=== PATIENT | male | born 1945 | race Caucasian/White ===

== ENCOUNTER 2018-03-21 14:53 | Inpatient (IN) | payer MEDICARE, OTHER ==
[~2018-03-21] VITALS: Ht 175.3 cm; Wt 120.3 kg
[2018-03-21] VITALS (13 sets, daily range): BP systolic 89–145; BP diastolic 54–89
--- NOTE | 2018-03-21 15:14 | ED General ---
General Chief Complaint: Respiratory Problems Stated Complaint: SOA Source of Information: Patient, EMS, Old Records Exam Limitations: No Limitations (ANDRES VILLALBA STUDENT) History of Present Illness Date Seen by Provider: Mar 21, 2018 Time Seen by Provider: 14:50 Initial Comments Patient presented via EMS from clinic with hypoxia with original O2 sat in 60s. EMS noted improvement of sats into the 90s on 6L NC. He was given a duoneb treatment in the ambulance with improvement. His stated that he has been more tired and weak for the past 1-2 weeks. He has also been incontinent of bowel and bladder for about 1 week. He was discharged from the correction following hospitalization in December. Severity: Moderate Modifying Factors: improves with Medication Associated Systoms: No Chest Pain, No Cough, No Fever/Chills, No Headaches; Malaise; No Nausea/Vomiting; Shortness of Air; No Syncope; Weakness (ANDRES MORSE STUDENT) Initial Comments Here with hypoxia from the clinic. Did respond to albuterol and DuoNeb treatment as well as O2 via nasal cannula. reports increasing weakness over the last week. Also with incontinence of urine. Typically has diarrhea and that is long-standing. Usually he is able to ambulate to the bathroom with walker assistance. Timing/Duration: 1 Week Associated Systoms: Cough, Shortness of Air, Weakness (MAEVE DUMONT MD) Allergies and Home Medications Allergies Coded Allergies: Penicillins (Verified Allergy, Unknown, 03/21/18) tetanus and diphtheria toxoids (Verified Allergy, Unknown, 03/21/18) Patient Home Medication List Home Medication List Reviewed: Yes (MAEVE DUMONT MD) Review of Systems Review of Systems Constitutional: No chills, No dizziness, No fever; malaise, weakness EENTM: no symptoms reported Respiratory: No cough; short of breath, wheezing Cardiovascular: no symptoms reported Gastrointestinal: other (incontinence) Genitourinary: No decreased output, No dysuria, No frequency; incontinence; No pain Musculoskeletal: no symptoms reported Skin: no symptoms reported Psychiatric/Neurological: Denies Headache, Denies Numbness; Weakness (ANDRES MORSE STUDENT) Respiratory: short of breath, wheezing Cardiovascular: No chest pain, No edema Gastrointestinal: No abdominal pain; diarrhea, other (incontinence) (MAEVE DUMONT MD) All Other Systems Reviewed Negative Unless Noted: Yes (MAEVE DUMONT MD) Past Soqwdsn-Gyafzo-Gzjjre Hx Past Med/Social Hx: Reviewed Nursing Past Med/Soc Hx (MAEVE DUMONT MD) Patient Social History Alcohol Use: Denies Use Recreational Drug Use: No Smoking Status: Former Smoker (MAEVE DUMONT MD) Past Medical History Surgeries: Yes Respiratory: Yes Sleep Apnea Cardiac: Yes High Cholesterol, Hypertension Neurological: Yes Stroke Genitourinary: Yes Renal Failure Gastrointestinal: Yes Diverticulosis Musculoskeletal: No Endocrine: Yes Diabetes, Non-Insulin dep Cancer: Yes Skin (MAEVE DUMONT MD) Family Medical History Reviewed Nursing Family Hx (MAEVE DUMONT MD) No Pertinent Family Hx (MAEVE DUMONT MD) Physical Exam-Suspected Sepsis Physical Exam Vital Signs Vital Signs - First Documented 03/21/18 03/21/18 14:53 14:55 Temp 99.4 Pulse 88 Resp 26 B/P (MAP) 113/83 (93) Pulse Ox 92 O2 Delivery Nasal Cannula O2 Flow Rate 6.00 (MAEVE DUMONT MD) Vital Signs Capillary Refill : (ANDRES VILLALBA STUDENT) Height, Weight, BMI Height: '" Weight: lbs. oz. kg; BMI Method: General Appearance: WD/WN, Mild Distress HEENT: PERRL/EOMI, TMs Normal, Pharynx Normal Neck: Normal Inspection, Non Tender, Supple Respiratory: Chest Non Tender, No Accessory Muscle Use, Crackles (bases), Wheezing (bilateral upper lobes) Cardiovascular: Regular Rate, Rhythm, No Edema, No Murmur, Normal Peripheral Pulses Gastrointestinal: Normal Bowel Sounds, Non Tender, Soft Extremity: Normal Capillary Refill, Non Tender, No Calf Tenderness, No Pedal Edema Neurologic/Psychiatric: Alert, No Motor/Sensory Deficits, Depressed Affect Skin: normal color, damp; No rash Lymphatic: No Adenopathy (ANDRES VILLALBA STUDENT) General Appearance: WD/WN, Mild Distress HEENT: PERRL/EOMI, TMs Normal, Pharynx Normal Neck: Normal Inspection, Non Tender Respiratory: Crackles (bases), Wheezing (bilateral upper lobes) Cardiovascular: Regular Rate, Rhythm, No Edema, No Murmur Gastrointestinal: Non Tender, Soft Back: Normal Inspection, No CVA Tenderness, No Vertebral Tenderness Extremity: Normal Capillary Refill, Non Tender Neurologic/Psychiatric: Alert, Motor Weakness (global) Skin: normal color; No rash (MAEVE DUMONT MD) Focused Exam Lactate Level 03/21/18 15:46: Lactic Acid Level 1.33 (MAEVE DUMONT MD) Lactic Acid Level Laboratory Tests Test 03/21/18 15:46 Lactic Acid Level 1.33 MMOL/L (0.50-2.00) (MAEVE DUMONT MD) Progress/Results/Core Measures Suspected Sepsis SIRS Temperature: Pulse: Respiratory Rate: Laboratory Tests 03/21/18 14:50: White Blood Count 10.5 Blood Pressure / Mean: 03/21/18 15:46: Lactic Acid Level 1.33 Laboratory Tests 03/21/18 14:50: Platelet Count 171 03/21/18 15:46: Creatinine 1.18, Total Bilirubin 0.6 (ANDRES VILLALBA) Results/Orders Lab Results Laboratory Tests Test 03/21/18 14:50 03/21/18 15:46 03/21/18 16:28 Range/Units White Blood Count 10.5 4.3-11.0 10^3/uL Red Blood Count 3.58 L 4.35-5.85 10^6/uL Hemoglobin 8.0 L 13.3-17.7 G/DL Hematocrit 30 L 40-54 % Mean Corpuscular Volume 84 80-99 FL Mean Corpuscular Hemoglobin 22 L 25-34 PG Mean Corpuscular Hemoglobin Concent 27 L 32-36 G/DL Red Cell Distribution Width 19.2 H 10.0-14.5 % Platelet Count 171 130-400 10^3/uL Mean Platelet Volume 7.4-10.4 FL Neutrophils (%) (Auto) 69 42-75 % Lymphocytes (%) (Auto) 17 12-44 % Monocytes (%) (Auto) 12 0-12 % Eosinophils (%) (Auto) 1 0-10 % Basophils (%) (Auto) 0 0-10 % Neutrophils # (Auto) 7.3 1.8-7.8 X 10^3 Lymphocytes # (Auto) 1.7 1.0-4.0 X 10^3 Monocytes # (Auto) 1.3 H 0.0-1.0 X 10^3 Eosinophils # (Auto) 0.2 0.0-0.3 10^3/uL Basophils # (Auto) 0.0 0.0-0.1 10^3/uL Prothrombin Time 20.4 H 12.2-14.7 SEC INR Comment 1.7 H 0.8-1.4 Activated Partial Thromboplast Time 35 24-35 SEC Sodium Level 143 135-145 MMOL/L Potassium Level 4.3 3.6-5.0 MMOL/L Chloride Level 109 H 98-107 MMOL/L Carbon Dioxide Level 25 21-32 MMOL/L Anion Gap 9 5-14 MMOL/L Blood Urea Nitrogen 22 H 7-18 MG/DL Creatinine 1.18 0.60-1.30 MG/DL Estimat Glomerular Filtration Rate > 60 BUN/Creatinine Ratio 19 Glucose Level 107 H 70-105 MG/DL Lactic Acid Level 1.33 0.50-2.00 MMOL/L Calcium Level 7.8 L 8.5-10.1 MG/DL Corrected Calcium 8.6 8.5-10.1 MG/DL Total Bilirubin 0.6 0.1-1.0 MG/DL Aspartate Amino Transf (AST/SGOT) 19 5-34 U/L Alanine Aminotransferase (ALT/SGPT) 10 0-55 U/L Alkaline Phosphatase 76 40-136 U/L Total Protein 5.5 L 6.4-8.2 GM/DL Albumin 3.0 L 3.2-4.5 GM/DL Urine Color YELLOW Urine Clarity CLEAR Urine pH 5 5-9 Urine Specific [place] 1.015 L 1.016-1.022 Urine Protein 2+ H NEGATIVE Urine Glucose (UA) NEGATIVE NEGATIVE Urine Ketones NEGATIVE NEGATIVE Urine Nitrite NEGATIVE NEGATIVE Urine Bilirubin NEGATIVE NEGATIVE Urine Urobilinogen NORMAL NORMAL MG/DL Urine Leukocyte Esterase NEGATIVE NEGATIVE Urine RBC (Auto) NEGATIVE NEGATIVE Urine RBC NONE /HPF Urine WBC 2-5 /HPF Urine Crystals PRESENT H /LPF Urine Amorphous Sediment FEW CHINO URATES H /LPF Urine Bacteria NONE /HPF Urine Casts NONE /LPF Urine Mucus NEGATIVE /LPF Urine Culture Indicated NO (MAEVE DUMONT MD) My Orders Orders - MAEVE DUMONT MD Cbc With Automated Diff (03/21/18 15:03) Comprehensive Metabolic Panel (03/21/18 15:03) Blood Culture (2/5/19 15:03) Sputum Culture (03/21/18 15:03) Urinalysis (03/21/18 15:03) Urine Culture (03/21/18 15:03) Protime With Inr (03/21/18 15:03) Partial Thromboplastin Time (03/21/18 15:03) Chest 1 View, Ap/Pa Only (03/21/18 15:03) Saline Lock/Iv-Start (03/21/18 15:03) Saline Lock/Iv-Start (03/21/18 15:03) Vital Signs Adult Sepsis Patie Q15M (03/21/18 15:03) O2 (03/21/18 15:03) Remove Rings In Anticipation O (03/21/18 15:03) Lactic Acid Analyzer (03/21/18 15:03) Ns Iv 1000 Ml (Sodium Chloride 0.9%) (03/21/18 16:27) Cefepime Injection (Maxipime Injection) (03/21/18 18:30) Ns (Ivpb) (Sodium Chloride 0.9% Ivpb Bag (03/21/18 18:23) Methylprednisolone Sod Succ (Solu-Medrol (03/21/18 18:29) Warfarin Tablet (Coumadin Tablet) (03/21/18 18:45) (MAEVE DUMONT MD) Medications Given in ED Current Medications Medications Dose Ordered Sig/Gema Route Start Time Stop Time Status Last Admin Dose Admin Cefepime HCl 2000 mg/Sterile Water 20 ml @ 240 mls/hr ONCE ONCE IV 03/21/18 18:30 03/21/18 18:34 DC 03/21/18 18:46 240 MLS/HR Sodium Chloride 1,000 ml @ ud STK-MED ONCE .ROUTE 03/21/18 16:27 03/21/18 16:32 DC 03/21/18 16:35 1,000 MLS/HR (MAEVE DUMONT MD) Vital Signs/I&O 03/21/18 03/21/18 03/21/18 14:53 14:55 16:36 Temp 99.4 99.6 Pulse 88 84 Resp 26 22 B/P (MAP) 113/83 (93) 103/68 (80) Pulse Ox 92 92 93 O2 Delivery Nasal Cannula Nasal Cannula Nasal Cannula O2 Flow Rate 6.00 6.00 (MAEVE DUMONT MD) Vital Signs/I&O Capillary Refill : (ANDRES VILLALBA STUDENT) Progress Note : Progress Note Seen and evaluated the patient and agree with above except as indicated. I have directed the plan of care. Patient is overall very weak and incontinence noted and reported. Sepsis workup initiated. IV by EMS. Labs, chest x-ray and O2 ordered. Monitor patient. Normal saline 1 L bolus. Patient was found to have bilateral lower lobe pneumonia. Cefepime 2 g IV ordered. 1720: I did discuss the findings concerns with the patient's who agrees with admission. Admit, inpatient status. I discussed case with Dr. RODRIGUEZ who accepts patient for admission. 1830: Patient is due his Coumadin dosing. It appears that he is on 4 mg daily and this is what we will give now.We will give Solu-Medrol 125 mg IV times one now. Admission, inpatient status. Family agrees with plan. In discussion with the , patient is DO NOT INTUBATE but otherwise okay for resuscitation. (MAEVE DUMONT MD) Diagnostic Imaging Diagonstic Imaging: Xray Plain Films/CT/US/NM/MRI: chest Comments NAME: RENA GUERRERO [facility] REC#: [id number] PT STATUS: REG ER : 1945 PHYSICIAN: MAEVE DUMONT MD ADMIT DATE: 03/21/18/ER Signed Date of Exam: 03/21/18 CHEST 1 VIEW, AP/PA ONLY INDICATION: Shortness of breath. Frontal chest obtained at 3:30 p.m. FINDINGS: There is cardiomegaly. There is patchy infiltrate in both lung bases with central vascular congestion. There is no pneumothorax or gross pleural fluid. IMPRESSION: Cardiomegaly and central vascular congestion and patchy bilateral infiltrates suspicious for pneumonia. Dictated by: Dictated on workstation # [id number] Dict: 03/21/18 1546 Trans: 03/21/18 1613 Interpreted by: CELESTE CORTES MD Electronically signed by: CELESTE CORTES MD 03/21/18 1615 (MAEVE DUMONT MD) Departure Communication (Admissions) Time/Spoke to Admitting Phy: 17:20 (MAEVE DUMONT MD) Impression Primary Impression: Pneumonia of both lower lobes Qualified Codes: J18.1 - Lobar pneumonia, unspecified organism Disposition: ADMITTED INPATIENT Condition: Stable Admissions Decision to Admit Reason: Admit from ER (General) Decision to Admit/Date: Mar 21, 2018 Time/Decision to Admit Time: 17:20 (MAEVE DUMONT MD) Departure-Patient Inst. Referrals: NO,LOCAL PHYSICIAN (PCP/Family) Primary Care Physician ANDRES VILLALBA Mar 21, 2018 15:14 MAEVE DUMONT MD Mar 21, 2018 18:16
--- NOTE | 2018-03-21 15:22 | NUR ---
pt appears to be very weak et tired.
[2018-03-21 15:34] LABS: BASOPHILS % (AUTO) 0 % (0-10); EOSINOPHILS # (AUTO) 0.2 10^3/uL (0.0-0.3); EOSINOPHILS % (AUTO) 1 % (0-10); HEMATOCRIT 30 % (40-54); LYMPHOCYTES # (AUTO) 1.7 X 10^3 (1.0-4.0); LYMPHOCYTES % (AUTO) 17 % (12-44); MEAN CORPUSCULAR HEMOGLOBIN 22 PG (25-34); MEAN CORPUSCULAR HGB CONC 27 G/DL (32-36); MEAN CORPUSCULAR VOLUME 84 FL (80-99); MONOCYTES # (AUTO) 1.3 X 10^3 (0.0-1.0); MONOCYTES % (AUTO) 12 % (0-12); NEUTROPHILS # (AUTO) 7.3 X 10^3 (1.8-7.8); NEUTROPHILS % (AUTO) 69 % (42-75); PLATELET COUNT 171 10^3/uL (130-400); RED CELL DISTRIBUTION WIDTH 19.2 % (10.0-14.5); WHITE BLOOD COUNT 10.5 10^3/uL (4.3-11.0)
--- NOTE | 2018-03-21 15:50 | Diagnostic Imaging Report ---
INDICATION: Shortness of breath. Frontal chest obtained at 3:30 p.m. FINDINGS: There is cardiomegaly. There is patchy infiltrate in both lung bases with central vascular congestion. There is no pneumothorax or gross pleural fluid. IMPRESSION: Cardiomegaly and central vascular congestion and patchy bilateral infiltrates suspicious for pneumonia. Dictated by: Dictated on workstation # [id number]
[2018-03-21 16:22] LABS: ALANINE AMINOTRANSFERASE 10 U/L (0-55); ALKALINE PHOSPHATASE 76 U/L (40-136); BILIRUBIN,TOTAL 0.6 MG/DL (0.1-1.0); BUN/CREATININE RATIO 19; CALCIUM 7.8 MG/DL (8.5-10.1); CARBON DIOXIDE 25 MMOL/L (21-32); CHLORIDE 109 MMOL/L (98-107); CREATININE SERUM 1.18 MG/DL (0.60-1.30); GFR ESTIMATED > 60; GLUCOSE 107 MG/DL (70-105); POTASSIUM 4.3 MMOL/L (3.6-5.0); SODIUM 143 MMOL/L (135-145); TOTAL PROTEIN 5.5 GM/DL (6.4-8.2)
[2018-03-21] MEDS ORDERED: NS IV 1000 ML 1,000 ML ONE (16:27)
[2018-03-21 16:34] LABS: BILIRUBIN,URINE NEGATIVE (NEGATIVE); CLARITY,URINE CLEAR; COLOR,URINE YELLOW; GLUCOSE, URINE (UA) NEGATIVE (NEGATIVE); KETONES,URINE NEGATIVE (NEGATIVE); LEUKOCYTE ESTERASE ,URINE NEGATIVE (NEGATIVE); NITRITE,URINE NEGATIVE (NEGATIVE); PH,URINE 5 (5-9); PROTEIN,URINE 2+ (NEGATIVE); UROBILINOGEN,URINE NORMAL (NORMAL)
[2018-03-21 16:45] LABS: AMORPHOUS SEDIMENT,UR FEW AMOR URATES /LPF
[2018-03-21 16:47] LABS: INR 1.7 (0.8-1.4); PROTHROMBIN TIME PATIENT 20.4 SEC (12.2-14.7)
[2018-03-21] MEDS ORDERED: METF-399 PO (17:17)
[2018-03-21] MEDS ORDERED: GLIP10TA13 PO (17:19)
[2018-03-21] MEDS ORDERED: ZOLP5TAB PO (17:20)
[2018-03-21] MEDS ORDERED: ROPI1TAB40 PO (17:22)
[2018-03-21] MEDS ORDERED: ATOR10TA66 PO (17:24)
[2018-03-21] MEDS ORDERED: WARF-48 (17:24)
[2018-03-21] MEDS ORDERED: WARF4TAB70 PO (17:24)
[2018-03-21] MEDS ORDERED: FLUT16SP22 NS (17:24)
[2018-03-21] MEDS ORDERED: FLUO20CA42 PO (17:25)
--- NOTE | 2018-03-21 17:31 | NUR ---
pt resting restlessly. has gone home but left her phone number. requested passcode but ER doesn't give passcodes out states charge nurse RN
[2018-03-21] MEDS ORDERED: NS (IVPB) 50 ML ONE (18:23)
[2018-03-21] MEDS ORDERED: methylPREDNISolone 125 MG (Solu-MEDROL) VIAL IV STA (18:29)
[2018-03-21] MEDS ORDERED: CEFEPIME INJECTION 2,000 MG in WATER (STERILE) FOR INJECTION 20 ML IV ONE (18:30)
--- NOTE | 2018-03-21 18:43 | NUR ---
pt resting with eyes closed, no complaints at this time
[2018-03-21] MEDS ORDERED: warFARin 2 MG (COUMADIN) TAB PO ONE (18:45)
[2018-03-21] MEDS ORDERED: ACETAMINOPHEN 325 MG TABLET PO PRN (20:30)
[2018-03-21] MEDS ORDERED: CATHETER FLUSH 10 ML SYR IV PRN (20:30)
[2018-03-21] MEDS ORDERED: ONDANSETRON 4 MG/2 ML (SDV) Z0FRAN IV PRN (20:30)
--- NOTE | 2018-03-21 20:37 | NUR ---
THIS RN CALLED DR. RODRIGUEZ TO REQUEST ICU STATUS, PT WILL OPEN EYES BUT NONVERBAL UPON ARRIVAL, LABORED BREATHING USING ACCESSORY MUSCLES. DR. RODRIGUEZ OK CHANGING PT TO ICU STATUS.
[2018-03-21] MEDS ORDERED: RT-ALBUTEROL/IPRATROPIUM 3 ML (DUONEB) VIAL ONE (20:42)
[2018-03-21 20:51] LABS: ABG BASE EXCESS 0.2 MMOL/L (-2.5-2.5); ABG OXYGEN SATURATION 90 % (94-100); ABG PO2 72 MMHG (79-93); ABG TCO2 29.9 MMOL/L (21.0-31.0)
[2018-03-21 20:53] LABS: ABG PCO2 74 MMHG (35-45); ABG PH 7.19 (7.37-7.43); ALLENS TEST POSITIVE; INSPIRED O2 6LNC; PATIENT TEMP 98.2; VENTILATOR NO
--- NOTE | 2018-03-21 20:53 | NUR ---
This RN called EICU to notify of pt low blood pressure, pt responsive only to painful stimuli and ABG results. Pt now on BiPAP repeat ABG ordered for midnight. At 2154 this RN called EICU to notify of pt low blood pressure. No new orders at this time. 0053 this RN called EICU to notify of pt ABG results. Mentation improving, pt talking at this time. Still wearing BiPAP.
[2018-03-21] MEDS: NS IV 1000 ML 1,000 ML IV SCH (21:50)
[2018-03-21] MEDS ORDERED: PANTOPRAZOLE 40 MG (PROTONIX) VIAL IV ONE (23:15)
[2018-03-21] MEDS ORDERED: FAMOTIDINE 20MG/2ML IV (PEPCID) IV ONE (23:15)
[2018-03-22] VITALS (33 sets, daily range): BP systolic 86–138; BP diastolic 50–89
[2018-03-22] MEDS ORDERED: methylPREDNISolone 40 MG/ML (Solu-MEDROL) VIAL IV SCH
[2018-03-22 00:51] LABS: ABG BASE EXCESS -0.7 MMOL/L (-2.5-2.5); ABG OXYGEN SATURATION 92 % (94-100); ABG PCO2 61 MMHG (35-45); ABG PO2 75 MMHG (79-93); ABG TCO2 27.6 MMOL/L (21.0-31.0); ALLENS TEST YES-POS; INSPIRED O2 35% BIPAP; VENTILATOR NO
[2018-03-22 00:52] LABS: PATIENT TEMP 98.4
[2018-03-22 00:53] LABS: ABG PH 7.25 (7.37-7.43)
[2018-03-22] MEDS: CEFEPIME 1,000 MG/SWFI 10 ML IV PUSH IV SCH ×8 (01:48→17:07)
[2018-03-22 03:54] LABS: BASOPHILS % (AUTO) 0 % (0-10); EOSINOPHILS % (AUTO) 0 % (0-10); HEMATOCRIT 30 % (40-54); HEMOGLOBIN 7.6 G/DL (13.3-17.7); LYMPHOCYTES # (AUTO) 0.5 X 10^3 (1.0-4.0); LYMPHOCYTES % (AUTO) 8 % (12-44); MEAN CORPUSCULAR HEMOGLOBIN 22 PG (25-34); MEAN CORPUSCULAR HGB CONC 26 G/DL (32-36); MEAN CORPUSCULAR VOLUME 86 FL (80-99); MEAN PLATELET VOLUME 12.4 FL (7.4-10.4); MONOCYTES # (AUTO) 0.1 X 10^3 (0.0-1.0); MONOCYTES % (AUTO) 1 % (0-12); NEUTROPHILS # (AUTO) 5.7 X 10^3 (1.8-7.8); NEUTROPHILS % (AUTO) 91 % (42-75); PLATELET COUNT 109 10^3/uL (130-400); RED CELL DISTRIBUTION WIDTH 18.7 % (10.0-14.5); WHITE BLOOD COUNT 6.3 10^3/uL (4.3-11.0)
[2018-03-22] MEDS ORDERED: RT-ALBUTEROL SULF 2.5 MG/3 ML PRE-MIX VIAL INH PRN (04:00)
[2018-03-22 04:22] LABS: BILIRUBIN,TOTAL 0.7 MG/DL (0.1-1.0); CALCIUM 7.7 MG/DL (8.5-10.1); CREATININE SERUM 1.19 MG/DL (0.60-1.30); PHOSPHORUS 3.8 MG/DL (2.3-4.7); POTASSIUM 4.7 MMOL/L (3.6-5.0); TOTAL PROTEIN 5.4 GM/DL (6.4-8.2)
[2018-03-22 04:30] LABS: BAND NEUTROPHILS 0 %; BASOPHILS % (MANUAL) 0 %; EOSINOPHILS % (MANUAL) 0 %; LYMPHOCYTES % (MANUAL) 4 %; MONOCYTES % (MANUAL) 1 %; NEUTROPHILS % (MANUAL) 95 %
[2018-03-22 04:31] LABS: ANISOCYTOSIS MODERATE; HYPOCHROMASIA MARKED; NUCLEATED RED BLOOD CELLS 4; POIKILOCYTOSIS SLIGHT; POLYCHROMASIA SLIGHT; TEAR DROP CELLS SLIGHT
--- NOTE | 2018-03-22 05:34 | Pulmonary Consultation ---
History of Present Illness History of Present Illness Date of Consultation 03/22/18 05:28 Time Seen by Provider: 05:40 Date of Admission History of Present Illness 72yo presented as direct admit form [facility] [facility] seconday to bilateral PNA and hypoxia. Pt is requiring BiPAP secondary to respiratory distress. Pt has been started on empiric abx. I am consulted for pulmonary management. Allergies and Home Medications Allergies Coded Allergies: Penicillins (Verified Allergy, Unknown, 03/21/18) tetanus and diphtheria toxoids (Verified Allergy, Unknown, 03/21/18) Home Medications Atorvastatin Calcium 10 Mg Tablet, 10 MG PO HS, (Reported) Ciprofloxacin HCl 2.5 Ml Drops, 1 DROP OD QID, (Reported) 10 DAY SUPPLY FILLED 03-20-18 Fluoxetine HCl 20 Mg Capsule, 20 MG PO DAILY, (Reported) Fluticasone Propionate 16 Gm [place].susp, 2 SPRAYS NS DAILY PRN for ALLERGIES, ( Reported) Glipizide 10 Mg Tablet, 10 MG PO BID, (Reported) Latanoprost 2.5 Ml Drops, 1 DROP OU HS, (Reported) Metformin HCl 1,000 Mg Tablet, 1,000 MG PO BID, (Reported) Ropinirole HCl 1 Mg Tablet, 1 MG PO 1830, (Reported) Warfarin Sodium 4 Mg Tablet, 4 MG PO 1800, (Reported) Zolpidem Tartrate 5 Mg Tablet, 5 MG PO MoWeFrSa, (Reported) Past Mnajtec-Jynong-Bnifko Hx Past Med/Social Hx: Reviewed Nursing Past Med/Soc Hx Patient Social History Alcohol Use: Denies Use Recreational Drug Use: No Smoking Status: Former Smoker Recent Foreign Travel: No Contact w/Someone Who Travel: No Recent Infectious Disease Expo: No Past Medical History Surgeries: Yes Respiratory: Yes Sleep Apnea Cardiac: Yes High Cholesterol, Hypertension Neurological: Yes Stroke Genitourinary: Yes Renal Failure Gastrointestinal: Yes Diverticulosis Musculoskeletal: No Endocrine: Yes Diabetes, Non-Insulin dep Cancer: Yes Skin Family Medical History Reviewed Nursing Family Hx No Pertinent Family Hx Review of Systems Time Seen by Provider: 05:40 Constitutional: Fever, Sweats, Weakness, Malaise Eyes: No: Pain, Vision change, Conjunctivae inflammation, Eyelid inflammation, Other, Redness ENT: No: Ear pain, Ear discharge, Nose pain, Nose discharge, Nose congestion, Mouth pain, Mouth swelling, Throat pain, Throat swelling, Other Respiratory: Cough, Dry, Shortness of breath, SOB with excertion Sepsis Event Evaluation Height, Weight, BMI Height: 5'9.00" Weight: 246lbs. 1.0oz. 111.487067qs; 36.3 BMI Method:Estimated Exam Exam Vital Signs Date Time Temp Pulse Resp B/P (MAP) Pulse Ox O2 Delivery O2 Flow Rate FiO2 03/22/18 04:00 69 19 112/72 (85) 95 NIV Bilevel 45.00 03/22/18 03:48 75 98 03/22/18 03:00 68 19 99/66 (77) 94 NIV Bilevel 45.00 03/22/18 02:31 75 19 126/83 (97) 98 NIV Bilevel 45.00 03/22/18 02:00 69 18 119/89 (99) 97 NIV Bilevel 35.00 03/22/18 01:00 73 17 138/83 (101) 94 NIV Bilevel 35.00 03/22/18 01:00 73 03/22/18 00:00 NIV Bilevel 03/22/18 00:00 98.4 03/22/18 00:00 66 14 127/82 (97) 91 NIV Bilevel 35.00 03/21/18 23:00 75 13 145/89 (107) 92 NIV Bilevel 35.00 03/21/18 22:55 64 19 92 NIV Bilevel 35.00 03/21/18 22:00 69 16 100/64 (76) 93 NIV Bilevel 40.00 03/21/18 21:58 98.4 78 18 103/64 (77) 91 Nasal Cannula 6.00 03/21/18 21:45 74 14 97/70 (79) 94 NIV Bilevel 40.00 03/21/18 21:32 76 19 97/67 (77) 93 NIV Bilevel 40.00 03/21/18 21:30 74 16 93 40.00 03/21/18 21:24 73 15 100/54 (69) 92 NIV Bilevel 40.00 03/21/18 21:15 78 23 89/62 (71) 94 NIV Bilevel 40.00 03/21/18 21:00 85 21 106/68 (81) 94 NIV Bilevel 40.00 03/21/18 20:45 76 19 116/67 (83) NIV Bilevel 40.00 03/21/18 20:31 82 25 124/77 (93) 91 OxyMask 10.00 03/21/18 20:20 85 03/21/18 20:20 85 20 111/80 (90) 91 OxyMask 10.00 03/21/18 20:15 OxyMask 10.00 03/21/18 20:13 98.2 03/21/18 16:36 99.6 84 22 103/68 (80) 93 Nasal Cannula 6.00 03/21/18 14:55 92 Nasal Cannula 6.00 03/21/18 14:53 99.4 88 26 113/83 (93) 92 Nasal Cannula I & O 03/22/18 07:00 Intake Total 0 ml Output Total 350 ml Balance -350 ml Height & Weight Height: 5'9.00" Weight: 246lbs. 1.0oz. 111.278499vh; 36.3 BMI Method:Estimated General Appearance: WD/WN, Mild Distress HEENT: PERRL/EOMI, TMs Normal, Pharynx Normal Neck: Normal Inspection, Non Tender Respiratory: Crackles (bases), Wheezing (bilateral upper lobes) Cardiovascular: Regular Rate, Rhythm, No Edema, No Murmur Capillary Refill: Less Than 3 Seconds Extremity: Normal Capillary Refill, Non Tender Neurologic/Psychiatric: Alert, Motor Weakness (global) Lymphatic: No Adenopathy Results Lab Laboratory Tests 03/21/18 14:50 03/21/18 15:46 03/21/18 23:55 03/22/18 03:30 Assessment/Plan Assessment/Plan Acute on chronic respiratory failure -Currently on BiPAP -Trial pt off BiPAP and repeat ABG in 1 hr Pneumonia -Comer cultures -Continue abx Anemia -Protonix BID -check occult -Check Q6 H&H Hypotension with decrease UO -IVF give a liter bolus -Increase IVF to 150 DM -Metabolic encephalopathy RAQUEL NOYOLA DO Mar 22, 2018 05:33
[2018-03-22] MEDS ORDERED: NS IV 1000 ML 1,000 ML IV SCH (05:45)
[2018-03-22] MEDS: methylPREDNISolone 40 MG/ML (Solu-MEDROL) VIAL IV SCH ×3 (06:31→17:07)
[2018-03-22] MEDS: RT-ALBUTEROL/IPRATROPIUM 3 ML (DUONEB) VIAL INH SCH ×5 (07:01→22:12)
--- NOTE | 2018-03-22 08:20 | Diagnostic Imaging Report ---
INDICATION: Hypoxia FINDINGS: Bilateral infiltrates showed a substantial improvement from the exam of one day prior. There does appear to be a small amount of left-sided pleural fluid and elevation of the left diaphragm. No pneumothorax or adverse change. IMPRESSION: Improvements in predominantly lower lung infiltrates consistent with radiographic improvement in pneumonia. No pneumothorax or adverse change. Dictated by: Dictated on workstation # [id number]
[2018-03-22] MEDS: PANTOPRAZOLE 40 MG (PROTONIX) VIAL IV SCH ×2 (08:25→20:54)
[2018-03-22] MEDS: NS IV 1000 ML 1,000 ML IV SCH ×2 (08:25→15:15)
[2018-03-22] MEDS ORDERED: PANTOPRAZOLE 40 MG (PROTONIX) VIAL IV SCH (09:00)
[2018-03-22 09:48] LABS: HEMOGLOBIN 7.8 G/DL (13.3-17.7)
[2018-03-22] MEDS: inSUlin ASPART (NovoLOG) 1 UNIT/0.01 ML (CHARGE PER UNIT) SQ SCH ×3 (11:07→20:54)
--- NOTE | 2018-03-22 11:30 | NUR ---
Pastoral care visit, shared departments availability and offered support and prayer.
--- NOTE | 2018-03-22 11:53 | History & Physical-Hospitalist ---
History of Present Illness HPI/Chief Complaint Chief complaint: shortness of breath HPI: This is a 72yoWM of [place] out of [place] who presents with B/L Pneumonia and Hypoxia requiring Bi-PAP use. Pt was placed on empiric antibiotics and currently still confused but feels like he is breathing better so unable to obtain any other details Dr Carrillo is appreciated in his expertise Source: patient Exam Limitations: no limitations, other (confusion) Date Seen 03/22/18 Time Seen by a Provider: 10:30 Attending Physician David Pang MD PCP No,Local Physician Referring Physician Date of Admission Mar 21, 2018 at 18:15 Home Medications & Allergies Home Medications Reviewed patient Home Medication Reconciliation performed by pharmacy medication reconciliations hydraulic controls technician and/or nursing. Patients Allergies have been reviewed. Allergies Allergies Coded Allergies Penicillins (Verified Allergy, Unknown, 03/21/18) tetanus and diphtheria toxoids (Verified Allergy, Unknown, 03/21/18) Past Tmywxbw-Jegacr-Motsmd Hx Past Med/Social Hx: Reviewed Nursing Past Med/Soc Hx, Reviewed and Corrections made Patient Social History Alcohol Use: Denies Use Recreational Drug Use: No Smoking Status: Former Smoker Recent Foreign Travel: No Contact w/other who traveled: No Recent Infectious Disease Expo: No Past Medical History Cardiac: High Cholesterol, Hypertension Neurological: Stroke Genitourinary: Renal Failure Gastrointestinal: Diverticulosis Endocrine: Diabetes, Non-Insulin dep Cancer: Skin Family History Reviewed Nursing Family Hx No Pertinent Family Hx Review of Systems Constitutional: see HPI (confused) Physical Exam Physical Exam Vital Signs Vital Signs - First Documented 03/21/18 03/21/18 14:53 14:55 Temp 99.4 Pulse 88 Resp 26 B/P (MAP) 113/83 (93) Pulse Ox 92 O2 Delivery Nasal Cannula O2 Flow Rate 6.00 Capillary Refill : Less Than 3 Seconds Height, Weight, BMI Height: 5'9.00" Weight: 246lbs. 4.0oz. 111.992555cg; 36.3 BMI Method:Estimated General Appearance: WD/WN, Anxious, Chronically ill, Mild Distress Eyes: Bilateral Eye Normal Inspection, Bilateral Eye PERRL HEENT: PERRL/EOMI, Pharynx Normal Neck: Normal Inspection, Non Tender Respiratory: Crackles (bases), Decreased Breath Sounds, Wheezing (bilateral upper lobes) Cardiovascular: Regular Rate, Rhythm, No Edema, No Murmur Gastrointestinal: Non Tender, Soft Back: Normal Inspection, No CVA Tenderness, No Vertebral Tenderness Extremity: Normal Capillary Refill, Non Tender Neurologic/Psychiatric: Alert, Disoriented, Motor Weakness (global) Skin: Normal Color, Warm/Dry Lymphatic: No Adenopathy Results Results/Procedures Labs Laboratory Tests 03/21/18 14:50 03/21/18 15:46 03/21/18 23:55 03/22/18 03:30 03/22/18 09:40 03/22/18 15:05 Patient resulted labs reviewed. Assessment/Plan Admission Diagnosis Assessment: Pneumonia bilateral Respiratory failure maintain on BiPAP Anemia with Hemoccult positive stools Metabolic encephalopathy Diabetes mellitus out of control Mild hypotension Plan: IV fluids Monitor hemoglobin may need transfused Insulin Antibiotics Nebulizer treatments BiPAP Admission Status: Inpatient Order (span 2 midnights) Reason for Inpatient Admission: Resp failure on bipap Diagnosis/Problems Diagnosis/Problems (1) Pneumonia of both lower lobes Status: Acute Qualifiers: Pneumonia type: due to unspecified organism Qualified Codes: J18.1 - Lobar pneumonia, unspecified organism (2) Sepsis Status: Acute Qualifiers: Sepsis type: sepsis due to unspecified organism Qualified Codes: A41.9 - Sepsis, unspecified organism (3) Anemia Status: Acute Qualifiers: Anemia type: unspecified type Qualified Codes: D64.9 - Anemia, unspecified (4) Hyperglycemia Status: Acute (5) Diabetes mellitus Status: Chronic Qualifiers: Diabetes mellitus type: type 2 Diabetes mellitus termite control technician insulin use: with longterm use Diabetes mellitus complication status: with circulatory complication (6) Occult blood in stools Status: Acute (7) Encephalopathy acute Status: Acute Clinical Quality Measures DVT/VTE Risk/Contraindication: Risk Factor Score Per Nursin RFS Level Per Nursing on Admit: 4+=Very High DAVION JANE DO Mar 22, 2018 11:53
[2018-03-22 12:14] LABS: ABG BASE EXCESS -3.2 MMOL/L (-2.5-2.5); ABG OXYGEN SATURATION 88 % (94-100); ABG PCO2 46 MMHG (35-45); ABG PO2 58 MMHG (79-93); ABG TCO2 23.7 MMOL/L (21.0-31.0)
[2018-03-22 12:25] LABS: INSPIRED O2 5 L; PATIENT TEMP 97.9; VENTILATOR NO
[2018-03-22] MEDS ORDERED: FLUO20CA25 PO (12:28)
[2018-03-22] MEDS ORDERED: TAMS0.4C2 PO (12:28)
[2018-03-22] MEDS ORDERED: ROPI1TAB2 PO (12:28)
[2018-03-22] MEDS ORDERED: LATA2.5D5 OU (12:28)
[2018-03-22] MEDS ORDERED: CIPR2.5D2 OD (12:28)
[2018-03-22] MEDS ORDERED: ZOLP5TAB7 PO (12:28)
--- NOTE | 2018-03-22 12:34 | NUR ---
CALLED AND WENT OVER THE PATIENTS MEDICATIONS WITH HIS MARTA. SHE HAD A LIST AND I COMPARED IT WITH WHAT HAS BEEN FILLED RECENTLY ACCORDING TO THE EXT MED HX. HE FILLED FLOMAX #90 03-12-18 HOWEVER SHE STATES SHE HAS STOPPED GIVING THAT TO HIM THIS PAST 5 DAYS DUE TO INCONTINENCE, SHE WAS UNSURE IF THAT WOULD EFFECT THAT. I REMOVED IT FROM THE MED REC AT THIS TIME. HE FILLED LISINOPRIL IN OCT FOR 90 DAYS HOWEVER SHE STATES THAT WAS STOPPED AND HAS NOT BEEN RESUMED YET.
[2018-03-22 15:18] LABS: HEMOGLOBIN 7.3 G/DL (13.3-17.7)
[2018-03-22] MEDS ORDERED: warFARin 2 MG (COUMADIN) TAB PO SCH (18:00)
[2018-03-22] MEDS ORDERED: CEFEPIME 2,000 MG/SWFI 20 ML IV PUSH IV SCH ×2 (19:00)
[2018-03-23] VITALS (18 sets, daily range): BP systolic 95–144; BP diastolic 58–105
[2018-03-23] MEDS: NS IV 1000 ML 1,000 ML IV SCH ×4 (00:06→16:02)
[2018-03-23] MEDS: CEFEPIME 1,000 MG/SWFI 10 ML IV PUSH IV SCH ×8 (00:07→18:54)
[2018-03-23] MEDS: methylPREDNISolone 40 MG/ML (Solu-MEDROL) VIAL IV SCH ×4 (00:07→18:21)
[2018-03-23] MEDS: RT-ALBUTEROL/IPRATROPIUM 3 ML (DUONEB) VIAL INH SCH ×6 (02:50→22:22)
[2018-03-23 04:04] LABS: BASOPHILS % (AUTO) 0 % (0-10); EOSINOPHILS % (AUTO) 0 % (0-10); HEMATOCRIT 27 % (40-54); LYMPHOCYTES # (AUTO) 0.5 X 10^3 (1.0-4.0); LYMPHOCYTES % (AUTO) 7 % (12-44); MEAN CORPUSCULAR HEMOGLOBIN 22 PG (25-34); MEAN CORPUSCULAR HGB CONC 26 G/DL (32-36); MEAN CORPUSCULAR VOLUME 85 FL (80-99); MONOCYTES # (AUTO) 0.3 X 10^3 (0.0-1.0); MONOCYTES % (AUTO) 4 % (0-12); NEUTROPHILS # (AUTO) 6.1 X 10^3 (1.8-7.8); NEUTROPHILS % (AUTO) 89 % (42-75); PLATELET COUNT 108 10^3/uL (130-400); RED CELL DISTRIBUTION WIDTH 18.9 % (10.0-14.5); WHITE BLOOD COUNT 6.9 10^3/uL (4.3-11.0)
[2018-03-23 04:39] LABS: INR 2.4 (0.8-1.4); PROTHROMBIN TIME PATIENT 26.2 SEC (12.2-14.7)
[2018-03-23 05:00] LABS: CALCIUM 7.1 MG/DL (8.5-10.1); CREATININE SERUM 1.39 MG/DL (0.60-1.30); MAGNESIUM 1.9 MG/DL (1.8-2.4); POTASSIUM 4.3 MMOL/L (3.6-5.0)
[2018-03-23] MEDS: inSUlin ASPART (NovoLOG) 1 UNIT/0.01 ML (CHARGE PER UNIT) SQ SCH ×4 (06:27→20:36)
--- NOTE | 2018-03-23 07:15 | Pulmonary Progress Note ---
Subjective Time Seen by a Provider: 07:55 Subjective/Events-last exam Pt is doing better. No complications noted. Sepsis Event Evaluation Height, Weight, BMI Height: 5'9.00" Weight: 250lbs. 7.0oz. 113.837533by; 36.3 BMI Method:Estimated Focused Exam Lactate Level 03/21/18 15:46: Lactic Acid Level 1.33 03/21/18 23:55: Lactic Acid Level 0.95 Exam Exam Vital Signs Date Time Temp Pulse Resp B/P (MAP) Pulse Ox O2 Delivery O2 Flow Rate FiO2 03/23/18 06:00 71 134/85 (101) High Flow N/C 5.00 03/23/18 05:00 73 138/78 (98) High Flow N/C 5.00 03/23/18 04:00 97.3 03/23/18 04:00 68 130/79 (96) High Flow N/C 5.00 03/23/18 04:00 High Flow N/C 5.00 03/23/18 03:00 73 124/79 (94) 96 High Flow N/C 5.00 03/23/18 02:50 96 High Flow N/C 5.00 03/23/18 02:00 72 110/67 (81) 91 High Flow N/C 5.00 03/23/18 01:00 85 03/23/18 01:00 85 20 111/58 (75) High Flow N/C 5.00 03/23/18 00:00 97.4 03/23/18 00:00 67 27 99/58 (72) 99 High Flow N/C 5.00 03/23/18 00:00 High Flow N/C 5.00 03/22/18 23:00 69 26 106/64 (78) 100 NIV Bilevel 45.00 03/22/18 22:15 67 22 130/88 (102) 96 NIV Bilevel 45.00 03/22/18 22:13 71 21 95 45.00 03/22/18 22:00 76 34 128/89 (102) 95 High Flow N/C 5.00 03/22/18 21:00 66 32 120/75 (90) 90 High Flow N/C 5.00 03/22/18 20:00 High Flow N/C 5.00 2/6/19 20:00 70 18 116/73 (87) 93 High Flow N/C 5.00 03/22/18 20:00 98.6 03/22/18 19:01 80 03/22/18 19:00 70 27 107/63 (78) 98 High Flow N/C 5.00 03/22/18 18:55 96 High Flow N/C 5.00 03/22/18 18:00 74 32 91/54 (66) 94 High Flow N/C 5.00 03/22/18 17:00 74 20 102/58 (73) 94 High Flow N/C 5.00 03/22/18 16:00 74 16 93/50 (64) 93 High Flow N/C 5.00 03/22/18 15:20 High Flow N/C 5.00 03/22/18 15:20 98.2 03/22/18 15:00 83 25 120/84 (96) 98 High Flow N/C 5.00 03/22/18 14:43 66 20 96 45.00 03/22/18 14:00 76 25 116/80 (92) 95 NIV Bilevel 45.00 03/22/18 13:35 NIV Bilevel 45.00 03/22/18 13:00 90 03/22/18 13:00 84 18 132/76 (94) High Flow N/C 5.00 03/22/18 12:00 70 15 92/53 (66) High Flow N/C 5.00 03/22/18 11:45 High Flow N/C 5.00 03/22/18 11:39 92 Nasal Cannula 5.00 03/22/18 11:13 97.9 03/22/18 11:00 81 14 135/80 (98) High Flow N/C 5.00 03/22/18 10:00 80 20 107/86 (93) 93 High Flow N/C 5.00 03/22/18 09:00 79 30 117/86 (96) 94 High Flow N/C 5.00 03/22/18 08:14 98.3 03/22/18 08:00 High Flow N/C 5.00 03/22/18 08:00 68 28 136/84 (101) 95 High Flow N/C 5.00 I & O 03/23/18 07:00 Intake Total 6180 ml Output Total 1175 ml Balance 5005 ml Height & Weight Height: 5'9.00" Weight: 250lbs. 7.0oz. 113.227508un; 36.3 BMI Method:Estimated General Appearance: WD/WN, Mild Distress HEENT: PERRL/EOMI, TMs Normal, Pharynx Normal Neck: Normal Inspection, Non Tender Respiratory: Crackles (bases), Wheezing (bilateral upper lobes) Cardiovascular: Regular Rate, Rhythm, No Edema, No Murmur Capillary Refill: Less Than 3 Seconds Extremity: Normal Capillary Refill, Non Tender Neurologic/Psychiatric: Alert, Motor Weakness (global) Skin: Normal Color, Warm/Dry Lymphatic: No Adenopathy Results Lab Laboratory Tests 03/21/18 14:50 03/21/18 15:46 03/21/18 23:55 03/22/18 03:30 03/22/18 09:40 03/22/18 15:05 03/22/18 21:05 03/23/18 03:25 Assessment/Plan Assessment/Plan Acute on chronic respiratory failure -Pt improved with noninvasive ventilation -Pt will benefit from home vent to mask Pneumonia -Comer cultures -Continue abx Anemia -Protonix BID -check occult stool is positive -Pt may need EGD -transfuse 1 unit PRBC -Pt is anticoagulated with coumadin. Acute renal failure -Monitor Hypotension with decrease UO -improved- continue to monitor RAQUEL BLUM DO Mar 23, 2018 07:15
[2018-03-23] MEDS: PANTOPRAZOLE 40 MG (PROTONIX) VIAL IV SCH ×2 (07:55→20:36)
--- NOTE | 2018-03-23 08:00 | Diagnostic Imaging Report ---
INDICATION: Hypoxia. COMPARISON: 03/22/2018. FINDINGS: Bibasilar pulmonary opacities have not significantly changed allowing for differences in technique. No pleural effusion or pneumothorax. Stable cardiomediastinal silhouette. IMPRESSION: No change in basilar pulmonary opacities. Dictated by: Dictated on workstation # [id number]
--- NOTE | 2018-03-23 10:08 | NUR ---
CM/SS, respond to consult for transport home. Visited with patient who resides with his , daughter Louisa Dacosta, and Louisa's . When RN notified family of patient's discharge, they declined to come get patient due to weather. Regional Training Manager explored taxi and updated Louisa that approximate cost would be $30. Louisa's spouse has agreed to come for patient, they are cleaning off the car that is iced. Louisa indicated 1-2 hour timeline for pickup. Updated ICU staff and patient re same. Addendum: 03/23/18 at 1022 by PER DANIELSON WRONG PATIENT, DISREGARD.
--- NOTE | 2018-03-23 10:24 | NUR ---
CM/SS, respond to consult for vent to mask. [facility] item when patient is medically stable for discharge.
--- NOTE | 2018-03-23 11:40 | Physician Query Clarification ---
PQ-Uncertain Diagnosis Admission/Discharge Admission Date: Mar 21, 2018 at 18:15 Discharge Date: The medical record reflects the following clinical scenario: History/Risk Factors: Pneumonia Acute on chronic respiratory failure with hypoxia Clinical Findings:T 99.4, Pulse 88, Resp 26, BP 113/83, WBC 10.5, Lactic acid 1.33, blood cultures-no growth. Treatment: Cefepime IV Question: Is Sepsis a clinically valid diagnosis after study? Sepsis was documented in the H&P with no further documentation in the medical record. If sepsis is confirmed please clarify if acute on chronic respiratory failure is related to sepsis. Thank you! Please document a response below. PHYSICIAN RESPONSE Diagnosis clinically valid: Yes, Conditon resolved (sepsis due to acute on chronic resp failure) In responding to this query, please exercise your independent professional judgment. The purpose of this communication is to more accurately reflect the complexity of your patients condition. The fact that a question is asked does not imply that any particular answer is desired or expected. Thank you for your timely response to this clarification. Requestors name: Mae Rankin [facility] Phone # ext [phone] or [phone] THIS PHYSICIAN QUERY FORM IS A PERMANENT PART OF THE MEDICAL RECORD MAE RANKIN Mar 23, 2018 11:40 DAVION JANE DO Mar 23, 2018 13:49
--- NOTE | 2018-03-23 11:52 | Progress Note-Hospitalist ---
Subjective HPI/CC On Admission Date Seen by Provider: Mar 23, 2018 Time Seen by Provider: 10:30 Chief complaint: shortness of breath HPI: This is a 72yoWM of [place] out of [place] who presents with B/L Pneumonia and Hypoxia requiring Bi-PAP use. Pt was placed on empiric antibiotics and currently still confused but feels like he is breathing better so unable to obtain any other details Dr Carrillo is appreciated in his expertise Subjective/Events-last exam Patient receiving 1 unit of transfusion today Reports he's had a scope before Confusion seems to have lifted but patient at baseline does not appear to be forthcoming individual and appears to have very minimal positive feedback when conversing Denies any pain currently Breathing better On 5 L high flow Review of Systems Pulmonary: Dyspnea, Cough Focused Exam Lactate Level 03/21/18 15:46: Lactic Acid Level 1.33 03/21/18 23:55: Lactic Acid Level 0.95 Objective Exam Vital Signs Vital Signs Date Time Temp Pulse Resp B/P (MAP) Pulse Ox O2 Delivery O2 Flow Rate FiO2 03/23/18 13:00 86 129/105 (113) High Flow N/C 5.00 03/23/18 12:30 97.5 24 92 Capillary Refill : Less Than 3 Seconds General Appearance: WD/WN, Mild Distress, Obese HEENT: PERRL/EOMI, TMs Normal, Pharynx Normal Neck: Normal Inspection, Non Tender Respiratory: Accessory Muscle Use, Crackles (bases), Decreased Breath Sounds, Respiratory Distress (mild), Wheezing (bilateral upper lobes) Cardiovascular: Regular Rate, Rhythm, No Edema, No Murmur Gastrointestinal: Non Tender, Soft Back: Normal Inspection, No CVA Tenderness, No Vertebral Tenderness Extremity: Normal Capillary Refill, Non Tender Neurologic/Psychiatric: Alert, Motor Weakness (global) Skin: Normal Color, Warm/Dry Lymphatic: No Adenopathy Results/Procedures Lab Laboratory Tests 03/22/18 15:05 03/22/18 21:05 03/23/18 03:25 03/23/18 08:55 Patient resulted labs reviewed. Assessment/Plan Assessment and Plan Assess & Plan/Chief Complaint Assessment: Pneumonia bilateral Respiratory failure s/p BiPAP Anemia with hemoccult positive stools receiving 1 unit of blood now Metabolic encephalopathy improved Diabetes mellitus out of control Mild hypotension Plan: IV fluids Monitor hemoglobin receiving transfusion Insulin Antibiotics Nebulizer treatments BiPAP Diagnosis/Problems Diagnosis/Problems (1) Pneumonia of both lower lobes Status: Acute Qualifiers: Pneumonia type: due to unspecified organism Qualified Codes: J18.1 - Lobar pneumonia, unspecified organism (2) Sepsis Status: Acute Qualifiers: Sepsis type: sepsis due to unspecified organism Qualified Codes: A41.9 - Sepsis, unspecified organism (3) Anemia Status: Acute Qualifiers: Anemia type: unspecified type Qualified Codes: D64.9 - Anemia, unspecified (4) Hyperglycemia Status: Acute (5) Diabetes mellitus Status: Chronic Qualifiers: Diabetes mellitus type: type 2 Diabetes mellitus mcc insulin use: with mcc use Diabetes mellitus complication status: with circulatory complication (6) Occult blood in stools Status: Acute (7) Encephalopathy acute Status: Acute Clinical Quality Measures DVT/VTE Risk/Contraindication: Risk Factor Score Per Nursin RFS Level Per Nursing on Admit: 4+=Very High DAVION JANE DO Mar 23, 2018 11:52
--- NOTE | 2018-03-23 14:00 | NUR ---
PT TRANSFERRED TO [facility] VIA W/ STAFF AND PERSONAL BELONGINGS. REPORT GIVEN TO ALVERTO RENTERIA, NO QUESTIONS/CONCERNS VOICED.
--- NOTE | 2018-03-23 14:00 | NUR ---
Patient transferred to per accompanied by SPORTS THERAPIST BINA. Patient and family notified and understand transfer. Personal belongings with patient. Report given to THIS RN BY SPORTS THERAPIST BINA .
[2018-03-23 15:25] LABS: HEMOGLOBIN 7.7 G/DL (13.3-17.7)
[2018-03-23] MEDS: rOPINIRole 1 MG (REQUIP) TABLET PO SCH (16:44)
[2018-03-23] MEDS: warFARin 2 MG (COUMADIN) TAB PO SCH (18:22)
[2018-03-23] MEDS ORDERED: NON-FORMULARY MEDICATION 1 EA EA (Ropinirole HCl 1 MG) PO SCH (18:30)
--- NOTE | 2018-03-23 18:33 | NUR ---
note that this rn has called pharmacy 3 times about getting 1800 iv Cefepime 100 ml to floor -- and also tubed 2 messages to pharmacy to get to floor
[2018-03-23] MEDS ORDERED: CEFEPIME 1 GM (MAXIPIME) VIAL ONE (23:52)
[2018-03-23] MEDS ORDERED: WATER (STERILE) FOR INJECTION 10 ML ONE (23:52)
[2018-03-24] VITALS (7 sets, daily range): BP systolic 117–135; BP diastolic 62–82
[2018-03-24] MEDS: NS IV 1000 ML 1,000 ML IV SCH ×2 (00:10→05:28)
[2018-03-24] MEDS: CEFEPIME 1,000 MG/SWFI 10 ML IV PUSH IV SCH ×10 (00:10→23:30)
[2018-03-24] MEDS: methylPREDNISolone 40 MG/ML (Solu-MEDROL) VIAL IV SCH ×5 (00:10→23:31)
[2018-03-24] MEDS: RT-ALBUTEROL/IPRATROPIUM 3 ML (DUONEB) VIAL INH SCH ×6 (02:20→19:41)
[2018-03-24 04:35] LABS: BASOPHILS % (AUTO) 0 % (0-10); EOSINOPHILS % (AUTO) 0 % (0-10); HEMATOCRIT 28 % (40-54); HEMOGLOBIN 7.6 G/DL (13.3-17.7); LYMPHOCYTES # (AUTO) 0.3 X 10^3 (1.0-4.0); LYMPHOCYTES % (AUTO) 5 % (12-44); MEAN CORPUSCULAR HEMOGLOBIN 23 PG (25-34); MEAN CORPUSCULAR HGB CONC 27 G/DL (32-36); MEAN CORPUSCULAR VOLUME 85 FL (80-99); MONOCYTES # (AUTO) 0.2 X 10^3 (0.0-1.0); MONOCYTES % (AUTO) 3 % (0-12); NEUTROPHILS # (AUTO) 6.9 X 10^3 (1.8-7.8); NEUTROPHILS % (AUTO) 92 % (42-75); PLATELET COUNT 100 10^3/uL (130-400); RED CELL DISTRIBUTION WIDTH 18.2 % (10.0-14.5); WHITE BLOOD COUNT 7.4 10^3/uL (4.3-11.0)
[2018-03-24 04:45] LABS: INR 2.2 (0.8-1.4); PROTHROMBIN TIME PATIENT 24.2 SEC (12.2-14.7)
[2018-03-24 05:04] LABS: CREATININE SERUM 1.33 MG/DL (0.60-1.30); MAGNESIUM 2.2 MG/DL (1.8-2.4); PHOSPHORUS 2.9 MG/DL (2.3-4.7); POTASSIUM 4.6 MMOL/L (3.6-5.0)
[2018-03-24] MEDS ORDERED: WATER (STERILE) FOR INJECTION 10 ML ONE (05:19)
[2018-03-24] MEDS ORDERED: CEFEPIME 1 GM (MAXIPIME) VIAL ONE (05:19)
[2018-03-24] MEDS: inSUlin ASPART (NovoLOG) 1 UNIT/0.01 ML (CHARGE PER UNIT) SQ SCH ×4 (05:28→20:52)
--- NOTE | 2018-03-24 07:09 | Pulmonary Progress Note ---
Sepsis Event Evaluation Height, Weight, BMI Height: 5'9.00" Weight: 250lbs. 7.0oz. 113.712228px; 36.3 BMI Method:Estimated Focused Exam Lactate Level 03/21/18 15:46: Lactic Acid Level 1.33 03/21/18 23:55: Lactic Acid Level 0.95 Exam Exam Vital Signs Date Time Temp Pulse Resp B/P (MAP) Pulse Ox O2 Delivery O2 Flow Rate FiO2 03/24/18 04:00 98.0 82 18 132/62 (85) 92 High Flow N/C 5.00 5.00 03/24/18 02:20 92 High Flow N/C 5.00 03/24/18 00:00 98.5 86 20 130/65 (86) 92 High Flow N/C 5.00 03/23/18 22:22 92 High Flow N/C 5.00 03/23/18 20:50 78 20 95 45.00 03/23/18 20:00 High Flow N/C 5.00 03/23/18 19:23 99.3 81 20 125/59 (81) 96 High Flow N/C 5.00 03/23/18 18:47 92 High Flow N/C 5.00 03/23/18 16:00 High Flow N/C 5.00 03/23/18 15:48 97.4 84 20 131/67 (88) 98 High Flow N/C 5.00 03/23/18 15:27 94 High Flow N/C 5.00 03/23/18 14:00 High Flow N/C 5.00 03/23/18 13:00 86 129/105 (113) High Flow N/C 5.00 03/23/18 12:30 97.5 89 24 134/82 92 High Flow N/C 5.00 03/23/18 12:00 97 144/98 (113) High Flow N/C 5.00 03/23/18 11:07 97.8 03/23/18 11:07 High Flow N/C 5.00 03/23/18 11:06 92 High Flow N/C 5.00 03/23/18 11:00 73 95/70 (78) 94 High Flow N/C 5.00 03/23/18 10:19 98.1 78 22 109/72 91 High Flow N/C 5.00 03/23/18 10:01 98.2 80 20 115/70 90 High Flow N/C 5.00 03/23/18 10:00 80 115/70 (85) 89 High Flow N/C 5.00 03/23/18 08:19 98.2 03/23/18 08:17 High Flow N/C 5.00 03/23/18 08:00 77 126/76 (93) High Flow N/C 5.00 03/23/18 07:43 92 High Flow N/C 5.00 I & O 03/24/18 07:00 Intake Total 2000 ml Output Total 1275 ml Balance 725 ml Height & Weight Height: 5'9.00" Weight: 250lbs. 7.0oz. 113.693133lb; 36.3 BMI Method:Estimated General Appearance: WD/WN, Mild Distress, Obese HEENT: PERRL/EOMI, TMs Normal, Pharynx Normal Neck: Normal Inspection, Non Tender Respiratory: Accessory Muscle Use, Crackles (bases), Decreased Breath Sounds, Respiratory Distress (mild), Wheezing (bilateral upper lobes) Cardiovascular: Regular Rate, Rhythm, No Edema, No Murmur Capillary Refill: Less Than 3 Seconds Extremity: Normal Capillary Refill, Non Tender Neurologic/Psychiatric: Alert, Motor Weakness (global) Skin: Normal Color, Warm/Dry Lymphatic: No Adenopathy Results Lab Laboratory Tests 03/22/18 09:40 03/22/18 15:05 03/22/18 21:05 03/23/18 03:25 03/23/18 08:55 03/23/18 15:15 03/24/18 04:10 Assessment/Plan Assessment/Plan Acute on chronic respiratory failure -Pt improved with noninvasive ventilation -Pt will benefit from home vent to mask -SW consulted to help arrange vent to mask -Check BNP Pneumonia -Comer cultures -Continue abx Anemia -Protonix BID -check occult stool is positive -Pt may need EGD s/p 1 unit of PRBC -Pt is anticoagulated with coumadin. Acute renal failure -Monitor RAQUEL BLUM DO Mar 24, 2018 07:09
--- NOTE | 2018-03-24 08:57 | Diagnostic Imaging Report ---
INDICATION: Bilateral pneumonia. Hypoxia. COMPARISON: 03/23/2018 FINDINGS: Single frontal radiographic view of the chest was obtained and demonstrates stable mild cardiomegaly. There is prominence of central hilar structures, but this is felt to be related to crowding secondary to low inspiratory volumes. There is no convincing evidence of pulmonary vascular congestion. There is persistent left basilar airspace disease. Overall, aeration is stable. No pneumothorax is seen on either side. IMPRESSION: 1. Persistent left basilar atelectasis and/or infiltrate. 2. Cardiomegaly with crowding of central hilar structures. Dictated by: Dictated on workstation # [id number]
--- NOTE | 2018-03-24 10:28 | Progress Note-Hospitalist ---
Subjective HPI/CC On Admission Date Seen by Provider: Mar 24, 2018 Time Seen by Provider: 10:00 Chief complaint: shortness of breath HPI: This is a 72yoWM of [place] out of [place] who presents with B/L Pneumonia and Hypoxia requiring Bi-PAP use. Pt was placed on empiric antibiotics and currently still confused but feels like he is breathing better so unable to obtain any other details Dr Carrillo is appreciated in his expertise Subjective/Events-last exam Patient doing much better Overall breathing better We will discontinue catheter Maintain on oxygen We will Hep-Lock IV fluid Participating in physical therapy and occupational therapy Patient may meet criteria for inpatient rehab because all he talks about is his fear of falling which would be disastrous. Consulted Dr. Reveles for Hemoccult positive stools and he reports that he had a polyp 3 years ago and was supposed to have another colonoscopy 1 year after that so we will need to do that as an outpatient. Maintain on Coumadin which makes it difficult considering the anemia Review of Systems General: Fatigue Pulmonary: Dyspnea Focused Exam Lactate Level 03/21/18 15:46: Lactic Acid Level 1.33 03/21/18 23:55: Lactic Acid Level 0.95 Objective Exam Vital Signs Vital Signs Date Time Temp Pulse Resp B/P (MAP) Pulse Ox O2 Delivery O2 Flow Rate FiO2 03/24/18 12:00 94.9 79 20 117/82 (94) 94 High Flow N/C 5.00 Capillary Refill : Less Than 3 Seconds General Appearance: WD/WN, Mild Distress, Obese, Other (improved) HEENT: PERRL/EOMI, TMs Normal, Pharynx Normal Neck: Normal Inspection, Non Tender Respiratory: Accessory Muscle Use, Crackles (bases), Decreased Breath Sounds, Respiratory Distress (mild), Wheezing (bilateral upper lobes) Cardiovascular: Regular Rate, Rhythm, No Edema, No Murmur Gastrointestinal: Non Tender, Soft Back: Normal Inspection, No CVA Tenderness, No Vertebral Tenderness Extremity: Normal Capillary Refill, Non Tender Neurologic/Psychiatric: Alert, Motor Weakness (global) Skin: Normal Color, Warm/Dry Lymphatic: No Adenopathy Results/Procedures Lab Laboratory Tests 03/23/18 15:15 03/24/18 04:10 Patient resulted labs reviewed. Assessment/Plan Assessment and Plan Assess & Plan/Chief Complaint Assessment: Pneumonia bilateral Respiratory failure s/p BiPAP Anemia with hemoccult positive stools received 1 unit of blood yesterday and consulted Dr Reveles and will need scope outpatient due to polyp 3 yrs ago needed repeat 2 yrs ago but did not f/u Metabolic encephalopathy improved Diabetes mellitus out of control Mild hypotension resolved Coumadin treatment Plan: HLIV fluids Monitor hemoglobin received blood yesterday Insulin Antibiotics Nebulizer treatments BiPAP PT/OT IRF Tuesday? Diagnosis/Problems Diagnosis/Problems (1) Pneumonia of both lower lobes Status: Acute Qualifiers: Pneumonia type: due to unspecified organism Qualified Codes: J18.1 - Lobar pneumonia, unspecified organism (2) Sepsis Status: Resolved Qualifiers: Sepsis type: sepsis due to unspecified organism Qualified Codes: A41.9 - Sepsis, unspecified organism (3) Anemia Status: Chronic Qualifiers: Anemia type: iron deficiency Iron deficiency anemia type: unspecified iron deficiency Qualified Codes: D50.9 - Iron deficiency anemia, unspecified (4) Hyperglycemia Status: Resolved (5) Diabetes mellitus Status: Chronic Qualifiers: Diabetes mellitus type: type 2 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
[2018-03-24] MEDS ORDERED: NON-FORMULARY MEDICATION 1 EA EA (Zolpidem Tartrate 5 MG) PO SCH (10:30)
[2018-03-24] MEDS ORDERED: FLUTICASONE NASAL SPRAY (FLONASE) 16 GM BTL NS PRN (10:30)
[2018-03-24] MEDS: PANTOPRAZOLE 40 MG (PROTONIX) TAB PO SCH ×2 (11:06→17:14)
--- NOTE | 2018-03-24 13:41 | Physical Therapy Evaluation ---
PT Evaluation-General Medical Diagnosis Admission Date Mar 21, 2018 at 18:15 Medical Diagnosis: Bilateral PNA, Hypoxia Onset Date: Mar 21, 2018 Therapy Diagnosis Therapy Diagnosis: weakness, decreased mobility, decreased activity toleran Height/Weight Height (Feet): 5 Height (Inches): 9.00 Weight (Pounds): 250 Weight (Ounces): 7.0 Precautions Precautions/Isolations: Fall Prevention Weight Bear Status Right Lower Extremity: Right Full Weight Bearing Left Lower Extremity: Left Full Weight Bearing Referral Physician: Dr. Ortiz Reason for Referral: Evaluation/Treatment Medical History Pertinent Medical History: CVA (1983), DM, Diverticulitis, HTN Additional Medical History Renal failure, Skin CA Current History Pt via EMS from clinic with hypoxia. O2 sat in 60s. reports pt was weak for 1-2 weeks before and had bowel/bladder incontinence for 1 week prior. Reviewed History: Yes Social History Home: Single Level Current Living Status: Spouse Entry Into Home: Ramp Prior/Core FIM Prior Level of Function Therapy Code Descriptions/Definitions Functional [place] Measure: 0=Not Assessed/NA 4=Minimal Assistance 1=Total Assistance 5=Supervision or Setup 2=Maximal Assistance 6=Modified [place] 3=Moderate Assistance 7=Complete [place] Therapy Quality Codes: 6 Independent with activity with or without an assistive device 5 Patient requires set up or clean up by helper. Patient completes activity by themselves 4 Supervision or touching assist (CGA). [place] provide cues , steadying assist 3 The helper provides less than half the effort to complete the activity 2 The helper provides more than half the effort to complete the activity 1 Dependent. The helper does all the effort to complete an activity 7 Patient refused to complete or attempt activity 9 The patient did not perform the activity before the current illness or injury 88 Not attempted due to Medical conditions or safety concerns Functional Abilities and Goals: Independent: Patient completed the activities by him/herself, with or without an assistive device, with no assistance from a helper. Needed Some Help: Patient needed partial assistance from another person to complete activities. Dependent: A helper completed the activities for the patient. Unknown: Not Applicable: Bed Mobility: 7 Transfers (B,C,W/C) (FIM): 7 Gait: 7 Indoor Mobility (Ambulation): Independent Stairs: Not [place] Prior Devices Use: None PT Evaluation-Current Subjective Pt was in bed and agreed to PT reluctantly. Pt nasal canula was on pt cheek, not in nose upon arrival. Pain Numeric Pain Scale: 0-No Pain Location: No Pain Reported Pt/Family Goals Pt to return home. Objective Patient Orientation: Person, Place, Situation, Normal For Age Attachments: Oxygen (5L), IV ROM/Strength ROM Lower Extremities RLE WNL; LLE decreased knee ext, decreased ankle DF Strength Lower Extremities gross motor RLE (4+/5) LLE Knee flex/ext (4/5) ankle DF/PF (1/5) Integumentary/Posture Bowel Incontinence: No Bladder Incontinence: No Sensory Vision: Wears Glasses Hearing: Functional Sensation Right Lower Extremit: Intact Sensation Left Lower Extremity: Impaired Transfers Therapy Code Descriptions/Definitions Functional [place] Measure: 0=Not Assessed/NA 4=Minimal Assistance 1=Total Assistance 5=Supervision or Setup 2=Maximal Assistance 6=Modified [place] 3=Moderate Assistance 7=Complete [place] Transfers (B, C, W/C) (FIM): 3 Scootin Supine to/from Sit: 3 Sit to/from Stand: 4 Gait Mode of Locomotion: Walk Anticipated Mode of Locomotion: Walk Gait (FIM): 1 Distance (FIM): 1=up to 49 ft Distance: 15' Gait Level of Assist: 4 Gait Persons Needed: 1 Gait Assistive Device: FWW Comments/Gait Description Pt amb with a forward flexed posture and decreased LLE swing phase Balance Sitting Static: Good Sitting Dynamic: Good Standing Static: Fair Standing Dynamic: Poor Assessment/Needs Pt SaO2 83% and took 1 min to get to 93%. Pt required mod A to get from supine to EOB. Pt able to perform other bed mobility min A. Pt SaO2 during sitting was 88%-92%. Pt need many verbal cues for safety during tx. Pt was able to stand with min A to FWW. Pt amb to recliner 15' with FWW and min A. Pt was not very stable during amb. Pt did not use correct transferring from standing to sitting in recliner. Pt reports that he was too tired to get all the way turned around. Pt reported his frustration/anxiety about being this sick and scared that the bank is going to take his house. Pt is in recliner with all needs met. PT notified nursing of his IV alarm. PT to increase activity as pt is able. Rehab Potential: Fair Post Rehab Potential-Barriers: co-morbidities PT Short Term Goals Short Term Goals Time Frame: Mar 31, 2018 Transfers (B,C,W/C) (FIM): 5 Gait (FIM): 4 Distance (FIM): 3=007-94 ft Gait Distance Comment: 50' Gait Level of Assist: 4 Gait Assistive Device: FWW PT Plan Problem List Problem List: Activity Tolerance, Functional Strength, Safety, Balance, Gait, Transfer, Bed Mobility, ROM Treatment/Plan Treatment Plan: Continue Plan of Care Treatment Plan: Bed Mobility, Education, Functional Activity Kennedy, Functional Strength, Gait, Safety, Therapeutic Exercise, Transfers Treatment Duration: Mar 31, 2018 Frequency: 6 times per week Estimated Hrs Per Day: .25 hour per day Patient and/or Family Agrees t: Yes Safety Risks/Education Patient Education: Gait Training, Transfer Techniques, Correct Positioning, Safety Issues Teaching Recipient: Patient Teaching Methods: Demonstration, Discussion Discharge Recommendations Plan Pt to ARU or SNF when patient is able to tolerate the desired hours. Therapy D/C Recommendations: Acute Rehab, Alf (TCU/NH) Time/GCodes Time In: 1307 Time Out: 1330 Total Billed Treatment Time: 23 Total Billed Treatment 1 visit EVL 10 min FA 13 min ALESSIO CALL PT Mar 24, 2018 13:41
--- NOTE | 2018-03-24 15:21 | Occupational Therapy Eval ---
OT Evaluation-General/PLF Medical Diagnosis Admission Date Mar 21, 2018 at 18:15 Medical Diagnosis: Bilateral PNA, Hypoxia Onset Date: Mar 21, 2018 Therapy Diagnosis Therapy Diagnosis: impaired self care skills Height/Weight Height (Feet): 5 Height (Inches): 9.00 Weight (Pounds): 250 Weight (Ounces): 7.0 Precautions Precautions/Isolations: Fall Prevention Safety Interventions: Bed Exit Alarm Referral Physician: Dr. Ortiz Medical History Pertinent Medical History: CVA (1984), DM, Diverticulitis, HTN Additional Medical History high cholesterol, sleep apnea, renal failure, skin cancer Reviewed History: Yes Social History Home: Single Level Current Living Status: Spouse Entry Into Home: Ramp ADL-Prior Level of Function Therapy Code Descriptions/Definitions Functional [place] Measure: 0=Not Assessed/NA 4=Minimal Assistance 1=Total Assistance 5=Supervision or Setup 2=Maximal Assistance 6=Modified [place] 3=Moderate Assistance 7=Complete [place] Therapy Quality Codes: 6 Independent with activity with or without an assistive device 5 Patient requires set up or clean up by helper. Patient completes activity by themselves 4 Supervision or touching assist (CGA). [place] provide cues , steadying assist 3 The helper provides less than half the effort to complete the activity 2 The helper provides more than half the effort to complete the activity 1 Dependent. The helper does all the effort to complete an activity 7 Patient refused to complete or attempt activity 9 The patient did not perform the activity before the current illness or injury 88 Not attempted due to Medical conditions or safety concerns Functional Abilities and Goals: Independent: Patient completed the activities by him/herself, with or without an assistive device, with no assistance from a helper. Needed Some Help: Patient needed partial assistance from another person to complete activities. Dependent: A helper completed the activities for the patient. Unknown: Not Applicable: ADL PLOF Comments Pt states he has recently been requiring some assist with ADLs secondary to weakness. Self Care: Needed Some Help DME/Equipment: Bath Bench, Grab Bars, Tall Toilet, Tub/Shower Drive Self: No OT Current Status Subjective Pt sitting in chair, agrees to therapy with encouragement. Pt has no c/o pain. Mental Status/Objective Patient Orientation: Person, Place Attachments: IV, Oxygen Current Glasses/Contacts: Yes Hand Dominance: Right Upper Extremity ROM Grossly WFL Upper Extremity Coordination Fair Upper Extremity Strength Grossly 4-/5 ADL-Treatment ADL-Current Pt sitting in chair, eating chips and drinking from cup when therapist arrives. Pt washed hands and face with set up. Pt states he is tired and wants to return to bed. Sit to stand with moderate assistance and cues for hand placement. Transfer to EOB with minimal assistance using FWW, skilled cues for walker use and safety. Assist to manage O2 and IV tubing. Pt fatigues quickly with activity and requires rest break. Sit to supine with assist for LE. Pt able to reposition self in bed with minimal assist. Pt requests to use urinal. Assist to place urinal, but then able to hold independently. Assist to empty urinal. Pt resting in bed with needs with needs met after session. Therapy Code Descriptions/Definitions Functional [place] Measure: 0=Not Assessed/NA 4=Minimal Assistance 1=Total Assistance 5=Supervision or Setup 2=Maximal Assistance 6=Modified [place] 3=Moderate Assistance 7=Complete [place] Therapy Quality Codes: 6 Independent with activity with or without an assistive device 5 Patient requires set up or clean up by helper. Patient completes activity by themselves 4 Supervision or touching assist (CGA). [place] provide cues , steadying assist 3 The helper provides less than half the effort to complete the activity 2 The helper provides more than half the effort to complete the activity 1 Dependent. The helper does all the effort to complete an activity 7 Patient refused to complete or attempt activity 9 The patient did not perform the activity before the current illness or injury 88 Not attempted due to Medical conditions or safety concerns Eating (FIM): 5 Grooming (FIM): 5 Education OT Patient Education: Rehab process Teaching Recipient: Patient Teaching Methods: Discussion Response to Teaching: Reinforcement Needed OT Short Term Goals Short Term Goals Transfers (B,C,W/C) (FIM): 5 1=Demonstrate adherence to instructed precautions during ADL tasks. 2=Patient will verbalize/demonstrate understanding of assistive devices/ modifications for ADL. 3=Patient will improve strength/tolerance for activity to enable patient to perform ADL's. OT Assisted Goals Scale Clerk Goals Time Frame: Apr 07, 2018 Bathing(FIM): 4 Upper Body Dressing(FIM): 5 Lower Body Dressing(FIM): 4 Toileting(FIM): 5 Toilet/Commode Transfer(FIM): 5 Additional Goals: 1-Demonstrate ADL Tasks, 2-Verbalize Understanding, 3- ImproveStrength/[place] 1=Demonstrate adherence to instructed precautions during ADL tasks. 2=Patient will verbalize/demonstrate understanding of assistive devices/ modifications for ADL. 3=Patient will improve strength/tolerance for activity to enable patient to perform ADL's. OT Education/Plan Problem List/Assessment Assessment: Decreased Activ Tolerance, Decreased UE Strength, Dependent Transfers, Impaired Funct Balance, Impaired I ADL's, Impaired Self-Care Skills Pt demonstrates decreased activity tolerance, mobility, strength, and ADL functioning. Pt to benefit from skilled OT intervention for ADL training, transfers, strengthening, and safety education to increase level of independence and allow safe discharge. Discharge Recommendations Plan/Recommendations: Continue POC Treatment Plan/Plan of Care Treatment,Training & Education: Yes Patient would benefit from OT for education, treatment and training to promote independence in ADL's, mobility, safety and/or upper extremity function for ADL' s. Plan of Care: ADL Retraining, Functional Mobility, UE Funct Exercise/Act Treatment Duration: Apr 07, 2018 Frequency: 5 times per week Estimated Hrs Per Day: .25 hour per day Rehab Potential: Fair Time/GCodes Start Time: 14:08 Stop Time: 14:31 Total Time Billed (hr/min): 23 Billed Treatment Time 1 visit, EVM(23minutes) MAGALIS DONG OT Mar 24, 2018 15:21
[2018-03-24] MEDS: glipiZIDE 5 MG (GLUCOTROL) TAB PO SCH (17:00)
[2018-03-24] MEDS: IRON SUCROSE 200 MG/10 ML (VENOFER) VIAL IV SCH (17:00)
[2018-03-24] MEDS: warFARin 2 MG (COUMADIN) TAB PO SCH (17:14)
[2018-03-24] MEDS: rOPINIRole 1 MG (REQUIP) TABLET PO SCH (17:14)
--- NOTE | 2018-03-24 19:22 | Consultation ---
History of Present Illness History of Present Illness Patient Consulted On(rhett/time) 03/24/18 19:16 Date Seen by Provider: Mar 24, 2018 Time Seen by Provider: 11:00 History of Present Illness consult requested by Dr. Ortiz for occult positive stools Patient is 72-year-old male who was admitted with bilateral pneumonia hypoxia requiring BiPAP and anemia. Patient states that he has not seen any blood in his stools. His hemoglobin has slightly dropped and has required blood transfusion. Patient states that he is here because he was having breathing issues. Patient states that he does not have any abdominal pain or any reflux. Patient states that he had a colonoscopy approximately 3 years ago which 2 did have a large polyp was recommended to have repeat colonoscopy in one year but he failed to do so. He's not had a colonoscopy since then. Patient states that he tolerates diet. He is on Coumadin secondary to stroke he states. He states it is also not really good at giving his medical history which usually his does but she has not present at this time. Patient has no other complaints at this time. Denies any nausea vomiting fever sweats chills or chest pain. Allergies and Home Medications Allergies Coded Allergies: Penicillins (Verified Allergy, Unknown, 03/21/18) tetanus and diphtheria toxoids (Verified Allergy, Unknown, 03/21/18) Home Medications Atorvastatin Calcium 10 Mg Tablet, 10 MG PO HS, (Reported) Ciprofloxacin HCl 2.5 Ml Drops, 1 DROP OD QID, (Reported) 10 DAY SUPPLY FILLED 03-20-18 Fluoxetine HCl 20 Mg Capsule, 20 MG PO DAILY, (Reported) Fluticasone Propionate 16 Gm Johnson.susp, 2 SPRAYS NS DAILY PRN for ALLERGIES, ( Reported) Glipizide 10 Mg Tablet, 10 MG PO BID, (Reported) Latanoprost 2.5 Ml Drops, 1 DROP OU HS, (Reported) Metformin HCl 1,000 Mg Tablet, 1,000 MG PO BID, (Reported) Ropinirole HCl 1 Mg Tablet, 1 MG PO 1830, (Reported) Warfarin Sodium 4 Mg Tablet, 4 MG PO 1800, (Reported) Zolpidem Tartrate 5 Mg Tablet, 5 MG PO MoWeFrSa, (Reported) Patient Home Medication List Home Medication List Reviewed: Yes Past Tegrlen-Ykiiaj-Yadlip Hx Patient Social History Alcohol Use: Denies Use Recreational Drug Use: No Smoking Status: Former Smoker Recent Foreign Travel: No Contact w/Someone Who Travel: No Recent Infectious Disease Expo: No Immunizations Up To Date Date of Influenza Vaccine: Oct 15, 2017 Surgeries History of Surgeries: Yes Respiratory History of Respiratory Disorde: Yes Respiratory Disorders: Sleep Apnea Cardiovascular History of Cardiac Disorders: Yes Cardiac Disorders: High Cholesterol, Hypertension Neurological History of Neurological Disord: Yes Neurological Disorders: Stroke Genitourinary History of Genitourinary Disor: Yes Genitourinary Disorders: Renal Failure Gastrointestinal History of Gastrointestinal Di: Yes Gastrointestinal Disorders: Diverticulosis Musculoskeletal History of Musculoskeletal Dis: No Endocrine History of Endocrine Disorders: Yes Endocrine Disorders: Diabetes, Non-Insulin dep Cancer History of Cancer: Yes Cancer: Skin Family Medical History Significant Family History: No Pertinent Family Hx Review of Systems-General Constitutional: no symptoms reported EENTM: no symptoms reported Respiratory: see HPI Cardiovascular: no symptoms reported Gastrointestinal: no symptoms reported Genitourinary: no symptoms reported Musculoskeletal: no symptoms reported Skin: no symptoms reported Psychiatric/Neurological: No Symptoms Reported Physical Exam-General Problems Physical Exam Vital Signs Vital Signs - First Documented 03/21/18 03/21/18 14:53 14:55 Temp 99.4 Pulse 88 Resp 26 B/P (MAP) 113/83 (93) Pulse Ox 92 O2 Delivery Nasal Cannula O2 Flow Rate 6.00 Capillary Refill : Less Than 3 Seconds General Appearance: no apparent distress (sitting in chair) HEENT: PERRL/EOMI Neck: non-tender, supple Respiratory: chest non-tender, no respiratory distress, no accessory muscle use Cardiovascular: regular rate, rhythm Gastrointestinal: non tender, soft, no organomegaly Rectal: deferred Back: normal inspection Extremities: non-tender, normal inspection Neurologic/Psychiatric: no motor/sensory deficits, alert, normal mood/affect, oriented x 3 Skin: normal color, warm/dry Lymphatic: no adenopathy Data Review Labs Laboratory Tests 03/23/18 20:26: Glucometer 255H 03/24/18 04:10: White Blood Count 7.4, Red Blood Count 3.28L, Hemoglobin 7.6L, Hematocrit 28L, Mean Corpuscular Volume 85, Mean Corpuscular Hemoglobin 23L, Mean Corpuscular Hemoglobin Concent 27L, Red Cell Distribution Width 18.2H, Platelet Count 100L, Mean Platelet Volume , Neutrophils (%) (Auto) 92H, Lymphocytes (%) (Auto) 5L, Monocytes (%) (Auto) 3, Eosinophils (%) (Auto) 0, Basophils (%) (Auto) 0, Neutrophils # (Auto) 6.9, Lymphocytes # (Auto) 0.3L, Monocytes # (Auto) 0.2, Eosinophils # (Auto) 0.0, Basophils # (Auto) 0.0, Prothrombin Time 24.2H, INR Comment 2.2H, Sodium Level 139, Potassium Level 4.6, Chloride Level 112H, Carbon Dioxide Level 21, Anion Gap 6, Blood Urea Nitrogen 30H, Creatinine 1.33H , Estimat Glomerular Filtration Rate 53, BUN/Creatinine Ratio 23, Glucose Level 204H, Calcium Level 7.0L, Phosphorus Level 2.9, Magnesium Level 2.2, B-Type Natriuretic Peptide 568.2H 03/24/18 05:04: Glucometer 199H 03/24/18 10:56: Glucometer 254H 03/24/18 12:49: Lab Scanned Report Transfusion Reaction Form 03/24/18 15:55: Glucometer 276H Microbiology 03/21/18 Blood Culture - Preliminary, Resulted No growth 03/21/18 Urine Culture - Final, Complete NO GROWTH Assessment/Plan Assessment/Plan Assessment/Plan occult positive stools Anemia unknown source Chronic anticoagulation Bilateral pneumonia History of stroke history of polyp 3 years ago was recommended repeat in one year but has not had repeat colonoscopy Patient is a 72-year-old male we discussed possible EGD and colonoscopy. If he continues to have dropped his hemoglobin would go ahead and begin. If he continues would consider stopping his Coumadin. We also discussed doing as outpatient for EGD and colonoscopy with history of polyp patient instructed really need for follow up on this. Patient in agreement with plan. Will follow Clinical Quality Measures DVT/VTE Risk/Contraindication: Risk Factor Score Per Nursin RFS Level Per Nursing on Admit: 4+=Very High OPHELIA TREADWELL DO Mar 24, 2018 19:22
[2018-03-24] MEDS: ZOLPIDEM 5 MG (AMBIEN) TAB PO SCH (20:05)
[2018-03-24] MEDS: LATANOPROST 0.005% (XALATAN) OPHTH SOLN 2.5 ML OU SCH (20:48)
[2018-03-24] MEDS ORDERED: NON-FORMULARY MEDICATION 1 EA EA (Glipizide 10 MG) PO SCH (21:00)
[2018-03-25] MEDS: RT-ALBUTEROL/IPRATROPIUM 3 ML (DUONEB) VIAL INH SCH ×6 (01:28→21:19)
[2018-03-25 04:16] VITALS: BP 150/75
[2018-03-25] MEDS: CEFEPIME 1,000 MG/SWFI 10 ML IV PUSH IV SCH ×8 (05:39→23:14)
[2018-03-25] MEDS: methylPREDNISolone 40 MG/ML (Solu-MEDROL) VIAL IV SCH ×4 (05:39→23:14)
[2018-03-25] MEDS: inSUlin ASPART (NovoLOG) 1 UNIT/0.01 ML (CHARGE PER UNIT) SQ SCH ×4 (05:44→21:22)
[2018-03-25] MEDS: glipiZIDE 5 MG (GLUCOTROL) TAB PO SCH ×2 (05:44→16:26)
[2018-03-25] MEDS: PANTOPRAZOLE 40 MG (PROTONIX) TAB PO SCH ×2 (05:44→16:26)
[2018-03-25 06:22] LABS: BASOPHILS % (AUTO) 0 % (0-10); EOSINOPHILS % (AUTO) 0 % (0-10); HEMATOCRIT 30 % (40-54); HEMOGLOBIN 7.8 G/DL (13.3-17.7); LYMPHOCYTES # (AUTO) 0.6 X 10^3 (1.0-4.0); LYMPHOCYTES % (AUTO) 7 % (12-44); MEAN CORPUSCULAR HEMOGLOBIN 23 PG (25-34); MEAN CORPUSCULAR HGB CONC 26 G/DL (32-36); MEAN CORPUSCULAR VOLUME 87 FL (80-99); MONOCYTES # (AUTO) 0.5 X 10^3 (0.0-1.0); MONOCYTES % (AUTO) 5 % (0-12); NEUTROPHILS # (AUTO) 8.1 X 10^3 (1.8-7.8); NEUTROPHILS % (AUTO) 89 % (42-75); PLATELET COUNT 103 10^3/uL (130-400); RED CELL DISTRIBUTION WIDTH 18.6 % (10.0-14.5); WHITE BLOOD COUNT 9.1 10^3/uL (4.3-11.0)
[2018-03-25 06:25] LABS: INR 1.9 (0.8-1.4); PROTHROMBIN TIME PATIENT 22.1 SEC (12.2-14.7)
[2018-03-25 06:38] LABS: CREATININE SERUM 1.23 MG/DL (0.60-1.30); MAGNESIUM 2.2 MG/DL (1.8-2.4); PHOSPHORUS 3.4 MG/DL (2.3-4.7)
--- NOTE | 2018-03-25 06:42 | NUR ---
PT. HAS EDEMA AND LUNG SOUNDS WET DR. FRANCE NOTIFIED, NEW ORDERS RECEIVED: LASIX 20MG PO ONCE
[2018-03-25] MEDS ORDERED: FUROSEMIDE 20 MG (LASIX) TAB PO ONE (06:45)
--- NOTE | 2018-03-25 07:18 | Pulmonary Progress Note ---
Subjective Time Seen by a Provider: 07:18 Sepsis Event Evaluation Height, Weight, BMI Height: 5'9.00" Weight: 278lbs. 0.0oz. 126.551435ag; 36.3 BMI Method:Estimated Exam Exam Vital Signs Date Time Temp Pulse Resp B/P (MAP) Pulse Ox O2 Delivery O2 Flow Rate FiO2 03/25/18 06:57 92 20 95 45.00 03/25/18 06:33 70 Room Air 03/25/18 04:16 95.4 72 18 150/75 (100) 93 High Flow N/C 8.00 03/25/18 01:29 84 Room Air 03/24/18 23:07 96.5 80 22 133/73 (93) 92 High Flow N/C 5.00 03/24/18 22:44 91 5.00 03/24/18 21:00 High Flow N/C 5.00 03/24/18 19:43 96.7 74 18 129/71 (90) 93 High Flow N/C 5.00 03/24/18 19:41 88 Room Air 03/24/18 15:52 96.1 76 20 135/67 (89) 93 High Flow N/C 5.00 03/24/18 15:29 Nasal Cannula 5.00 03/24/18 12:00 94.9 79 20 117/82 (94) 94 High Flow N/C 5.00 03/24/18 10:42 92 Nasal Cannula 5.00 03/24/18 09:00 High Flow N/C 5.00 03/24/18 08:00 94.8 77 18 118/62 (80) 94 High Flow N/C 5.00 I & O 03/25/18 07:00 Intake Total 2780 ml Output Total 1625 ml Balance 1155 ml Height & Weight Height: 5'9.00" Weight: 278lbs. 0.0oz. 126.710695zb; 36.3 BMI Method:Estimated General Appearance: WD/WN, Mild Distress, Obese, Other (improved) HEENT: PERRL/EOMI, TMs Normal, Pharynx Normal Neck: Normal Inspection, Non Tender Respiratory: Accessory Muscle Use, Crackles (bases), Decreased Breath Sounds, Respiratory Distress (mild), Wheezing (bilateral upper lobes) Cardiovascular: Regular Rate, Rhythm, No Edema, No Murmur Capillary Refill: Less Than 3 Seconds Gastrointestinal: non tender, soft, no organomegaly Extremity: Normal Capillary Refill, Non Tender Neurologic/Psychiatric: Alert, Motor Weakness (global) Skin: Normal Color, Warm/Dry Lymphatic: No Adenopathy Results Lab Laboratory Tests 03/23/18 08:55 03/23/18 15:15 03/24/18 04:10 03/25/18 05:45 Assessment/Plan Assessment/Plan Acute on chronic respiratory failure -Pt improved with noninvasive ventilation -Pt will benefit from home vent to mask -SW consulted to help arrange vent to mask. He will probably need home 02 Pneumonia -Comer cultures -Continue abx Anemia -Protonix BID -check occult stool is positive -Dr. Reveles is following -Pt is anticoagulated with coumadin. Acute renal failure -Monitor RAQUEL BLUM DO Mar 25, 2018 07:18
[2018-03-25 08:00] VITALS: BP 148/76
[2018-03-25] MEDS: FLUoxetine HCL 20 MG (PROzac) CAP PO SCH (09:30)
--- NOTE | 2018-03-25 09:40 | Diagnostic Imaging Report ---
Indication: Pneumonia. Time of exam: 3:37 AM Correlation is made to prior study one day earlier. The heart size is stable. There are zones of linear atelectasis in left mid and lower lung zone. Minimal right perihilar and right basilar subsegmental atelectasis is also seen. No significant effusion or pneumothorax is seen. Impression: Stable chest with stable bilateral subsegmental atelectasis when compared to exam one day earlier. Dictated by: Dictated on workstation # [id number]
--- NOTE | 2018-03-25 11:28 | Progress Note-Hospitalist ---
Subjective HPI/CC On Admission Date Seen by Provider: Mar 25, 2018 Time Seen by Provider: 08:30 Chief complaint: shortness of breath HPI: This is a 72yoWM of [place] out of [place] who presents with B/L Pneumonia and Hypoxia requiring Bi-PAP use. Pt was placed on empiric antibiotics and currently still confused but feels like he is breathing better so unable to obtain any other details Dr Carrillo is appreciated in his expertise Subjective/Events-last exam Patient reports less shortness of breath. Nursing staff state that he will not keep BiPAP on this morning was difficult to arouse. Upon my arrival he was eating breakfast alert oriented voicing no complaints. He stated he was feeling less short of breath. He reports decreased cough minimal sputum production. No night sweats chills or fever reported. The nurse called me this morning stating that he sounded a little bit wet was usually on diuretic therapy but this had been held. With this there is been increasing upper and lower extremity edema so did give him a dose of furosemide 20 mg by mouth 1 he currently has had about 600 mL of urine out roughly 2 hours after receiving Lasix. Objective Exam Vital Signs Vital Signs Date Time Temp Pulse Resp B/P (MAP) Pulse Ox O2 Delivery O2 Flow Rate FiO2 03/25/18 08:40 NIV Bilevel 03/25/18 08:00 97.4 84 18 148/76 (100) 92 8.00 Capillary Refill : Less Than 3 Seconds General Appearance: WD/WN, Mild Distress, Obese, Other (improved) HEENT: PERRL/EOMI, TMs Normal, Pharynx Normal Neck: Normal Inspection, Non Tender Respiratory: No Accessory Muscle Use, No Respiratory Distress, Crackles (bases) , Decreased Breath Sounds, Wheezing (On forced expiration only.) Cardiovascular: Regular Rate, Rhythm, No Edema, No Murmur Gastrointestinal: Non Tender, Soft Extremity: Normal Capillary Refill, Non Tender Neurologic/Psychiatric: Alert, Motor Weakness (global) Skin: Normal Color, Warm/Dry Lymphatic: No Adenopathy Results/Procedures Lab Laboratory Tests 03/25/18 05:45 Patient resulted labs reviewed. Assessment/Plan Assessment and Plan Assess & Plan/Chief Complaint 1. Acute on chronic respiratory distress likely due to by basilar pneumonia. Cultures have been negative continuing antibiotics. 2. Reactive airways improving on Solu-Medrol patient undergoing slow taper per Dr. Carrillo. 3. Poor reported compliance with BiPAP discussed the importance of utilizing this during the night as he has some symptoms in the morning suggestive of CO2 retention when he does not wear his BiPAP. 4. History of hypertension with current edema we'll continue regular Lasix and potassium replacement. 5. 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 Clinical Quality Measures DVT/VTE Risk/Contraindication: Risk Factor Score Per Nursin RFS Level Per Nursing on Admit: 4+=Very High CORIN FRANCE MD Mar 25, 2018 11:28
--- NOTE | 2018-03-25 11:38 | Physical Therapy Daily Note ---
PT Daily Note-Current Subjective Pt hollering out, very upset, difficult to understand at times. Pt refusing to get up out of bed but did agree to ex's in bed. Nsg states pt was unresponsive earlier this morning Pain Location: No Pain Reported Appearance at beginning of session, pt supine in bed hollering out, nsg present At end of session, pt supine in bed with call light and bedside table within reach Mental Status Patient Orientation: Confused Transfers Therapy Code Descriptions/Definitions Functional [place] Measure: 0=Not Assessed/NA 4=Minimal Assistance 1=Total Assistance 5=Supervision or Setup 2=Maximal Assistance 6=Modified [place] 3=Moderate Assistance 7=Complete [place] Therapy Quality Codes: 6 Independent with activity with or without an assistive device 5 Patient requires set up or clean up by helper. Patient completes activity by themselves 4 Supervision or touching assist (CGA). [place] provide cues , steadying assist 3 The helper provides less than half the effort to complete the activity 2 The helper provides more than half the effort to complete the activity 1 Dependent. The helper does all the effort to complete an activity 7 Patient refused to complete or attempt activity 9 The patient did not perform the activity before the current illness or injury 88 Not attempted due to Medical conditions or safety concerns Weight Bearing Right Lower Extremity: Right Full Weight Bearing Left Lower Extremity: Left Full Weight Bearing Exercises Supine Reps: 10 (AROM (B) toe curls, ankle pumps, heelslides, SLR, hip abd. Pt requires PROM left ankle) Treatments Exercise for ROM and strengthening Assessment limitted activity due to pt upset, confusion and refusing to get up PT Short Term Goals Short Term Goals Time Frame: Mar 31, 2018 Transfers (B,C,W/C) (FIM): 5 Gait (FIM): 4 Distance (FIM): 3=352-41 ft Gait Distance Comment: 50' Gait Level of Assist: 4 Gait Assistive Device: FWW PT Plan Problem List Problem List: Activity Tolerance, Functional Strength, Safety Treatment/Plan Treatment Plan: Continue Plan of Care Treatment Plan: Bed Mobility, Education, Functional Activity [place], Functional Strength, Gait, Safety, Therapeutic Exercise, Transfers Treatment Duration: Mar 31, 2018 Frequency: 6 times per week Estimated Hrs Per Day: .25 hour per day Patient and/or Family Agrees t: Yes Time/GCodes Time In: 913 Time Out: 929 Total Billed Treatment Time: 16 Total Billed Treatment 1 visit EX x 16' ANNAMARIA AKHTAR BARREL RIFLER BROACH Mar 25, 2018 11:38
[2018-03-25 12:00] VITALS: BP 120/71
--- NOTE | 2018-03-25 13:11 | Progress Note ---
Subjective Date Seen by a Provider: Mar 25, 2018 Time Seen by a Provider: 13:08 Subjective/Events-last exam patient states is doing well. He has no blood flow stool that he notices. Patient hemoglobin has started to trend up. Has no other complaints at this time. Denies any nausea vomiting fever sweats chills shortness of breath or chest pain. Objective Exam Vital Signs Date Time Temp Pulse Resp B/P (MAP) Pulse Ox O2 Delivery O2 Flow Rate FiO2 03/25/18 08:40 NIV Bilevel 03/25/18 08:00 97.4 84 18 148/76 (100) 92 High Flow N/C 8.00 03/25/18 06:57 92 20 95 45.00 03/25/18 06:33 70 Room Air 03/25/18 04:16 95.4 72 18 150/75 (100) 93 High Flow N/C 8.00 03/25/18 01:29 84 Room Air 03/24/18 23:07 96.5 80 22 133/73 (93) 92 High Flow N/C 5.00 03/24/18 22:44 91 5.00 03/24/18 21:00 High Flow N/C 5.00 03/24/18 19:43 96.7 74 18 129/71 (90) 93 High Flow N/C 5.00 03/24/18 19:41 88 Room Air 03/24/18 15:52 96.1 76 20 135/67 (89) 93 High Flow N/C 5.00 03/24/18 15:29 Nasal Cannula 5.00 I & O 03/25/18 07:00 Intake Total 2780 ml Output Total 1625 ml Balance 1155 ml Capillary Refill : Less Than 3 Seconds General Appearance: WD/WN, Mild Distress, Obese, Other (improved) HEENT: PERRL/EOMI, TMs Normal, Pharynx Normal Neck: Normal Inspection, Non Tender Respiratory: No Accessory Muscle Use, No Respiratory Distress, Crackles (bases) , Decreased Breath Sounds Cardiovascular: Regular Rate, Rhythm, No Edema, No Murmur Gastrointestinal: non tender, soft, no organomegaly Extremity: Normal Capillary Refill, Non Tender Neurologic/Psychiatric: Alert, Normal Mood/Affect Skin: Normal Color, Warm/Dry Lymphatic: No Adenopathy Results Lab Laboratory Tests 03/24/18 15:55: Glucometer 276H 2/8/19 20:13: Glucometer 273H 03/25/18 05:43: Glucometer 177H 03/25/18 05:45: White Blood Count 9.1, Red Blood Count 3.46L, Hemoglobin 7.8L, Hematocrit 30L, Mean Corpuscular Volume 87, Mean Corpuscular Hemoglobin 23L, Mean Corpuscular Hemoglobin Concent 26L, Red Cell Distribution Width 18.6H, Platelet Count 103L, Mean Platelet Volume , Neutrophils (%) (Auto) 89H, Lymphocytes (%) (Auto) 7L, Monocytes (%) (Auto) 5, Eosinophils (%) (Auto) 0, Basophils (%) (Auto) 0, Neutrophils # (Auto) 8.1H, Lymphocytes # (Auto) 0.6L, Monocytes # (Auto) 0.5, Eosinophils # (Auto) 0.0, Basophils # (Auto) 0.0, Prothrombin Time 22.1H, INR Comment 1.9H, Sodium Level 140, Potassium Level 5.0, Chloride Level 112H, Carbon Dioxide Level 22, Anion Gap 6, Blood Urea Nitrogen 30H, Creatinine 1.23, Estimat Glomerular Filtration Rate 58, BUN/Creatinine Ratio 24, Glucose Level 179H, Calcium Level 7.0L, Phosphorus Level 3.4, Magnesium Level 2.2 03/25/18 11:13: Glucometer 221H Microbiology 03/21/18 Blood Culture - Preliminary, Resulted No growth 03/21/18 Urine Culture - Final, Complete NO GROWTH Assessment/Plan Assessment/Plan Assessment/Plan occult positive stools Anemia unknown source Chronic anticoagulation Bilateral pneumonia History of stroke history of polyp 3 years ago was recommended repeat in one year but has not had repeat colonoscopy Patient is a 72-year-old male we discussed possible EGD and colonoscopy. hemoglobin stable at this time, becomes unstable would proceed with endoscopy and patient versus outpatient. If he continues would consider stopping his Coumadin. on Protonix. We also discussed doing as outpatient for EGD and colonoscopy with history of polyp patient instructed really need for follow up on this. Patient in agreement with plan. Will follow Clinical Quality Measures DVT/VTE Risk/Contraindication: Risk Factor Score Per Nursin RFS Level Per Nursing on Admit: 4+=Very High OPHELIA TREADWELL DO Mar 25, 2018 13:11
[2018-03-25 16:11] VITALS: BP 128/65
[2018-03-25] MEDS: warFARin 2 MG (COUMADIN) TAB PO SCH (17:29)
[2018-03-25] MEDS: rOPINIRole 1 MG (REQUIP) TABLET PO SCH (17:30)
[2018-03-25] MEDS: LATANOPROST 0.005% (XALATAN) OPHTH SOLN 2.5 ML OU SCH (19:28)
[2018-03-25 20:02] VITALS: BP 127/81
[2018-03-25] MEDS: ZOLPIDEM 5 MG (AMBIEN) TAB PO SCH (20:34)
[2018-03-25 23:05] VITALS: BP 132/61
[2018-03-26] MEDS: RT-ALBUTEROL/IPRATROPIUM 3 ML (DUONEB) VIAL INH SCH ×5 (01:21→22:19)
[2018-03-26 03:16] VITALS: BP 135/68
[2018-03-26] MEDS: CEFEPIME 1,000 MG/SWFI 10 ML IV PUSH IV SCH ×8 (05:37→23:15)
[2018-03-26] MEDS: methylPREDNISolone 40 MG/ML (Solu-MEDROL) VIAL IV SCH ×3 (05:37→19:31)
[2018-03-26 06:06] LABS: BASOPHILS % (AUTO) 0 % (0-10); EOSINOPHILS % (AUTO) 0 % (0-10); HEMATOCRIT 30 % (40-54); HEMOGLOBIN 8.1 G/DL (13.3-17.7); LYMPHOCYTES # (AUTO) 0.6 X 10^3 (1.0-4.0); LYMPHOCYTES % (AUTO) 7 % (12-44); MEAN CORPUSCULAR HEMOGLOBIN 23 PG (25-34); MEAN CORPUSCULAR HGB CONC 27 G/DL (32-36); MEAN CORPUSCULAR VOLUME 87 FL (80-99); MONOCYTES # (AUTO) 0.4 X 10^3 (0.0-1.0); MONOCYTES % (AUTO) 4 % (0-12); NEUTROPHILS # (AUTO) 7.8 X 10^3 (1.8-7.8); NEUTROPHILS % (AUTO) 89 % (42-75); PLATELET COUNT 93 10^3/uL (130-400); RED CELL DISTRIBUTION WIDTH 18.5 % (10.0-14.5); WHITE BLOOD COUNT 8.8 10^3/uL (4.3-11.0)
[2018-03-26 06:11] LABS: INR 1.6 (0.8-1.4); PROTHROMBIN TIME PATIENT 19.4 SEC (12.2-14.7)
[2018-03-26 06:18] LABS: CREATININE SERUM 1.33 MG/DL (0.60-1.30); MAGNESIUM 2.2 MG/DL (1.8-2.4); POTASSIUM 4.9 MMOL/L (3.6-5.0)
[2018-03-26] MEDS: glipiZIDE 5 MG (GLUCOTROL) TAB PO SCH ×2 (06:30→16:20)
[2018-03-26] MEDS: PANTOPRAZOLE 40 MG (PROTONIX) TAB PO SCH ×2 (06:30→16:20)
[2018-03-26] MEDS: inSUlin ASPART (NovoLOG) 1 UNIT/0.01 ML (CHARGE PER UNIT) SQ SCH ×4 (06:31→20:21)
[2018-03-26 08:00] VITALS: BP 131/60
[2018-03-26] MEDS: FLUoxetine HCL 20 MG (PROzac) CAP PO SCH (08:31)
[2018-03-26] MEDS: IRON SUCROSE 200 MG/10 ML (VENOFER) VIAL IV SCH (08:32)
--- NOTE | 2018-03-26 10:50 | Diagnostic Imaging Report ---
Indication: Pneumonia. Time of exam: 3:13 AM Correlation is made with prior study one day earlier. The heart is enlarged but stable. There appear to be areas of subsegmental atelectasis in the perihilar and bibasilar regions bilaterally similar with yesterday. No effusion or pneumothorax is detected. Impression: No significant change of bilateral perihilar and bibasilar areas of infiltrate/atelectasis when compared to study one day earlier. Dictated by: Dictated on workstation # [id number]
--- NOTE | 2018-03-26 11:12 | Pulmonary Progress Note ---
Sepsis Event Evaluation Height, Weight, BMI Height: 5'9.00" Weight: 275lbs. 0.0oz. 124.815861vz; 36.3 BMI Method:Estimated Exam Exam Vital Signs Date Time Temp Pulse Resp B/P (MAP) Pulse Ox O2 Delivery O2 Flow Rate FiO2 03/26/18 08:24 96 High Flow N/C 8.00 03/26/18 08:00 97.4 77 18 131/60 (83) 96 High Flow N/C 8.00 03/26/18 03:16 95.1 64 18 135/68 (90) 97 High Flow N/C 8.00 03/26/18 01:21 95 High Flow N/C 8.00 03/25/18 23:05 98.6 71 20 132/61 (84) 97 High Flow N/C 8.00 03/25/18 21:19 95 High Flow N/C 8.00 03/25/18 20:46 High Flow N/C 8.00 03/25/18 20:02 98.6 74 20 127/81 (96) 97 High Flow N/C 8.00 03/25/18 18:15 81 Room Air 03/25/18 16:11 98.9 74 20 128/65 (86) 95 High Flow N/C 8.00 03/25/18 14:22 Nasal Cannula 6.00 03/25/18 12:00 97.3 78 18 120/71 (87) 99 High Flow N/C 8.00 I & O 03/26/18 07:00 Intake Total 1680 ml Output Total 1365 ml Balance 315 ml Height & Weight Height: 5'9.00" Weight: 275lbs. 0.0oz. 124.162572gs; 36.3 BMI Method:Estimated General Appearance: WD/WN, Mild Distress, Obese, Other (improved) HEENT: PERRL/EOMI, TMs Normal, Pharynx Normal Neck: Normal Inspection, Non Tender Respiratory: No Accessory Muscle Use, No Respiratory Distress, Crackles (bases) , Decreased Breath Sounds Cardiovascular: Regular Rate, Rhythm, No Edema, No Murmur Capillary Refill: Less Than 3 Seconds Gastrointestinal: non tender, soft, no organomegaly Extremity: Normal Capillary Refill, Non Tender Neurologic/Psychiatric: Alert, Normal Mood/Affect Skin: Normal Color, Warm/Dry Lymphatic: No Adenopathy Results Lab Laboratory Tests 03/25/18 05:45 03/26/18 05:47 Assessment/Plan Assessment/Plan Acute on chronic respiratory failure -Pt improved with noninvasive ventilation -Pt will benefit from home vent to mask -SW consulted to help arrange vent to mask. He will probably need home 02 Pneumonia -[place] cultures -Continue abx Anemia -Protonix BID -check occult stool is positive -Dr. Reveles is following -Pt is anticoagulated with coumadin. Acute renal failure -Monitor DM RAQUEL NOYOLA DO Mar 26, 2018 11:12
[2018-03-26 12:00] VITALS: BP 135/66
--- NOTE | 2018-03-26 12:20 | Progress Note ---
Subjective Date Seen by a Provider: Mar 26, 2018 Time Seen by a Provider: 12:16 Subjective/Events-last exam Patient less breathing difficulty. Patient no blood per rectum. Denies any abdominal pain. Denies n/v fever sweats chills or chest pain. Hgb stable. Objective Exam Vital Signs Date Time Temp Pulse Resp B/P (MAP) Pulse Ox O2 Delivery O2 Flow Rate FiO2 03/26/18 08:24 96 High Flow N/C 8.00 03/26/18 08:00 97.4 77 18 131/60 (83) 96 High Flow N/C 8.00 03/26/18 03:16 95.1 64 18 135/68 (90) 97 High Flow N/C 8.00 03/26/18 01:21 95 High Flow N/C 8.00 03/25/18 23:05 98.6 71 20 132/61 (84) 97 High Flow N/C 8.00 03/25/18 21:19 95 High Flow N/C 8.00 03/25/18 20:46 High Flow N/C 8.00 03/25/18 20:02 98.6 74 20 127/81 (96) 97 High Flow N/C 8.00 03/25/18 18:15 81 Room Air 03/25/18 16:11 98.9 74 20 128/65 (86) 95 High Flow N/C 8.00 03/25/18 14:22 Nasal Cannula 6.00 I & O 03/26/18 07:00 Intake Total 1680 ml Output Total 1365 ml Balance 315 ml Capillary Refill : Less Than 3 Seconds General Appearance: No Apparent Distress, WD/WN, Obese HEENT: PERRL/EOMI, TMs Normal, Pharynx Normal Neck: Normal Inspection, Non Tender Respiratory: No Accessory Muscle Use, No Respiratory Distress, Crackles (bases) , Decreased Breath Sounds Cardiovascular: Regular Rate, Rhythm, No Edema, No Murmur Gastrointestinal: non tender, soft, no organomegaly Extremity: Normal Capillary Refill, Non Tender Neurologic/Psychiatric: Alert, Normal Mood/Affect Skin: Normal Color, Warm/Dry Lymphatic: No Adenopathy Results Lab Laboratory Tests 03/25/18 16:12: Glucometer 255H 03/25/18 20:06: Glucometer 258H 03/26/18 05:46: Glucometer 209H 03/26/18 05:47: White Blood Count 8.8, Red Blood Count 3.51L, Hemoglobin 8.1L, Hematocrit 30L, Mean Corpuscular Volume 87, Mean Corpuscular Hemoglobin 23L, Mean Corpuscular Hemoglobin Concent 27L, Red Cell Distribution Width 18.5H, Platelet Count 93L, Mean Platelet Volume , Neutrophils (%) (Auto) 89H, Lymphocytes (%) (Auto) 7L, Monocytes (%) (Auto) 4, Eosinophils (%) (Auto) 0, Basophils (%) (Auto) 0, Neutrophils # (Auto) 7.8, Lymphocytes # (Auto) 0.6L, Monocytes # (Auto) 0.4, Eosinophils # (Auto) 0.0, Basophils # (Auto) 0.0, Prothrombin Time 19.4H, INR Comment 1.6H, Sodium Level 139, Potassium Level 4.9, Chloride Level 111H, Carbon Dioxide Level 22, Anion Gap 6, Blood Urea Nitrogen 31H, Creatinine 1.33H , Estimat Glomerular Filtration Rate 53, BUN/Creatinine Ratio 23, Glucose Level 203H, Calcium Level 7.0L, Phosphorus Level 3.0, Magnesium Level 2.2 03/26/18 11:04: Glucometer 213H Microbiology 03/21/18 Blood Culture - Preliminary, Resulted No growth 03/21/18 Urine Culture - Final, Complete NO GROWTH Assessment/Plan Assessment/Plan Assessment/Plan occult positive stools Anemia unknown source Chronic anticoagulation Bilateral pneumonia History of stroke history of polyp 3 years ago was recommended repeat in one year but has not had repeat colonoscopy Patient is a 72-year-old male we discussed possible EGD and colonoscopy. hemoglobin stable at this time, becomes unstable would proceed with endoscopy and patient versus outpatient. If he continues would consider stopping his Coumadin. on Protonix. We also discussed doing as outpatient for EGD and colonoscopy with history of polyp patient instructed really need for follow up on this. Patient in agreement with plan. Will have appointment for f/u in about 2 weeks. Will continue to follow. Clinical Quality Measures DVT/VTE Risk/Contraindication: Risk Factor Score Per Nursin RFS Level Per Nursing on Admit: 4+=Very High OPHELIA TREADWELL DO Mar 26, 2018 12:20
--- NOTE | 2018-03-26 12:29 | Progress Note-Hospitalist ---
Subjective HPI/CC On Admission Date Seen by Provider: Mar 26, 2018 Time Seen by Provider: 12:25 Chief complaint: shortness of breath HPI: This is a 72yoWM of [place] out of [place] who presents with B/L Pneumonia and Hypoxia requiring Bi-PAP use. Pt was placed on empiric antibiotics and currently still confused but feels like he is breathing better so unable to obtain any other details Dr Carrillo is appreciated in his expertise Subjective/Events-last exam Patient denies pain but reports significant weakness. He's been very on involved in his own care at this point the nurse was finally able to convince him to at least sit in the chair for a while. When we discussed his need for Lasix C1 to have a catheter placed. We discussed his infection risk and that was not in his best interest. He states that he has difficulty with using a urinal. At this point we will try [place] a urinal with a catheter as a last resort. Discussed at this point he was headed toward chronic alf care as there is no way his is in the be able to care for him at home or he apparently was with minimal activity and a very sedentary existence. Objective Exam Vital Signs Vital Signs Date Time Temp Pulse Resp B/P (MAP) Pulse Ox O2 Delivery O2 Flow Rate FiO2 03/26/18 08:24 96 High Flow N/C 8.00 03/26/18 08:00 97.4 77 18 131/60 (83) Capillary Refill : Less Than 3 Seconds General Appearance: No Apparent Distress, WD/WN, Obese HEENT: PERRL/EOMI, TMs Normal, Pharynx Normal Neck: Normal Inspection, Non Tender Respiratory: No Accessory Muscle Use, No Respiratory Distress, Crackles (bases) , Decreased Breath Sounds Cardiovascular: Regular Rate, Rhythm, No Murmur Gastrointestinal: Non Tender, Soft Extremity: Normal Capillary Refill, Non Tender, Other (2+ upper and lower extremity edema) Neurologic/Psychiatric: Alert Skin: Normal Color, Warm/Dry Lymphatic: No Adenopathy Results/Procedures Lab Laboratory Tests 03/26/18 05:47 Patient resulted labs reviewed. Assessment/Plan Assessment and Plan Assess & Plan/Chief Complaint 1. Acute on chronic respiratory distress likely due to by basilar pneumonia. Cultures have been negative continuing antibiotics. 2. Reactive airways improving on Solu-Medrol patient undergoing slow taper per Dr. Carrillo. 3. Poor reported compliance with BiPAP discussed the importance of utilizing this during the night as he has some symptoms in the morning suggestive of CO2 retention when he does not wear his BiPAP. 4. History of hypertension with current edema we'll continue regular Lasix and potassium replacement. 5. 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 6. Multifactorial deconditioning if patient will comply with physical therapy may need to consider swing bed status for ongoing PT. Discussed the importance that the patient work with physical therapy and nursing staff otherwise he is headed toward alf which she states that he cannot afford. Critical Care Critically Ill Patient Clinical Quality Measures DVT/VTE Risk/Contraindication: Risk Factor Score Per Nursin RFS Level Per Nursing on Admit: 4+=Very High CORIN FRANCE MD Mar 26, 2018 12:29
[2018-03-26] MEDS ORDERED: FUROSEMIDE 20 MG (LASIX) TAB PO NR (12:45)
[2018-03-26 16:07] VITALS: BP 123/60
[2018-03-26] MEDS: rOPINIRole 1 MG (REQUIP) TABLET PO SCH (17:54)
[2018-03-26] MEDS: warFARin 3 MG (COUMADIN) TAB PO SCH (17:54)
[2018-03-26] MEDS: LATANOPROST 0.005% (XALATAN) OPHTH SOLN 2.5 ML OU SCH (19:32)
[2018-03-26 19:52] VITALS: BP 129/66
[2018-03-27 00:30] VITALS: BP 129/64
[2018-03-27] MEDS: RT-ALBUTEROL/IPRATROPIUM 3 ML (DUONEB) VIAL INH SCH ×4 (01:37→20:58)
[2018-03-27 04:23] LABS: BASOPHILS % (AUTO) 0 % (0-10); EOSINOPHILS % (AUTO) 0 % (0-10); HEMATOCRIT 30 % (40-54); LYMPHOCYTES # (AUTO) 0.9 X 10^3 (1.0-4.0); LYMPHOCYTES % (AUTO) 9 % (12-44); MEAN CORPUSCULAR HEMOGLOBIN 23 PG (25-34); MEAN CORPUSCULAR HGB CONC 27 G/DL (32-36); MEAN CORPUSCULAR VOLUME 85 FL (80-99); MEAN PLATELET VOLUME 12.3 FL (7.4-10.4); MONOCYTES # (AUTO) 0.6 X 10^3 (0.0-1.0); MONOCYTES % (AUTO) 6 % (0-12); NEUTROPHILS # (AUTO) 8.4 X 10^3 (1.8-7.8); NEUTROPHILS % (AUTO) 86 % (42-75); PLATELET COUNT 144 10^3/uL (130-400); RED CELL DISTRIBUTION WIDTH 18.6 % (10.0-14.5); WHITE BLOOD COUNT 9.8 10^3/uL (4.3-11.0)
[2018-03-27 04:42] LABS: CREATININE SERUM 1.32 MG/DL (0.60-1.30); MAGNESIUM 2.2 MG/DL (1.8-2.4); PHOSPHORUS 2.6 MG/DL (2.3-4.7); POTASSIUM 4.3 MMOL/L (3.6-5.0)
[2018-03-27 04:49] LABS: INR 1.7 (0.8-1.4); PROTHROMBIN TIME PATIENT 19.6 SEC (12.2-14.7)
[2018-03-27] MEDS: PANTOPRAZOLE 40 MG (PROTONIX) TAB PO SCH ×2 (05:56→18:51)
[2018-03-27] MEDS: glipiZIDE 5 MG (GLUCOTROL) TAB PO SCH ×2 (05:56→18:50)
[2018-03-27] MEDS: CEFEPIME 1,000 MG/SWFI 10 ML IV PUSH IV SCH ×6 (05:56→18:50)
[2018-03-27] MEDS: inSUlin ASPART (NovoLOG) 1 UNIT/0.01 ML (CHARGE PER UNIT) SQ SCH ×4 (06:08→21:09)
[2018-03-27 08:00] VITALS: BP 106/56
[2018-03-27 08:01] VITALS: BP 129/64
[2018-03-27] MEDS: FLUoxetine HCL 20 MG (PROzac) CAP PO SCH (09:59)
[2018-03-27] MEDS: FUROSEMIDE 20 MG (LASIX) TAB PO SCH (09:59)
[2018-03-27] MEDS: methylPREDNISolone 40 MG/ML (Solu-MEDROL) VIAL IV SCH ×2 (10:00→21:09)
[2018-03-27] MEDS ORDERED: FUROSEMIDE 40 MG/4 ML INJ (LASIX) IVP NR (10:30)
--- NOTE | 2018-03-27 10:49 | Progress Note-Hospitalist ---
Subjective HPI/CC On Admission Date Seen by Provider: Mar 27, 2018 Time Seen by Provider: 10:43 Chief complaint: shortness of breath Subjective/Events-last exam Pt complaints of scrotal swelling and overall edema but questions me multiples time about whether he is going to "lose my boys." He denies any difficulty urinating. PT at bedside as well and he walked in hallway. Patient is unsure where he lived prior to this hospitalization but states he only ambulated 4 feet at a time around his house at baseline. Objective Exam Vital Signs Vital Signs Date Time Temp Pulse Resp B/P (MAP) Pulse Ox O2 Delivery O2 Flow Rate FiO2 03/27/18 08:01 67 97 03/27/18 08:01 Nasal Cannula 7.00 03/27/18 08:00 98.2 18 106/56 (73) Capillary Refill : Less Than 3 Seconds General Appearance: No Apparent Distress, WD/WN, Obese Respiratory: No Accessory Muscle Use, No Respiratory Distress, Crackles (bases) , Other (on HFNC) Cardiovascular: Regular Rate, Rhythm, Systolic Murmur Gastrointestinal: Normal Bowel Sounds, Non Tender, Soft Genital/Rectal: Other (significant scrotal edema) Extremity: Pedal Edema, Other (2+ upper and lower extremity edema) Neurologic/Psychiatric: Alert, Other (oriented to person and place only ) Skin: Normal Color, Warm/Dry Results/Procedures Lab Laboratory Tests 03/27/18 04:00 Patient resulted labs reviewed. Assessment/Plan Assessment and Plan Assess & Plan/Chief Complaint 1. Acute on chronic respiratory distress likely due to by basilar pneumonia. Continue Cefepime at this time, unsure of baseline etiology on chronic respiratory failure, Refusing BiPAP at night time 2. Reactive airways- continue steroid taper 3. Hypertension- well controlled on lasix only- trend 4. Type II diabetes mellitus- non insuling dependent, continue SSI and Glipizide 5. Multifactorial deconditioning- unsure of true baseline, PT/OT consulted, discussed with patient about SQ consult to help with discharge planning 7. INR up to 1.7, continue current dose and trend INRs; unsure of indication for Coumadin 8. Peripheral edema- continue Lasix 9. Systolic Murmur- echo ordered Critical Care Critically Ill Patient Clinical Quality Measures DVT/VTE Risk/Contraindication: Risk Factor Score Per Nursin RFS Level Per Nursing on Admit: 4+=Very High ILSA,THUY M MD Mar 27, 2018 10:49
--- NOTE | 2018-03-27 11:11 | Physical Therapy Daily Note ---
PT Daily Note-Current Subjective Pt in bed with nurse in room. Pt agrees to PT. Pain Numeric Pain Scale: 0-No Pain Location: No Pain Reported Appearance Pt is laying with abd ER rotated LE due to excessive scrotum swelling. Mental Status Patient Orientation: Person Attachments: Oxygen (5L) Transfers Therapy Code Descriptions/Definitions Functional [place] Measure: 0=Not Assessed/NA 4=Minimal Assistance 1=Total Assistance 5=Supervision or Setup 2=Maximal Assistance 6=Modified [place] 3=Moderate Assistance 7=Complete [place] Therapy Quality Codes: 6 Independent with activity with or without an assistive device 5 Patient requires set up or clean up by helper. Patient completes activity by themselves 4 Supervision or touching assist (CGA). [place] provide cues , steadying assist 3 The helper provides less than half the effort to complete the activity 2 The helper provides more than half the effort to complete the activity 1 Dependent. The helper does all the effort to complete an activity 7 Patient refused to complete or attempt activity 9 The patient did not perform the activity before the current illness or injury 88 Not attempted due to Medical conditions or safety concerns Transfers (B, C, W/C) (FIM): 4 Scootin Supine to/from Sit: 4 Sit to/from Stand: 4 Weight Bearing Right Lower Extremity: Right Full Weight Bearing Left Lower Extremity: Left Full Weight Bearing Gait Training Gait (FIM): 2 Distance (FIM): 3=623-93 ft Distance: 80' Gait Level of Assist: 4 Gait Persons Needed: 1 Gait Assistive Device: FWW Pt amb with wide GABRIELA and LLE drop foot. Exercises Seated Therapy Exercises: Ankle pumps, Long arc quads, Hip flexion Seated Reps: 10 Assessment Current Status: Fair Progress Pt was able to perform bed mobility with min A and pt using scrotum sling. Pt is min A from sit<>stand to FWW. Pt able to amb 80' with FWW and min A with VC for pt to remain close to walker. PT increased O2 from 5L to 6L during amb due to pt SOA. Pt performed seated LE ex on EOB. Pt is now in recliner with all needs met and Dr. Gaston in room. Pt reports new information than what was previously told to PT. Pt reports he only amb 4' daily and rarely he goes 80'. Pt also reports he came [place] not home to hospital. PT Short Term Goals Short Term Goals Time Frame: Mar 31, 2018 Transfers (B,C,W/C) (FIM): 5 Gait (FIM): 4 Distance (FIM): 6=657-51 ft Gait Distance Comment: 50' Gait Level of Assist: 4 Gait Assistive Device: FWW PT Plan Problem List Problem List: Activity Tolerance, Functional Strength, Safety, Balance, Gait, Transfer, Bed Mobility, ROM Treatment/Plan Treatment Plan: Continue Plan of Care Treatment Plan: Bed Mobility, Education, Functional Activity [place], Functional Strength, Gait, Safety, Therapeutic Exercise, Transfers Treatment Duration: Mar 31, 2018 Frequency: 6 times per week Estimated Hrs Per Day: .25 hour per day Patient and/or Family Agrees t: Yes Time/GCodes Time In: 1000 Time Out: 1023 Total Billed Treatment Time: 23 Total Billed Treatment 1 visit GT 13 min FA 10 min ALESSIO CALL PT Mar 27, 2018 11:11
--- NOTE | 2018-03-27 11:16 | Physical Therapy Daily Note ---
PT Daily Note-Current Subjective Pt is up in recliner and agrees to PT. Pain Numeric Pain Scale: 0-No Pain Location: No Pain Reported Mental Status Patient Orientation: Person, Place, Situation, Normal For Age Attachments: Oxygen (5L), Drains, Gray Catheter Transfers Therapy Code Descriptions/Definitions Functional [place] Measure: 0=Not Assessed/NA 4=Minimal Assistance 1=Total Assistance 5=Supervision or Setup 2=Maximal Assistance 6=Modified [place] 3=Moderate Assistance 7=Complete [place] Therapy Quality Codes: 6 Independent with activity with or without an assistive device 5 Patient requires set up or clean up by helper. Patient completes activity by themselves 4 Supervision or touching assist (CGA). [place] provide cues , steadying assist 3 The helper provides less than half the effort to complete the activity 2 The helper provides more than half the effort to complete the activity 1 Dependent. The helper does all the effort to complete an activity 7 Patient refused to complete or attempt activity 9 The patient did not perform the activity before the current illness or injury 88 Not attempted due to Medical conditions or safety concerns Transfers (B, C, W/C) (FIM): 6 Scootin Sit to/from Stand: 6 Weight Bearing Right Lower Extremity: Right Full Weight Bearing Left Lower Extremity: Left Full Weight Bearing Gait Training Gait (FIM): 6 Distance (FIM): 3=150 ft Distance: 1000' Gait Level of Assist: 6 Gait Persons Needed: 1 Gait Assistive Device: FWW Assessment Current Status: Good Progress Pt is able to perform all transfers mod indep. Pt amb mod indep with FWW. PT only assisting with wound VAC and O2 at 5L. Pt is able to amb 1000' with no c/ o. Pt is now in room in recliner with all needs met. PT Short Term Goals Short Term Goals Time Frame: Mar 31, 2018 Transfers (B,C,W/C) (FIM): 5 Gait (FIM): 4 Distance (FIM): 0=758-34 ft Gait Distance Comment: 50' Gait Level of Assist: 4 Gait Assistive Device: FWW PT Plan Problem List Problem List: Activity Tolerance, Functional Strength, Safety, Gait Treatment/Plan Treatment Plan: Continue Plan of Care Treatment Plan: Bed Mobility, Education, Functional Activity [place], Functional Strength, Gait, Safety, Therapeutic Exercise, Transfers Treatment Duration: Mar 31, 2018 Frequency: 6 times per week Estimated Hrs Per Day: .25 hour per day Patient and/or Family Agrees t: Yes Time/GCodes Time In: 1024 Time Out: 1040 Total Billed Treatment Time: 16 Total Billed Treatment 1 visit FA 16 min ALESSIO CALL PT Mar 27, 2018 11:16
--- NOTE | 2018-03-27 11:37 | Progress Note ---
Subjective Date Seen by a Provider: Mar 27, 2018 Time Seen by a Provider: 11:35 Subjective/Events-last exam Patient doing well. no blood per rectum. hgb stable. denies n/v fever sweats chills. No new complaints. Objective Exam Vital Signs Date Time Temp Pulse Resp B/P (MAP) Pulse Ox O2 Delivery O2 Flow Rate FiO2 03/27/18 08:01 67 97 03/27/18 08:01 97 Nasal Cannula 7.00 03/27/18 08:00 98.2 72 18 106/56 (73) 90 High Flow N/C 8.00 03/27/18 01:37 92 High Flow N/C 7.00 03/27/18 00:30 98.2 69 20 129/64 (85) 96 High Flow N/C 8.00 03/26/18 22:19 93 High Flow N/C 7.00 03/26/18 20:31 High Flow N/C 8.00 03/26/18 19:52 97.8 68 20 129/66 (87) 99 High Flow N/C 8.00 03/26/18 18:58 94 High Flow N/C 8.00 03/26/18 16:07 97.8 65 20 123/60 (81) 95 High Flow N/C 8.00 03/26/18 14:08 94 High Flow N/C 8.00 03/26/18 12:00 97.4 80 18 135/66 (89) 93 High Flow N/C 8.00 I & O 03/27/18 07:00 Intake Total 3151 ml Output Total 375 ml Balance 2776 ml Capillary Refill : Less Than 3 Seconds General Appearance: No Apparent Distress, WD/WN, Obese Respiratory: No Accessory Muscle Use, No Respiratory Distress, Crackles (bases) , Other (on HFNC) Cardiovascular: Regular Rate, Rhythm, Systolic Murmur Gastrointestinal: non tender, soft, no organomegaly Extremity: Pedal Edema, Other (2+ upper and lower extremity edema) Neurologic/Psychiatric: Alert, Other (oriented to person and place only ) Skin: Normal Color, Warm/Dry, Other (scrotal edema) Results Lab Laboratory Tests 03/26/18 16:07: Glucometer 254H 03/26/18 19:55: Glucometer 248H 03/27/18 04:00: White Blood Count 9.8, Red Blood Count 3.53L, Hemoglobin 8.0L, Hematocrit 30L, Mean Corpuscular Volume 85, Mean Corpuscular Hemoglobin 23L, Mean Corpuscular Hemoglobin Concent 27L, Red Cell Distribution Width 18.6H, Platelet Count 144, Mean Platelet Volume 12.3H, Neutrophils (%) (Auto) 86H, Lymphocytes (%) (Auto) 9L, Monocytes (%) (Auto) 6, Eosinophils (%) (Auto) 0, Basophils (%) (Auto) 0, Neutrophils # (Auto) 8.4H, Lymphocytes # (Auto) 0.9L, Monocytes # (Auto) 0.6, Eosinophils # (Auto) 0.0, Basophils # (Auto) 0.0, Prothrombin Time 19.6H, INR Comment 1.7H, Sodium Level 140, Potassium Level 4.3, Chloride Level 108H, Carbon Dioxide Level 23, Anion Gap 9, Blood Urea Nitrogen 30H, Creatinine 1.32H , Estimat Glomerular Filtration Rate 53, BUN/Creatinine Ratio 23, Glucose Level 188H, Calcium Level 7.0L, Phosphorus Level 2.6, Magnesium Level 2.2 03/27/18 05:19: Glucometer 214H 03/27/18 11:00: Glucometer 194H Microbiology 03/21/18 Blood Culture - Preliminary, Resulted No growth 03/21/18 Urine Culture - Final, Complete NO GROWTH Assessment/Plan Assessment/Plan Assessment/Plan occult positive stools Anemia unknown source Chronic anticoagulation Bilateral pneumonia History of stroke history of polyp 3 years ago was recommended repeat in one year but has not had repeat colonoscopy Patient is a 72-year-old male we discussed possible EGD and colonoscopy. hemoglobin stable at this time, becomes unstable would proceed with endoscopy and patient versus outpatient. If he continues would consider stopping his Coumadin. on Protonix. We also discussed doing as outpatient for EGD and colonoscopy with history of polyp patient instructed really need for follow up on this. Patient in agreement with plan. Will have appointment for f/u in about 2 weeks. Will sign off since hgb is remaining stable and not having any visible blood. If needed please. Clinical Quality Measures DVT/VTE Risk/Contraindication: Risk Factor Score Per Nursin RFS Level Per Nursing on Admit: 4+=Very High OPHELIA TREADWELL DO Mar 27, 2018 11:37
--- NOTE | 2018-03-27 11:53 | NUR ---
LARGEST SCROTUM SUPPORT STOCKED BY JOSH ABDUL DOES NOT FIT PT.
--- NOTE | 2018-03-27 12:59 | Diagnostic Imaging Report ---
Indication: Bilateral pneumonia. Time of exam: 12:43 PM Correlation is made with prior study from one day earlier. The heart is enlarged but stable. There has been some improved aeration in both lungs. There is some residual left perihilar linear opacities. The lower lobes show some improved aeration. There is slight blunting of bilateral costophrenic angles. No pneumothorax is seen. Impression: Overall improved aeration of both lungs when compared to examination one day earlier. Dictated by: Dictated on workstation # [id number]
--- NOTE | 2018-03-27 13:54 | NUR ---
CM/SS. Respond to consult and visited with patient and his spouse Sol Simons. PLAN: Referral completed with [facility], await confirmation of acceptance. They have 3 beds open and will earmark one for this patient. Physician indicates possible discharge tomorrow. CARE Assessment was completed in December 2017, remains current. DME: Patient has wheelchair and FWW at home, he did not have home O2. He is now on 7L and RT to assess for study to determine discharge liter flow.
--- NOTE | 2018-03-27 14:27 | Occupational Ther Daily Note ---
OT Current Status-Daily Note Subjective Pt. states that he has already been cleaned up and already been fed. Requires encouragement to work with OT. Appearance Pt. in bed. No pain reported. Is somewhat confused throughout treatment. Spouse present and assists with encouraging pt. Mental Status/Objective Patient Orientation: Confused, Unable to Assess Therapy Code Descriptions/Definitions Functional [place] Measure: 0=Not Assessed/NA 4=Minimal Assistance 1=Total Assistance 5=Supervision or Setup 2=Maximal Assistance 6=Modified [place] 3=Moderate Assistance 7=Complete [place] Attachments: IV ADL-Treatment Lower Body Dressing (FIM): 2 (Pt. struggles to doff shoes. Attempts to doff without unfastening them. Is able to get one off but bends to unfasten the other with prompts. Becomes very SOA. Unable to doff socks.) Toileting (FIM): 1 (Pt. has been incontinent of urine while seated on side of bed.) Transfers (B, C, W/C) (FIM): 3 (Mod assist supine-sit. Min assist sit-stand x 2.) Other Treatment Pt. agrees to treatment. Transferred to side of bed with mod assist. Noted that pt. had urinated in bed. Stood with min assist and took steps toward left side with max cues. Bed pad changed. Pt. sat back down. Agreed to bilateral UE/LE exercises seated on side of bed. Completed 3 bilateral UE x 10, and 2 bilateral LE x 10 reps in all planes to increase overall strength. OT assisted with changing gown. Transferred back to bed with min assist and cues to position self correctly in bed. All needs met while in bed. Pt. somewhat confused and has difficulty staying on task throughout treatment. All needs met while in bed. Education OT Patient Education: Correct positioning, Energy conservation, Exercise program, Instructions to caregiver, Modified ADL techniques, Progress toward Goal/Update tx plan, Purpose of tx/functional activities, Reviewed precautions, Rehab process, Transfer techniques Teaching Recipient: Patient, Family Teaching Methods: Demonstration, Discussion Response to Teaching: Verbalize Understanding, Return Demonstration OT Short Term Goals Short Term Goals Transfers (B,C,W/C) (FIM): 5 1=Demonstrate adherence to instructed precautions during ADL tasks. 2=Patient will verbalize/demonstrate understanding of assistive devices/ modifications for ADL. 3=Patient will improve strength/tolerance for activity to enable patient to perform ADL's. OT Chcf Goals Chcf Goals Time Frame: Apr 07, 2018 Bathing(FIM): 4 Upper Body Dressing(FIM): 5 Lower Body Dressing(FIM): 4 Toileting(FIM): 5 Toilet/Commode Transfer(FIM): 5 Additional Goals: 1-Demonstrate ADL Tasks, 2-Verbalize Understanding, 3- ImproveStrength/Kennedy 1=Demonstrate adherence to instructed precautions during ADL tasks. 2=Patient will verbalize/demonstrate understanding of assistive devices/ modifications for ADL. 3=Patient will improve strength/tolerance for activity to enable patient to perform ADL's. OT Education/Plan Problem List/Assessment Assessment: Decreased Activ Tolerance, Dependent Transfers, Impaired Bed Mobility, Impaired Cognition, Impaired Funct Balance, Impaired I ADL's, Impaired Self-Care Skills Pt demonstrates decreased activity tolerance, mobility, strength, and ADL functioning. Pt to benefit from skilled OT intervention for ADL training, transfers, strengthening, and safety education to increase level of independence and allow safe discharge. Discharge Recommendations Plan/Recommendations: Continue POC Therapy D/C Recommendations: 24 hr Supervision Treatment Plan/Plan of Care Treatment,Training & Education: Yes Patient would benefit from OT for education, treatment and training to promote independence in ADL's, mobility, safety and/or upper extremity function for ADL' s. Plan of Care: ADL Retraining, Functional Mobility, UE Funct Exercise/Act Treatment Duration: Apr 07, 2018 Frequency: 5 times per week Estimated Hrs Per Day: .25 hour per day Rehab Potential: Fair Time/GCodes Start Time: 13:40 Stop Time: 14:10 Total Time Billed (hr/min): 30 Billed Treatment Time 1, ADL x 2 VIRGINIA GARCIA OT Mar 27, 2018 14:27
[2018-03-27 15:40] VITALS: BP 145/75
--- NOTE | 2018-03-27 17:11 | Pulmonary Progress Note ---
Subjective Time Seen by a Provider: 06:14 Subjective/Events-last exam C/o SOB worse with exertion. NO productive cough. Sepsis Event Evaluation Height, Weight, BMI Height: 5'9.00" Weight: 269lbs. 0.0oz. 122.519402jf; 36.3 BMI Method:Estimated Exam Exam Vital Signs Date Time Temp Pulse Resp B/P (MAP) Pulse Ox O2 Delivery O2 Flow Rate FiO2 03/27/18 15:40 97.8 71 18 145/75 (98) 95 Nasal Cannula 8.00 03/27/18 08:01 67 97 03/27/18 08:01 97 Nasal Cannula 7.00 03/27/18 08:00 98.2 72 18 106/56 (73) 90 High Flow N/C 8.00 03/27/18 01:37 92 High Flow N/C 7.00 03/27/18 00:30 98.2 69 20 129/64 (85) 96 High Flow N/C 8.00 03/26/18 22:19 93 High Flow N/C 7.00 03/26/18 20:31 High Flow N/C 8.00 03/26/18 19:52 97.8 68 20 129/66 (87) 99 High Flow N/C 8.00 03/26/18 18:58 94 High Flow N/C 8.00 I & O 03/27/18 07:00 Intake Total 3151 ml Output Total 375 ml Balance 2776 ml Height & Weight Height: 5'9.00" Weight: 269lbs. 0.0oz. 122.817395tp; 36.3 BMI Method:Estimated General Appearance: No Apparent Distress, WD/WN, Obese Respiratory: No Accessory Muscle Use, No Respiratory Distress, Crackles (bases) , Other (on HFNC) Cardiovascular: Regular Rate, Rhythm, Systolic Murmur Capillary Refill: Less Than 3 Seconds Gastrointestinal: non tender, soft, no organomegaly Extremity: Pedal Edema, Other (2+ upper and lower extremity edema) Neurologic/Psychiatric: Alert, Other (oriented to person and place only ) Skin: Normal Color, Warm/Dry, Other (scrotal edema) Results Lab Laboratory Tests 03/26/18 05:47 03/27/18 04:00 Assessment/Plan Assessment/Plan Acute on chronic respiratory failure -Pt improved with noninvasive ventilation -Pt will benefit from home vent to mask -SW consulted to help arrange vent to mask. He will probably need home 02 -Currently refusing BiPAP Pneumonia -Comer cultures -Continue abx Anemia -Protonix BID -check occult stool is positive -Dr. Reveles is following -Pt is anticoagulated with coumadin. Acute renal failure -Monitor DM RAQUEL NOYOLA DO Mar 27, 2018 17:11
[2018-03-27] MEDS: warFARin 3 MG (COUMADIN) TAB PO SCH (18:53)
[2018-03-27] MEDS: rOPINIRole 1 MG (REQUIP) TABLET PO SCH (18:53)
[2018-03-27] MEDS: LATANOPROST 0.005% (XALATAN) OPHTH SOLN 2.5 ML OU SCH (21:10)
[2018-03-27] MEDS: ZOLPIDEM 5 MG (AMBIEN) TAB PO SCH (21:10)
[2018-03-28] VITALS: BP 138/76
[2018-03-28] MEDS: CEFEPIME 1,000 MG/SWFI 10 ML IV PUSH IV SCH ×6 (00:03→12:09)
[2018-03-28] MEDS: RT-ALBUTEROL/IPRATROPIUM 3 ML (DUONEB) VIAL INH SCH ×2 (03:14→08:00)
[2018-03-28 03:46] LABS: BASOPHILS % (AUTO) 0 % (0-10); EOSINOPHILS % (AUTO) 0 % (0-10); HEMATOCRIT 30 % (40-54); HEMOGLOBIN 8.3 G/DL (13.3-17.7); LYMPHOCYTES # (AUTO) 0.9 X 10^3 (1.0-4.0); LYMPHOCYTES % (AUTO) 8 % (12-44); MEAN CORPUSCULAR HEMOGLOBIN 23 PG (25-34); MEAN CORPUSCULAR HGB CONC 28 G/DL (32-36); MEAN CORPUSCULAR VOLUME 83 FL (80-99); MONOCYTES # (AUTO) 0.4 X 10^3 (0.0-1.0); MONOCYTES % (AUTO) 4 % (0-12); NEUTROPHILS # (AUTO) 9.2 X 10^3 (1.8-7.8); NEUTROPHILS % (AUTO) 88 % (42-75); PLATELET COUNT 124 10^3/uL (130-400); RED CELL DISTRIBUTION WIDTH 18.5 % (10.0-14.5); WHITE BLOOD COUNT 10.4 10^3/uL (4.3-11.0)
[2018-03-28 04:00] LABS: INR 1.7 (0.8-1.4)
[2018-03-28 04:10] LABS: CALCIUM 7.1 MG/DL (8.5-10.1); CREATININE SERUM 1.46 MG/DL (0.60-1.30); MAGNESIUM 1.9 MG/DL (1.8-2.4); PHOSPHORUS 2.5 MG/DL (2.3-4.7); POTASSIUM 3.9 MMOL/L (3.6-5.0)
--- NOTE | 2018-03-28 06:17 | Pulmonary Progress Note ---
Subjective Time Seen by a Provider: 06:15 Sepsis Event Evaluation Height, Weight, BMI Height: 5'9.00" Weight: 265lbs. 3.2oz. 120.203117lb; 36.3 BMI Method:Estimated Exam Exam Vital Signs Date Time Temp Pulse Resp B/P (MAP) Pulse Ox O2 Delivery O2 Flow Rate FiO2 03/28/18 03:14 92 Nasal Cannula 5.00 03/28/18 00:00 97.8 68 18 138/76 (96) 95 High Flow N/C 4.00 4.00 03/27/18 21:00 High Flow N/C 4.00 03/27/18 20:59 96 Nasal Cannula 5.00 03/27/18 15:40 97.8 71 18 145/75 (98) 95 Nasal Cannula 8.00 03/27/18 09:00 High Flow N/C 4.00 03/27/18 08:01 67 97 03/27/18 08:01 97 Nasal Cannula 7.00 03/27/18 08:00 98.2 72 18 106/56 (73) 90 High Flow N/C 8.00 I & O 03/28/18 07:00 Intake Total 1380 ml Balance 1380 ml Height & Weight Height: 5'9.00" Weight: 265lbs. 3.2oz. 120.549500vy; 36.3 BMI Method:Estimated General Appearance: No Apparent Distress, WD/WN, Obese Respiratory: No Accessory Muscle Use, No Respiratory Distress, Crackles (bases) , Other (on HFNC) Cardiovascular: Regular Rate, Rhythm, Systolic Murmur Capillary Refill: Less Than 3 Seconds Gastrointestinal: non tender, soft, no organomegaly Extremity: Pedal Edema, Other (2+ upper and lower extremity edema) Neurologic/Psychiatric: Alert, Other (oriented to person and place only ) Skin: Normal Color, Warm/Dry, Other (scrotal edema) Results Lab Laboratory Tests 03/27/18 04:00 03/28/18 03:40 Assessment/Plan Assessment/Plan Acute on chronic respiratory failure -Pt improved with noninvasive ventilation -Pt will benefit from home vent to mask -SW consulted to help arrange vent to mask. He will probably need home 02 -Currently refusing BiPAP Pneumonia -Comer cultures -Continue abx Diastolic CHF grade II -Lasix 20mg daily currently Anemia -Protonix BID -check occult stool is positive -Dr. Reveles is following -Pt is anticoagulated with coumadin. Acute renal failure -Monitor RAQUEL BLUM DO Mar 28, 2018 06:17
[2018-03-28] MEDS: inSUlin ASPART (NovoLOG) 1 UNIT/0.01 ML (CHARGE PER UNIT) SQ SCH ×2 (06:20→11:45)
[2018-03-28] MEDS: PANTOPRAZOLE 40 MG (PROTONIX) TAB PO SCH (06:20)
[2018-03-28] MEDS: glipiZIDE 5 MG (GLUCOTROL) TAB PO SCH (06:21)
--- NOTE | 2018-03-28 08:02 | NUR ---
SPO2 DROPPED TO 85% ON ROOM AIR @ REST. REPLACED O2 @ 2 LPM. SPO2 INCREASED TO 93%. Addendum: 03/28/18 at 0802 by MOODY DELGADO RT Amended: Links added.
[2018-03-28 08:45] VITALS: BP 120/65
[2018-03-28] MEDS: FLUoxetine HCL 20 MG (PROzac) CAP PO SCH (09:14)
[2018-03-28] MEDS: IRON SUCROSE 200 MG/10 ML (VENOFER) VIAL IV SCH (09:14)
[2018-03-28] MEDS: methylPREDNISolone 40 MG/ML (Solu-MEDROL) VIAL IV SCH (09:14)
[2018-03-28] MEDS: FUROSEMIDE 20 MG (LASIX) TAB PO SCH (09:14)
--- NOTE | 2018-03-28 09:21 | Discharge Inst-Skilled Nursing ---
Discharge Inst-Skilled NF Consult/Follow Up/Orders Follow Up Appt.: With your PCP or the medical laboratory technicians of the NH. Skilled NF Admit to: Certification (SNF) I certify that SNF services are required to be given on an inpatient basis because of the above named patient's need for senior living care on a continuing basis for the conditions(s) for which he/she was receiving inpatient hospital services prior to his/her transfer to the SNF. [facility] Facility Order: Nursing Services, [employer]-Evaluate & Treat, Physical Therapy-Evaluate & Treat Oxygen Delivery Method: Nasal Cannula (2lpm continuous) Discharge Diet: Coumadin Patient Diet Daily Activity as Tolerated: Yes New & Resume Previous Orders Thuy Gaston Mar 28, 2018 09:17 THUY GASTON MD Mar 28, 2018 09:21
[2018-03-28] MEDS ORDERED: FURO20TA4 PO (09:26)
[2018-03-28] MEDS ORDERED: CEFD300C3 PO (09:26)
[2018-03-28] MEDS ORDERED: WARF3TAB PO (09:26)
[2018-03-28] MEDS ORDERED: CIPR2.5D2 OD (09:26)
[2018-03-28] MEDS ORDERED: PRED10TA22 PO (09:31)
--- NOTE | 2018-03-28 09:32 | Discharge Summary-Hospitalist ---
Diagnosis/Chief Complaint Date of Admission Mar 21, 2018 at 18:15 Date of Discharge Discharge Date: Mar 28, 2018 Admission Diagnosis Assessment: Pneumonia bilateral Respiratory failure maintain on BiPAP Anemia with Hemoccult positive stools Metabolic encephalopathy Diabetes mellitus out of control Mild hypotension Plan: IV fluids Monitor hemoglobin may need transfused Insulin Antibiotics Nebulizer treatments BiPAP Discharge Diagnosis (1) Pneumonia of both lower lobes Status: Acute (2) Sepsis Status: Resolved (3) Anemia Status: Chronic (4) Hyperglycemia Status: Resolved (5) Diabetes mellitus Status: Chronic (6) Occult blood in stools Status: Acute (7) Encephalopathy acute Status: Resolved (8) Transfusion of blood during current hospitalization Status: Acute Discharge Summary Procedures/Consulations Dr Lorena Reveles Discharge Physical Exam Allergies: Coded Allergies: Penicillins (Verified Allergy, Unknown, 03/21/18) tetanus and diphtheria toxoids (Verified Allergy, Unknown, 03/21/18) Vitals & I&Os Vital Signs Date Time Temp Pulse Resp B/P (MAP) Pulse Ox O2 Delivery O2 Flow Rate FiO2 03/28/18 09:21 Nasal Cannula 03/28/18 08:00 91 2.00 03/28/18 00:00 97.8 68 18 138/76 (96) General Appearance: No Apparent Distress, WD/WN, Obese Respiratory: No Accessory Muscle Use, No Respiratory Distress, Crackles (bases) , Other (on HFNC) Cardiovascular: Regular Rate, Rhythm, Systolic Murmur Gastrointestinal: Normal Bowel Sounds, Non Tender, Soft Extremity: Pedal Edema, Other (2+ upper and lower extremity edema) Skin: Normal Color, Warm/Dry, Other (scrotal edema) Neurologic/Psychiatric: Alert, Other (oriented to person and place only ) Hospital Course Labs (last 24 hrs) Laboratory Tests 03/27/18 11:00: Glucometer 194H 03/27/18 15:38: Glucometer 307H 03/27/18 21:01: Glucometer 165H 03/28/18 03:40: White Blood Count 10.4, Red Blood Count 3.57L, Hemoglobin 8.3L, Hematocrit 30L, Mean Corpuscular Volume 83, Mean Corpuscular Hemoglobin 23L, Mean Corpuscular Hemoglobin Concent 28L, Red Cell Distribution Width 18.5H, Platelet Count 124L, Mean Platelet Volume , Neutrophils (%) (Auto) 88H, Lymphocytes (%) (Auto) 8L, Monocytes (%) (Auto) 4, Eosinophils (%) (Auto) 0, Basophils (%) (Auto) 0, Neutrophils # (Auto) 9.2H, Lymphocytes # (Auto) 0.9L, Monocytes # (Auto) 0.4, Eosinophils # (Auto) 0.0, Basophils # (Auto) 0.0, Prothrombin Time 20.0H, INR Comment 1.7H, Sodium Level 138, Potassium Level 3.9, Chloride Level 104, Carbon Dioxide Level 26, Anion Gap 8, Blood Urea Nitrogen 32H, Creatinine 1.46H, Estimat Glomerular Filtration Rate 48, BUN/Creatinine Ratio 22, Glucose Level 207H, Calcium Level 7.1L, Phosphorus Level 2.5, Magnesium Level 1.9 03/28/18 05:03: Glucometer 251H Microbiology 03/21/18 Blood Culture - Final, Complete No growth 03/21/18 Urine Culture - Final, Complete NO GROWTH Patient resulted labs reviewed. Pending Labs Laboratory Tests 03/28/18 03:40: White Blood Count 10.4, Red Blood Count 3.57, Hemoglobin 8.3, Hematocrit 30, Mean Corpuscular Volume 83, Mean Corpuscular Hemoglobin 23, Mean Corpuscular Hemoglobin Concent 28, Red Cell Distribution Width 18.5, Platelet Count 124, Mean Platelet Volume , Neutrophils (%) (Auto) 88, Lymphocytes (%) (Auto) 8, Monocytes (%) (Auto) 4, Eosinophils (%) (Auto) 0, Basophils (%) (Auto) 0, Neutrophils # (Auto) 9.2, Lymphocytes # (Auto) 0.9, Monocytes # (Auto) 0.4, Eosinophils # (Auto) 0.0, Basophils # (Auto) 0.0, Prothrombin Time 20.0, INR Comment 1.7, Sodium Level 138, Potassium Level 3.9, Chloride Level 104, Carbon Dioxide Level 26, Anion Gap 8, Blood Urea Nitrogen 32, Creatinine 1.46, Estimat Glomerular Filtration Rate 48, BUN/Creatinine Ratio 22, Glucose Level 207, Calcium Level 7.1, Phosphorus Level 2.5, Magnesium Level 1.9 03/28/18 05:03: Glucometer 251 Discharge Home Medications: Active Scripts Active Prednisone 10 Mg Tab.ds.pk 10 Mg PO DAILY Take 6 tabs(60mg)daily,decrease by 1 tab(10MG)daily. Cefdinir 300 Mg Capsule 300 Mg PO BID 1 Days Furosemide 20 Mg Tablet 20 Mg PO DAILY Coumadin (Warfarin Sodium) 3 Mg Tablet 3 Mg PO DAILY@1800 Ciprofloxacin HCl 2.5 Ml Drops 1 Drop OD QID 10 Days 10 DAY SUPPLY FILLED 03-20-18, to stop on 03/30/18 Reported Fluoxetine HCl 20 Mg Capsule 20 Mg PO DAILY Ropinirole HCl 1 Mg Tablet 1 Mg PO 1830 Zolpidem Tartrate 5 Mg Tablet 5 Mg PO MOWEFRSA Latanoprost 2.5 Ml Drops 1 Drop OU HS Warfarin Sodium 4 Mg Tablet 4 Mg PO 1800 Fluticasone Propionate 16 Gm Pray.susp 2 Sprays NS DAILY PRN Atorvastatin Calcium 10 Mg Tablet 10 Mg PO HS Glipizide 10 Mg Tablet 10 Mg PO BID Metformin HCl 1,000 Mg Tablet 1,000 Mg PO BID Instructions to patient/family Please see electronic discharge instructions given to patient. Clinical Quality Measures DVT/VTE Risk/Contraindication: Risk Factor Score Per Nursin RFS Level Per Nursing on Admit: 4+=Very High Problem Qualifiers (1) Pneumonia of both lower lobes: Pneumonia type: due to unspecified organism Qualified Codes: J18.1 - Lobar pneumonia, unspecified organism (2) Sepsis: Sepsis type: sepsis due to unspecified organism Qualified Codes: A41.9 - Sepsis, unspecified organism (3) Anemia: Anemia type: iron deficiency Iron deficiency anemia type: unspecified iron deficiency Qualified Codes: D50.9 - Iron deficiency anemia, unspecified (4) Diabetes mellitus: Diabetes mellitus type: type 2 Diabetes mellitus retirement insulin use: with retirement use Diabetes mellitus complication status: with circulatory complication THUY ROSENBAUM MD Mar 28, 2018 09:32
--- NOTE | 2018-03-28 10:46 | NUR ---
CM/SS. Patient discharged to Medicare skilled placement with [facility] via their transport scheduled for 1200. CARE Assessment is current. Left message for spouse on home and cell. Faxed orders to [facility], provided all requested information before and after decision to accept. Unit RN updated.
--- NOTE | 2018-03-28 10:51 | Diagnostic Imaging Report ---
INDICATION: Pneumonia, hypoxia. TECHNIQUE: Single view chest at 3:13 AM. CORRELATION STUDY: 03/27/2018 FINDINGS: Cardiac enlargement is stable. Mediastinum is unchanged. Vasculature is slightly increased from the prior study. There do appear to be increasing infiltrate-like densities in the right perihilar and infrahilar region. Bilateral pleural effusions. IMPRESSION: There appears to be somewhat increased particularly right perihilar and infrahilar infiltrate and/or edema. Bilateral pleural effusions also appear more prominent. Dictated by: Dictated on workstation # [id number]
--- NOTE | 2018-03-28 11:11 | Occ Therapy Progress Note ---
Therapy Progress Note OT attempted to see pt. Pt. in bed. More cognitively clear today than yesterday. Pt. states that he is going to "a place" in [facility]. Pt. declines all attempts at treatment this a.m. OT offers to assist him to side of bed, bathroom, etc... Declines bathing as well or dressing stating that he wants to "stay where I am." Will attempt back later as time allows. 1, visit 0905 Declined treatment VIRGINIA GARCIA OT Mar 28, 2018 11:11
--- NOTE | 2018-03-28 12:09 | NUR ---
patient is being discharged to group home. he will leave before he eats lunch so he doesn't want his insulin
--- NOTE | 2018-03-28 12:27 | NUR ---
CALLED REPORT TO MYRA HUITRON AT [facility]
[2018-03-28 12:30] VITALS: BP 120/65
== END 2018-03-28 12:30 | DRG 871 ==
LOC: EDUNIT# 14:53 → ER 14:54 → ICU 18:15 → 4TH 03-23 14:00
PROVIDERS: ADMIT Internal Medicine; ATTEND Internal Medicine
DX: A41.9 Sepsis, unspecified organism (principal); R65.20 Severe sepsis without septic shock; J18.1 Lobar pneumonia, unspecified organism; J96.21 Acute and chronic respiratory failure with hypoxia; G93.41 Metabolic encephalopathy; N17.9 Acute kidney failure, unspecified; I11.0 Hypertensive heart disease with heart failure; I50.30 Unspecified diastolic (congestive) heart failure; E11.65 Type 2 diabetes mellitus with hyperglycemia; E11.51 Type 2 diabetes mellitus with diabetic peripheral angiopathy without gangrene; E78.00 Pure hypercholesterolemia, unspecified; G47.30 Sleep apnea, unspecified; D50.9 Iron deficiency anemia, unspecified; R32 Unspecified urinary incontinence; R15.9 Full incontinence of feces; R19.5 Other fecal abnormalities; K57.90 Diverticulosis of intestine, part unspecified, without perforation or abscess without bleeding; R01.1 Cardiac murmur, unspecified; R60.0 Localized edema; Z87.891 Personal history of nicotine dependence; Z79.84 Long term (current) use of oral hypoglycemic drugs; Z85.828 Personal history of other malignant neoplasm of skin; Z79.01 Long term (current) use of anticoagulants; Z86.73 Personal history of transient ischemic attack (TIA), and cerebral infarction without residual deficits; Z86.010 Personal history of colon polyps; Z80.0 Family history of malignant neoplasm of digestive organs
CPT/HCPCS: 36415; 51701; 71045; 80048; 80053; 81000; 82274; 82805; 82947; 82962; 83540; 83605; 83735; 83880; 84100; 84484; 85007; 85014; 85018; 85025; 85027; 85610; 85730; 86850; 86900; 86901; 86920; 87040; 87088; 93306; 94640; 94660; 94760; 94761; 96374; 96375

== ENCOUNTER → 2018-04-26 | Outpatient (CLI) | payer MEDICARE, OTHER ==
[~2018-04-26] MED LIST: ACET325T49 PO; ATOR10TA66 PO; CEFD300C3 PO; CIPR2.5D2 OD; FLUO20CA25 PO; FLUO20CA42 PO; FLUT16SP22 NS; FURO20TA4 PO; GLIP10TA13 PO; LATA2.5D5 OU; METF-399 PO; PRED10TA22 PO; ROPI1TAB2 PO; ROPI1TAB40 PO; TAMS0.4C2 PO; WARF-48; WARF3TAB PO; WARF4TAB PO; WARF4TAB70 PO; ZOLP5TAB PO; ZOLP5TAB7 PO
== END | disposition home or self-care (01) ==
LOC: PREOP 05:38
PROVIDERS: ATTEND Surgery
DX: Z01.818 Encounter for other preprocedural examination (principal)

== ENCOUNTER → 2018-05-23 | Outpatient (CLI) | payer MEDICARE, OTHER ==
--- NOTE | 2018-05-23 16:19 | Diagnostic Imaging Report ---
EXAMINATION: PA and lateral chest at 12:26 p.m. INDICATION: Respiratory distress. FINDINGS: The heart size is stable when compared to the prior exam of 03/28/2018. The perihilar markings do not seem as prominent as on the prior exam and the small bilateral pleural effusions seen previously have essentially resolved. There is no new area of pneumonia identified. The mediastinum is not widened. The osseous structures are intact. IMPRESSION: The appearance of the chest has improved since the prior exam as the pulmonary congestion and small effusions noted previously have resolved. There is no acute abnormality identified at this time. Dictated by: Dictated on workstation # [id number]
== END ==
LOC: RAD 11:58
PROVIDERS: ATTEND Nurse Practitioner Family
DX: J18.9 Pneumonia, unspecified organism (principal); Z72.0 Tobacco use
CPT/HCPCS: 71046

== ENCOUNTER 2018-09-04 09:18 | Inpatient (IN) | payer MEDICARE, OTHER ==
[2018-09-04] VITALS (8 sets, daily range): BP systolic 71–139; BP diastolic 39–77
[~2018-09-04] VITALS: Ht 167.6 cm; Wt 114.5 kg
--- NOTE | 2018-09-04 09:42 | ED Respiratory ---
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 is historian. Decreased appetite, weakness and activity starting 2-3 days ago. Urine decreased yesterday. noticed decreased urine lately and decrease oral intake. She cannot tell if he has retention, because he is frequently incontinent. He also has chronic loose stools. She has pulse oximetry and checked him Tuesday and this was normal. He chronically belly breathes, so she cannot determine whether he is in respiratory distress. In March he was admitted for pneumonia and had similar symptoms. A random pulse oximetry check today revealed sats in the 70s. EMS was called and placed him on NRB which increased sats to 95. She reports now swallowing limitations from his stroke. He has no cough. His mental status is at baseline. He uses no oxygen at home even at nighttime. She is not aware of CHF and he has been on lasix 20 mg daily for years, but she is not certain why this is the case. She assumes it was for hypertension, and when these meds were stopped, lasix remained. This would be unusual treatment for HTN, so this will need further investigation. Coumadin she says is used for CVA since 2004. This also seems outlier treatment for secondary CVA prophylaxis without other medications, unless he has true carotid stenosis. However, this is typically bridging treatment unless surgery is not an option. She is not aware of hemoccult positive stool, although he is chronically anemic. He has declined subsequent colonoscopy for investigation. EKG reveals T wave inversions anterior leads and 1st degree AVB. I will try to get comparative EKG and records. His activity level is very poor. After prior stroke he was in [place] and subsequent [facility] for physical therapy which helped. But by choice he confines himself mostly to bed. He can shower and use bathroom on his own, and occasionally a couple of times daily moves to porch for a smoke. Thus he has very little physical stamina and reserve, so when he gets sick he becomes quickly disabled with weakn ess. Timing/Duration: yesterday Severity: severe Prior Episodes/Possible Cause: occasional episodes Modifying Factors: Improves With Oxygen Associated Symptoms: shortness of breath Allergies and Home Medications Allergies Coded Allergies: Penicillins (Verified Allergy, Unknown, 03/21/18) tetanus and diphtheria toxoids (Verified Allergy, Unknown, 03/21/18) Home Medications Acetaminophen 325 Mg Tablet, 650 MG PO Q4H PRN for PAIN-MILD, (Reported) Atorvastatin Calcium 10 Mg Tablet, 10 MG PO HS, (Reported) Fluoxetine HCl 20 Mg Capsule, 20 MG PO DAILY, (Reported) Fluticasone Propionate 16 Gm [place].susp, 2 SPRAYS NS DAILY PRN for ALLERGIES, (Reported) Furosemide 20 Mg Tablet, 20 MG PO DAILY, (Reported) Glipizide 10 Mg Tablet, 10 MG PO BID, (Reported) Latanoprost 2.5 Ml Drops, 1 DROP OU HS, (Reported) Metformin HCl 1,000 Mg Tablet, 1,000 MG PO BID, (Reported) Ropinirole HCl 1 Mg Tablet, 1 MG PO 1200, (Reported) Ropinirole HCl 2 Mg Tablet, 2 MG PO HS, (Reported) Tamsulosin HCl 0.4 Mg Cap, 0.4 MG PO HS, (Reported) Warfarin Sodium 5 Mg Tablet, 5 MG PO 1800, (Reported) Zolpidem Tartrate 5 Mg Tablet, 5 MG PO MoWeFrSa, (Reported) Patient Home Medication List Home Medication List Reviewed: Yes Review of Systems Review of Systems Constitutional: malaise, weakness EENTM: see HPI Respiratory: short of breath Cardiovascular: no symptoms reported, see HPI Gastrointestinal: see HPI Genitourinary: see HPI, decreased output, incontinence (urge) Musculoskeletal: muscle weakness Skin: no symptoms reported Psychiatric/Neurological: Weakness Hematologic/Lymphatic: Anemia, Easy Bruising Immunological/Allergic: no symptoms reported All Other Systems Reviewed Negative Unless Noted: Yes Past Lrzbpun-Cuxqwz-Jnhdlg Hx Immunizations Up To Date Date of Influenza Vaccine: Oct 15, 2017 Past Medical History Surgeries: Yes Respiratory: Yes Sleep Apnea Cardiac: Yes High Cholesterol, Hypertension Neurological: Yes Stroke Genitourinary: Yes Renal Failure Gastrointestinal: Yes Diverticulosis Musculoskeletal: No Endocrine: Yes Diabetes, Non-Insulin dep Cancer: Yes Skin Family Medical History No Pertinent Family Hx Physical Exam Vital Signs - First Documented 09/04/18 09:20 Temp 99.0 Pulse 91 Resp 23 B/P (MAP) 118/71 (87) Pulse Ox 96 O2 Delivery Room Air Capillary Refill : Height: 5'9.00" Weight: 265lbs. 3.2oz. 120.043738ph; 36.3 BMI Method:Estimated General Appearance: moderate distress Eyes: Bilateral Eye Normal Inspection, Bilateral Eye EOMI HEENT: pharynx normal Neck: full range of motion, supple Respiratory: accessory muscle use, crackles, rales Cardiovascular: normal peripheral pulses, regular rate, rhythm, no edema Gastrointestinal: normal bowel sounds, non tender Extremities: normal range of motion, non-tender, normal inspection, no pedal edema, no calf tenderness Neurologic/Psychiatric: no motor/sensory deficits, alert, normal mood/affect, oriented x 3 Skin: normal color Lymphatic: no adenopathy Focused Exam Lactate Level 09/04/18 09:30: Lactic Acid Level 2.77*H 09/04/18 11:40: Lactic Acid Level 2.18*H Lactic Acid Level Laboratory Tests Test 09/04/18 09:30 09/04/18 11:40 Lactic Acid Level 2.77 MMOL/L (0.50-2.00) *H 2.18 MMOL/L (0.50-2.00) *H Progress/Results/Core Measures Suspected Sepsis SIRS Temperature: Pulse: Respiratory Rate: Blood Pressure / Mean: 09/04/18 09:30: Lactic Acid Level 2.77*H 09/04/18 11:40: Lactic Acid Level 2.18*H Laboratory Tests 09/04/18 09:30: Total Bilirubin 0.5 Results/Orders Lab Results Laboratory Tests Test 09/04/18 09:30 09/04/18 10:02 09/04/18 10:40 09/04/18 11:10 Range/Units White Blood Count 9.0 4.3-11.0 10^3/uL Red Blood Count 3.69 L 4.35-5.85 10^6/uL Hemoglobin 7.9 L 13.3-17.7 G/DL Hematocrit 31 L 40-54 % Mean Corpuscular Volume 84 80-99 FL Mean Corpuscular Hemoglobin 21 L 25-34 PG Mean Corpuscular Hemoglobin Concent 26 L 32-36 G/DL Red Cell Distribution Width 17.6 H 10.0-14.5 % Platelet Count 143 130-400 10^3/uL Mean Platelet Volume 12.8 H 7.4-10.4 FL Neutrophils (%) (Auto) 78 H 42-75 % Lymphocytes (%) (Auto) 11 L 12-44 % Monocytes (%) (Auto) 10 0-12 % Eosinophils (%) (Auto) 1 0-10 % Basophils (%) (Auto) 0 0-10 % Neutrophils # (Auto) 7.0 1.8-7.8 X 10^3 Lymphocytes # (Auto) 1.0 1.0-4.0 X 10^3 Monocytes # (Auto) 0.9 0.0-1.0 X 10^3 Eosinophils # (Auto) 0.1 0.0-0.3 10^3/uL Basophils # (Auto) 0.0 0.0-0.1 10^3/uL Neutrophils % (Manual) 85 % Lymphocytes % (Manual) 5 % Monocytes % (Manual) 7 % Eosinophils % (Manual) 0 % Basophils % (Manual) 1 % Metamyelocytes % 1 % Myelocytes % 1 % Band Neutrophils 0 % Nucleated Red Blood Cells 2 Hypochromasia SLIGHT Anisocytosis SLIGHT Prothrombin Time 26.8 H 12.2-14.7 SEC INR Comment 2.4 H 0.8-1.4 D-Dimer 0.88 H 0.00-0.49 UG/ML Sodium Level 141 135-145 MMOL/L Potassium Level 4.5 3.6-5.0 MMOL/L Chloride Level 104 98-107 MMOL/L Carbon Dioxide Level 24 21-32 MMOL/L Anion Gap 13 5-14 MMOL/L Blood Urea Nitrogen 22 H 7-18 MG/DL Creatinine 1.51 H 0.60-1.30 MG/DL Estimat Glomerular Filtration Rate 46 BUN/Creatinine Ratio 15 Glucose Level 168 H 70-105 MG/DL Lactic Acid Level 2.77 *H 0.50-2.00 MMOL/L Calcium Level 7.3 L 8.5-10.1 MG/DL Corrected Calcium 8.2 L 8.5-10.1 MG/DL Total Bilirubin 0.5 0.1-1.0 MG/DL Aspartate Amino Transf (AST/SGOT) < 5 L 5-34 U/L Alanine Aminotransferase (ALT/SGPT) < 5 0-55 U/L Alkaline Phosphatase 93 40-136 U/L Troponin I < 0.30 <0.30 NG/ML Total Protein 5.5 L 6.4-8.2 GM/DL Albumin 2.9 L 3.2-4.5 GM/DL Pro-B-Type Natriuretic Peptide 74739.0 H <75.0 PG/ML Blood Gas Puncture Site RT RADIAL Blood Gas Patient Temperature 99 Arterial Blood pH 7.22 *L 7.37-7.43 Arterial Blood Partial Pressure CO2 68 H 35-45 MMHG Arterial Blood Partial Pressure O2 67 L 79-93 MMHG Arterial Blood HCO3 28 H 23-27 MMOL/L Arterial Blood Total CO2 29.9 21.0-31.0 MMOL/L Arterial Blood Oxygen Saturation 89 L 94-100 % Arterial Blood Base Excess -1.3 -2.5-2.5 MMOL/L Rob Test OK Blood Gas Ventilator Setting NO Blood Gas Inspired Oxygen CANNULA Urine Color YELLOW Urine Clarity CLEAR Urine pH 6.0 5-9 Urine Specific [place] 1.020 1.016-1.022 Urine Protein TRACE H NEGATIVE Urine Glucose (UA) NEGATIVE NEGATIVE Urine Ketones NEGATIVE NEGATIVE Urine Nitrite NEGATIVE NEGATIVE Urine Bilirubin NEGATIVE NEGATIVE Urine Urobilinogen 0.2 NORMAL MG/DL Urine Leukocyte Esterase NEGATIVE NEGATIVE Urine RBC (Auto) NEGATIVE NEGATIVE Urine RBC NONE /HPF Urine WBC 0-2 /HPF Urine Squamous Epithelial Cells NONE /HPF Urine Crystals PRESENT H /LPF Urine Amorphous Sediment FEW CHINO URATES H /LPF Urine Bacteria NEGATIVE /HPF Urine Casts PRESENT /LPF Urine Granular Casts 0-2 H /LPF Urine Mucus NONE /LPF Urine Culture Indicated NO Test 09/04/18 11:40 Range/Units Lactic Acid Level 2.18 *H 0.50-2.00 MMOL/L Micro Results Microbiology 09/04/18 Blood Culture - Preliminary, Resulted No growth 09/04/18 Blood Culture - Preliminary, Resulted Staph, Coag Neg (AMUSEMENT CENTRE MANAGER) My Orders Orders - GEOFF-JANET LARRY MD Arterial Blood Gas (09/04/18 09:42) Blood Culture (09/04/18 09:44) Ed Iv/Invasive Line Start (09/04/18 09:44) Ekg Tracing (09/04/18 09:44) Cbc And Manual Diff (09/04/18 09:45) Comprehensive Metabolic Panel (09/04/18 09:45) Lactic Acid Analyzer (09/04/18 09:47) Protime With Inr (09/04/18 09:50) Troponin I (09/04/18 09:52) Fibrin Degradation Products (09/04/18 09:53) Probnp Fs (09/04/18 10:02) Chest Pa/Lat (2 View) (09/04/18 09:45) Furosemide Injection (Lasix Injection) (09/04/18 11:15) Gray Cath (09/04/18 11:19) Ua Culture If Indicated (09/04/18 11:19) Ceftriaxone For Iv Use (Rocephin For I (09/04/18 11:30) Azithromycin Injection (Zithromax Inject (09/04/18 11:30) Dopamine Drip (Dopamine Drip) (09/04/18 11:45) Blood Culture (09/04/18 10:05) Vital Signs/I&O 09/04/18 09:20 Temp 99.0 Pulse 91 Resp 23 B/P (MAP) 118/71 (87) Pulse Ox 96 O2 Delivery Room Air Capillary Refill : Progress Note : Time: 11:11 Progress Note Records are limited, but nurses have accumulated pertinent information. ABG reveals respiratory failure with pH 7.22, pCO2 68 and pO2 67 on 2 L n/c. CXR is predominantly pulmonary edema and CHF, small bilateral pleura effusions. LLL is obscured, however and infiltrate cannot be ruled out. No fever or productive cough noted. WBC 9,000 with 78 segs. LA is 2.77, however, so at this stage it is prudent to treat with antibiotics. [place], [address] per this lab, ECHO 03.27.18 revealed 55-65% EF, but grade 2 diastolic dysfunction. We will start BiPaP with setting of 12/5, RR 16, FIO2 50%. EKG reveals apparently new T wave inversions anterior leads, but TNI is normal. Creatinine is 1.51, baseline is closer to 1.10-1.20, resulted in 12/02/17 & 01/13/18. Note, however Creatinine of 1.46 during admission 03/28/18; so ARA versus progressive CKD is still to be determined. Nevertheless, he will need diuresis. Hb is 7.9 but this seems to be his baseline; note 7.6--8.0 during admission in March. Hemoccult positive stools at that time, and continued on coumadin. He was transfused at that time. Pressures are soft, but I still think he will benefit from PPV, so we will start dopamine drip per protocol. Transfer to [facility] ICU will be arranged to Dr. Fernandes demolition specialist. She has requested pulmonology and cardiology consults. I have made those calls for her to Dr. Veliz and Dr. Cornejo. Update. His pressures are rebounded on BiPap to SBP of 115. Dopamine is held but standby for SBP below 100. INR is 2.40 and Dimer is 0.88. CTA not indicated at this time. ECG Initial ECG Impression Date: Sep 04, 2018 (New T wave inversions anterior leads, 1st AVB.) Initial ECG Rhythm: Normal Sinus Initial ECG Intervals: MO Initial ECG Impression: 1st Degree AV Block Departure Impression Primary Impression: Pulmonary edema Additional Impression: Diabetes mellitus Disposition: 02 XFER SHT-TRM HOSP Condition: Stable Transfer Method of Transfer: EMS Departure-Patient Inst. Referrals: MELANIE NORIEGA MD (PCP/Family) Primary Care Physician JANET MACHADO MD Sep 04, 2018 09:42
[2018-09-04 10:16] LABS: HEMATOCRIT 31 % (40-54); HEMOGLOBIN 7.9 G/DL (13.3-17.7); MEAN CORPUSCULAR HEMOGLOBIN 21 PG (25-34); MEAN CORPUSCULAR VOLUME 84 FL (80-99)
[2018-09-04 10:17] LABS: BASOPHILS % (AUTO) 0 % (0-10); EOSINOPHILS # (AUTO) 0.1 10^3/uL (0.0-0.3); EOSINOPHILS % (AUTO) 1 % (0-10); LYMPHOCYTES % (AUTO) 11 % (12-44); MEAN CORPUSCULAR HGB CONC 26 G/DL (32-36); MEAN PLATELET VOLUME 12.8 FL (7.4-10.4); MONOCYTES # (AUTO) 0.9 X 10^3 (0.0-1.0); MONOCYTES % (AUTO) 10 % (0-12); NEUTROPHILS % (AUTO) 78 % (42-75); PLATELET COUNT 143 10^3/uL (130-400); RED CELL DISTRIBUTION WIDTH 17.6 % (10.0-14.5)
[2018-09-04 10:29] LABS: ALANINE AMINOTRANSFERASE < 5 U/L (0-55); ALKALINE PHOSPHATASE 93 U/L (40-136); BILIRUBIN,TOTAL 0.5 MG/DL (0.1-1.0); BUN/CREATININE RATIO 15; CALCIUM 7.3 MG/DL (8.5-10.1); CARBON DIOXIDE 24 MMOL/L (21-32); CHLORIDE 104 MMOL/L (98-107); CREATININE SERUM 1.51 MG/DL (0.60-1.30); GFR ESTIMATED 46; GLUCOSE 168 MG/DL (70-105); POTASSIUM 4.5 MMOL/L (3.6-5.0); SODIUM 141 MMOL/L (135-145); TOTAL PROTEIN 5.5 GM/DL (6.4-8.2)
[2018-09-04 10:30] LABS: ALBUMIN 2.9 GM/DL (3.2-4.5)
[2018-09-04 10:49] LABS: ABG PCO2 68 MMHG (35-45); ABG PH 7.22 (7.37-7.43); ABG PO2 67 MMHG (79-93); ABG TCO2 29.9 MMOL/L (21.0-31.0)
[2018-09-04 10:50] LABS: ABG BASE EXCESS -1.3 MMOL/L (-2.5-2.5); ALLENS TEST OK; INSPIRED O2 CANNULA; PATIENT TEMP 99; VENTILATOR NO
--- NOTE | 2018-09-04 10:52 | Diagnostic Imaging Report ---
PATIENT HISTORY: Weakness.. TECHNIQUE: Two views of the chest COMPARISON: 05/23/2018 FINDINGS: Interval increase in size in the cardiac silhouette with central pulmonary vascular congestion and prominent interstitial and alveolar opacities, greatest in the perihilar regions. Small bilateral pleural effusions are present, left greater than right. Discoid atelectasis is seen in the left midlung. No pneumothorax. IMPRESSION: Cardiomegaly with central pulmonary vascular congestion and pulmonary edema. Superimposed infection is not completely excluded. Small bilateral pleural effusions. Dictated by: Dictated on workstation # [id number]
[2018-09-04 11:05] LABS: FIBRIN DEGRADATION PRODUCTS 0.88 UG/ML (0.00-0.49); INR 2.4 (0.8-1.4); PROTHROMBIN TIME PATIENT 26.8 SEC (12.2-14.7)
[2018-09-04] MEDS ORDERED: FUROSEMIDE 40 MG/4 ML INJ (LASIX) IVP ONE (11:15)
[2018-09-04] MEDS ORDERED: cefTRIAXone FOR IV USE 1,000 MG in WATER (STERILE) FOR INJECTION 10 ML IV ONE (11:30)
[2018-09-04] MEDS ORDERED: AZITHROMYCIN INJECTION 500 MG in NS (IVPB) 250 ML IV ONE (11:30)
[2018-09-04 11:39] LABS: AMORPHOUS SEDIMENT,UR FEW AMOR URATES /LPF; BACTERIA,URINE NEGATIVE /HPF; BILIRUBIN,URINE NEGATIVE (NEGATIVE); CLARITY,URINE CLEAR; COLOR,URINE YELLOW; GLUCOSE, URINE (UA) NEGATIVE (NEGATIVE); KETONES,URINE NEGATIVE (NEGATIVE); LEUKOCYTE ESTERASE ,URINE NEGATIVE (NEGATIVE); NITRITE,URINE NEGATIVE (NEGATIVE); PROTEIN,URINE TRACE (NEGATIVE); UROBILINOGEN,URINE 0.2 MG/DL (NORMAL); WBC,URINE 0-2 /HPF
[2018-09-04 11:40] LABS: GRANULAR CASTS,URINE 0-2 /LPF
[2018-09-04] MEDS ORDERED: DOPamine DRIP 250 ML IV SCH ×2 (11:45→14:15)
[2018-09-04 12:02] LABS: BAND NEUTROPHILS 0 %; NEUTROPHILS % (MANUAL) 85 %
[2018-09-04 12:03] LABS: ANISOCYTOSIS SLIGHT; BASOPHILS % (MANUAL) 1 %; EOSINOPHILS % (MANUAL) 0 %; HYPOCHROMASIA SLIGHT; LYMPHOCYTES % (MANUAL) 5 %; METAMYELOCYTES % 1 %; MONOCYTES % (MANUAL) 7 %; MYELOCYTES % 1 %; NUCLEATED RED BLOOD CELLS 2
--- NOTE | 2018-09-04 13:13 | NUR ---
1120: Patient placed on Bipap per Dr. Zhu, settings 12/5, rate 16, FIO2 50%. Gray catheter placed.
[2018-09-04] MEDS ORDERED: CATHETER FLUSH 10 ML SYR IV PRN (14:15)
[2018-09-04] MEDS ORDERED: ROPI2TAB4 PO (14:36)
[2018-09-04] MEDS ORDERED: FURO20TA4 PO (14:36)
[2018-09-04] MEDS ORDERED: WARF4TAB70 PO (14:36)
[2018-09-04] MEDS ORDERED: ZOLP5TAB7 PO (14:36)
[2018-09-04] MEDS ORDERED: WARF1TAB82 PO (14:36)
[2018-09-04] MEDS ORDERED: TAMS0.4C98 PO (14:36)
--- NOTE | 2018-09-04 14:39 | Pulmonary Consultation ---
History of Present Illness History of Present Illness Date of Consultation 09/04/18 14:31 Time Seen by Provider: 14:31 Date of Admission History of Present Illness 73yo with hx of CHF, CVA, dysphagia presented to ED secondary to worsening appetite, weakness over the last 2-3 days. Pt was found to have Sp02 in the 70's. EMS placed pt on NRB and Sp02 improved to 95%. Pt was dx with Acute respiratory failure and placed on BiPAP for transfer here. I am consulted for pulmonary/ICU management. Allergies and Home Medications Allergies Coded Allergies: Penicillins (Verified Allergy, Unknown, 03/21/18) tetanus and diphtheria toxoids (Verified Allergy, Unknown, 03/21/18) Home Medications Acetaminophen 325 Mg Tablet, 650 MG PO Q4H PRN for PAIN-MILD, (Reported) Atorvastatin Calcium 10 Mg Tablet, 10 MG PO HS, (Reported) Fluoxetine HCl 20 Mg Capsule, 20 MG PO DAILY, (Reported) Fluticasone Propionate 16 Gm [place].susp, 2 SPRAYS NS DAILY PRN for ALLERGIES, (Reported) Furosemide 20 Mg Tablet, 20 MG PO DAILY, (Reported) Glipizide 10 Mg Tablet, 10 MG PO BID, (Reported) Latanoprost 2.5 Ml Drops, 1 DROP OU HS, (Reported) Metformin HCl 1,000 Mg Tablet, 1,000 MG PO BID, (Reported) Ropinirole HCl 1 Mg Tablet, 1 MG PO 1200, (Reported) Ropinirole HCl 2 Mg Tablet, 2 MG PO HS, (Reported) Tamsulosin HCl 0.4 Mg Cap, 0.4 MG PO HS, (Reported) Warfarin Sodium 5 Mg Tablet, 5 MG PO 1800, (Reported) Zolpidem Tartrate 5 Mg Tablet, 5 MG PO MoWeFrSa, (Reported) Past Vtkoxyj-Rdkbss-Alepgn Hx Patient Social History Alcohol Use: Denies Use Recreational Drug Use: No Smoking Status: Current Everyday Smoker Type Used: Cigarettes 2nd Hand Smoke Exposure: No Recent Foreign Travel: No Contact w/Someone Who Travel: No Recent Infectious Disease Expo: No Physical Abuse: No Sexual Abuse: No Mistreated: No Fear: No Immunizations Up To Date Date of Influenza Vaccine: Oct 15, 2017 Past Medical History Surgeries: Yes Respiratory: Yes Pneumonia, Sleep Apnea Cardiac: Yes High Cholesterol, Hypertension Neurological: Yes Stroke Genitourinary: Yes Renal Failure Gastrointestinal: Yes Obstructive Bowel, Diverticulosis Musculoskeletal: Yes (Restless leg syndrom) Endocrine: Yes Diabetes, Non-Insulin dep Cancer: Yes Skin Psychosocial: No Integumentary: No Blood Disorders: No Family Medical History No Pertinent Family Hx Review of Systems Time Seen by Provider: 09:26 Sepsis Event Evaluation Height, Weight, BMI Height: 5'8.00" Weight: 230lbs. 3.2oz. 104.327317gn; 36.3 BMI Method:Stated Exam Exam Vital Signs Date Time Temp Pulse Resp B/P (MAP) Pulse Ox O2 Delivery O2 Flow Rate FiO2 09/04/18 14:00 97.6 79 9 97 NIV Bilevel 50.00 09/04/18 13:47 85 97 50.00 09/04/18 13:00 99.0 77 23 110/67 (81) 97 NIV Bilevel 09/04/18 09:20 99.0 91 23 118/71 (87) 96 Room Air Height & Weight Height: 5'8.00" Weight: 230lbs. 3.2oz. 104.240064ro; 36.3 BMI Method:Stated General Appearance: Moderate Distress HEENT: PERRL/EOMI, Pharynx Normal Neck: Full Range of Motion, Non Tender, Supple Respiratory: Accessory Muscle Use, Crackles, Decreased Breath Sounds, Respiratory Distress Cardiovascular: Regular Rate, Rhythm, No Edema Capillary Refill: Less Than 3 Seconds Gastrointestinal: normal bowel sounds, non tender Extremity: Normal Capillary Refill, No Pedal Edema Neurologic/Psychiatric: Alert Skin: Normal Color, Warm/Dry Lymphatic: No Adenopathy Results Lab Laboratory Tests 09/04/18 09:30 Assessment/Plan Assessment/Plan Acute respiratory failure -Bipap -Repeat ABG Pulmonary edema with small bilateral pleural effusions secondary to CHF -Lasix -ECHO 03/27/18 55-65% EF/ grade 2 diastolic dysfunction. Metabolic lactic acidosis -Monitor Anemia -Monitor -Check occult stool Renal failure -Monitor RAQUEL NOYOLA DO Sep 04, 2018 14:39
[2018-09-04] MEDS ORDERED: WARF-48 PO (14:48)
--- NOTE | 2018-09-04 14:48 | NUR ---
SPOKE WITH THE PATIENTS FAMILY ABOUT MEDICATIONS. SHE HAD A DETAILED LIST AND I COMPARED IT WITH THE EXT MED HX. HE USES TYLENOL AND FLONASE NEEDED THAT ARE NOT ON THE LIST.
[2018-09-04] MEDS ORDERED: FLUTICASONE NASAL SPRAY (FLONASE) 16 GM BTL NS PRN (15:30)
[2018-09-04 16:10] LABS: ABG OXYGEN SATURATION 94 % (94-100); ABG PCO2 64 MMHG (35-45); ABG PO2 80 MMHG (79-93); ABG TCO2 31.6 MMOL/L (21.0-31.0)
[2018-09-04 16:12] LABS: ALLENS TEST YES-POS; INSPIRED O2 50%; PATIENT TEMP 96.3; VENTILATOR NO
[2018-09-04 16:13] LABS: ABG PH 7.28 (7.37-7.43)
--- NOTE | 2018-09-04 16:24 | NUR ---
Dr. Carrillo notified of pt's abg results. New orders given to change Bipap settings to 15/5 and attempt to give pt at least 500TV and maintain O2 90-92% repeat ABG in 1 hour. RT notified at this time.
[2018-09-04] MEDS ORDERED: NOREPINEPHRINE 4 MG/4 ML (LEVOPHED) AMP IV ONE (16:50)
[2018-09-04] MEDS ORDERED: NS (IVPB) 250 ML ONE (16:50)
[2018-09-04] MEDS ORDERED: NS IV 1000 ML 2,000 ML ONE (17:19)
--- NOTE | 2018-09-04 17:20 | NUR ---
Dr. Carrillo notified of pt's decrease in BP at this time. Levophed initiated per this RN. Awaiting new orders.
--- NOTE | 2018-09-04 17:30 | NUR ---
Received orders at this time to give pt 2L bolus of NS. Continue Levophed and prepare pt for intubation at this time. caddy/caddie supervisor notified and Anesthesia called for intubation, also RT notified at this time. This RN then spoke with pt during this time regarding intubation for short term in attempts to relieve pt's current distress. Pt agreed at this time for intubation and requested that his be notified at this time. Dr. Strong also consulted at this time for central line placement. Orders placed and preparations made.
--- NOTE | 2018-09-04 17:35 | NUR ---
Pt's , Sol, called at this time. Updates and education provided to family via phone at this time. then spoke with pt and agreed with short term intubation at this time. Verbal consents obtained for line placement and Intubation at this time. Two RNs verified.
[2018-09-04] MEDS ORDERED: DEXMEDETOMIDINE INJECTION 1,000 MCG in NS (IVPB) 250 ML IV PRN (17:45)
[2018-09-04] MEDS ORDERED: NS IV 1000 ML 1,000 ML ONE (17:45)
[2018-09-04] MEDS ORDERED: PROPOFOL DRIP (ICU) 100 ML IV SCH (17:45)
[2018-09-04] MEDS ORDERED: PANTOPRAZOLE 40 MG (PROTONIX) VIAL IV SCH (17:47)
--- NOTE | 2018-09-04 17:50 | NUR ---
Rt called Dr. Carrillo at this time to verify intubation. Dr. Carrillo verbalized to this RN to proceed with intubation at this time. Anesthesia, RT, slate splitting supervisor and multiple RNs at bedside at this time to prepare for intubation.
[2018-09-04 17:51] LABS: ABG OXYGEN SATURATION 98 % (94-100); ABG PCO2 60 MMHG (35-45); ABG PO2 280 MMHG (79-93); ABG TCO2 30.8 MMOL/L (21.0-31.0)
[2018-09-04 17:56] LABS: ALLENS TEST YES-POS; INSPIRED O2 100%
[2018-09-04 17:57] LABS: PATIENT TEMP 97.9; VENTILATOR NO
[2018-09-04] MEDS ORDERED: warFARin 5 MG (COUMADIN) TAB PO SCH (18:00)
--- NOTE | 2018-09-04 18:06 | NUR ---
Anesthesia prepared for intubation at this time. 20mg Etomidate given at this time. 1807 60mg of succinylcholine given. 8.0 ETT tube placed @ 22 at the lip and verified with auscultation and color change. Propofol started at [address] Carrillo orders. 1820 5mg versed give per anesthesia. Arterial line placed in right radial at this time also. 1830 Dr. Wall at bedside. Central line placed in left subclavian. X-ray verified tube placement and line placement. Orders received from Dr. Wall to use central line and tube placement verified by physician. Will continue to closely monitor pt.
--- NOTE | 2018-09-04 18:24 | Anesthesia-Procedure Note ---
Procedures/Interventions Procedure Start/Stop/Diagnosis Date of Procedure: Sep 04, 2018 Start Time: 18:00 Stop Time: 18:25 Intubation RSI: Yes 100% pre-Ox, [id number]: Yes Intubation Method: orotracheal Videoscope used: Yes Grade View: 1 Medications: Etomidate, Succinylcholine Mask Ventilation: positive Positive End Tide CO2: Yes Breath Sounds after Intubation: bilateral-equal ETT Securred @ (cm): 22 Intubated with ease: Yes Intubation Complications: no complications Arterial Line Arterial Line Catheter: 20G Type: Radial Location: Right Procedure: prepped, draped in sterile fashion, good wave-form was obtained, patient tolerated procedure well, no immediate complications, post procedure dressing applied WILLEM JOHNSON CRNA Sep 04, 2018 18:24
--- NOTE | 2018-09-04 18:52 | Diagnostic Imaging Report ---
INDICATION: Post intubation and central line placement. Comparison study: Chest from 10:14 a.m. today. FINDINGS: Portable view of the chest demonstrates interval placement of an endotracheal tube in good position with its tip approximately 3 cm above the sparkle. Orogastric tube has its tip in the stomach with first side-hole in the distal esophagus. This could be advanced a little further. Cardiomegaly is again identified. Pulmonary congestion has decreased. Linear areas of atelectasis are still present. IMPRESSION: 1. Interval intubation with endotracheal tube in good position. 2. Stable cardiomegaly. 3. Improving pulmonary congestion. 4. Linear areas of atelectasis are again identified. 5. The nasogastric tube tip is in the stomach with first side-hole in the esophagus. This could be advanced a little further. Dictated by: Dictated on workstation # [id number]
[2018-09-04] MEDS: PROPOFOL DRIP (ICU) 100 ML IV SCH (18:54)
[2018-09-04] MEDS ORDERED: VANCOMYCIN 2,500 MG/NS 500 ML IVPB IV NR ×2 (20:00)
[2018-09-04] MEDS ORDERED: VANCOMYCIN INJECTION 0.1 MG in NS (IVPB) 250 ML IV SCH (20:00)
--- NOTE | 2018-09-04 20:08 | NUR ---
VANCOMYCIN PHARMACY TO DOSE: BASED ON ADJ BW 84.8 KG, SCr 1.51, EST CrCl 53 LOADING DOSE: 2,500 MG MAIN DOSE: 1,750 MG IV Q24HR VANCOMYCIN TROUGH DUE 09/07/18 @ 18:00 IF TROUGH IS GREATER THAN 20 HOLD 09/07/18 19:00 DOSE
[2018-09-04] MEDS: NS IV 1000 ML 1,000 ML IV SCH ×2 (20:44→20:47)
[2018-09-04] MEDS: LATANOPROST 0.005% (XALATAN) OPHTH SOLN 2.5 ML OU SCH (20:46)
[2018-09-04 20:59] LABS: ABG BASE EXCESS 0.2 MMOL/L (-2.5-2.5); ABG OXYGEN SATURATION 94 % (94-100); ABG PCO2 55 MMHG (35-45); ABG PO2 79 MMHG (79-93); ABG TCO2 28.1 MMOL/L (21.0-31.0)
[2018-09-04 21:00] LABS: ALLENS TEST POSITIVE; INSPIRED O2 60% VENT; VENTILATOR YES
[2018-09-04 21:01] LABS: ABG PH 7.29 (7.37-7.43)
--- NOTE | 2018-09-04 21:10 | History & Physical ---
HPI History of Present Illness: 73 yo male presented to ER with shortness of breath for a couple of days. He denies cough or fever or chest pain. He is on bipap at time of my exam and states he does feel somewhat better currently. Date seen by provider: Sep 04, 2018 Time Seen by Provider: 15:40 Attending Physician Cleveland Fernandes MD PCP Estefani Sam MD Consult Date of Admission Sep 04, 2018 at 12:09 Home Medications Home Medications Reviewed patient Home Medication Reconciliation performed by pharmacy medication reconciliations ink technician and/or nursing. Patients Allergies have been reviewed. Allergies Coded Allergies: Penicillins (Verified Allergy, Unknown, 03/21/18) tetanus and diphtheria toxoids (Verified Allergy, Unknown, 03/21/18) TJQ-Sbtucr-Kyipci Hx Patient Social History Alcohol Use: Denies Use Recreational Drug Use: No Smoking Status: Current Everyday Smoker Type Used: Cigarettes 2nd Hand Smoke Exposure: No Recent Foreign Travel: No Contact w/other who traveled: No Recent Infectious Disease Expo: No Immunizations Up To Date Date of Pneumonia Vaccine: Sep 04, 2016 Date of Influenza Vaccine: Oct 15, 2017 Past Medical History PMHx HTN HLD RLS Hx of CVA Family Medical History Significant Family History: No Pertinent Family Hx Review of Systems ([facility]) Constitutional: No fever Respiratory: No cough Cardiovascular: No chest pain Gastrointestinal: No abdominal pain Musculoskeletal: other (restless legs) Physical Exam-([facility]) Physical Exam Vital Signs VS - Last 72 Hours, by Label 09/04/18 09/04/18 09/04/18 09/04/18 09:20 13:00 13:40 13:47 Temp 99.0 99.0 Pulse 91 77 85 Resp 23 23 B/P (MAP) 118/71 (87) 110/67 (81) Pulse Ox 96 97 97 O2 Delivery Room Air NIV Bilevel NIV Bilevel O2 Flow Rate 50.00 FiO2 50 09/04/18 09/04/18 09/04/18 09/04/18 13:47 14:00 15:00 15:04 Temp 97.6 Pulse 85 79 79 80 Resp 9 20 22 B/P (MAP) 83/69 (74) Pulse Ox 97 94 98 O2 Delivery NIV Bilevel NIV Bilevel O2 Flow Rate 50.00 50.00 40.00 09/04/18 09/04/18 09/04/18/22/19 16:00 16:00 16:00 16:40 Temp 96.3 Pulse 73 88 Resp 21 26 B/P (MAP) Pulse Ox 95 94 O2 Delivery NIV Bilevel NIV Bilevel O2 Flow Rate 50.00 30.00 FiO2 50 09/04/18 09/04/18 09/04/18 09/04/18 17:00 18:00 18:54 18:56 Pulse 80 77 78 68 Resp 15 12 18 B/P (MAP) 71/39 (50) 106/72 (83) Pulse Ox 93 98 99 O2 Delivery NIV Bilevel NIV Bilevel O2 Flow Rate 50.00 50.00 FiO2 80 09/04/18 09/04/18 09/04/18 09/04/18 19:00 19:00 20:00 21:00 Pulse 66 68 59 64 Resp 18 13 12 B/P (MAP) 139/77 (97) 98/60 (73) 114/53 (73) Pulse Ox 99 94 96 O2 Delivery Mechanical Ventilator Mechanical Ventilator Mechanical Ventilator O2 Flow Rate 60.00 60.00 60.00 Capillary Refill : Less Than 3 Seconds General Appearance: moderate distress Respiratory: lungs clear; No accessory muscle use Cardiovascular: regular rate, rhythm, no murmur Gastrointestinal: normal bowel sounds, non tender, soft Extremities: no pedal edema Neurologic/Psychiatric: alert, normal mood/affect Skin: normal color, warm/dry Assessment/Plan Assessment/Plan Admission Status: Inpatient Order (span 2 midnights) Reason for Inpatient Admission: Acute respiratory failure (1) Respiratory failure Status: Acute Assessment & Plan: Suspect secondary to pulmonary edema, possible CHF. 80 mg IV lasix given in ED, started on bipap, repeat ABG pending. Infection not ruled out, given azithromycin and ceftriaxone in ER. Pulm and Card consulted. Qualifiers: Qualified Codes: J96.01 - Acute respiratory failure with hypoxia; J96.02 - Acute respiratory failure with hypercapnia (2) Pulmonary edema Status: Acute (3) Hypotension Status: Acute Assessment & Plan: Borderline on admission hold home BP meds and restless leg meds (4) Elevated brain natriuretic peptide (BNP) level Status: Acute Assessment & Plan: Cardiology consulted (5) Anemia Status: Chronic Assessment & Plan: Baseline, monitor and transfuse as needed. Hemoccult pos last admit. (6) Elevated lactic acid level Status: Acute Assessment & Plan: Suspect related to renal function, possible sepsis but with no fever, leukocytosis, tachycardia or tachypnea on admit seems less likely. ABX started in ER, follow. (7) CKD (chronic kidney disease) Status: Chronic Assessment & Plan: Near baseline, monitor closely (8) DVT prophylaxis Status: Acute Assessment & Plan: On warfarin chronically, unclear reason- possibly started after a stroke. INR at goal. Clinical Quality Measures DVT/VTE Risk/Contraindication: Risk Factor Score Per Nursin RFS Level Per Nursing on Admit: 4+=Very High CLEVELAND FERNANDES MD Sep 04, 2018 21:09
--- OUTSIDE RECORDS SUMMARY | 2018-09-04 21:53 | XMS REPORT ---
Author Author MELANIE NORIEGA Organization [facility] Address [address] [place] [address] Care Team Providers Care Superintendent Building Name Role Phone MELANIE NORIEGA Unavailable PROBLEMS Type Condition ICD9-CM Code GGF31-BX Code Onset Dates Condition Status SNOMED Code Problem Renal insufficiency N28.9 Dec, 0 322229333 Problem Tobacco use Z72.0 Oct, 0 292604602 Problem Basal cell carcinoma of skin of nose 173.31 Sep, 0 711354315 Problem Dehydration E86.0 Oct, 0 68716723 Problem Actinic keratosis L57.0 Mar, 0 243212 Problem Acute renal failure N17.9 Oct, 0 74578003 Problem Hypoglycemia E16.2 Jul, 0 587636009 Problem Acute renal failure superimposed on stage 2 chronic kidney disease N17.9 Oct, 0 59755193 Problem Type 2 diabetes mellitus without complication E11.9 0 227241371 Problem Iron deficiency anemia D50.9 Oct, 0 23545356 Problem B12 deficiency E53.8 May, 0 02047565 Problem Hyperlipidemia E78.5 May, 0 59010755 Problem Other testicular hypofunction E29.1 0 162485915 Problem Urinary retention 788.20 Dec, 0 259682890 Problem Acute renal failure 584.9 Oct, 0 43061246 Problem Tobacco use 305.1 Oct, 0 611403323 Problem Iron deficiency anemia 280.9 Oct, 0 36509311 Problem B12 deficiency 266.2 May, 0 33528179 Problem Renal insufficiency 593.9 Dec, 0 459469112 Problem Tubular adenoma of colon 211.3 Jul, 0 503651815 Problem Basal cell carcinoma of skin of nose C44.311 Sep, 0 858615812 Problem Small bowel obstruction 560.9 Oct, 0 204754295 Problem Supratherapeutic INR 790.92 Jul, 0 088243817 Problem Hypoglycemia 251.2 Jul, 0 055917070 Problem Impotence of organic origin 607.84 June, 0 904979907 Problem Essential hypertension, benign 401.1 0 2665018 Problem Acute, but ill-defined, cerebrovascular disease 436 0 918557815 Problem Other testicular hypofunction 257.2 0 608773282 Problem Dehydration 276.51 Oct, 0 90273874 Problem 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 Nov, 0 6793361026418 Problem Small bowel obstruction K56.609 Oct, 0 204679400 Problem SBO (small bowel obstruction) 560.9 Oct, 0 42834089 Problem Unspecified sleep apnea G47.30 0 82885069 Problem Unspecified sleep apnea 780.57 0 27874417 Problem Hyperlipidemia 272.4 May, 0 43875227 Problem Actinic keratosis 702.0 Mar, 0 736223 Problem Degeneration of intervertebral disc, site unspecified 722.6 0 86617405 Problem Hydronephrosis, bilateral 591 Dec, 0 98644586 Problem 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 173.42 Mar, 0 126046340 Problem 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 Mar, 0 359337790 Problem Posterior circulation stroke I63.50 Nov, 0 599865037345322 Problem Squamous cell carcinoma of skin of face C44.320 Mar, 0 636486851 Problem Type 2 diabetes mellitus without complication 250.00 0 034197878 Problem Basal cell carcinoma of skin of trunk C44.519 Mar, 0 928832470 Problem Essential hypertension, benign I10 0 4024851 Problem Acute renal failure superimposed on stage 2 chronic kidney disease 584.9 Oct, 0 56027622 Problem Urinary retention R33.9 Dec, 0 006203019 Problem 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 C44.42 Mar, 0 096857617 Problem Tubular adenoma of colon D12.6 Jul, 0 856846204 Problem Acute, but ill-defined, cerebrovascular disease I67.89 0 90019290 Problem History of stroke without residual deficits V12.54 Nov, 0 239124036 Problem History of stroke without residual deficits Z86.73 Nov, 0 877111537 Problem SBO (small bowel obstruction) K56.609 Oct, 0 80302410 Problem Basal cell carcinoma of skin of trunk 173.51 Mar, 0 801657826 Problem Pancreatic mass 577.9 Jul, 0 845952187 Problem Cerebellar infarct I63.9 Active 323918076 Problem 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 232.6 Mar, 0 121535510 Problem Hydronephrosis, bilateral N13.30 Dec, 0 06720542 Problem Pancreatic mass K86.9 Jul, 0 635016273 Problem Squamous cell carcinoma of skin of face 173.32 Mar, 0 006479366 Problem Pleural effusion J90 Dec, 0 20940206 Problem Diverticulitis of colon (without mention of hemorrhage)(562.11) K57.32 0 278269748 Problem Impotence of organic origin N52.9 June, 0 891982791 Problem Severe obesity (BMI 35.0-39.9) with comorbidity 278.01 Mar, 0 126087484 Problem Pleural effusion 511.9 Dec, 0 90536070 Problem Degeneration of intervertebral disc, site unspecified [id number] 0 Problem Severe obesity (BMI 35.0-39.9) with comorbidity E66.01 Mar, 0 241395330 Problem Supratherapeutic INR R79.1 Jul, 0 785360608 ALLERGIES No Information ENCOUNTERS Encounter Location Date Diagnosis [address] [address] Sep, [address] [address] May, Type 2 diabetes mellitus without complication E11.[address] [address] May, Type 2 diabetes mellitus without complication E11.9 and Cerebellar infarct I63.[address] [address] Apr, [address] [address] Apr, [facility] [address] [place] [address] Apr, [facility] [address] [place] [address] Apr, Weakness R53.1 [facility] [address] [place] [address] Apr, History of cerebral infarction Z86.73 [facility] [address] [place] [address] Apr, [facility] [address] [place] [address] Mar, Arterial ischemic stroke, ANNA (anterior cerebral artery), left, remote, resolved Z86.73 [facility] [address] [place] [address] Mar, Hypoxia R09.02 and Healthcare associated bacterial pneumonia J15.[address] [place] [address] Mar, Cerebellar infarct I63.[address] [place] [address] Mar, [facility] [address] [place] [address] Mar, Hypoxia R09.02 [facility] [address] [place] [address] Jan, [facility] [id number] [place] [address] Jan, [facility] [address] [place] [address] Jan, [facility] [id number] [place] [address] Jan, [facility] [id number] [place] [address] Dec, [facility] [address] [place] [address] Dec, [facility] [id number] [address] Nov, IMMUNIZATIONS No Known Immunizations SOCIAL HISTORY Never Assessed REASON FOR VISIT Requests return call PLAN OF CARE VITAL SIGNS MEDICATIONS Medication Instructions Dosage Frequency Start Date End Date Duration Status Ambien 5 MG Orally Once a day 1 tablet at bedtime 24h Unknown Requip 1 MG Orally Once a day 1 tablet 1 to 3 hours before bedtime 24h 30 day(s) Unknown Prozac 20 MG Orally Once a day 1 capsule 24h 30 day(s) Unknown Flonase Allergy Relief 50 MCG/ACT Nasally Once a day 1 spray in each nostril 24h 30 day(s) Unknown Tylenol 325 MG Orally every 4 hrs 2 tablet as needed 4h Active Acetaminophen 325 MG Orally every 4 hrs 1 tablet as needed 4h Unknown Metformin HCl 1000 MG Orally Once a day 1 tablet with a meal 24h 30 day(s) Unknown Coumadin 4 MG Orally Once a day 1 tablet 24h 30 day(s) Unknown Coumadin 5 MG Orally Once a day 1 tablet 24h 30 day(s) Unknown GlipiZIDE 10 MG as directed Unknown Flomax 0.4 MG Orally Once a day 1 capsule 24h 30 day(s) Unknown Lipitor 10 MG Orally Once a day 1 tablet 24h 30 day(s) Unknown RESULTS No Results PROCEDURES No Known procedures INSTRUCTIONS MEDICATIONS ADMINISTERED No Known Medications MEDICAL (GENERAL) HISTORY Type Description Date Medical History type II diabetes Medical History hyperlipidemia Medical History sleep apnea Medical History hypertension Medical History pleural effusion Medical History chronic renal insufficiency Medical History iron deficiency anemia Medical History Posterior circulation stroke Medical History History of stroke with residual deficits
--- NOTE | 2018-09-04 22:06 | Diagnostic Imaging Report ---
PROCEDURE: CT head without contrast. TECHNIQUE: Multiple contiguous axial images were obtained through the brain without the use of intravenous contrast. Auto Exposure Controls were utilized during the CT exam to meet ALARA standards for radiation dose reduction. INDICATION: Altered mental status. COMPARISON: None. FINDINGS: Multiple images are degraded by patient motion which diminishes detail, and interpretation was made in light of this technical confine. BRAIN: No parenchymal hemorrhage, midline shift, or mass effect. There is encephalomalacia in the anterior right frontal region. Miller-white matter differentiation is otherwise adequately preserved, without evidence of acute territorial infarct. Moderate periventricular and subcortical low-density white matter changes. Mild prominence of the ventricles and Sulci consistent with cortical and cerebellar parenchymal volume loss. EXTRA-AXIAL SPACES: No subdural or epidural collections. ORBITS AND PARANASAL SINUSES: Visualized orbits and globes are intact. Visualized paranasal sinuses and mastoid air cells are clear. CALVARIUM AND SOFT TISSUES: The calvarium is intact. No fractures or suspicious bony lesions. The extracranial soft tissues are unremarkable. IMPRESSION: No acute intracranial pathology. Chronic changes consisting of encephalomalacia in the anterior right frontal lobe, presumably from prior infarct, age-related volume loss, and nonspecific white matter disease, most commonly attributed to small vessel ischemic change. Dictated by: Dictated on workstation # [id number]
--- NOTE | 2018-09-04 22:08 | Diagnostic Imaging Report ---
Examination: AP upright portable chest. Indication: Enteric tube placement. Comparison: Multiple priors, most recent performed earlier today. Findings: Distal tip of enteric tube and side-port are in the gastric body. Endotracheal tube remains in place, with the tip approximately 3 cm above the sparkle. Low lung volumes are demonstrated. Apparent worsening in right lung airspace disease, with no significant change in marked left basilar consolidation. There is unchanged cardiomegaly. Mediastinal contours are unchanged. No pneumothorax is appreciated. Impression: 1. Distal tip of enteric tube and side-port are in the gastric body. 2. Worsening of right airspace disease, otherwise no significant change from earlier today. Dictated by: Dictated on workstation # [id number]
[2018-09-05] VITALS (30 sets, daily range): BP systolic 88–131; BP diastolic 47–79
[2018-09-05] MEDS: PROPOFOL DRIP (ICU) 100 ML IV SCH ×5 (00:45→23:15)
[2018-09-05] MEDS: CATHETER FLUSH 10 ML SYR IV SCH ×4 (00:45→21:25)
[2018-09-05] MEDS: ATORVASTATIN 10 MG (LIPITOR) TABLET PO SCH ×2 (00:45→21:15)
[2018-09-05 01:16] LABS: ABG BASE EXCESS 1.4 MMOL/L (-2.5-2.5); ABG OXYGEN SATURATION 96 % (94-100); ABG PCO2 42 MMHG (35-45); ABG PO2 99 MMHG (79-93); ABG TCO2 27.3 MMOL/L (21.0-31.0)
[2018-09-05 01:17] LABS: ALLENS TEST ARTLINE; INSPIRED O2 50% VENT; VENTILATOR YES
[2018-09-05 01:18] LABS: PATIENT TEMP 96.8
--- NOTE | 2018-09-05 02:08 | CONSULTATION REPORT ---
DATE OF SERVICE: 09/04/2018 ATTENDING PRIMARY CARE PHYSICIAN: Dr. Estefani Sam. ADMITTING PHYSICIAN: Dr. Fernandes. HISTORY OF PRESENT ILLNESS: The patient is a 73-year-old male with history of congestive heart failure as well as peripheral vascular disease including a CVA, presented with dysphagia and worsening appetite for the past 2 to 3 days. He was found to have very low oxygen saturation in the 70s. He was placed on a nonrebreather and his oxygen saturation did go up and he was brought to the ICU and noninvasive methods of improving ventilation were unsuccessful and he was struggling with respirations and he was intubated. He is also found to be hypotensive and potentially require vasopressors and will need central IV access as well. PAST MEDICAL HISTORY: Congestive heart failure, history of CVA, sleep apnea, hypertension, hypercholesterolemia, restless leg, diabetes and diverticulosis. PAST SURGICAL HISTORY: Unknown. ALLERGIES: PENICILLIN, TETANUS AND DIPHTHERIA TOXOID. REGULAR MEDICATIONS: Atorvastatin 10 mg daily, fluoxetine 20 mg daily, fluticasone 16 grams p.r.n., furosemide 20 mg daily, glipizide 10 mg b.i.d., latanoprost daily, metformin 1000 mg b.i.d., ropinirole 1 mg daily and Coumadin 4 mg daily p.r.n.. SOCIAL HISTORY: Positive smoke greater than 60-pack years, negative alcohol. FAMILY HISTORY: Noncontributory. VITAL SIGNS: Temperature 96.3, blood pressure 106/72, pulse 77, respirations 12, pulse ox 98% on CPAP at 50% FiO2. REVIEW OF SYSTEMS: Well-nourished male in respiratory failure as well as congestive heart failure. He was recently intubated. He does have a history of what appears to be congestive heart failure as well as COPD. He does not have any abdominal distention. He does move all 4 extremities. PHYSICAL EXAMINATION: CHEST: Scattered rales and rhonchi bilaterally. HEART: Regular, no murmurs. EXTREMITIES: No lower extremity edema. Negative Homans sign. HEENT: No scleral icterus. NECK: No cervical lymphadenopathy. ABDOMEN: Soft, nontender, nondistended. SKIN: Warm, dry. ASSESSMENT AND PLAN: A 73-year-old male with chronic obstructive pulmonary disease, congestive heart failure and respiratory failure. He is also found to be hypotensive and will require a central venous catheter for continued IV fluid and medication therapy as well as potential vasopressors. Job ID: [id number] DocumentID: [id number] Dictated Date: 09/04/2018 18:48:23 Manager Gift Date: 09/05/2018 02:06:37 Dictated By: LORRI VILLEGAS MD
--- NOTE | 2018-09-05 02:45 | OPERATIVE REPORT ---
DATE OF SERVICE: 09/04/2018 ATTENDING PRIMARY CARE PHYSICIAN: Dr. Sam. ADMITTING PHYSICIAN: Dr. Fernandes. PREOPERATIVE DIAGNOSES: Respiratory failure, hypotension. POSTOPERATIVE DIAGNOSES: Respiratory failure, hypotension. PROCEDURE: Placement of left subclavian central venous catheter. SURGEON: Lorri Villegas MD ANESTHESIA: Local. ESTIMATED BLOOD LOSS: Minimal. DISPOSITION: The patient tolerated the procedure well. INDICATIONS: The patient is a 73-year-old male brought in by EMS for loss of appetite. However, it appeared that he appeared pale and pulse oximetry was done, which did show a very low oxygen saturation in the 70s. He was admitted to the ICU and was continued on noninvasive respiratory support; however, he did struggle with respirations requiring intubation. He was also found to be hypotensive and require multiple drips as well as IV fluids and potential vasopressors. DESCRIPTION OF PROCEDURE: The left chest and neck were prepped and draped in standard surgical fashion. A 1% lidocaine was used to anesthetize the overlying skin. The subclavian vein was then cannulated with drawing of venous blood. The guidewire was then inserted without any resistance. The cannulating needle removed. Skin incision made using 11 blade. A tract was then created using a venous dilator. Triple lumen central venous catheter was placed over the guidewire using the Seldinger technique and the guidewire was then removed. All three ports angel venous blood and saline pushed in without any resistance. Catheter was then sutured to the skin using interrupted 3-0 silk sutures covered with Op-Site. The patient tolerated the procedure well. We will get a post-procedure chest x-ray. Job ID: [id number] DocumentID: [id number] Dictated Date: 09/04/2018 18:51:21 Manager Of Radiology Date: 09/05/2018 02:44:13 Dictated By: LORRI VILLEGAS MD
[2018-09-05] MEDS: NOREPINEPHRINE 4 MG in NS (IVPB) 250 ML IV SCH (02:48)
--- NOTE | 2018-09-05 03:03 | NUR ---
Timeline: 1999--Pt noted to be jerking legs frequently, intermittently with bilateral arm involvement, positive babinski sign, pt unresponsive to deep pain, hypotensive and bradycardic, sedation titrated down, see IV Spreadsheet 2022--Pt with continued, erratic, tensing of entire body with intermittent upper extremity involvement, E-ICU contacted, updated on pt condition 2099--OG advanced per E-ICU advice 2119--Pt to head CT for neuro status and CXR for OG placement 2149--Return from Radiology 2244--Dr Lomas, E-ICU, contacted this RN, pt care discussed, vent settings made, RT notified, OG tube placement confirmed in correct spot, sedation continued to titrate down for neuro response 99--Pt following commands, still not opening eyes, coughing/fighting vent, propofol increased slightly, see IV Spreadsheet, ABG obtained per Dr Lomas's order, values much improved 0300--Pt resting in bed with eyes closed, still does not open eyes but follows commands appropriately, no signs/symptoms of distress noted, will continue to monitor
[2018-09-05 03:07] LABS: ABG BASE EXCESS 1.5 MMOL/L (-2.5-2.5); ABG OXYGEN SATURATION 94 % (94-100); ABG PCO2 35 MMHG (35-45); ABG PH 7.46 (7.37-7.43); ABG PO2 69 MMHG (79-93); ABG TCO2 26.3 MMOL/L (21.0-31.0); BASOPHILS % (AUTO) 1 % (0-10); EOSINOPHILS # (AUTO) 0.2 10^3/uL (0.0-0.3); EOSINOPHILS % (AUTO) 2 % (0-10); HEMATOCRIT 27 % (40-54); LYMPHOCYTES # (AUTO) 0.6 X 10^3 (1.0-4.0); LYMPHOCYTES % (AUTO) 7 % (12-44); MEAN CORPUSCULAR HEMOGLOBIN 21 PG (25-34); MEAN CORPUSCULAR HGB CONC 26 G/DL (32-36); MEAN CORPUSCULAR VOLUME 82 FL (80-99); MEAN PLATELET VOLUME 11.8 FL (7.4-10.4); MONOCYTES # (AUTO) 1.1 X 10^3 (0.0-1.0); MONOCYTES % (AUTO) 14 % (0-12); NEUTROPHILS % (AUTO) 77 % (42-75); PLATELET COUNT 150 10^3/uL (130-400); WHITE BLOOD COUNT 7.8 10^3/uL (4.3-11.0)
[2018-09-05 03:08] LABS: ALLENS TEST ARTLINE; INSPIRED O2 35% VENT; PATIENT TEMP 97.1; VENTILATOR YES
[2018-09-05 03:32] LABS: CALCIUM 7.5 MG/DL (8.5-10.1); CREATININE SERUM 1.42 MG/DL (0.60-1.30); MAGNESIUM 1.3 MG/DL (1.8-2.4); POTASSIUM 3.9 MMOL/L (3.6-5.0)
[2018-09-05] MEDS: POTASSIUM CL 10MEQ/50ML IVPB 50 ML IV SCH ×5 (04:24→20:03)
[2018-09-05] MEDS: KCL 20 MEQ TAB (K-DUR) PO SCH (04:29)
[2018-09-05] MEDS: MAGNESIUM 1 GM/100 ML IVPB 100 ML IV SCH ×5 (05:24→09:04)
[2018-09-05] MEDS ORDERED: SODIUM PHOSPHATE INJ 30 MM in NS (IVPB) 250 ML IV ONE (06:00)
--- NOTE | 2018-09-05 06:49 | Pulmonary Progress Note ---
Subjective Time Seen by a Provider: 06:44 Subjective/Events-last exam Pt intubated yesterday secondary to acute respiratory failure with worsening lethargy and hypotension. Sepsis Event Evaluation Height, Weight, BMI Height: 5'6.00" Weight: 258lbs. 9.0oz. 117.610729xx; 41.4 BMI Method:Stated Focused Exam Lactate Level 09/04/18 09:30: Lactic Acid Level 2.77*H 09/04/18 11:40: Lactic Acid Level 2.18*H 09/05/18 06:14: Lactic Acid Level 1.04 Lactic Acid Level Laboratory Tests Test 09/05/18 06:14 Lactic Acid Level 1.04 MMOL/L (0.50-2.00) Exam Exam Vital Signs Date Time Temp Pulse Resp B/P (MAP) Pulse Ox O2 Delivery O2 Flow Rate FiO2 09/05/18 06:29 54 20 91 30 09/05/18 06:00 52 19 111/59 (76) 92 Mechanical Ventilator 35.00 09/05/18 05:00 56 19 100/58 (72) 93 Mechanical Ventilator 35.00 09/05/18 04:31 53 20 95 35 09/05/18 04:00 54 16 104/55 (71) 95 Mechanical Ventilator 35.00 09/05/18 04:00 Mechanical Ventilator 35 09/05/18 03:00 56 16 100/54 (69) 95 Mechanical Ventilator 35.00 09/05/18 02:25 51 20 97 40 09/05/18 02:25 Mechanical Ventilator 35.00 09/05/18 02:00 53 20 98/53 (68) 97 Mechanical Ventilator 40.00 09/05/18 01:37 Mechanical Ventilator 40.00 09/05/18 01:00 54 09/05/18 01:00 54 21 99/50 (66) 99 Mechanical Ventilator 50.00 09/05/18 00:45 Mechanical Ventilator 09/05/18 00:00 58 14 106/58 (74) 97 Mechanical Ventilator 50.00 09/05/18 00:00 Mechanical Ventilator 50 09/04/18 23:03 Mechanical Ventilator 50.00 09/04/18 23:01 58 18 98 50 09/04/18 23:00 97.6 56 18 97/53 (68) 98 Mechanical Ventilator 60.00 09/04/18 22:00 56 19 109/59 (76) 98 Mechanical Ventilator 60.00 09/04/18 21:52 58 18 98 60 09/04/18 21:00 64 12 114/53 (73) 96 Mechanical Ventilator 60.00 09/04/18 20:00 Mechanical Ventilator 60 09/04/18 20:00 59 13 98/60 (73) 94 Mechanical Ventilator 60.00 09/04/18 19:00 68 09/04/18 19:00 66 18 139/77 (97) 99 Mechanical Ventilator 60.00 09/04/18 18:56 68 18 99 80 09/04/18 18:54 78 09/04/18 18:00 77 12 106/72 (83) 98 NIV Bilevel 50.00 09/04/18 17:00 80 15 71/39 (50) 93 NIV Bilevel 50.00 09/04/18 16:40 88 26 94 30.00 09/04/18 16:00 73 21 95 NIV Bilevel 50.00 09/04/18 16:00 NIV Bilevel 50 09/04/18 16:00 96.3 09/04/18 15:04 80 22 98 40.00 09/04/18 15:00 79 20 83/69 (74) 94 NIV Bilevel 50.00 09/04/18 14:00 97.6 79 9 97 NIV Bilevel 50.00 09/04/18 13:47 85 09/04/18 13:47 85 97 50.00 09/04/18 13:40 NIV Bilevel 50 09/04/18 13:00 99.0 77 23 110/67 (81) 97 NIV Bilevel 09/04/18 09:20 99.0 91 23 118/71 (87) 96 Room Air I & O 09/05/18 07:00 Intake Total 5639 ml Output Total 3625 ml Balance 2014 ml Height & Weight Height: 5'6.00" Weight: 258lbs. 9.0oz. 117.428716yj; 41.4 BMI Method:Stated General Appearance: Other (sedated on vent ) HEENT: Other (ET tube in place) Neck: Full Range of Motion, Non Tender, Supple Respiratory: No Accessory Muscle Use, No Respiratory Distress, Crackles, Decreased Breath Sounds Cardiovascular: Regular Rate, Rhythm Capillary Refill: Less Than 3 Seconds Gastrointestinal: normal bowel sounds, soft, no organomegaly Extremity: Normal Capillary Refill, No Pedal Edema Skin: Normal Color, Warm/Dry Lymphatic: No Adenopathy Results Lab Laboratory Tests 09/04/18 09:30 09/05/18 02:55 Assessment/Plan Assessment/Plan Acute respiratory failure r/o PNA -Continue ventilator - Intubated 09/04 -No fever no leukocytosis -Comer cultures penidng -Start Cefepime. D/C Vanco. Pulmonary edema with small bilateral pleural effusions secondary to diastolic CHF -hold lasix secondary to hypotension Hypotension -Currently on Levophed -IVF -CHeck TSH NSTEMI - possibly type II -Cardiology consulted Anemia -Occult stool is positive -Monitor H&H `-Start Protonix 40mg IV BID -Give 1 unit PRBC -Hold coumadin Metabolic lactic acidosis -Monitor Renal failure -Monitor RAQUEL NOYOLA DO Sep 05, 2018 06:49
--- NOTE | 2018-09-05 07:51 | Diagnostic Imaging Report ---
EXAM: CHEST 1 VIEW, AP/PA ONLY INDICATION: Ventilator. Respiratory failure. COMPARISON: Chest radiograph 09/04/2018. FINDINGS: ETT tip between the level of the clavicles and sparkle. NG tube tip below the diaphragm. Examination limited by underpenetration and low lung volumes. Dense consolidation in the left lung base. No acute osseous findings are identified. No pneumothorax. IMPRESSION: 1. Examination limited by low lung volumes and underpenetration. 2. Dense consolidation left lung base. 3. Support lines in the expected positions. Dictated by: Dictated on workstation # [id number]
--- NOTE | 2018-09-05 08:00 | NUR ---
ART LINE WENT BAD AT THIS TIME. NOTIFIED ANESTHESIA. ART LINE TO BE REPLACED
[2018-09-05 09:11] LABS: ABG OXYGEN SATURATION 89 % (94-100)
[2018-09-05] MEDS ORDERED: NS (IVPB) 100 ML ONE (09:18)
--- NOTE | 2018-09-05 10:38 | Anesthesia-Procedure Note ---
Procedures/Interventions Procedure Start/Stop/Diagnosis Date of Procedure: Sep 05, 2018 Start Time: 10:05 Referring Physician: Dr Carrillo Preprocedural Diagnosis: Respiratory Failure, Hypotension Brief History Anesthesia Note ([id number]) Called to ICU 6 to replace arterial line which quit working. Pt intubated and on vent. U/S used to visualize radial artery. ChloraPrep prior to procedure. 20 G catheter advanced over wire kit in usual fashion. Secured with sterile tegaderm with a good waveform. Pt tolerated the procedure well. Stop Time: 10:15 Postprocedural Diagnosis: same Arterial Line Arterial Line Catheter: 20G Type: Radial Location: Left Procedure: prepped, draped in sterile fashion (ChloraPrep), good wave-form was obtained, patient tolerated procedure well, no immediate complications, post procedure area cleaned, post procedure dressing applied DEEJAY BRISCOE DO Sep 05, 2018 10:38
[2018-09-05] MEDS: CEFEPIME INJECTION 1,000 MG in WATER (STERILE) FOR INJECTION 10 ML IV SCH ×3 (10:48→18:36)
[2018-09-05] MEDS: FLUoxetine HCL 20 MG (PROzac) CAP PO SCH (10:48)
[2018-09-05] MEDS: PANTOPRAZOLE 40 MG (PROTONIX) VIAL IV SCH ×2 (10:49→21:14)
[2018-09-05] MEDS: LACTATED RINGERS 1,000 ML IV SCH (10:55)
--- NOTE | 2018-09-05 11:07 | Progress Note ---
Subjective Subjective/Events-last exam Had worsening hypoxia and work of breathing yesterday evening leading to intubation. Review of Systems Date Seen by Provider: Sep 05, 2018 Time Seen by Provider: 08:58 Focused Exam Lactate Level 09/04/18 09:30: Lactic Acid Level 2.77*H 09/04/18 11:40: Lactic Acid Level 2.18*H 09/05/18 06:14: Lactic Acid Level 1.04 Objective Exam Last Set of Vital Signs Vital Signs Date Time Temp Pulse Resp B/P (MAP) Pulse Ox O2 Delivery O2 Flow Rate FiO2 09/05/18 11:01 Mechanical Ventilator 35 09/05/18 10:40 56 20 92 09/05/18 10:00 126/79 (95) 35.00 09/05/18 09:45 98.2 Capillary Refill : Less Than 3 Seconds I&O Intake and Output 09/04/18 23:59 Intake Total 4785 ml Output Total 2675 ml Balance 2110 ml Intake Oral 0 ml IV Total 4785 ml Output Urine Total 2675 ml Daily Weight Change Unsure General: Other (sedated, ventilated) Lungs: Other (ronchi) Heart: Regular Rate, Other (systolic murmur) Abdomen: Normal Bowel Sounds, Soft Extremities: No Edema Results/Procedures Lab Laboratory Tests 09/04/18 11:10: Urine Color YELLOW, Urine Clarity CLEAR, Urine pH 6.0, Urine Specific [place] 1.020, Urine Protein TRACEH, Urine Glucose (UA) NEGATIVE, Urine Ketones NEGATIVE, Urine Nitrite NEGATIVE, Urine Bilirubin NEGATIVE, Urine Urobilinogen 0.2, Urine Leukocyte Esterase NEGATIVE, Urine RBC (Auto) NEGATIVE, Urine RBC NONE, Urine WBC 0-2, Urine Squamous Epithelial Cells NONE, Urine Crystals PRESENTH, Urine Amorphous Sediment FEW CHINO URATESH, Urine Bacteria NEGATIVE, Urine Casts PRESENT, Urine Granular Casts 0-2H, Urine Mucus NONE, Urine Culture Indicated NO 09/04/18 11:40: Lactic Acid Level 2.18*H 09/04/18 12:55: Stool Occult Blood Immunoassay POSITIVEH 09/04/18 15:45: Blood Gas Puncture Site L RAD, Blood Gas Patient Temperature 96.3, Arterial Blood pH 7.28*L, Arterial Blood Partial Pressure CO2 64H, Arterial Blood Partial Pressure O2 80, Arterial Blood HCO3 30H, Arterial Blood Total CO2 31.6H, Arterial Blood Oxygen Saturation 94, Arterial Blood Base Excess 3.0H, Rob Test YES-POS, Blood Gas Ventilator Setting NO, Blood Gas Inspired Oxygen 50% 09/04/18 17:45: Blood Gas Puncture Site L RAD, Blood Gas Patient Temperature 97.9, Arterial Blood pH 7.30*L, Arterial Blood Partial Pressure CO2 60H, Arterial Blood Partial Pressure O2 280H, Arterial Blood HCO3 29H, Arterial Blood Total CO2 30.8, Arterial Blood Oxygen Saturation 98, Arterial Blood Base Excess 3.0H, Rob Test YES-POS, Blood Gas Ventilator Setting NO, Blood Gas Inspired Oxygen 100% 09/04/18 18:00: Triglycerides Level 94 09/04/18 20:23: Glucometer 140H 09/04/18 20:50: Blood Gas Puncture Site RIGHT ART LINE, Blood Gas Patient Temperature 96.0, Arterial Blood pH 7.29*L, Arterial Blood Partial Pressure CO2 55H, Arterial Blood Partial Pressure O2 79, Arterial Blood HCO3 26, Arterial Blood Total CO2 28.1, Arterial Blood Oxygen Saturation 94, Arterial Blood Base Excess 0.2, Rob Test POSITIVE, Blood Gas Ventilator Setting YES, Blood Gas Inspired Oxygen 60% VENT 09/04/18 22:51: Glucometer 138H 09/05/18 01:10: Blood Gas Puncture Site LEFT ARTLINE, Blood Gas Patient Temperature 96.8, Arterial Blood pH 7.40, Arterial Blood Partial Pressure CO2 42, Arterial Blood Partial Pressure O2 99H, Arterial Blood HCO3 26, Arterial Blood Total CO2 27.3, Arterial Blood Oxygen Saturation 96, Arterial Blood Base Excess 1.4, Rob Test ARTLINE, Blood Gas Ventilator Setting YES, Blood Gas Inspired Oxygen 50% VENT 09/05/18 02:55: Blood Gas Puncture Site RIGHT ARTLINE, Blood Gas Patient Temperature 97.1, Arterial Blood pH 7.46H, Arterial Blood Partial Pressure CO2 35, Arterial Blood Partial Pressure O2 69L, Arterial Blood HCO3 25, Arterial Blood Total CO2 26.3, Arterial Blood Oxygen Saturation 94, Arterial Blood Base Excess 1.5, Rob Test ARTLINE, Blood Gas Ventilator Setting YES, Blood Gas Inspired Oxygen 35% VENT, White Blood Count 7.8, Red Blood Count 3.27L, Hemoglobin 7.0L, Hematocrit 27L, Mean Corpuscular Volume 82, Mean Corpuscular Hemoglobin 21L, Mean Corpuscular Hemoglobin Concent 26L, Red Cell Distribution Width 18.0H, Platelet Count 150, Mean Platelet Volume 11.8H, Neutrophils (%) (Auto) 77H, Lymphocytes (%) (Auto) 7L, Monocytes (%) (Auto) 14H, Eosinophils (%) (Auto) 2, Basophils (%) (Auto) 1, Neutrophils # (Auto) 6.0, Lymphocytes # (Auto) 0.6L, Monocytes # (Auto) 1.1H, Eosinophils # (Auto) 0.2, Basophils # (Auto) 0.0, Sodium Level 140, Potassium Level 3.9, Chloride Level 108H, Carbon Dioxide Level 24, Anion Gap 8, Blood Urea Nitrogen 24H, Creatinine 1.42H, Estimat Glomerular Filtration Rate 49, BUN/Creatinine Ratio 17, Glucose Level 109H, Calcium Level 7.5L, Phosphorus Level 2.0L, Magnesium Level 1.3L 09/05/18 06:14: Lactic Acid Level 1.04, Troponin I 0.088H, B-Type Natriuretic Peptide 545.3H, Thyroid Stimulating Hormone (TSH) 1.71 Assessment/Plan Assessment/Plan (1) Respiratory failure Status: Acute Assessment & Plan: Suspect secondary to pulmonary edema, possible CHF. 80 mg IV lasix given in ED, started on bipap, repeat ABG pending. Infection not ruled out, given azithromycin and ceftriaxone in ER. Pulm and Card consulted. 09/05 now intubated, management per Dr. Carrillo, appreciate recommendations. Started on cefepime, holding lasix due to hypotension. Qualifiers: Qualified Codes: J96.01 - Acute respiratory failure with hypoxia; J96.02 - A cute respiratory failure with hypercapnia (2) Pulmonary edema Status: Acute Assessment & Plan: Holding lasix today due to hypotension (3) Hypotension Status: Acute Assessment & Plan: Borderline on admission hold home BP meds and restless leg meds 09/05 progressively worsened, now on norepinephrine drip (4) Elevated brain natriuretic peptide (BNP) level Status: Acute Assessment & Plan: Cardiology consulted (5) Anemia Status: Chronic Assessment & Plan: Baseline, monitor and transfuse as needed. Hemoccult pos last admit. (6) Elevated lactic acid level Status: Resolved Assessment & Plan: Suspect related to renal function, possible sepsis but with no fever, leukocytosis, tachycardia or tachypnea on admit seems less likely. ABX started in ER, follow. (7) CKD (chronic kidney disease) Status: Chronic Assessment & Plan: Near baseline, monitor closely (8) DVT prophylaxis Status: Acute Assessment & Plan: On warfarin chronically, unclear reason- possibly started after a stroke. INR at goal. 09/05 INR held due to anemia and hemoccult positive stool Clinical Quality Measures DVT/VTE Risk/Contraindication: Risk Factor Score Per Nursin RFS Level Per Nursing on Admit: 4+=Very High CLEVELAND JEAN MD Sep 05, 2018 11:07
--- NOTE | 2018-09-05 11:17 | Physical Therapy Progress Note ---
Therapy Progress Note patient currently on a ventilator; will follow SHIV SALMON PT Sep 05, 2018 11:17
--- NOTE | 2018-09-05 12:03 | Occ Therapy Progress Note ---
Therapy Progress Note Pt. currently sedated and on ventilator. Will continue to monitor. 1, visit 1145 [place] GARCIA OT Sep 05, 2018 12:03
[2018-09-05] MEDS ORDERED: SUCCINYLCHOLINE INJ 100 MG/5 ML SYR INJ ONE (13:10)
[2018-09-05] MEDS ORDERED: MIDAZOLAM 5 MG/5 ML (VERSED) VIAL INJ ONE (13:10)
[2018-09-05] MEDS ORDERED: ETOMIDATE IV SOLN 20 MG/10 ML VIAL IV ONE (13:10)
--- NOTE | 2018-09-05 13:35 | Consultation-Cardiology ---
HPI-Cardiology Cardiology Consultation: Date of Consultation 09/05/18 Date of Admission Attending Physician Aylin Fernandes MD Admitting Physician Estefani Sam MD Consulting Physician Cullen CORNEJO MD HPI: Time Seen by a Provider: 09:00 Chief Complaint: Shortness of breath This is a 73-year-old gentleman who has history of CVA since 2004 and is on Coumadin. He is disabled. Patient has history of carotid stenosis anemia. He presented with decreased appetite fatigue and decreased urine output. He also has possible diarrhea. Shortness of breath. He has previous admissions for pneumonia. He was desaturating with oxygen saturation in the 70s. He presented to the ER by emergency medical services. He was initially put on a nonrebreather but then had to be intubated. No history of congestive heart failure however the patient is on Lasix. History of high blood pressure. On admission there was no complaints of chest pain, syncope or near-syncope or palp itations. Review of Systems-Cardiology Review of Systems Constitutional: As described under HPI; No As described under HPI, No no symptoms reported, No chills, No fever, No lightheadedness; tiredness Eyes: No As described under HPI, No no symptoms reported, No blindness, No blurred vision, No contact lenses, No drainage, No decreased acuity, No foreign body sensation, No pain, No vision change Ears/Nose/Throat: No As described under HPI, No no symptoms reported, No chronic hearing loss, No ear discharge, No ear pain, No nasal drainage, No ulcer ations Respiratory: No no symptoms reported; As described under HPI; No As described under HPI, No cough, No orthopnea; shortness of breath; No SOB with excertion Cardiovascular: No no symptoms reported; As described under HPI; No As described under HPI, No chest pain, No edema, No irregular heart rate, No lightheadedness, No palpitations Gastrointestinal: No no symptoms reported, No As described under HPI, No abdomen distended, No abdominal pain, No blood streaked bowels, No constipation, No diarrhea, No nausea; poor appetite; No vomiting; nausea/vomiting/diarrhea; No stool coloration changes Genitourinary: As described under HPI; No burning, No dysuria, No discharge, No frequency, No flank pain, No hematuria, No urgency Skin: No rash, No skin related problems, No ulcerations Psychiatric/Neurological: No anxiety, No depression, No seizure, No focal weakness, No syncope Hematologic: No bleeding abnormalities All Other Systems Reviewed Negative Unless Noted: Yes [id number]-Ufvgbu Hx Patient Social History Alcohol Use: Denies Use Recreational Drug Use: No Smoking Status: Current Everyday Smoker Type Used: Cigarettes 2nd Hand Smoke Exposure: No Recent Foreign Travel: No Recent Infectious Disease Expo: No Hospitalization with Isolation: Denies Immunizations Up To Date Date of Pneumonia Vaccine: Sep 04, 2016 Date of Influenza Vaccine: Oct 15, 2017 Past Medical History PMH As described under Assessment. Allergies and Home Medications Allergies Coded Allergies: Penicillins (Verified Allergy, Unknown, 03/21/18) tetanus and diphtheria toxoids (Verified Allergy, Unknown, 03/21/18) Home Medications Acetaminophen 325 Mg Tablet, 650 MG PO Q4H PRN for PAIN-MILD, (Reported) Atorvastatin Calcium 10 Mg Tablet, 10 MG PO HS, (Reported) Fluoxetine HCl 20 Mg Capsule, 20 MG PO DAILY, (Reported) Fluticasone Propionate 16 Gm Proctor.susp, 2 SPRAYS NS DAILY PRN for ALLERGIES, (Reported) Furosemide 20 Mg Tablet, 20 MG PO DAILY, (Reported) Glipizide 10 Mg Tablet, 10 MG PO BID, (Reported) Latanoprost 2.5 Ml Drops, 1 DROP OU HS, (Reported) Metformin HCl 1,000 Mg Tablet, 1,000 MG PO BID, (Reported) Ropinirole HCl 1 Mg Tablet, 1 MG PO 1200, (Reported) Ropinirole HCl 2 Mg Tablet, 2 MG PO HS, (Reported) Tamsulosin HCl 0.4 Mg Cap, 0.4 MG PO HS, (Reported) Warfarin Sodium 5 Mg Tablet, 5 MG PO 1800, (Reported) Zolpidem Tartrate 5 Mg Tablet, 5 MG PO MoWeFrSa, (Reported) Patient Home Medication List Home Medication List Reviewed: Yes Physical Exam-Cardiology Physical Exam Vital Signs/I&O 09/05/18 09/05/18 09/05/18 09/05/18 02:25 02:25 03:00 04:00 Pulse 51 56 Resp 20 16 B/P (MAP) 100/54 (69) Pulse Ox 97 95 O2 Delivery Mechanical Ventilator Mechanical Ventilator Mechanical Ventilator O2 Flow Rate 35.00 35.00 FiO2 40 35 09/05/18 09/05/18 09/05/1809/05/19 04:00 04:31 05:00 06:00 Pulse 54 53 56 52 Resp 16 20 19 19 B/P (MAP) 104/55 (71) 100/58 (72) 111/59 (76) Pulse Ox 95 95 93 92 O2 Delivery Mechanical Ventilator Mechanical Ventilator Mechanical Ventilator O2 Flow Rate 35.00 35.00 35.00 FiO2 35 09/05/18 09/05/18 09/05/18 09/05/18 06:29 07:00 07:00 07:32 Pulse 54 56 55 Resp 20 15 B/P (MAP) 101/49 (66) Pulse Ox 91 91 O2 Delivery Mechanical Ventilator Mechanical Ventilator O2 Flow Rate 35.00 FiO2 30 09/05/18 09/05/18 09/05/18 09/05/18 07:59 08:00 09:00 09:39 Temp 98.2 Pulse 57 51 52 Resp 10 17 20 B/P (MAP) 96/48 (64) 123/79 (94) 103/68 Pulse Ox 91 92 91 O2 Delivery Mechanical Ventilator Mechanical Ventilator Mechanical Ventilator Mechanical Ventilator O2 Flow Rate 35.00 35.00 FiO2 35 30 09/05/18 09/05/18 09/05/18 09/05/18 09:45 10:00 10:40 11:00 Temp 98.2 Pulse 53 52 56 51 Resp 20 22 20 20 B/P (MAP) 101/68 126/79 (95) 116/60 (78) Pulse Ox 91 92 92 92 O2 Delivery Mechanical Ventilator Mechanical Ventilator Mechanical Ventilator O2 Flow Rate 35.00 35.00 FiO2 30 30 09/05/18 09/05/18 09/05/18 09/05/18 11:01 12:00 12:00 12:18 Temp 98.0 97.3 Pulse 49 49 Resp 19 20 B/P (MAP) 121/62 (81) 118/63 Pulse Ox 93 93 O2 Delivery Mechanical Ventilator Mechanical Ventilator Mechanical Ventilator O2 Flow Rate 35.00 FiO2 35 30 09/05/18 09/05/18 09/05/18 12:22 12:37 13:00 Pulse 49 49 48 Resp 19 B/P (MAP) 117/61 113/60 (77) Pulse Ox 93 O2 Delivery Mechanical Ventilator O2 Flow Rate 35.00 09/05/18 00:00 Intake Total 4535 ml Output Total 2675 ml Balance 1860 ml Capillary Refill : Less Than 3 Seconds Constitutional: appears stated age; No apparent distress; well-developed, well- nourished, other (intubated/ventilated.) HEENT: PERRL; No discharge; hearing is well preserved, oral hygience is good; No ulceration, No xanthelasmas are seen Neck: No carotid bruit; carotid pulses are 2 + bilaterally Respiratory: chest is bilaterally symmetric, lungs clear to auscultation, other (intubated/ventilated.) Cardiovascular: regular rate-rhythm; No irregularly irregular, No extra beats, No parasternal heave is noted, No JVD, No edema, No bradycardia, No tachycardia, No point of maximal impulse, No cardiac thrills are palpable; S1 and S2; No gallop/S3, No gallop/S4, No diastolic murmur, No systolic murmur, No friction rub, No click, No other Gastrointestinal: No tender, No soft, No round, No distended, No pulsatile mass, No organomegaly, No guarding, No rebound, No tenderness, No hernia, No mass, No audible bowel sounds, No abnormal bowel sounds, No abdominal bruits, No spleenomegaly, No other Rectal: deferred Extremities: No normal range of motion, No non-tender, No normal inspection, No pedal edema, No calf tenderness, No normal capillary refill, No pelvis stable, No calf tenderness, No inflammation, No pedal edema, No slow capillary refill, No swelling, No other, No abrasion, No clubbing, No cyanosis, No ecchymosis, No laceration, No no lower extremity edema bilateral, No significant edema, No tenderness, No wound Neurologic/Psychiatric: other (intubated/ventilated.) Skin: No rash, No ulcerations Lymphatic: no adenopathy Data Review Labs Laboratory Tests 09/04/18 15:45: Blood Gas Puncture Site L RAD, Blood Gas Patient Temperature 96.3, Arterial Blo od pH 7.28*L, Arterial Blood Partial Pressure CO2 64H, Arterial Blood Partial Pressure O2 80, Arterial Blood HCO3 30H, Arterial Blood Total CO2 31.6H, Arterial Blood Oxygen Saturation 94, Arterial Blood Base Excess 3.0H, Rob Test YES-POS, Blood Gas Ventilator Setting NO, Blood Gas Inspired Oxygen 50% 09/04/18 17:45: Blood Gas Puncture Site L RAD, Blood Gas Patient Temperature 97.9, Arterial Blood pH 7.30*L, Arterial Blood Partial Pressure CO2 60H, Arterial Blood Partial Pressure O2 280H, Arterial Blood HCO3 29H, Arterial Blood Total CO2 30.8, Arterial Blood Oxygen Saturation 98, Arterial Blood Base Excess 3.0H, Rob Test YES-POS, Blood Gas Ventilator Setting NO, Blood Gas Inspired Oxygen 100% 09/04/18 18:00: Triglycerides Level 94 09/04/18 20:23: Glucometer 140H 09/04/18 20:50: Blood Gas Puncture Site RIGHT ART LINE, Blood Gas Patient Temperature 96.0, Arterial Blood pH 7.29*L, Arterial Blood Partial Pressure CO2 55H, Arterial Blood Partial Pressure O2 79, Arterial Blood HCO3 26, Arterial Blood Total CO2 28.1, Arterial Blood Oxygen Saturation 94, Arterial Blood Base Excess 0.2, Rob Test POSITIVE, Blood Gas Ventilator Setting YES, Blood Gas Inspired Oxygen 60% VENT 09/04/18 22:51: Glucometer 138H 09/05/18 01:10: Blood Gas Puncture Site LEFT ARTLINE, Blood Gas Patient Temperature 96.8, Arterial Blood pH 7.40, Arterial Blood Partial Pressure CO2 42, Arterial Blood Partial Pressure O2 99H, Arterial Blood HCO3 26, Arterial Blood Total CO2 27.3, Arterial Blood Oxygen Saturation 96, Arterial Blood Base Excess 1.4, Rob Test ARTLINE, Blood Gas Ventilator Setting YES, Blood Gas Inspired Oxygen 50% VENT 09/05/18 02:55: Blood Gas Puncture Site RIGHT ARTLINE, Blood Gas Patient Temperature 97.1, Arterial Blood pH 7.46H, Arterial Blood Partial Pressure CO2 35, Arterial Blood Partial Pressure O2 69L, Arterial Blood HCO3 25, Arterial Blood Total CO2 26.3, Arterial Blood Oxygen Saturation 94, Arterial Blood Base Excess 1.5, Rob Test ARTLINE, Blood Gas Ventilator Setting YES, Blood Gas Inspired Oxygen 35% VENT, White Blood Count 7.8, Red Blood Count 3.27L, Hemoglobin 7.0L, Hematocrit 27L, Mean Corpuscular Volume 82, Mean Corpuscular Hemoglobin 21L, Mean Corpuscular Hemoglobin Concent 26L, Red Cell Distribution Width 18.0H, Platelet Count 150, Mean Platelet Volume 11.8H, Neutrophils (%) (Auto) 77H, Lymphocytes (%) (Auto) 7L, Monocytes (%) (Auto) 14H, Eosinophils (%) (Auto) 2, Basophils (%) (Auto) 1, Neutrophils # (Auto) 6.0, Lymphocytes # (Auto) 0.6L, Monocytes # (Auto) 1.1H, Eosinophils # (Auto) 0.2, Basophils # (Auto) 0.0, Sodium Level 140, Potassium Level 3.9, Chloride Level 108H, Carbon Dioxide Level 24, Anion Gap 8, Blood Urea Nitrogen 24H, Creatinine 1.42H, Estimat Glomerular Filtration Rate 49, BUN/Creatinine Ratio 17, Glucose Level 109H, Calcium Level 7.5L, Phosphorus Level 2.0L, Magnesium Level 1.3L 09/05/18 06:14: Lactic Acid Level 1.04, Troponin I 0.088H, B-Type Natriuretic Peptide 545.3H, Thyroid Stimulating Hormone (TSH) 1.71 09/05/18 11:40: Glucometer 119H ECG Impression ECG Initial ECG Rhythm: S.Tach A/P-Cardiology Assessment/Admission Diagnosis Acute respiratory failure, Acute diastolic congestive heart failure, Non-STEMI, Stroke history, Hypertension, Hyperlipidemia, Injury, Anemia, Possible nonsustained VT, Hypomagnesemia. DM, Pulmonary HTN Plan Acute respiratory failure, intubated/ventilated. Likely multifactorial. Acute diastolic congestive heart failure, BNP mildly to moderately elevated. Will recommend Lasix. Echocardiogram done 09/04/2018 shows normal LV function with mild diastolic dysfunction. No significant valvular heart disease. Moderate pulmonary hy pertension. Non-STEMI, unclear etiology. No wall motion abnormalities on echocardiogram done 09/04/2018. Patient may require either coronary angiography or nuclear stress testing in the near future. We will draw another troponin tomorrow morning to see the trend. I do not want to be aggressive with antiplatelet therapy and Antithrombin therapy due to severe anemia and a hemoglobin of 7. Stroke history, patient is on Coumadin. Hypertension, follow clinically. Hyperlipidemia, statin therapy. Acute kidney injury, likely acute on chronic kidney disease. Patient does have history of diabetes. Anemia, patient is receiving blood transfusion. Possible nonsustained VT, very brief episode of wide complex tachycardia. Keep potassium over 4 and magnesium over 2. Hypomagnesemia. Replacement is being done. Critically ill patient with guarded prognosis. Thank you for your consultation. Please call me if you have any questions. Eileen Cornejo MD, FACP, FACC, FSCAI, FHRS, CCDS Interventional Cardiology Cardiac Electrophysiology Vascular Medicine and Endovascular Interventions Clinical Quality Measures DVT/VTE Risk/Contraindication: Risk Factor Score Per Nursin RFS Level Per Nursing on Admit: 4+=Very High Cullen CORNEJO MD Sep 05, 2018 13:35
[2018-09-05 16:07] LABS: BASOPHILS % (AUTO) 1 % (0-10); EOSINOPHILS # (AUTO) 0.2 10^3/uL (0.0-0.3); EOSINOPHILS % (AUTO) 3 % (0-10); HEMATOCRIT 29 % (40-54); HEMOGLOBIN 7.9 G/DL (13.3-17.7); LYMPHOCYTES # (AUTO) 0.7 X 10^3 (1.0-4.0); LYMPHOCYTES % (AUTO) 10 % (12-44); MEAN CORPUSCULAR HEMOGLOBIN 22 PG (25-34); MEAN CORPUSCULAR HGB CONC 28 G/DL (32-36); MEAN CORPUSCULAR VOLUME 79 FL (80-99); MEAN PLATELET VOLUME 12.2 FL (7.4-10.4); MONOCYTES # (AUTO) 0.9 X 10^3 (0.0-1.0); MONOCYTES % (AUTO) 12 % (0-12); NEUTROPHILS # (AUTO) 5.3 X 10^3 (1.8-7.8); NEUTROPHILS % (AUTO) 75 % (42-75); PLATELET COUNT 172 10^3/uL (130-400); RED CELL DISTRIBUTION WIDTH 17.9 % (10.0-14.5); WHITE BLOOD COUNT 7.1 10^3/uL (4.3-11.0)
[2018-09-05 16:26] LABS: CALCIUM 7.4 MG/DL (8.5-10.1); CREATININE SERUM 1.38 MG/DL (0.60-1.30); POTASSIUM 3.6 MMOL/L (3.6-5.0)
[2018-09-05] MEDS ORDERED: VANCOMYCIN 1,750 MG/NS 500 ML IVPB IV SCH ×2 (19:00)
[2018-09-05] MEDS ORDERED: fentaNYL INJECTION 100 MCG/2 ML AMP ONE (20:53)
[2018-09-05] MEDS: LATANOPROST 0.005% (XALATAN) OPHTH SOLN 2.5 ML OU SCH (21:14)
[2018-09-05] MEDS ORDERED: fentaNYL INJECTION 100 MCG/2 ML AMP IV ONE (21:45)
[2018-09-06] VITALS (19 sets, daily range): BP systolic 92–168; BP diastolic 51–102
[2018-09-06] MEDS: NOREPINEPHRINE 4 MG in NS (IVPB) 250 ML IV SCH (01:16)
[2018-09-06] MEDS: CEFEPIME INJECTION 1,000 MG in WATER (STERILE) FOR INJECTION 10 ML IV SCH ×5 (01:27→23:30)
[2018-09-06 03:18] LABS: BASOPHILS % (AUTO) 1 % (0-10); EOSINOPHILS # (AUTO) 0.2 10^3/uL (0.0-0.3); EOSINOPHILS % (AUTO) 3 % (0-10); HEMATOCRIT 29 % (40-54); HEMOGLOBIN 8.1 G/DL (13.3-17.7); LYMPHOCYTES # (AUTO) 0.8 X 10^3 (1.0-4.0); LYMPHOCYTES % (AUTO) 11 % (12-44); MEAN CORPUSCULAR HEMOGLOBIN 22 PG (25-34); MEAN CORPUSCULAR HGB CONC 28 G/DL (32-36); MEAN CORPUSCULAR VOLUME 78 FL (80-99); MEAN PLATELET VOLUME 11.8 FL (7.4-10.4); MONOCYTES % (AUTO) 14 % (0-12); NEUTROPHILS # (AUTO) 5.3 X 10^3 (1.8-7.8); NEUTROPHILS % (AUTO) 72 % (42-75); PLATELET COUNT 162 10^3/uL (130-400); RED CELL DISTRIBUTION WIDTH 18.2 % (10.0-14.5); WHITE BLOOD COUNT 7.4 10^3/uL (4.3-11.0)
[2018-09-06 03:19] LABS: ABG BASE EXCESS -1.2 MMOL/L (-2.5-2.5); ABG OXYGEN SATURATION 95 % (94-100); ABG PCO2 37 MMHG (35-45); ABG PH 7.41 (7.37-7.43); ABG PO2 78 MMHG (79-93); ALLENS TEST ARTLINE
[2018-09-06 03:20] LABS: INSPIRED O2 40%; PATIENT TEMP 97.6; VENTILATOR YES
[2018-09-06] MEDS: fentaNYL INJECTION 100 MCG/2 ML AMP IV PRN ×2 (03:34→04:32)
[2018-09-06 03:39] LABS: CALCIUM 7.5 MG/DL (8.5-10.1); CREATININE SERUM 1.38 MG/DL (0.60-1.30); MAGNESIUM 2.1 MG/DL (1.8-2.4); PHOSPHORUS 2.8 MG/DL (2.3-4.7); POTASSIUM 3.8 MMOL/L (3.6-5.0)
[2018-09-06] MEDS ORDERED: morphine INJ 4 MG/ML 1 ML (VIAL/SYRINGE) IVP PRN (05:30)
--- NOTE | 2018-09-06 05:46 | Pulmonary Progress Note ---
Subjective Time Seen by a Provider: 05:45 Subjective/Events-last exam Sedated on vent. Sepsis Event Evaluation Height, Weight, BMI Height: 5'6.00" Weight: 258lbs. 9.0oz. 117.529269tw; 41.4 BMI Method:Stated Focused Exam Lactate Level 09/04/18 09:30: Lactic Acid Level 2.77*H 09/04/18 11:40: Lactic Acid Level 2.18*H 09/05/18 06:14: Lactic Acid Level 1.04 Exam Exam Vital Signs Date Time Temp Pulse Resp B/P (MAP) Pulse Ox O2 Delivery O2 Flow Rate FiO2 09/06/18 05:00 44 20 100/53 (69) 95 Mechanical Ventilator 40.00 09/06/18 04:03 46 19 101/56 (71) 96 Mechanical Ventilator 40.00 09/06/18 04:00 Mechanical Ventilator 40 09/06/18 03:00 50 16 119/59 (79) 95 Mechanical Ventilator 40.00 09/06/18 02:20 48 20 95 40 09/06/18 02:00 46 20 118/60 (79) 94 Mechanical Ventilator 40.00 09/06/18 01:24 43 15 109/51 (70) 94 Mechanical Ventilator 40.00 09/06/18 01:00 47 09/06/18 00:20 51 20 92 40 09/06/18 00:00 Mechanical Ventilator 40 09/06/18 00:00 51 20 106/54 (71) 94 Mechanical Ventilator 40.00 09/05/18 23:15 95/49 09/05/18 23:00 48 20 89/47 (61) 94 Mechanical Ventilator 40.00 09/05/18 22:05 51 20 88/49 (62) 92 Mechanical Ventilator 40.00 09/05/18 22:00 51 18 95/53 (67) 91 Mechanical Ventilator 35.00 09/05/18 21:45 56 20 92 40 09/05/18 21:00 53 19 93/49 (64) 93 Mechanical Ventilator 35.00 09/05/18 20:00 60 11 129/65 (86) 93 Mechanical Ventilator 35.00 09/05/18 20:00 Mechanical Ventilator 30 09/05/18 20:00 97.2 09/05/18 19:00 57 09/05/18 19:00 57 16 131/65 (87) 92 Mechanical Ventilator 35.00 09/05/18 18:20 52 20 92 30 09/05/18 18:00 51 15 114/61 (78) 93 Mechanical Ventilator 35.00 09/05/18 17:07 52 111/60 09/05/18 17:00 48 19 112/60 (77) 93 Mechanical Ventilator 35.00 09/05/18 16:00 97.6 09/05/18 16:00 52 8 114/63 (80) 93 Mechanical Ventilator 35.00 09/05/18 16:00 Mechanical Ventilator 35 09/05/18 15:00 51 27 114/63 (80) 93 Mechanical Ventilator 35.00 09/05/18 14:34 52 20 92 30 09/05/18 14:00 47 20 111/58 (75) 94 Mechanical Ventilator 35.00 09/05/18 13:00 48 19 113/60 (77) 93 Mechanical Ventilator 35.00 09/05/18 12:37 49 09/05/18 12:22 49 117/61 09/05/18 12:18 97.3 49 20 118/63 93 Mechanical Ventilator 30 09/05/18 12:00 49 19 121/62 (81) 93 Mechanical Ventilator 35.00 09/05/18 12:00 98.0 09/05/18 11:01 Mechanical Ventilator 35 09/05/18 11:00 51 20 116/60 (78) 92 Mechanical Ventilator 35.00 09/05/18 10:40 56 20 92 30 09/05/18 10:00 52 22 126/79 (95) 92 Mechanical Ventilator 35.00 09/05/18 09:45 98.2 53 20 101/68 91 Mechanical Ventilator 30 09/05/18 09:39 98.2 52 20 103/68 91 Mechanical Ventilator 30 09/05/18 09:00 51 17 123/79 (94) 92 Mechanical Ventilator 35.00 09/05/18 08:00 57 10 96/48 (64) 91 Mechanical Ventilator 35.00 09/05/18 07:59 Mechanical Ventilator 35 09/05/18 07:32 Mechanical Ventilator 09/05/18 07:00 55 09/05/18 07:00 56 15 101/49 (66) 91 Mechanical Ventilator 35.00 09/05/18 06:29 54 20 91 30 09/05/18 06:00 52 19 111/59 (76) 92 Mechanical Ventilator 35.00 I & O 09/06/18 07:00 Intake Total 2830 ml Output Total 825 ml Balance 2005 ml Height & Weight Height: 5'6.00" Weight: 258lbs. 9.0oz. 117.555022gm; 41.4 BMI Method:Stated General Appearance: Other (sedated on vent ) HEENT: Other (ET tube in place) Neck: Full Range of Motion, Non Tender, Supple Respiratory: No Accessory Muscle Use, No Respiratory Distress, Crackles, Decreased Breath Sounds Cardiovascular: Regular Rate, Rhythm Capillary Refill: Less Than 3 Seconds Gastrointestinal: normal bowel sounds, soft, no organomegaly Extremity: Normal Capillary Refill, No Pedal Edema Skin: Normal Color, Warm/Dry Lymphatic: No Adenopathy Results Lab Laboratory Tests 09/04/18 09:30 09/05/18 02:55 09/05/18 16:00 09/06/18 03:08 Assessment/Plan Assessment/Plan Acute respiratory failure r/o PNA -Continue ventilator - Intubated 09/04 -Will attempt vent weaning today. D/C sedation -No fever no leukocytosis -Comer cultures penidng -Cefepime. D/C Vanco. Pulmonary edema with small bilateral pleural effusions secondary to diastolic CHF -hold lasix secondary to hypotension Bradycardia -cardiology following Hypotension -Currently on Levophed -IVF -CHeck TSH NSTEMI - possibly type II -Cardiology consulted Anemia -Occult stool is positive -Monitor H&H ` Protonix 40mg IV BID -S/P 1 unit PRBC -Hold coumadin Metabolic lactic acidosis -Monitor Renal failure -Monitor RAQUEL NOYOLA DO Sep 06, 2018 05:46
[2018-09-06] MEDS: CATHETER FLUSH 10 ML SYR IV SCH ×3 (05:51→20:07)
[2018-09-06] MEDS: MAGNESIUM 1 GM/100 ML IVPB 100 ML IV SCH (05:51)
[2018-09-06] MEDS: POTASSIUM CL 10MEQ/50ML IVPB 50 ML IV SCH (05:51)
[2018-09-06] MEDS: KCL 20 MEQ TAB (K-DUR) PO SCH (05:52)
[2018-09-06 06:01] LABS: INR 3.2 (0.8-1.4); PROTHROMBIN TIME PATIENT 33.9 SEC (12.2-14.7)
[2018-09-06 06:39] LABS: ABG BASE EXCESS -1.4 MMOL/L (-2.5-2.5); ABG OXYGEN SATURATION 94 % (94-100); ABG PCO2 42 MMHG (35-45); ABG PH 7.36 (7.37-7.43); ABG PO2 84 MMHG (79-93); ABG TCO2 24.6 MMOL/L (21.0-31.0); ALLENS TEST POSITIVE; PATIENT TEMP 98.2; VENTILATOR NO
[2018-09-06] MEDS ORDERED: RT-ALBUTEROL/IPRATROPIUM 3 ML (DUONEB) VIAL INH PRN (07:00)
[2018-09-06] MEDS: LACTATED RINGERS 1,000 ML IV SCH ×3 (07:28→23:30)
--- NOTE | 2018-09-06 08:41 | Diagnostic Imaging Report ---
Indication: Respiratory failure. Study compared: 09/05/2018 Findings: ET tube mid trachea, OG catheter goes at least to the EG junction below the level is obscured on a technical basis as the tubing or catheter coiled and looped projecting along the undersurface of the left subclavian unchanged, this is indeterminate. There are bilateral infiltrates greatest at the level of the left lower lobe as well as right perihilar distribution unchanged. Impression: Unchanged bilateral infiltrates, ET tube in good position, curvilinear tubing or catheter fragment projects over the undersurface of the left subclavian unchanged, this is of uncertain etiology. Dictated by: Dictated on workstation # [id number]
--- NOTE | 2018-09-06 09:45 | ST Dysphagia Evaluation ---
Speech Evaluation-General Medical Diagnosis Acute Respiratory Failure Onset Date: Sep 04, 2018 Therapy Diagnosis Therapy Diagnosis: Oropharyngeal Dysphagia Precautions Precautions: Aspiration Precautions/Isolations: Fall Prevention, Standard Precautions Referral Referring Physician: Dr. Carrillo Reason for Referral: Evaluation/Treatment Medical History Pertinent Medical History: CVA, DM, Diverticulitis, HTN Diverticulitis, CVA, HTN and DM Current History Acute Respiratory Failure Reviewed History: Yes Social History Home: Single Level Current Living Status: Alone Speech PLF/Current-Dysphagia Prior Level of Function The patient lives alone and was able to meet his daily needs. Subjective The patient was alert and participated well with the Bedside Dysphagia Evaluation Cognitive Status The patient is oriented to all concepts. Oral Motor Skills Dentition: Edentalous Ability to Follow Directions: Good Patient was NPO pending BDE completion Oral Expression Ability: No Impairment Voice Voice Phonatory-Based Quality: Normal Voice Pitch: Normal Voice Loudness: Normal Face Facial Symmetry: Symmetrical Oral-Facial Assessment Oral-Facial Dentition: Normal Labial Seal Description: Normal Puff Cheeks: Normal Lingual Protrusion: Normal Lingual ROM: Normal Lingual Strength: Normal Pharynx Velopharyngeal Move.: Normal Volitional Dry Swallow: Yes Dysphagia Evaluation Consistencies Presented: Regular, Thin Liquid, Mechanical Soft, Pureed Patient exhibits normal oral stage function. Dietary Recommendations: Mechanical Soft Liquid Recommendations: Thin Swallowing Precautions: Alternate Liquids/Solids, Decreased Bolus 1/2 Tsp, Liquids from Straw, Small Bites and Sips, Sitting Upright 90 Degrees, Sitting 90 Degrees 30 Post Intake Dysphagia Evaluation Summary The patient is a pleasant 73 year old man who was hospitalized due to acute respiratory failure. The patient was extubated yesterday with BDE ordered this morning. The patient was evaluated at bedside with thin liquids via 1/2 tsp x2 and small sips via straw x2 without difficulty noted. The patient was presented 1/2 tsp puree and 1/2 tsp mechanical soft without difficulty. The patient tolerated the regular consistency as well, however due to being edentulous he will be placed on a Dysphagia II diet level and thin liquids. This information was provided for his nurse and written on the white board in his room. Barriers to Learning The patient's age and medical status. Speech Short Term Goals Short Term Goals Short Term Goals 1) The patient will tolerate the least restrictive diet without s/s of aspiration at 90% or greater. 2) The patient will utilize compensatory strategies for safe oral intake at 90% or greater with minimal verbal cues. Speech Custodial Goals Custodial Goals The patient will maintain adequate nutrition/hydration via safe effective swallow function. Speech-Plan Patient/Family Goals Patient/Family Goals: The patient plans on returning home upon hospital discharge. Treatment Plan Speech Therapy Treatment Plan: Continue Plan of Care The patient will receive skilled ST services for dysphagia. Treatment Duration: Sep 13, 2018 Frequency: 4 times per week Estimated Hrs Per Day: .25 hour per day Rehab Potential: Fair Barriers to Learning: Patient's age and medical status Pt/Family Agrees to Plan: Yes Safety Risks/Education Teaching Recipient: Patient Teaching Methods: Demonstration, Discussion Response to Teaching: Verbalize Understanding, Return Demonstration Education Topics Provided: Safety of oral intake and diet level Time Speech Therapy Time In: 08:15 Speech Therapy Time Out: 08:30 Total Billed Time: 15 Billed Treatment Time 1 KYLE Emerson Sep 06, 2018 09:45
[2018-09-06] MEDS: FLUoxetine HCL 20 MG (PROzac) CAP PO SCH (09:46)
[2018-09-06] MEDS: PANTOPRAZOLE 40 MG (PROTONIX) VIAL IV SCH ×2 (09:46→20:07)
--- NOTE | 2018-09-06 09:56 | Occ Therapy Progress Note ---
Therapy Progress Note Pt. continues with sedation and on vent. Will continue to monitor. [id number] [place] GARCIA OT Sep 06, 2018 09:56
[2018-09-06] MEDS: RT-ALBUTEROL/IPRATROPIUM 3 ML (DUONEB) VIAL INH SCH ×4 (10:53→22:24)
--- NOTE | 2018-09-06 11:10 | NUR ---
Pastoral care visit.
--- NOTE | 2018-09-06 11:26 | Physical Therapy Evaluation ---
PT Evaluation-General Medical Diagnosis Admission Date Sep 04, 2018 at 12:09 Medical Diagnosis: Acute Respiratory Failure Onset Date: Sep 04, 2018 Therapy Diagnosis Therapy Diagnosis: impaired mobility, strength, endurance, balance Height/Weight Height (Feet): 5 Height (Inches): 6.00 Weight (Pounds): 263 Weight (Ounces): 0.8 Precautions Precautions/Isolations: Fall Prevention, Standard Precautions Referral Physician: Lorena Reason for Referral: Evaluation/Treatment Medical History Pertinent Medical History: CVA, DM, Diverticulitis, HTN Reviewed History: Yes Social History Home: Single Level Current Living Status: Spouse Entry Into Home: Ramp Prior/Core FIM Prior Level of Function Therapy Code Descriptions/Definitions Functional [place] Measure: 0=Not Assessed/NA 4=Minimal Assistance 1=Total Assistance 5=Supervision or Setup 2=Maximal Assistance 6=Modified [place] 3=Moderate Assistance 7=Complete [place] Therapy Quality Codes: 6 Independent with activity with or without an assistive device 5 Patient requires set up or clean up by helper. Patient completes activity by themselves 4 Supervision or touching assist (CGA). [place] provide cues , steadying assist 3 The helper provides less than half the effort to complete the activity 2 The helper provides more than half the effort to complete the activity 1 Dependent. The helper does all the effort to complete an activity 7 Patient refused to complete or attempt activity 9 The patient did not perform the activity before the current illness or injury 88 Not attempted due to Medical conditions or safety concerns Functional Abilities and Goals: Independent: Patient completed the activities by him/herself, with or without an assistive device, with no assistance from a helper. Needed Some Help: Patient needed partial assistance from another person to complete activities. Dependent: A helper completed the activities for the patient. Unknown: Not Applicable: Bed Mobility: 6 Transfers (B,C,W/C) (FIM): 6 Gait: 6 Indoor Mobility (Ambulation): Independent Patient was using a rolling walker previously and has left foot drop, has an AFO but doesn't use it. PT Evaluation-Current Subjective Patient in bed pre tx, agrees to PT, has no complaints of pain. Pt/Family Goals to be independent at home Objective Patient Orientation: Person, Place, Situation Attachments: Oxygen, Gray Catheter, IV ROM/Strength ROM Lower Extremities WNL Strength Lower Extremities RLE (hip flexion 3+/5, knee flexion 4+/5, knee extension 4+/5, dorsiflexion 4+/5), LLE (hip flexion 3+/5, knee flexion 4/5, knee extension 4/5, dorsiflexion 0/5) Sensory Vision: Wears Glasses Hearing: Functional Sensation Right Lower Extremit: Intact Sensation Left Lower Extremity: Intact Transfers Therapy Code Descriptions/Definitions Functional [place] Measure: 0=Not Assessed/NA 4=Minimal Assistance 1=Total Assistance 5=Supervision or Setup 2=Maximal Assistance 6=Modified [place] 3=Moderate Assistance 7=Complete [place] Transfers (B, C, W/C) (FIM): 3 Scootin Rollin Supine to/from Sit: 3 Sit to/from Stand: 4 mod assist for supine to sit, needs assist with both legs, sit to stand min assist, transfers to recliner min assist, tends to be retropulsive with standing, cues for hand placement and safety, tries to sit before completely turned. Balance Sitting Static: Fair Sitting Dynamic: Fair Standing Static: Poor Standing Dynamic: Poor Treatment BLE seated exercises x15 (AP, LAQ, seated marching) Assessment/Needs Patient has impaired mobility, strength, endurance, balance. He is in recliner post tx with nurse call, tray, in room. Rehab Potential: Fair PT Short Term Goals Short Term Goals Time Frame: Sep 13, 2018 Transfers (B,C,W/C) (FIM): 4 Gait (FIM): 1 Gait Distance Comment: 20' Gait Level of Assist: 4 Gait Assistive Device: FWW PT Plan Problem List Problem List: Activity Tolerance, Functional Strength, Safety, Balance, Gait, Transfer, Bed Mobility, ROM Treatment/Plan Treatment Plan: Continue Plan of Care Treatment Plan: Bed Mobility, Concurrent Therapy, Education, Functional Activity Kennedy, Functional Strength, Gait, Safety, Therapeutic Exercise, Transfers Treatment Duration: Sep 13, 2018 Frequency: 6 times per week Estimated Hrs Per Day: .25 hour per day Patient and/or Family Agrees t: Yes Safety Risks/Education Patient Education: Transfer Techniques, Correct Positioning, Safety Issues Teaching Recipient: Patient Teaching Methods: Demonstration, Discussion Response to Teaching: Reinforcement Needed Discharge Recommendations Plan Patient will perform bed mobility and transfer training, balance and endurance training, functional strengthening, gait training, and education, to improve functional mobility and independence at home. Therapy D/C Recommendations: Acute Rehab, Home w/ Family Support Time/GCodes Time In: 1055 Time Out: 1115 Total Billed Treatment Time: 20 Total Billed Treatment 1 visit MITCH 20' BRIGHT EVANGELISTA PT Sep 06, 2018 11:26
--- NOTE | 2018-09-06 14:00 | NUR ---
CM/SS, interviewed patient about post hospital planning. Patient resides at home with his spouse Sol Simons and disabled daughter Christal who has cerebral palsy. They have three children, Gunjan Hanna, Christal, and Xiomara. Gunjan is in [employer], Xiomara is in [facility]. 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 Patient is stroke disabled. His level of functioning at home was he could scoot in and out of bed, use a roller walker, toilet and bath self. His spouse changes his bed daily. DME: Patient was not on home O2 prior to hospital admission. If this is needed at discharge, his preferred agency is [address] He has rollator walker, shower bench, grab bars in bathroom. He indicates no other needs at this point of interview. HHC: Patient's daughter Christal has HHC visits x 2 weekly. Patient was not decisive about whether he would accept services for himself, this will be revisited later in the hospital stay.
--- NOTE | 2018-09-06 14:12 | NUR ---
Pt transferred to room 423, MYRA Wilson rec'd report.
--- NOTE | 2018-09-06 18:24 | Cardiology Progress Note ---
Cardiology SOAP Progress Note Subjective: Extubated. No significant cardiac symptoms. Objective: I&O/Vital Signs 09/06/18 09/06/18 09/06/18 09/06/18 07:00 07:00 08:00 08:00 Pulse 69 69 66 Resp 26 29 B/P (MAP) 151/74 (99) 144/71 (95) Pulse Ox 94 94 O2 Delivery Nasal Cannula Nasal Cannula Nasal Cannula O2 Flow Rate 6.00 6.00 6.00 09/06/18 09/06/18 09/06/18 09/06/18 09:00 10:00 10:53 11:00 Pulse 81 73 73 Resp 22 26 B/P (MAP) 163/75 (104) 134/65 (88) 136/61 (86) Pulse Ox 93 94 94 94 O2 Delivery Nasal Cannula Nasal Cannula Nasal Cannula Nasal Cannula O2 Flow Rate 6.00 6.00 6.00 6.00 09/06/18 09/06/18 09/06/18 09/06/18 12:00 12:00 12:49 13:00 Temp 97.2 Pulse 84 76 Resp 28 B/P (MAP) 137/60 (85) Pulse Ox 92 O2 Delivery Nasal Cannula Nasal Cannula O2 Flow Rate 6.00 6.00 09/06/18 09/06/18 09/06/18 09/06/18 13:00 14:00 14:30 16:00 Temp 97.2 98.8 Pulse 71 72 80 79 Resp 20 18 B/P (MAP) 127/53 (77) 168/63 (98) 134/102 (113) Pulse Ox 95 92 91 91 O2 Delivery Nasal Cannula Nasal Cannula Nasal Cannula Nasal Cannula O2 Flow Rate 6.00 6.00 4.00 1.00 09/06/18 16:00 O2 Delivery Nasal Cannula O2 Flow Rate 6.00 09/06/18 00:00 Intake Total 2000 ml Output Total 450 ml Balance 1550 ml Weight (Pounds): 263 Weight (Ounces): 0.8 Weight (Calculated Kilograms): 119.915894 Constitutional: appears stated age; No apparent distress; well-developed, well- nourished Respiratory: chest is bilaterally symmetric, lungs clear to auscultation Cardiovascular: regular rate-rhythm; No irregularly irregular, No extra beats, No parasternal heave is noted, No JVD, No edema, No bradycardia, No tachycardia, No point of maximal impulse, No cardiac thrills are palpable; S1 and S2; No gallop/S3, No gallop/S4, No diastolic murmur, No systolic murmur, No friction rub, No click, No other Gastrointestional: No tender, No soft, No round, No distended, No pulsatile mass, No organomegaly, No guarding, No rebound, No tenderness, No hernia, No mass, No audible bowel sounds, No abnormal bowel sounds, No abdominal bruits, No spleenomegaly, No other Extremities: No normal range of motion, No non-tender, No normal inspection, No pedal edema, No calf tenderness, No normal capillary refill, No pelvis stable, No calf tenderness, No inflammation, No pedal edema, No slow capillary refill, No swelling, No other, No abrasion, No clubbing, No cyanosis, No ecchymosis, No laceration, No no lower extremity edema bilateral, No significant edema, No tenderness, No wound Skin: No rash, No ulcerations Results/Procedures: Labs Laboratory Tests 09/05/18 22:44: Glucometer 107 09/06/18 03:08: White Blood Count 7.4, Red Blood Count 3.71L, Hemoglobin 8.1L, Hematocrit 29L, Mean Corpuscular Volume 78L, Mean Corpuscular Hemoglobin 22L, Mean Corpuscular Hemoglobin Concent 28L, Red Cell Distribution Width 18.2H, Platelet Count 162, Mean Platelet Volume 11.8H, Neutrophils (%) (Auto) 72, Lymphocytes (%) (Auto) 11L, Monocytes (%) (Auto) 14H, Eosinophils (%) (Auto) 3, Basophils (%) (Auto) 1, Neutrophils # (Auto) 5.3, Lymphocytes # (Auto) 0.8L, Monocytes # (Auto) 1.0, Eosinophils # (Auto) 0.2, Basophils # (Auto) 0.0, Blood Gas Puncture Site LEFT ARTLINE, Blood Gas Patient Temperature 97.6, Arterial Blood pH 7.41, Arterial Blood Partial Pressure CO2 37, Arterial Blood Partial Pressure O2 78L, Arterial Blood HCO3 23, Arterial Blood Total CO2 24.0, Arterial Blood Oxygen Saturation 95, Arterial Blood Base Excess -1.2, Rob Test ARTLINE, Blood Gas Ventilator Setting YES, Blood Gas Inspired Oxygen 40%, Sodium Level 140, Potassium Level 3.8, Chloride Level 109H, Carbon Dioxide Level 20L, Anion Gap 11, Blood Urea Nitrogen 22H, Creatinine 1.38H, Estimat Glomerular Filtration Rate 51, BUN/Creatinine Ratio 16, Glucose Level 107H, Calcium Level 7.5L, Phosphorus Level 2.8, Magnesium Level 2.1 09/06/18 05:40: Prothrombin Time 33.9H, INR Comment 3.2H 09/06/18 06:25: Blood Gas Puncture Site L ART, Blood Gas Patient Temperature 98.2, Arterial Blood pH 7.36L, Arterial Blood Partial Pressure CO2 42, Arterial Blood Partial Pressure O2 84, Arterial Blood HCO3 23, Arterial Blood Total CO2 24.6, Arterial Blood Oxygen Saturation 94, Arterial Blood Base Excess -1.4, Rob Test POSITIVE, Blood Gas Ventilator Setting NO, Blood Gas Inspired Oxygen 46% 09/06/18 12:22: Lab Scanned Report Transfusion Reaction Form 09/06/18 12:52: Glucometer 189H 09/06/18 16:15: Glucometer 208H Microbiology 09/04/18 Blood Culture - Preliminary, Resulted No growth 09/04/18 MRSA Screen - Final, Complete MRSA not isolated A/P: Assessment/Dx: Acute respiratory failure, Acute diastolic congestive heart failure, Non-STEMI, Stroke history, Hypertension, Hyperlipidemia, Injury, Anemia, Possible nonsustained VT, Hypomagnesemia. DM, Pulmonary HTN Plan: Acute respiratory failure, doing well postextubation. Acute diastolic congestive heart failure, BNP mildly to moderately elevated. Will recommend Lasix. Echocardiogram done 09/04/2018 shows normal LV function with mild diastolic dysfunction. No significant valvular heart disease. Moderate pulmonary hypertension. Non-STEMI, unclear etiology. No wall motion abnormalities on echocardiogram done 09/04/2018. Patient may require either coronary angiography or nuclear stress testing in the near future. We will draw another troponin tomorrow morn ing to see the trend. I do not want to be aggressive with antiplatelet therapy and Antithrombin therapy due to severe anemia and a hemoglobin of 7. Stroke history, patient is on Coumadin. Hypertension, follow clinically. Hyperlipidemia, statin therapy. Acute kidney injury, likely acute on chronic kidney disease. Patient does have history of diabetes. Anemia, patient is receiving blood transfusion. Possible nonsustained VT, very brief episode of wide complex tachycardia. Keep potassium over 4 and magnesium over 2. Hypomagnesemia. Replacement is being done. Thank you for your consultation. Please call me if you have any questions. Eileen Cornejo MD, FACP, FACC, FSCAI, FHRS, CCDS Interventional Cardiology Cardiac Electrophysiology Vascular Medicine and Endovascular Interventions Focused Exam Lactate Level 09/04/18 09:30: Lactic Acid Level 2.77*H 09/04/18 11:40: Lactic Acid Level 2.18*H 09/05/18 06:14: Lactic Acid Level 1.04 Cullen CORNEJO MD Sep 06, 2018 18:24
[2018-09-06] MEDS ORDERED: CEFEPIME 1 GM (MAXIPIME) VIAL ONE (18:30)
--- NOTE | 2018-09-06 19:34 | Progress Note ---
Subjective Subjective/Events-last exam Extubated and oriented, denies concerns, hopeful to get out of hospital soon. Review of Systems Date Seen by Provider: Sep 06, 2018 Time Seen by Provider: 10:38 Focused Exam Lactate Level 09/04/18 09:30: Lactic Acid Level 2.77*H 09/04/18 11:40: Lactic Acid Level 2.18*H 09/05/18 06:14: Lactic Acid Level 1.04 Objective Exam Last Set of Vital Signs Vital Signs Date Time Temp Pulse Resp B/P (MAP) Pulse Ox O2 Delivery O2 Flow Rate FiO2 09/06/18 18:49 91 Nasal Cannula 4.00 09/06/18 16:00 98.8 79 18 134/102 (113) 09/06/18 05:48 40 Capillary Refill : Less Than 3 Seconds I&O Intake and Output 09/06/18 00:00 Intake Total 3534 ml Output Total 1550 ml Balance 1984 ml Intake Oral 240 ml IV Total 3024 ml Other 270 ml Output Urine Total 1275 ml Gastric Drainage Total 275 ml General: Alert, No Acute Distress Lungs: Clear to Auscultation, Normal Air Movement Heart: Regular Rate, Other (systolic murmur) Abdomen: Normal Bowel Sounds, Soft Extremities: No Edema Neuro: Normal Speech Psych/Mental Status: Mental Status NL, Mood NL Results/Procedures Lab Laboratory Tests 09/05/18 22:44: Glucometer 107 09/06/18 03:08: White Blood Count 7.4, Red Blood Count 3.71L, Hemoglobin 8.1L, Hematocrit 29L, Mean Corpuscular Volume 78L, Mean Corpuscular Hemoglobin 22L, Mean Corpuscular Hemoglobin Concent 28L, Red Cell Distribution Width 18.2H, Platelet Count 162, Mean Platelet Volume 11.8H, Neutrophils (%) (Auto) 72, Lymphocytes (%) (Auto) 11L, Monocytes (%) (Auto) 14H, Eosinophils (%) (Auto) 3, Basophils (%) (Auto) 1, Neutrophils # (Auto) 5.3, Lymphocytes # (Auto) 0.8L, Monocytes # (Auto) 1.0, Eosinophils # (Auto) 0.2, Basophils # (Auto) 0.0, Blood Gas Puncture Site LEFT ARTLINE, Blood Gas Patient Temperature 97.6, Arterial Blood pH 7.41, Arterial Blood Partial Pressure CO2 37, Arterial Blood Partial Pressure O2 78L, Arterial Blood HCO3 23, Arterial Blood Total CO2 24.0, Arterial Blood Oxygen Saturation 95, Arterial Blood Base Excess -1.2, Rob Test ARTLINE, Blood Gas Ventilator Setting YES, Blood Gas Inspired Oxygen 40%, Sodium Level 140, Potassium Level 3.8, Chloride Level 109H, Carbon Dioxide Level 20L, Anion Gap 11, Blood Urea Nitrogen 22H, Creatinine 1.38H, Estimat Glomerular Filtration Rate 51, BUN/Crea tinine Ratio 16, Glucose Level 107H, Calcium Level 7.5L, Phosphorus Level 2.8, Magnesium Level 2.1 09/06/18 05:40: Prothrombin Time 33.9H, INR Comment 3.2H 09/06/18 06:25: Blood Gas Puncture Site L ART, Blood Gas Patient Temperature 98.2, Arterial Blood pH 7.36L, Arterial Blood Partial Pressure CO2 42, Arterial Blood Partial Pressure O2 84, Arterial Blood HCO3 23, Arterial Blood Total CO2 24.6, Arterial Blood Oxygen Saturation 94, Arterial Blood Base Excess -1.4, Rob Test POSITIVE, Blood Gas Ventilator Setting NO, Blood Gas Inspired Oxygen 46% 09/06/18 12:22: Lab Scanned Report Transfusion Reaction Form 09/06/18 12:52: Glucometer 189H 09/06/18 16:15: Glucometer 208H Microbiology 09/04/18 Blood Culture - Preliminary, Resulted No growth 09/04/18 MRSA Screen - Final, Complete MRSA not isolated Assessment/Plan Assessment/Plan (1) Respiratory failure Status: Acute Assessment & Plan: Suspect secondary to pulmonary edema, possible CHF. 80 mg IV lasix given in ED, started on bipap, repeat ABG pending. Infection not ruled out, given azithromycin and ceftriaxone in ER. Pulm and Card consulted. 09/05 now intubated, management per Dr. Carrillo, appreciate recommendations. Started on cefepime, holding lasix due to hypotension. 09/06 improved, extubated, continue cefepime Qualifiers: Qualified Codes: J96.01 - Acute respiratory failure with hypoxia; J96.02 - A cute respiratory failure with hypercapnia (2) Pulmonary edema Status: Acute Assessment & Plan: Holding lasix today due to hypotension (3) Hypotension Status: Acute Assessment & Plan: Borderline on admission hold home BP meds and restless leg meds 09/05 progressively worsened, now on norepinephrine drip 09/06 stable off of norepinephrine (4) Elevated brain natriuretic peptide (BNP) level Status: Acute Assessment & Plan: Cardiology consulted (5) Anemia Status: Chronic Assessment & Plan: Baseline, monitor and transfuse as needed. Hemoccult pos last admit. 09/06 discussed with patient and family, he declined scope at last admit, had a colonoscopy in 2010 that was okay. He reports he would not want aggressive treatment if something serious were found on scope, but he may consider having the procedure for diagnostic purposes. Discussed if hemoglobin stable, may be done outpatient if he decides to proceed. (6) Elevated lactic acid level Status: Resolved Assessment & Plan: Suspect related to renal function, possible sepsis but with no fever, leukocytosis, tachycardia or tachypnea on admit seems less likely. ABX started in ER, follow. (7) CKD (chronic kidney disease) Status: Chronic Assessment & Plan: Near baseline, monitor closely (8) DVT prophylaxis Status: Acute Assessment & Plan: On warfarin chronically, unclear reason- possibly started after a stroke. INR at goal. 09/05 INR held due to anemia and hemoccult positive stool Clinical Quality Measures DVT/VTE Risk/Contraindication: Risk Factor Score Per Nursin RFS Level Per Nursing on Admit: 4+=Very High CLEVELAND JEAN MD Sep 06, 2018 19:33
[2018-09-06] MEDS: LATANOPROST 0.005% (XALATAN) OPHTH SOLN 2.5 ML OU SCH (20:07)
[2018-09-06] MEDS: rOPINIRole 1 MG (REQUIP) TABLET PO SCH (20:07)
[2018-09-06] MEDS: ATORVASTATIN 10 MG (LIPITOR) TABLET PO SCH (20:07)
[2018-09-07] VITALS: BP 109/64
[2018-09-07] MEDS: RT-ALBUTEROL/IPRATROPIUM 3 ML (DUONEB) VIAL INH SCH ×7 (02:18→22:29)
[2018-09-07 04:00] VITALS: BP 115/65
[2018-09-07] MEDS: CATHETER FLUSH 10 ML SYR IV SCH ×3 (06:03→20:52)
[2018-09-07] MEDS: CEFEPIME INJECTION 1,000 MG in WATER (STERILE) FOR INJECTION 10 ML IV SCH ×4 (06:03→23:35)
[2018-09-07 06:18] LABS: HEMOGLOBIN 7.2 G/DL (13.3-17.7); MEAN PLATELET VOLUME 11.9 FL (7.4-10.4); RED CELL DISTRIBUTION WIDTH 18.2 % (10.0-14.5); WHITE BLOOD COUNT 6.9 10^3/uL (4.3-11.0)
[2018-09-07 06:33] LABS: INR 2.1 (0.8-1.4)
[2018-09-07 06:51] LABS: CALCIUM 7.3 MG/DL (8.5-10.1); CREATININE SERUM 1.55 MG/DL (0.60-1.30); POTASSIUM 4.1 MMOL/L (3.6-5.0)
[2018-09-07 08:00] VITALS: BP 135/76
[2018-09-07] MEDS ORDERED: FUROSEMIDE 40 MG (LASIX) TAB PO NR (08:45)
[2018-09-07] MEDS: FLUoxetine HCL 20 MG (PROzac) CAP PO SCH (09:00)
[2018-09-07] MEDS: PANTOPRAZOLE 40 MG (PROTONIX) TAB PO SCH ×2 (09:00→20:52)
--- NOTE | 2018-09-07 09:24 | Pulmonary Progress Note ---
Subjective Time Seen by a Provider: 09:24 Subjective/Events-last exam Pt is doing well off ventilator Sepsis Event Evaluation Height, Weight, BMI Height: 5'6.00" Weight: 233lbs. 2.0oz. 105.782457kt; 41.4 BMI Method:Stated Focused Exam Lactate Level 09/04/18 09:30: Lactic Acid Level 2.77*H 09/04/18 11:40: Lactic Acid Level 2.18*H 09/05/18 06:14: Lactic Acid Level 1.04 Exam Exam Vital Signs Date Time Temp Pulse Resp B/P (MAP) Pulse Ox O2 Delivery O2 Flow Rate FiO2 09/07/18 08:00 98.8 85 22 135/76 (95) 91 Nasal Cannula 4.00 09/07/18 07:01 91 Nasal Cannula 5.00 09/07/18 07:00 86 09/07/18 04:00 97.9 76 20 115/65 (82) 91 Nasal Cannula 4.00 09/07/18 02:43 91 Nasal Cannula 5.00 09/07/18 01:00 75 09/07/18 00:00 96.5 77 20 109/64 (79) 91 Nasal Cannula 4.00 09/06/18 22:24 88 Nasal Cannula 4.00 09/06/18 20:00 Nasal Cannula 4.00 09/06/18 19:59 98.9 81 20 136/64 (88) 90 Nasal Cannula 4.00 09/06/18 19:00 82 09/06/18 18:49 91 Nasal Cannula 4.00 09/06/18 16:00 Nasal Cannula 6.00 09/06/18 16:00 98.8 79 18 134/102 (113) 91 Nasal Cannula 1.00 09/06/18 14:30 97.2 80 20 168/63 (98) 91 Nasal Cannula 4.00 09/06/18 14:00 72 22 92 Nasal Cannula 6.00 09/06/18 13:00 71 24 127/53 (77) 95 Nasal Cannula 6.00 09/06/18 13:00 97.2 09/06/18 12:49 76 09/06/18 12:00 Nasal Cannula 6.00 09/06/18 12:00 84 28 137/60 (85) 92 Nasal Cannula 6.00 09/06/18 11:00 73 26 136/61 (86) 94 Nasal Cannula 6.00 09/06/18 10:53 94 Nasal Cannula 6.00 09/06/18 10:00 73 22 134/65 (88) 94 Nasal Cannula 6.00 I & O 09/07/18 07:00 Intake Total 2450 ml Output Total 950 ml Balance 1500 ml Height & Weight Height: 5'6.00" Weight: 233lbs. 2.0oz. 105.894791ss; 41.4 BMI Method:Stated General Appearance: No Apparent Distress, WD/WN HEENT: PERRL/EOMI, Pharynx Normal Neck: Full Range of Motion, Non Tender, Supple Respiratory: No Accessory Muscle Use, No Respiratory Distress, Decreased Breath Sounds Cardiovascular: Regular Rate, Rhythm Capillary Refill: Less Than 3 Seconds Gastrointestinal: normal bowel sounds, soft, no organomegaly Extremity: Normal Capillary Refill, No Pedal Edema Skin: Normal Color, Warm/Dry Lymphatic: No Adenopathy Results Lab Laboratory Tests 09/05/18 16:00 09/06/18 03:08 09/07/18 06:12 Assessment/Plan Assessment/Plan Acute respiratory failure r/o PNA -s/p ventilator -No fever no leukocytosis -[place] cultures neg thus far -Cefepime -repeat BNP Pulmonary edema with small bilateral pleural effusions secondary to diastolic CHF -lasix 40mg PO daily NSTEMI - possibly type II -Cardiology consulted Anemia -Monitor Metabolic lactic acidosis -Monitor Renal failure -Monitor RAQUEL NOYOLA DO Sep 07, 2018 09:24
--- NOTE | 2018-09-07 11:50 | Physical Therapy Daily Note ---
PT Daily Note-Current Subjective Patient in bed pre tx, agrees reluctantly to PT, has no complaints of pain. Appearance Patient in recliner post tx with nurse call, phone, tray, all needs met. Mental Status Patient Orientation: Person, Place, Situation Attachments: Oxygen Transfers Therapy Code Descriptions/Definitions Functional [place] Measure: 0=Not Assessed/NA 4=Minimal Assistance 1=Total Assistance 5=Supervision or Setup 2=Maximal Assistance 6=Modified [place] 3=Moderate Assistance 7=Complete [place] Therapy Quality Codes: 6 Independent with activity with or without an assistive device 5 Patient requires set up or clean up by helper. Patient completes activity by themselves 4 Supervision or touching assist (CGA). [place] provide cues , steadying assist 3 The helper provides less than half the effort to complete the activity 2 The helper provides more than half the effort to complete the activity 1 Dependent. The helper does all the effort to complete an activity 7 Patient refused to complete or attempt activity 9 The patient did not perform the activity before the current illness or injury 88 Not attempted due to Medical conditions or safety concerns Transfers (B, C, W/C) (FIM): 4 Scootin Rollin Supine to/from Sit: 4 Sit to/from Stand: 4 Bed to/from Chair: 4 Min assist for supine to sit, patient stood twice at the edge of the bed for ab out 2 min each time before needing to sit. Gait Training Gait (FIM): 1 Distance: 5' Gait Level of Assist: 4 Gait Persons Needed: 1 Gait Assistive Device: FWW Min assist for ambulation, unsteady, left foot drop, patient tends to lunge for chair and not reach back with hand when sitting. Exercises Supine Ex: Ankle pumps (not left side), Quad Set, Glut sets Supine Reps: 15 Treatments LE exercise, standing, bed mobility and transfers, ambulation Assessment Current Status: Fair Progress improved supine to sit PT Short Term Goals Short Term Goals Time Frame: Sep 13, 2018 Transfers (B,C,W/C) (FIM): 4 Gait (FIM): 1 Gait Distance Comment: 20' Gait Level of Assist: 4 Gait Assistive Device: FWW PT Plan Problem List Problem List: Activity Tolerance, Functional Strength, Safety, Balance, Gait, Transfer, Bed Mobility, ROM Treatment/Plan Treatment Plan: Continue Plan of Care Treatment Plan: Bed Mobility, Concurrent Therapy, Education, Functional Activity [place], Functional Strength, Gait, Safety, Therapeutic Exercise, Transfers Treatment Duration: Sep 13, 2018 Frequency: 6 times per week Estimated Hrs Per Day: .25 hour per day Patient and/or Family Agrees t: Yes Safety Risks/Education Patient Education: Gait Training, Transfer Techniques, Correct Positioning, Safety Issues Teaching Recipient: Patient Teaching Methods: Demonstration, Discussion Response to Teaching: Reinforcement Needed Time/GCodes Time In: 1112 Time Out: 1131 Total Billed Treatment Time: 19 Total Billed Treatment 1 visit FA Stuart' BRIGHT EVANGELISTA PT Sep 07, 2018 11:50
[2018-09-07 12:00] VITALS: BP 122/74
[2018-09-07] MEDS: rOPINIRole 1 MG (REQUIP) TABLET PO SCH ×2 (12:13→20:52)
--- NOTE | 2018-09-07 12:50 | Occupational Therapy Eval ---
OT Evaluation-General/PLF Medical Diagnosis Admission Date Sep 04, 2018 at 12:09 Medical Diagnosis: Acute Respiratory Failure Onset Date: Sep 04, 2018 Therapy Diagnosis Therapy Diagnosis: Weakness Height/Weight Height (Feet): 5 Height (Inches): 6.00 Weight (Pounds): 233 Weight (Ounces): 2.0 Precautions Precautions/Isolations: Fall Prevention Safety Interventions: None Weight Bear Status Weight Bearing Restriction: Weight Bearing/Tolerated Referral Physician: Lorena Referral Reason: Activity Tolerance, Self Care, Evaluation/Treatment, Strengthening/ROM Medical History Pertinent Medical History: CVA, DM, Diverticulitis, HTN Reviewed History: Yes Social History Home: Single Level Current Living Status: Spouse Entry Into Home: Ramp ADL-Prior Level of Function Therapy Code Descriptions/Definitions Functional [place] Measure: 0=Not Assessed/NA 4=Minimal Assistance 1=Total Assistance 5=Supervision or Setup 2=Maximal Assistance 6=Modified [place] 3=Moderate Assistance 7=Complete [place] Therapy Quality Codes: 6 Independent with activity with or without an assistive device 5 Patient requires set up or clean up by helper. Patient completes activity by themselves 4 Supervision or touching assist (CGA). [place] provide cues , steadying assist 3 The helper provides less than half the effort to complete the activity 2 The helper provides more than half the effort to complete the activity 1 Dependent. The helper does all the effort to complete an activity 7 Patient refused to complete or attempt activity 9 The patient did not perform the activity before the current illness or injury 88 Not attempted due to Medical conditions or safety concerns Functional Abilities and Goals: Independent: Patient completed the activities by him/herself, with or without an assistive device, with no assistance from a helper. Needed Some Help: Patient needed partial assistance from another person to complete activities. Dependent: A helper completed the activities for the patient. Unknown: Not Applicable: ADL PLOF Comments Pt. reports to this therapist that he was independent with daily tasks previous to this hospitalization. However, states several times that he wishes his spouse were present, "because I cant remember much." Self Care: Unknown Functional Cognition: Unknown DME/Equipment: Bath Bench, Tub/Shower DME/Equipment Comments Pt. reports that he uses a walker. Also has a wheelchair. Drive Self: No OT Current Status Subjective Pt. does not report pain, but states that he "is all messed up." States that he is having difficulty remembering things. Appearance Pt. up in chair. Eating lunch. Mental Status/Objective Patient Orientation: Unable to Assess Current Upper Extremity ROM Pt. reports that he has no difficulty or issues in bilateral shoulders, but does not demonstrate. ADL-Treatment Therapy Code Descriptions/Definitions Functional [place] Measure: 0=Not Assessed/NA 4=Minimal Assistance 1=Total Assistance 5=Supervision or Setup 2=Maximal Assistance 6=Modified [place] 3=Moderate Assistance 7=Complete [place] Therapy Quality Codes: 6 Independent with activity with or without an assistive device 5 Patient requires set up or clean up by helper. Patient completes activity by themselves 4 Supervision or touching assist (CGA). [place] provide cues , steadying assist 3 The helper provides less than half the effort to complete the activity 2 The helper provides more than half the effort to complete the activity 1 Dependent. The helper does all the effort to complete an activity 7 Patient refused to complete or attempt activity 9 The patient did not perform the activity before the current illness or injury 88 Not attempted due to Medical conditions or safety concerns Eating (FIM): 5 (Pt. unable to open butter packet. OT did this for him. Pt. unable to get butter out and asked OT to do it. Pt. able to fully eat soft meal after set up.) Lower Body Dressing (FIM): 2 (Pt. states that he can bathe and dress self, but then is unable to demonstrate ability to doff slipper socks.) Transfers (B, C, W/C) (FIM): 3 (Pt. requires mod assist to stand from chair. Pt. able to stand approximately 1 minute with walker while OT fixes blankets in chair.) Other Treatments Pt. up in chair. Alert but not fully oriented. Confuses this therapist for a social science manager, and wonders why therapist is here when they are supposed to come to talk with spouse. OT had already introduced self, and educated on purpose of OT. Pt. states, "I forgot that." Pt. fed self after set up, stood from chair, and attempted to doff socks. Unable to do so. OT encourages pt. to attempt to toilet before leaving room. Pt. states that he does not know when he has to go, and that he has a brief on. OT educates him to attempt to use urinal instead of urinating in brief. Pt. declines all attempts. Education OT Patient Education: Correct positioning, Modified ADL techniques, Progress toward Goal/Update tx plan, Purpose of tx/functional activities, Reviewed precautions, Rehab process, Transfer techniques Teaching Recipient: Patient Teaching Methods: Demonstration, Discussion Response to Teaching: Verbalize Understanding, Return Demonstration OT Short Term Goals Short Term Goals Time Frame: Sep 14, 2018 Eating(FIM): 5 Grooming(FIM): 5 Bathing(FIM): 3 Upper Body Dressing(FIM): 5 Lower Body Dressing(FIM): 4 Toileting(FIM): 4 Transfers (B,C,W/C) (FIM): 4 Toilet/Commode Transfer(FIM): 4 Additional Short Term Goals: 1-Demonstrate ADL Tasks, 2-Verbalize Understanding, 3-ImproveStrength/Kennedy 1=Demonstrate adherence to instructed precautions during ADL tasks. 2=Patient will verbalize/demonstrate understanding of assistive devices/modifications for ADL. 3=Patient will improve strength/tolerance for activity to enable patient to perform ADL's. OT Clam Shucking Machine Tender Goals Clam Shucking Machine Tender Goals Time Frame: Sep 21, 2018 Eating (FIM): 6 Grooming(FIM): 5 Bathing(FIM): 5 Upper Body Dressing(FIM): 5 Lower Body Dressing(FIM): 5 Toileting(FIM): 6 Transfers (B,C,W/C) (FIM): 6 Toilet/Commode Transfer(FIM): 6 Shower Transfer(FIM): 4 Additional Goals: 1-Demonstrate ADL Tasks, 2-Verbalize Understanding, 3- ImproveStrength/Kennedy 1=Demonstrate adherence to instructed precautions during ADL tasks. 2=Patient will verbalize/demonstrate understanding of assistive devices/modifications for ADL. 3=Patient will improve strength/tolerance for activity to enable patient to perform ADL's. OT Education/Plan Problem List/Assessment Assessment: Decreased Activ Tolerance, Dependent Transfers, Impaired Bed Mobility, Impaired Cognition, Impaired Funct Balance, Impaired I ADL's, Impaired Self-Care Skills Discharge Recommendations Plan/Recommendations: Continue POC Therapy D/C Recommendations: Home w/ Family Support, Occupational Therapy Home Care Treatment Plan/Plan of Care Treatment,Training & Education: Yes Patient would benefit from OT for education, treatment and training to promote independence in ADL's, mobility, safety and/or upper extremity function for ADL's. Plan of Care: ADL Retraining, Functional Mobility, UE Funct Exercise/Act Treatment Duration: Sep 21, 2018 Frequency: 5 times per week Estimated Hrs Per Day: .25 hour per day Agreement: Yes Rehab Potential: Fair Time/GCodes Start Time: 11:50 Stop Time: 12:10 Total Time Billed (hr/min): 20 Billed Treatment Time 1, VIRGINIA HALL OT Sep 07, 2018 12:50
--- NOTE | 2018-09-07 13:31 | NUR ---
Swing Bed Note: Qualifies for swing bed for continued need for IV abx (COPD, RESPIRATORY FAILURE) with continued need for Physical et Occupational therapies to return to prior level of independent functioning (HX OF STROKE WITH LEFT SIDE AFFECTED). Patient is also currently on 4LPM of o2 continuous with last o2 saturation of 90% (CHF). While working towards his functional goals it would also be appropriate to continue to monitor et wean his oxygen. If he continues to require continuous oxygen when he discharges this will be new equipment that will need set up et provider chosen.
--- NOTE | 2018-09-07 14:28 | Speech Therapy Daily Note ---
Speech Daily Progress Note Subjective Date Seen by Provider: Sep 07, 2018 Time Seen by Provider: 08:45 The patient is noticeably improved. Objective The patient utilized compensatory strategies at 75% accuracy with mod verbal and/or visual cues. Assessment Assessment Current Status: Good Progress Treatment Plan Continue Plan of Care Speech Short Term Goals Short Term Goals Short Term Goals 1) The patient will tolerate the least restrictive diet without s/s of aspiration at 90% or greater. 2) The patient will utilize compensatory strategies for safe oral intake at 90% or greater with minimal verbal cues. Speech Winding Operator Goals Skilled Nursing Goals The patient will maintain adequate nutrition/hydration via safe effective swallow function. Speech-Plan Patient/Family Goals Patient/Family Goals: The patient plans on returning home upon hospital discharge. Treatment Plan Speech Therapy Treatment Plan: Continue Plan of Care Patient is making good progress. Treatment Duration: Sep 13, 2018 Frequency: 4 times per week Estimated Hrs Per Day: .25 hour per day Rehab Potential: Fair Barriers to Learning: Patient's age and medical needs Pt/Family Agrees to Plan: Yes Safety Risks/Education Teaching Recipient: Patient Teaching Methods: Demonstration, Discussion Response to Teaching: Verbalize Understanding, Return Demonstration Education Topics Provided: Safety of oral intake. Time Speech Therapy Time In: 08:45 Speech Therapy Time Out: 09:00 Total Billed Time: 15 Billed Treatment Time 1, KYLE Burgos Sep 07, 2018 14:28
--- NOTE | 2018-09-07 15:05 | NUR ---
Pastoral care visit.
--- NOTE | 2018-09-07 15:52 | NUR ---
RT tried to turn O2 down from 5 l to 4 l but he desatted to 87% so patient was increased back up to 5 l
[2018-09-07 16:08] VITALS: BP 124/61
--- NOTE | 2018-09-07 16:31 | Cardiology Progress Note ---
Cardiology SOAP Progress Note Subjective: no cardiac complaints. Objective: I&O/Vital Signs 09/07/18 09/07/18 09/07/18 09/07/18 07:00 07:01 08:00 09:00 Temp 98.8 Pulse 86 85 Resp 22 B/P (MAP) 135/76 (95) Pulse Ox 91 91 O2 Delivery Nasal Cannula Nasal Cannula Nasal Cannula O2 Flow Rate 5.00 4.00 5.00 09/07/18 09/07/18 09/07/18 09/07/18 10:28 12:00 13:00 15:45 Temp 98.4 Pulse 76 84 Resp 22 B/P (MAP) 122/74 (90) Pulse Ox 91 90 90 O2 Delivery Nasal Cannula Nasal Cannula Nasal Cannula O2 Flow Rate 5.00 4.00 5.00 09/07/18 00:00 Intake Total 800 ml Output Total 400 ml Balance 400 ml Weight (Pounds): 233 Weight (Ounces): 2.0 Weight (Calculated Kilograms): 105.041157 Constitutional: appears stated age; No apparent distress; well-developed, well- nourished Respiratory: chest is bilaterally symmetric, lungs clear to auscultation Cardiovascular: regular rate-rhythm; No irregularly irregular, No extra beats, No parasternal heave is noted, No JVD, No edema, No bradycardia, No tachycardia, No point of maximal impulse, No cardiac thrills are palpable; S1 and S2; No gallop/S3, No gallop/S4, No diastolic murmur, No systolic murmur, No friction rub, No click, No other Gastrointestional: No tender, No soft, No round, No distended, No pulsatile mass, No organomegaly, No guarding, No rebound, No tenderness, No hernia, No mass, No audible bowel sounds, No abnormal bowel sounds, No abdominal bruits, No spleenomegaly, No other Extremities: No normal range of motion, No non-tender, No normal inspection, No pedal edema, No calf tenderness, No normal capillary refill, No pelvis stable, No calf tenderness, No inflammation, No pedal edema, No slow capillary refill, No swelling, No other, No abrasion, No clubbing, No cyanosis, No ecchymosis, No laceration, No no lower extremity edema bilateral, No significant edema, No tenderness, No wound Skin: No rash, No ulcerations Results/Procedures: Labs Laboratory Tests 09/06/18 20:42: Glucometer 239H 09/07/18 05:45: Glucometer 195H 09/07/18 06:12: White Blood Count 6.9, Red Blood Count 3.31L, Hemoglobin 7.2L, Hematocrit 27L, Mean Corpuscular Volume 82, Mean Corpuscular Hemoglobin 22L, Mean Corpuscular Hemoglobin Concent 27L, Red Cell Distribution Width 18.2H, Platelet Count 156, Mean Platelet Volume 11.9H, Prothrombin Time 24.0H, INR Comment 2.1H, Sodium Level 140, Potassium Level 4.1, Chloride Level 108H, Carbon Dioxide Level 24, Anion Gap 8, Blood Urea Nitrogen 20H, Creatinine 1.55H, Estimat Glomerular Filtration Rate 44, BUN/Creatinine Ratio 13, Glucose Level 190H, Calcium Level 7.3L, B-Type Natriuretic Peptide 533.8H 09/07/18 11:49: Glucometer 172H 09/07/18 16:08: Glucometer 210H Microbiology 09/04/18 Blood Culture - Preliminary, Resulted No growth 09/04/18 MRSA Screen - Final, Complete MRSA not isolated A/P: Assessment/Dx: Acute respiratory failure, Acute diastolic congestive heart failure, Non-STEMI, Stroke history, Hypertension, Hyperlipidemia, Injury, Anemia, Possible nonsustained VT, Hypomagnesemia. DM, Pulmonary HTN Plan: Acute respiratory failure, doing well Acute diastolic congestive heart failure, BNP mildly to moderately elevated. Will recommend Lasix. Echocardiogram done 09/04/2018 shows normal LV function with mild diastolic dysfunction. No significant valvular heart disease. Moderate pulmonary hypertension. Non-STEMI, unclear etiology. No wall motion abnormalities on echocardiogram done 09/04/2018. Patient may require either coronary angiography or nuclear stress testing in the near future. We will draw another troponin tomorrow morning to see the trend. I do not want to be aggressive with antiplatelet therapy and Antithrombin therapy due to severe anemia and a hemoglobin of 7. Stroke history, patient is on Coumadin. Hypertension, follow clinically. Hyperlipidemia, statin therapy. Acute kidney injury, likely acute on chronic kidney disease. Patient does have history of diabetes. Anemia, patient is receiving blood transfusion. Possible nonsustained VT, very brief episode of wide complex tachycardia. Keep potassium over 4 and magnesium over 2. Hypomagnesemia. Replacement is being done. Thank you for your consultation. Please call me if you have any questions. Eileen Cornejo MD, FACP, FACC, FSCAI, FHRS, CCDS Interventional Cardiology Cardiac Electrophysiology Vascular Medicine and Endovascular Interventions Focused Exam Lactate Level 09/05/18 06:14: Lactic Acid Level 1.04 Cullen CORNEJO MD Sep 07, 2018 16:31
[2018-09-07] MEDS ORDERED: TROUGH ORDER-PHARMACY XX NR (18:00)
--- NOTE | 2018-09-07 18:26 | Progress Note ---
Subjective Subjective/Events-last exam Afebrile, reports feeling okay, appears to be have increased work of breathing, but denies feeling more short of breath. Focused Exam Lactate Level 09/05/18 06:14: Lactic Acid Level 1.04 Objective Exam Last Set of Vital Signs Vital Signs Date Time Temp Pulse Resp B/P (MAP) Pulse Ox O2 Delivery O2 Flow Rate FiO2 09/07/18 15:45 90 Nasal Cannula 5.00 09/07/18 13:00 84 09/07/18 12:00 98.4 22 122/74 (90) 09/06/18 05:48 40 Capillary Refill : Less Than 3 Seconds I&O Intake and Output 09/07/18 00:00 Intake Total 2550 ml Output Total 1025 ml Balance 1525 ml Intake Oral 1030 ml IV Total 1520 ml Output Urine Total 900 ml Gastric Drainage Total 125 ml # Bowel Movements 1 General: Alert, No Acute Distress Lungs: Other (ronchi) Heart: Regular Rate Abdomen: Normal Bowel Sounds, Soft Neuro: Normal Speech Psych/Mental Status: Mood NL Results/Procedures Lab Laboratory Tests 09/06/18 20:42: Glucometer 239H 09/07/18 05:45: Glucometer 195H 09/07/18 06:12: White Blood Count 6.9, Red Blood Count 3.31L, Hemoglobin 7.2L, Hematocrit 27L, Mean Corpuscular Volume 82, Mean Corpuscular Hemoglobin 22L, Mean Corpuscular Hemoglobin Concent 27L, Red Cell Distribution Width 18.2H, Platelet Count 156, Mean Platelet Volume 11.9H, Prothrombin Time 24.0H, INR Comment 2.1H, Sodium Level 140, Potassium Level 4.1, Chloride Level 108H, Carbon Dioxide Level 24, Anion Gap 8, Blood Urea Nitrogen 20H, Creatinine 1.55H, Estimat Glomerular Filtration Rate 44, BUN/Creatinine Ratio 13, Glucose Level 190H, Calcium Level 7.3L, B-Type Natriuretic Peptide 533.8H 09/07/18 11:49: Glucometer 172H 09/07/18 16:08: Glucometer 210H Microbiology 09/04/18 Blood Culture - Preliminary, Resulted No growth 09/04/18 MRSA Screen - Final, Complete MRSA not isolated Assessment/Plan Assessment/Plan (1) Respiratory failure Status: Acute Assessment & Plan: Suspect secondary to pulmonary edema, possible CHF. 80 mg IV lasix given in ED, started on bipap, repeat ABG pending. Infection not ruled out, given azithromycin and ceftriaxone in ER. Pulm and Card consulted. 09/05 now intubated, management per Dr. Carrillo, appreciate recommendations. Started on cefepime, holding lasix due to hypotension. 09/06 improved, extubated, continue cefepime 09/07- remains on 5 lpm on no oxygen prior to admission. Hypotension resolved, will give oral lasix today. Qualifiers: Qualified Codes: J96.01 - Acute respiratory failure with hypoxia; J96.02 - Acute respiratory failure with hypercapnia (2) Pulmonary edema Status: Acute Assessment & Plan: (3) Hypotension Status: Acute Assessment & Plan: Borderline on admission hold home BP meds and restless leg meds 09/05 progressively worsened, now on norepinephrine drip 09/06 stable off of norepinephrine (4) Elevated brain natriuretic peptide (BNP) level Status: Acute Assessment & Plan: Cardiology consulted (5) Anemia Status: Chronic Assessment & Plan: Baseline, monitor and transfuse as needed. Hemoccult pos last admit. 09/06 discussed with patient and family, he declined scope at last admit, had a colonoscopy in 2010 that was okay. He reports he would not want aggressive treatment if something serious were found on scope, but he may consider having the procedure for diagnostic purposes. Discussed if hemoglobin stable, may be done outpatient if he decides to proceed. (6) Elevated lactic acid level Status: Resolved Assessment & Plan: Suspect related to renal function, possible sepsis but with no fever, leukocytosis, tachycardia or tachypnea on admit seems less likely. ABX started in ER, follow. (7) CKD (chronic kidney disease) Status: Chronic Assessment & Plan: Near baseline, monitor closely (8) DVT prophylaxis Status: Acute Assessment & Plan: On warfarin chronically, unclear reason- possibly started after a stroke. INR at goal. 09/05 INR held due to anemia and hemoccult positive stool Clinical Quality Measures DVT/VTE Risk/Contraindication: Risk Factor Score Per Nursin RFS Level Per Nursing on Admit: 4+=Very High CLEVELAND JEAN MD Sep 07, 2018 18:26
[2018-09-07 19:45] VITALS: BP 118/67
[2018-09-07] MEDS: LATANOPROST 0.005% (XALATAN) OPHTH SOLN 2.5 ML OU SCH (20:52)
[2018-09-07] MEDS: ATORVASTATIN 10 MG (LIPITOR) TABLET PO SCH (20:52)
[2018-09-08 00:53] VITALS: BP 116/68
[2018-09-08] MEDS: RT-ALBUTEROL/IPRATROPIUM 3 ML (DUONEB) VIAL INH SCH ×3 (02:00→11:02)
[2018-09-08 04:55] VITALS: BP 131/72
[2018-09-08] MEDS: CATHETER FLUSH 10 ML SYR IV SCH ×2 (05:18→11:04)
[2018-09-08] MEDS: CEFEPIME INJECTION 1,000 MG in WATER (STERILE) FOR INJECTION 10 ML IV SCH ×2 (05:18→11:03)
[2018-09-08 05:26] LABS: HEMOGLOBIN 7.4 G/DL (13.3-17.7); MEAN PLATELET VOLUME 12.4 FL (7.4-10.4); RED CELL DISTRIBUTION WIDTH 18.5 % (10.0-14.5); WHITE BLOOD COUNT 7.4 10^3/uL (4.3-11.0)
[2018-09-08 05:38] LABS: INR 1.6 (0.8-1.4); PROTHROMBIN TIME PATIENT 19.8 SEC (12.2-14.7)
[2018-09-08 05:42] LABS: CALCIUM 7.5 MG/DL (8.5-10.1); CREATININE SERUM 1.37 MG/DL (0.60-1.30); MAGNESIUM 1.8 MG/DL (1.8-2.4); POTASSIUM 3.9 MMOL/L (3.6-5.0)
--- NOTE | 2018-09-08 06:55 | NUR ---
Patient was in bed laying on his left side and satting 90% on 5 L; he was given his Duoneb SVN BT and tolerated it. No changes made at this time
[2018-09-08] MEDS: FLUoxetine HCL 20 MG (PROzac) CAP PO SCH (08:04)
[2018-09-08] MEDS: PANTOPRAZOLE 40 MG (PROTONIX) TAB PO SCH (08:04)
--- NOTE | 2018-09-08 10:11 | Pulmonary Progress Note ---
Subjective Time Seen by a Provider: 10:06 Subjective/Events-last exam No complications noted. Sepsis Event Evaluation Height, Weight, BMI Height: 5'6.00" Weight: 252lbs. 6.0oz. [id number]; 41.4 BMI Method:Stated Exam Exam Vital Signs Date Time Temp Pulse Resp B/P (MAP) Pulse Ox O2 Delivery O2 Flow Rate FiO2 09/08/18 08:08 Nasal Cannula 5.00 09/08/18 07:00 80 09/08/18 06:49 90 Nasal Cannula 5.00 09/08/18 04:55 97.6 79 24 131/72 (91) 92 Nasal Cannula 5.00 09/08/18 02:00 Nasal Cannula 09/08/18 01:00 86 09/08/18 00:53 98.1 74 22 116/68 (84) 90 Nasal Cannula 5.00 09/07/18 22:29 93 Nasal Cannula 5.00 09/07/18 22:19 Nasal Cannula 4.00 09/07/18 19:45 98.7 76 22 118/67 (84) 94 Nasal Cannula 5.00 09/07/18 19:31 91 Nasal Cannula 5.00 09/07/18 19:00 83 09/07/18 16:08 98.5 79 22 124/61 (82) 93 Nasal Cannula 5.00 09/07/18 15:45 90 Nasal Cannula 5.00 09/07/18 13:00 84 09/07/18 12:00 98.4 76 22 122/74 (90) 90 Nasal Cannula 4.00 09/07/18 10:28 91 Nasal Cannula 5.00 I & O 09/08/18 07:00 Intake Total 3500 ml Output Total 3950 ml Balance -450 ml Height & Weight Height: 5'6.00" Weight: 252lbs. 6.0oz. [id number]; 41.4 BMI Method:Stated General Appearance: No Apparent Distress, WD/WN, Anxious, Chronically ill HEENT: PERRL/EOMI, Normal ENT Inspection, Pharynx Normal Neck: Full Range of Motion, Non Tender, Supple Respiratory: Chest Non Tender, No Accessory Muscle Use, No Respiratory Distr ess, Decreased Breath Sounds Cardiovascular: Regular Rate, Rhythm, No Edema Capillary Refill: Less Than 3 Seconds Gastrointestinal: normal bowel sounds, non tender, soft Extremity: Normal Capillary Refill, No Pedal Edema Neurologic/Psychiatric: Alert Skin: Normal Color, Warm/Dry Lymphatic: No Adenopathy Results Lab Laboratory Tests 09/07/18 06:12 09/08/18 05:18 Assessment/Plan Assessment/Plan Acute respiratory failure r/o PNA -s/p ventilator -Repeat CXR -PT is still requiring 5 liters of oxygen. -No fever no leukocytosis -Comer cultures neg thus far -Cefepime Pulmonary edema with small bilateral pleural effusions secondary to diastolic CHF -lasix 40mg PO daily NSTEMI - possibly type II -Cardiology consulted Anemia -Monitor Metabolic lactic acidosis -Monitor Renal failure -Monitor RAQUEL NOYOLA DO Sep 08, 2018 10:11
[2018-09-08] MEDS: rOPINIRole 1 MG (REQUIP) TABLET PO SCH (11:03)
--- NOTE | 2018-09-08 11:25 | NUR ---
lab asked - stated no orders phos - orders put in by this nurse run from this morning labs
--- NOTE | 2018-09-08 14:53 | Occupational Ther Daily Note ---
OT Current Status-Daily Note Subjective Pt alert, lying in bed. Pt agrees to therapy. No c/o pain only fatigue. Mental Status/Objective Therapy Code Descriptions/Definitions Functional [place] Measure: 0=Not Assessed/NA 4=Minimal Assistance 1=Total Assistance 5=Supervision or Setup 2=Maximal Assistance 6=Modified [place] 3=Moderate Assistance 7=Complete [place] Other Treatment Pt tolerated 2 medium resistance theraband exercises, 1 set 10 reps. Pt required skills of therapist for instruction and correct techniques. After therapy, pt lying in bed with call light/phone in reach. All needs met in room. OT Short Term Goals Short Term Goals Time Frame: Sep 14, 2018 Eating(FIM): 5 Grooming(FIM): 5 Bathing(FIM): 3 Upper Body Dressing(FIM): 5 Lower Body Dressing(FIM): 4 Toileting(FIM): 4 Transfers (B,C,W/C) (FIM): 4 Toilet/Commode Transfer(FIM): 4 Additional Short Term Goals: 1-Demonstrate ADL Tasks, 2-Verbalize Understanding, 3-ImproveStrength/Kennedy 1=Demonstrate adherence to instructed precautions during ADL tasks. 2=Patient will verbalize/demonstrate understanding of assistive devices/modifications for ADL. 3=Patient will improve strength/tolerance for activity to enable patient to perform ADL's. OT Nozzle Operator Goals Mcc Goals Time Frame: Sep 21, 2018 Eating (FIM): 6 Grooming(FIM): 5 Bathing(FIM): 5 Upper Body Dressing(FIM): 5 Lower Body Dressing(FIM): 5 Toileting(FIM): 6 Transfers (B,C,W/C) (FIM): 6 Toilet/Commode Transfer(FIM): 6 Shower Transfer(FIM): 4 Additional Goals: 1-Demonstrate ADL Tasks, 2-Verbalize Understanding, 3- ImproveStrength/Kennedy 1=Demonstrate adherence to instructed precautions during ADL tasks. 2=Patient will verbalize/demonstrate understanding of assistive devices/modifications for ADL. 3=Patient will improve strength/tolerance for activity to enable patient to perform ADL's. OT Education/Plan Discharge Recommendations Plan/Recommendations: Continue POC Treatment Plan/Plan of Care Patient would benefit from OT for education, treatment and training to promote independence in ADL's, mobility, safety and/or upper extremity function for ADL's. Plan of Care: ADL Retraining, Functional Mobility, UE Funct Exercise/Act Treatment Duration: Sep 21, 2018 Frequency: 5 times per week Estimated Hrs Per Day: .25 hour per day Agreement: Yes Rehab Potential: Fair Time/GCodes Start Time: 11:50 Stop Time: 12:00 Total Time Billed (hr/min): 10 Billed Treatment Time 1 visit-EX 1 (10 min) SHIV DAMICO Sep 08, 2018 14:53
--- NOTE | 2018-09-08 15:32 | Diagnostic Imaging Report ---
PATIENT HISTORY: Shortness of breath. TECHNIQUE: Two views of the chest COMPARISON: 09/06/2018. FINDINGS: Interval improvement in lung volumes with decreased perihilar and bibasilar opacities. Residual opacities are seen in the left lung base. Stable prominent cardiac silhouette with decreased central pulmonary vascular congestion. Discoid atelectasis is seen in the left upper lobe. There has been interval extubation and removal of enteric tube. No acute osseous abnormalities. IMPRESSION: Improving perihilar and bibasilar opacities with increased lung volumes. Stable cardiomegaly with decreased central pulmonary vascular congestion. Dictated by: Dictated on workstation # [id number]
--- NOTE | 2018-09-08 16:42 | Discharge Summary ---
Diagnosis/Chief Complaint Date of Admission Sep 04, 2018 at 12:09 Date of Discharge Sep 08, 2018 at 11:55 Admission Diagnosis Admission Diagnosis See problem list Discharge Diagnosis See problem list Problems/Diagnosis: (1) Respiratory failure Assessment & Plan: Suspect secondary to pulmonary edema, possible CHF. 80 mg IV lasix given in ED, started on bipap, repeat ABG pending. Infection not ruled out, given azithromycin and ceftriaxone in ER. Pulm and Card consulted. 09/05 now intubated, management per Dr. Carrillo, appreciate recommendations. Started on cefepime, holding lasix due to hypotension. 09/06 improved, extubated, continue cefepime 09/07- remains on 5 lpm on no oxygen prior to admission. Hypotension resolved, will give oral lasix today. 09/08- continuing to require 5 lpm, transferred to swing bed, continue cefepime. Qualifiers: Qualified Codes: J96.01 - Acute respiratory failure with hypoxia; J96.02 - Acute respiratory failure with hypercapnia Status: Acute (2) Pulmonary edema Assessment & Plan: Status: Acute (3) Hypotension Assessment & Plan: Borderline on admission hold home BP meds and restless leg meds 09/05 progressively worsened, now on norepinephrine drip 09/06 stable off of norepinephrine Status: Acute (4) Elevated brain natriuretic peptide (BNP) level Assessment & Plan: Cardiology consulted Status: Acute (5) Anemia Assessment & Plan: Baseline, monitor and transfuse as needed. Hemoccult pos last admit. 09/06 discussed with patient and family, he declined scope at last admit, had a colonoscopy in 2010 that was okay. He reports he would not want aggressive treatment if something serious were found on scope, but he may consider having the procedure for diagnostic purposes. Discussed if hemoglobin stable, may be done outpatient if he decides to proceed. Status: Chronic (6) Elevated lactic acid level Assessment & Plan: Suspect related to renal function, possible sepsis but with no fever, leukocytosis, tachycardia or tachypnea on admit seems less likely. ABX started in ER, follow. Status: Resolved Resolution Date/Time: 09/05/18 @ 11:07 (7) CKD (chronic kidney disease) Assessment & Plan: Near baseline, monitor closely Status: Chronic (8) DVT prophylaxis Assessment & Plan: On warfarin chronically, unclear reason- possibly started after a stroke. INR at goal. 09/05 INR held due to anemia and hemoccult positive stool Status: Acute Chief Complaint/HPI Chief Complaint/HPI 73 yo male presented to ER with shortness of breath for a couple of days. He denies cough or fever or chest pain. He is on bipap at time of my exam and states he does feel somewhat better currently. Discharge Summary-Simple/Stand Consultations Discharge Physical Examination Allergies: Coded Allergies: Penicillins (Verified Allergy, Unknown, 03/21/18) tetanus and diphtheria toxoids (Verified Allergy, Unknown, 03/21/18) Vitals & I&Os Vital Sign - Last 12Hours Date Time Temp Pulse Resp B/P (MAP) Pulse Ox O2 Delivery O2 Flow Rate FiO2 09/08/18 13:00 75 09/08/18 11:03 92 Nasal Cannula 5.00 09/08/18 04:55 97.6 24 131/72 (91) 09/06/18 05:48 40 Intake and Output 09/08/18 00:00 Intake Total 1950 ml Output Total 3300 ml Balance -1350 ml General Appearance: Alert, No Acute Distress Respiratory: Other (rales) Cardiovascular: Regular Rate, No Murmurs Abdominal: Normal Bowel Sounds, Soft Neuro: Normal Speech Psych/Mental Status: Mental Status NL Hospital Course See final discharge diagnosis. Labs Laboratory Tests Test 09/06/18 20:42 09/07/18 05:45 09/07/18 06:12 09/07/18 11:49 Range/Units Glucometer 239 H 195 H 172 H 70-110 MG/DL White Blood Count 6.9 4.3-11.0 10^3/uL Red Blood Count 3.31 L 4.35-5.85 10^6/uL Hemoglobin 7.2 L 13.3-17.7 G/DL Hematocrit 27 L 40-54 % Mean Corpuscular Volume 82 80-99 FL Mean Corpuscular Hemoglobin 22 L 25-34 PG Mean Corpuscular Hemoglobin Concent 27 L 32-36 G/DL Red Cell Distribution Width 18.2 H 10.0-14.5 % Platelet Count 156 130-400 10^3/uL Mean Platelet Volume 11.9 H 7.4-10.4 FL Prothrombin Time 24.0 H 12.2-14.7 SEC INR Comment 2.1 H 0.8-1.4 Sodium Level 140 135-145 MMOL/L Potassium Level 4.1 3.6-5.0 MMOL/L Chloride Level 108 H 98-107 MMOL/L Carbon Dioxide Level 24 21-32 MMOL/L Anion Gap 8 5-14 MMOL/L Blood Urea Nitrogen 20 H 7-18 MG/DL Creatinine 1.55 H 0.60-1.30 MG/DL Estimat Glomerular Filtration Rate 44 BUN/Creatinine Ratio 13 Glucose Level 190 H 70-105 MG/DL Calcium Level 7.3 L 8.5-10.1 MG/DL B-Type Natriuretic Peptide 533.8 H <100.0 PG/ML Test 09/07/18 16:08 09/07/18 21:16 09/08/18 05:18 09/08/18 11:16 Range/Units Glucometer 210 H 255 H 184 H 70-110 MG/DL White Blood Count 7.4 4.3-11.0 10^3/uL Red Blood Count 3.35 L 4.35-5.85 10^6/uL Hemoglobin 7.4 L 13.3-17.7 G/DL Hematocrit 28 L 40-54 % Mean Corpuscular Volume 82 80-99 FL Mean Corpuscular Hemoglobin 22 L 25-34 PG Mean Corpuscular Hemoglobin Concent 27 L 32-36 G/DL Red Cell Distribution Width 18.5 H 10.0-14.5 % Platelet Count 162 130-400 10^3/uL Mean Platelet Volume 12.4 H 7.4-10.4 FL Prothrombin Time 19.8 H 12.2-14.7 SEC INR Comment 1.6 H 0.8-1.4 Sodium Level 140 135-145 MMOL/L Potassium Level 3.9 3.6-5.0 MMOL/L Chloride Level 107 98-107 MMOL/L Carbon Dioxide Level 24 21-32 MMOL/L Anion Gap 9 5-14 MMOL/L Blood Urea Nitrogen 15 7-18 MG/DL Creatinine 1.37 H 0.60-1.30 MG/DL Estimat Glomerular Filtration Rate 51 BUN/Creatinine Ratio 11 Glucose Level 151 H 70-105 MG/DL Calcium Level 7.5 L 8.5-10.1 MG/DL Phosphorus Level 3.3 2.3-4.7 MG/DL Magnesium Level 1.8 1.8-2.4 MG/DL Test 09/08/18 15:24 Range/Units Glucometer 141 H 70-110 MG/DL Discharge Instructions to patient/family Please see electronic discharge instructions given to patient. Discharge Medications Reviewed and agree with Discharge Medication list on patient's Discharge Instruction sheet Clinical Quality Measures DVT/VTE Risk/Contraindication: Risk Factor Score Per Nursin RFS Level Per Nursing on Admit: 4+=Very High CLEVELAND JEAN MD Sep 08, 2018 16:42
--- NOTE | 2018-09-08 19:46 | Cardiology Progress Note ---
Cardiology SOAP Progress Note Subjective: No significant cardiac symptoms. Objective: I&O/Vital Signs 09/08/18 09/08/18 09/08/18 08:08 11:03 13:00 Pulse 75 Pulse Ox 92 O2 Delivery Nasal Cannula Nasal Cannula O2 Flow Rate 5.00 5.00 09/08/18 00:00 Intake Total 1950 ml Output Total 3300 ml Balance -1350 ml Weight (Pounds): 252 Weight (Ounces): 6.0 Weight (Calculated Kilograms): [id number] Constitutional: appears stated age; No apparent distress; well-developed, well- nourished Respiratory: chest is bilaterally symmetric, lungs clear to auscultation Cardiovascular: regular rate-rhythm; No irregularly irregular, No extra beats, No parasternal heave is noted, No JVD, No edema, No bradycardia, No tachycardia, No point of maximal impulse, No cardiac thrills are palpable; S1 and S2; No gallop/S3, No gallop/S4, No diastolic murmur, No systolic murmur, No friction rub, No click, No other Gastrointestional: No tender, No soft, No round, No distended, No pulsatile mass, No organomegaly, No guarding, No rebound, No tenderness, No hernia, No mass, No audible bowel sounds, No abnormal bowel sounds, No abdominal bruits, No spleenomegaly, No other Extremities: No normal range of motion, No non-tender, No normal inspection, No pedal edema, No calf tenderness, No normal capillary refill, No pelvis stable, No calf tenderness, No inflammation, No pedal edema, No slow capillary refill, No swelling, No other, No abrasion, No clubbing, No cyanosis, No ecchymosis, No laceration, No no lower extremity edema bilateral, No significant edema, No tenderness, No wound Skin: No rash, No ulcerations Results/Procedures: Labs Laboratory Tests 09/07/18 21:16: Glucometer 255H 09/08/18 05:18: White Blood Count 7.4, Red Blood Count 3.35L, Hemoglobin 7.4L, Hematocrit 28L, Mean Corpuscular Volume 82, Mean Corpuscular Hemoglobin 22L, Mean Corpuscular Hemoglobin Concent 27L, Red Cell Distribution Width 18.5H, Platelet Count 162, Mean Platelet Volume 12.4H, Prothrombin Time 19.8H, INR Comment 1.6H, Sodium Level 140, Potassium Level 3.9, Chloride Level 107, Carbon Dioxide Level 24, Anion Gap 9, Blood Urea Nitrogen 15, Creatinine 1.37H, Estimat Glomerular Filtr ation Rate 51, BUN/Creatinine Ratio 11, Glucose Level 151H, Calcium Level 7.5L, Phosphorus Level 3.3, Magnesium Level 1.8 09/08/18 11:16: Glucometer 184H 09/08/18 15:24: Glucometer 141H Microbiology 09/04/18 Blood Culture - Preliminary, Resulted No growth 09/04/18 MRSA Screen - Final, Complete MRSA not isolated A/P: Assessment/Dx: Acute respiratory failure, Acute diastolic congestive heart failure, Non-STEMI, Stroke history, Hypertension, Hyperlipidemia, Injury, Anemia, Possible nonsustained VT, Hypomagnesemia. DM, Pulmonary HTN Plan: Acute respiratory failure, doing well Acute diastolic congestive heart failure, BNP mildly to moderately elevated. Will recommend Lasix. Echocardiogram done 09/04/2018 shows normal LV function with mild diastolic dysfunction. No significant valvular heart disease. Moderate pulmonary hypertension. Non-STEMI, unclear etiology. No wall motion abnormalities on echocardiogram done 09/04/2018. Patient may require either coronary angiography or nuclear stress testing in the near future. We will draw another troponin tomorrow morning to see the trend. I do not want to be aggressive with antiplatelet therapy and Antithrombin therapy due to severe anemia and a hemoglobin of 7. Stroke history, patient is on Coumadin. Hypertension, follow clinically. Hyperlipidemia, statin therapy. Acute kidney injury, likely acute on chronic kidney disease. Patient does have history of diabetes. Anemia, patient is receiving blood transfusion. Possible nonsustained VT, very brief episode of wide complex tachycardia. Keep potassium over 4 and magnesium over 2. Hypomagnesemia. Replacement is being done. Thank you for your consultation. Please call me if you have any questions. Eileen Cornejo MD, FACP, FACC, FSCAI, FHRS, CCDS Interventional Cardiology Cardiac Electrophysiology Vascular Medicine and Endovascular Interventions Cullen CORNEJO MD Sep 08, 2018 19:46
[2018-09-11] MEDS ORDERED: IPRA3AMP31 INH (13:02)
[2018-09-11] MEDS ORDERED: PANT40TA3 PO (13:02)
[2018-09-11] MEDS ORDERED: INSU100V16 SQ (13:02)
== END 2018-09-08 11:55 | disposition swing bed (61) | DRG 208 ==
LOC: EDUNIT# 09:18 → ER FS 09:19 → ICU 12:09 → 4TH 09-06 14:15
PROVIDERS: ADMIT Family Medicine; ATTEND Family Medicine
PROC: 5A1945Z Respiratory Ventilation, 24-96 Consecutive Hours (ICD-10-PCS; principal; 2018-09-04)
PROC: 0BH17EZ Insertion of Endotracheal Airway into Trachea, Via Natural or Artificial Opening (ICD-10-PCS; 2018-09-04)
DX: J96.01 Acute respiratory failure with hypoxia (principal); J96.02 Acute respiratory failure with hypercapnia; I21.4 Non-ST elevation (NSTEMI) myocardial infarction; N17.9 Acute kidney failure, unspecified; I13.0 Hypertensive heart and chronic kidney disease with heart failure and stage 1 through stage 4 chronic kidney disease, or unspecified chronic kidney disease; I50.31 Acute diastolic (congestive) heart failure; N18.9 Chronic kidney disease, unspecified; I47.2 Ventricular tachycardia; E87.2 Acidosis; D64.9 Anemia, unspecified; R19.5 Other fecal abnormalities; E78.00 Pure hypercholesterolemia, unspecified; E11.51 Type 2 diabetes mellitus with diabetic peripheral angiopathy without gangrene; I27.20 Pulmonary hypertension, unspecified; E83.42 Hypomagnesemia; I69.391 Dysphagia following cerebral infarction; F17.210 Nicotine dependence, cigarettes, uncomplicated; J44.9 Chronic obstructive pulmonary disease, unspecified; G25.81 Restless legs syndrome; I95.9 Hypotension, unspecified; N39.41 Urge incontinence; G47.30 Sleep apnea, unspecified; I44.0 Atrioventricular block, first degree; R00.1 Bradycardia, unspecified; R63.0 Anorexia; K57.90 Diverticulosis of intestine, part unspecified, without perforation or abscess without bleeding; Z79.01 Long term (current) use of anticoagulants; Z79.84 Long term (current) use of oral hypoglycemic drugs; Z85.828 Personal history of other malignant neoplasm of skin
CPT/HCPCS: 36415; 36600; 51702; 70450; 71045; 71046; 80048; 80053; 81000; 82274; 82805; 82962; 83605; 83735; 83880; 84100; 84443; 84478; 84484; 85007; 85025; 85027; 85379; 85610; 86850; 86900; 86901; 86920; 87040; 87081; 93005; 93306; 94002; 94003; 94640; 94660; 94760; 94799; 96365; 96375

== ENCOUNTER 2018-09-08 12:12 | Inpatient (IN) | payer MEDICARE, OTHER | END 2018-09-11 16:45 | disposition other institution, planned readmission (95) | LOC: 4TH 12:12 | DX: I13.0 Hypertensive heart and chronic kidney disease with heart failure and stage 1 through stage 4 chronic kidney disease, or unspecified chronic kidney disease (principal); I50.31 Acute diastolic (congestive) heart failure; N18.9 Chronic kidney disease, unspecified; I21.4 Non-ST elevation (NSTEMI) myocardial infarction; E87.2 Acidosis; I47.2 Ventricular tachycardia; N17.9 Acute kidney failure, unspecified; E78.5 Hyperlipidemia, unspecified; D64.9 Anemia, unspecified; I27.20 Pulmonary hypertension, unspecified; E83.42 Hypomagnesemia; E11.9 Type 2 diabetes mellitus without complications; Z79.01 Long term (current) use of anticoagulants; Z86.73 Personal history of transient ischemic attack (TIA), and cerebral infarction without residual deficits ==

== ENCOUNTER 2018-09-25 11:17 | Emergency (ER) | payer MEDICARE, OTHER ==
[~2018-09-25] VITALS: Ht 172.7 cm; Wt 115.7 kg
[~2018-09-25 11:17] MED LIST changes: +INSU100V16 SQ; +IPRA3AMP31 INH; +PANT40TA3 PO; +ROPI2TAB4 PO; +TAMS0.4C98 PO; +WARF-48 PO; +WARF1TAB82 PO
[2018-09-25] MEDS ORDERED: KETOROLAC 60 MG/2 ML VIAL IM ONE (12:45)
[2018-09-25] MEDS ORDERED: DEXAMETHASONE 4 MG/ML SDV (DECADRON) PO ONE (12:45)
[2018-09-25] MEDS ORDERED: HYDROcodone/APAP 5 MG/325 MG (LORTAB) TAB PO ONE (12:45)
--- NOTE | 2018-09-25 13:16 | ED General ---
General Chief Complaint: Back Problems Stated Complaint: LOW O2 Nursing Triage Note: Patient reports lower back pain with movement and sitting for 6 weeks. Nursing Sepsis Screen: No Definite Risk History of Present Illness Date Seen by Provider: Sep 25, 2018 Time Seen by Provider: 13:12 Initial Comments Patient presenting to the emergency department for evaluation of left rib pain that has been going on for several days and he says it is getting worse and manas ilitating. He says he has no pain when he is sitting still however whenever he tries to stand up and move or cough for 2 deep breath he feels the intense sharp stabbing pain. He has a history of COPD and is oxygen dependent on 5 L and says that he is short of breath but he is not more short of breath than his baseline. No productive cough fevers chills nausea vomiting or abdominal pain. He has tried Tylenol for pain. He is usually on warfarin however it is being held at this time the past 2 weeks as he has been more anemic and they are working him up as an outpatient for his anemia. He denies any black or bloody stools dizziness or hypotension to me. He is in no obvious distress with normal vital signs. Allergies and Home Medications Allergies Coded Allergies: Penicillins (Verified Allergy, Unknown, 03/21/18) tetanus and diphtheria toxoids (Verified Allergy, Unknown, 03/21/18) Home Medications Acetaminophen 325 Mg Tablet, 650 MG PO Q4H PRN for PAIN-MILD, (Reported) Atorvastatin Calcium 10 Mg Tablet, 10 MG PO HS, (Reported) Fluoxetine HCl 20 Mg Capsule, 20 MG PO DAILY, (Reported) Fluticasone Propionate 16 Gm [place].susp, 2 SPRAYS NS DAILY PRN for ALLERGIES, (Reported) Furosemide 20 Mg Tablet, 20 MG PO DAILY, (Reported) Insulin Aspart 100 Unit/1 Ml Susp, 10 UNIT SQ AC Prescribed by: DAVION JANE on 09/11/18 1302 Ipratropium/Albuterol Sulfate 3 Ml Ampul.neb, 3 ML INH RTQ4HR Prescribed by: DAVION JANE on 09/11/18 1302 Latanoprost 2.5 Ml Drops, 1 DROP OU HS, (Reported) Pantoprazole Sodium 40 Mg Tablet.dr, 40 MG PO BID@0700,2100 Prescribed by: DAVION JANE on 09/11/18 1302 Ropinirole HCl 1 Mg Tablet, 1 MG PO 1200, (Reported) Ropinirole HCl 2 Mg Tablet, 2 MG PO HS, (Reported) Tamsulosin HCl 0.4 Mg Cap, 0.4 MG PO HS, (Reported) Zolpidem Tartrate 5 Mg Tablet, 5 MG PO MoWeFrSa, (Reported) Patient Home Medication List Home Medication List Reviewed: Yes Review of Systems Review of Systems Constitutional: no symptoms reported Respiratory: cough, short of breath Cardiovascular: no symptoms reported Gastrointestinal: no symptoms reported Genitourinary: no symptoms reported Musculoskeletal: back pain All Other Systems Reviewed Negative Unless Noted: Yes Past Klnljnn-Rkgeti-Zthevs Hx Patient Social History Type Used: Cigarettes 2nd Hand Smoke Exposure: No Recent Foreign Travel: No Contact w/Someone Who Travel: No Recent Infectious Disease Expo: No Immunizations Up To Date Date of Pneumonia Vaccine: Sep 04, 2016 Date of Influenza Vaccine: Oct 15, 2017 Past Medical History Surgeries: Yes Respiratory: Yes Pneumonia, Sleep Apnea Cardiac: Yes High Cholesterol, Hypertension Neurological: Yes Stroke Genitourinary: Yes Renal Failure Gastrointestinal: Yes Obstructive Bowel, Diverticulosis Musculoskeletal: Yes (Restless leg syndrom) Endocrine: Yes Diabetes, Non-Insulin dep Cancer: Yes Skin Psychosocial: No Integumentary: No Blood Disorders: No Family Medical History No Pertinent Family Hx Physical Exam Vital Signs Vital Signs - First Documented 09/25/18 11:20 Temp 99.2 Pulse 69 Resp 18 B/P (MAP) 115/56 (75) Pulse Ox 93 O2 Delivery Nasal Cannula O2 Flow Rate 2.00 Capillary Refill : Less Than 3 Seconds Height, Weight, BMI Height: 5'8.00" Weight: 255lbs. 6.0oz. 115.115311us; 41.4 BMI Method:Stated General Appearance: No Apparent Distress, WD/WN Eyes: Bilateral Eye Normal Inspection HEENT: PERRL/EOMI Neck: Supple Respiratory: Lungs Clear, No Accessory Muscle Use, No Respiratory Distress, Other (posterior left lower rib tenderness to palpation) Cardiovascular: Regular Rate, Rhythm Gastrointestinal: Non Tender, Soft Rectal: Deferred Back: Normal Inspection, No CVA Tenderness, No Vertebral Tenderness Extremity: Normal Capillary Refill Neurologic/Psychiatric: Alert, Oriented x3 Skin: Normal Color, Warm/Dry Procedures/Interventions Date of ETT Placement: Sep 04, 2018 Progress/Results/Core Measures Suspected Sepsis Recent Fever Within 48 Hours: No Infection Criteria Present: None New/Unexplained Altered Menta: No Sepsis Screen: No Definite Risk SIRS Temperature:99.2 Pulse: 69 Respiratory Rate: 18 Blood Pressure 115 /56 Mean: 75 Results/Orders My Orders Orders - JANET MILES DO Ribs/Unilateral With Chest (09/25/18 12:36) Ketorolac Injection (Toradol Injection) (09/25/18 12:45) Dexamethasone Injection (Decadron Inject (09/25/18 12:45) Hydrocodone/Apap 5/325 Tablet (Lortab 5 (09/25/18 12:45) Medications Given in ED Current Medications Medications Dose Ordered Sig/Gema Route Start Time Stop Time Status Last Admin Dose Admin Acetaminophen/ Hydrocodone Bitart 1 tab ONCE ONCE PO 09/25/18 12:45 09/25/18 12:46 DC 09/25/18 12:55 1 TAB Dexamethasone Sodium Phosphate 8 mg ONCE ONCE PO 09/25/18 12:45 09/25/18 12:46 DC 09/25/18 12:55 8 MG Ketorolac Tromethamine 30 mg ONCE ONCE IM 09/25/18 12:45 09/25/18 12:46 DC 09/25/18 12:55 30 MG Vital Signs/I&O 09/25/18 11:20 Temp 99.2 Pulse 69 Resp 18 B/P (MAP) 115/56 (75) Pulse Ox 93 O2 Delivery Nasal Cannula O2 Flow Rate 2.00 Capillary Refill : Less Than 3 Seconds Blood Pressure Mean: 75 Progress Note : Progress Note Patient with likely costochondritis and pleurisy so he'll be given a small dose of Toradol Decadron [place] and I will check rib films to ensure his lungs are inflated and reassess. Pain feels much better after treatment here and his x-rays negative for acute process. I told him he could take a low dose ibuprofen every 6 hours for pain for several days and otherwise take [place] and I for pain and Tylenol intermittently for pain. Told to do his nebulized treatments every 4 hours. Patient and aware and agreeable with plan for discharge and verbalized understanding of the need for short-term follow-up and strict ED return precautions discussed worsening pain shortness of breath fevers or other general concerns. Departure Impression Primary Impression: Pleurisy Additional Impression: Costochondritis, acute Disposition: 01 HOME, SELF-CARE Condition: Stable Departure-Patient Inst. Referrals: MELANIE NORIEGA MD (PCP/Family) Primary Care Physician Patient Instructions: Pleuritic Chest Pain (DC), Costochondritis (DC) Add. Discharge Instructions: All discharge instructions reviewed with patient and/or family. Voiced understanding. Take 200mg of ibuprofen every 6 hours for pain for 3-4 days. Take 650mg of tylenol every 6 hours for pain as well. The norco is for breakthrough pain at night. Do your nebs every 6 hours. Come back with any concerns. Thank you! Scripts Hydrocodone/Acetaminophen ([place] 5-325 Tablet) 1 Each Tablet 1 TAB PO Qhs for Pain MDD 10 TABS for 7 Days, #7 TAB Prov: JANET MILES DO 09/25/18 JANET MILES DO Sep 25, 2018 13:16
--- NOTE | 2018-09-25 13:57 | Diagnostic Imaging Report ---
Indication: Left rib pain and chest pain. Time of exam 12:53 PM Multiple views of the chest and left ribs were obtained. Left hemidiaphragm is elevated. There is some subsegmental atelectasis or scarring left base. Otherwise lungs are clear. No displaced rib fracture is seen. No parenchymal contusion, effusion or pneumothorax is identified. Impression: No acute abnormality is detected. Dictated by: Dictated on workstation # [id number]
[2018-09-25] MEDS ORDERED: HYDR-4226 PO (14:08)
[2018-09-25 14:42] VITALS: BP 115/56
== END 2018-09-25 14:12 | disposition home or self-care (01) ==
LOC: EDUNIT# 11:17 → ER FS 11:18
DX: M94.0 Chondrocostal junction syndrome [Tietze] (principal); R09.1 Pleurisy; J44.9 Chronic obstructive pulmonary disease, unspecified; G47.30 Sleep apnea, unspecified; I10 Essential (primary) hypertension; E78.00 Pure hypercholesterolemia, unspecified; E11.9 Type 2 diabetes mellitus without complications; Z85.828 Personal history of other malignant neoplasm of skin; Z87.19 Personal history of other diseases of the digestive system; Z86.73 Personal history of transient ischemic attack (TIA), and cerebral infarction without residual deficits; Z99.81 Dependence on supplemental oxygen; Z87.01 Personal history of pneumonia (recurrent); Z88.0 Allergy status to penicillin; Z88.7 Allergy status to serum and vaccine; Z79.51 Long term (current) use of inhaled steroids; Z79.4 Long term (current) use of insulin
CPT/HCPCS: 71101

== ENCOUNTER 2019-01-28 09:25 | Inpatient (IN) | payer MEDICARE, OTHER ==
[~2019-01-28] VITALS: Ht 180.3 cm; Wt 97.1 kg
[~2019-01-28 09:25] MED LIST changes: +HYDR-4226 PO
[2019-01-28 09:48] LABS: WHITE BLOOD COUNT 6.8 10^3/uL (4.3-11.0)
--- NOTE | 2019-01-28 09:48 | ED General ---
General Chief Complaint: Altered Mental Status Stated Complaint: ALTERED MENTAL STATUS History of Present Illness Date Seen by Provider: Jan 28, 2019 Time Seen by Provider: 09:41 Initial Comments 73 yo male hx O2 dependent COPD anemia requiring transfusion prior CVA's without obvious focal deficits but requiring walker since diabetes renal insuff relates recent poor intake weakness confusion falls (no injury) maybe mild dyspnea above baseline today fell and couldn't get up? but paramedics state he got up on his own RA O2 sat 90-92 99% on 3liters glucose normal IV fluids started denies congestion cough fever no pain anywhere no V or D no urinary sx's no dark or bloody stools alert oriented x2 relates expressive aphasia noted 2-3 weeks ago in recent days gait unsteady has fallen x3 feels she can no longer handle him at home also has special needs daughter Allergies and Home Medications Allergies Coded Allergies: Penicillins (Verified Allergy, Unknown, 03/21/18) tetanus and diphtheria toxoids (Verified Allergy, Unknown, 03/21/18) Home Medications Acetaminophen 325 Mg Tablet, 650 MG PO Q4H PRN for PAIN-MILD, (Reported) Atorvastatin Calcium 10 Mg Tablet, 10 MG PO HS, (Reported) Fluoxetine HCl 20 Mg Capsule, 20 MG PO DAILY, (Reported) Fluticasone Propionate 16 Gm [place].susp, 2 SPRAYS NS DAILY PRN for ALLERGIES, (Reported) Furosemide 20 Mg Tablet, 20 MG PO DAILY, (Reported) Hydrocodone/Acetaminophen 1 Each Tablet, 1 TAB PO Qhs Prescribed by: JANET MILES on 09/25/18 1408 Insulin Aspart 100 Unit/1 Ml Susp, 10 UNIT SQ AC Prescribed by: DAVION JANE on 09/11/18 1302 Ipratropium/Albuterol Sulfate 3 Ml Ampul.neb, 3 ML INH RTQ4HR Prescribed by: DAVION JANE on 09/11/18 1302 Latanoprost 2.5 Ml Drops, 1 DROP OU HS, (Reported) Pantoprazole Sodium 40 Mg Tablet.dr, 40 MG PO BID@0700,2100 Prescribed by: DAVION JANE on 09/11/18 1302 Ropinirole HCl 1 Mg Tablet, 1 MG PO 1200, (Reported) Ropinirole HCl 2 Mg Tablet, 2 MG PO HS, (Reported) Tamsulosin HCl 0.4 Mg Cap, 0.4 MG PO HS, (Reported) Zolpidem Tartrate 5 Mg Tablet, 5 MG PO MoWeFrSa, (Reported) Patient Home Medication List Home Medication List Reviewed: Yes Review of Systems Review of Systems Constitutional: No diaphoresis, No fever EENTM: no symptoms reported Respiratory: short of breath (mild) Cardiovascular: no symptoms reported; No palpitations, No syncope Gastrointestinal: no symptoms reported; No diarrhea, No vomiting Genitourinary: no symptoms reported Psychiatric/Neurological: Weakness Past Yninimo-Dnpvhv-Iwbtuy Hx Patient Social History Type Used: Cigarettes 2nd Hand Smoke Exposure: No Immunizations Up To Date Date of Pneumonia Vaccine: Sep 04, 2016 Date of Influenza Vaccine: Oct 15, 2017 Past Medical History Surgeries: Yes Respiratory: Yes Pneumonia, Sleep Apnea Cardiac: Yes High Cholesterol, Hypertension Neurological: Yes Stroke Genitourinary: Yes Renal Failure Gastrointestinal: Yes Obstructive Bowel, Diverticulosis Musculoskeletal: Yes (Restless leg syndrom) Endocrine: Yes Diabetes, Non-Insulin dep Cancer: Yes Skin Psychosocial: No Integumentary: No Blood Disorders: No Family Medical History No Pertinent Family Hx Physical Exam Vital Signs Vital Signs - First Documented 01/28/19 09:25 Temp 36.8 Pulse 74 Resp 12 B/P (MAP) 124/70 (88) Pulse Ox 98 O2 Flow Rate 3.00 Capillary Refill : Height, Weight, BMI Height: 5'8.00" Weight: 255lbs. 6.0oz. 115.506752zr; 41.4 BMI Method:Stated General Appearance: No Apparent Distress, WD/WN Eyes: Bilateral Eye PERRL, Bilateral Eye EOMI HEENT: Normal ENT Inspection Neck: Supple Respiratory: Lungs Clear Cardiovascular: Regular Rate, Rhythm Gastrointestinal: Non Tender, Soft Extremity: Normal Inspection, Non Tender Neurologic/Psychiatric: Alert, No Motor/Sensory Deficits, Normal Mood/Affect, ecommerce project manager II-XII Norm as Tested Focused Exam Lactate Level 01/28/19 09:35: Lactic Acid Level 1.17 Lactic Acid Level Laboratory Tests Test 01/28/19 09:35 Lactic Acid Level 1.17 MMOL/L (0.50-2.00) Procedures/Interventions Date of ETT Placement: Sep 04, 2018 Progress/Results/Core Measures Suspected Sepsis SIRS Temperature: Pulse: Respiratory Rate: Laboratory Tests 01/28/19 09:35: White Blood Count 6.8 Blood Pressure / Mean: 01/28/19 09:35: Lactic Acid Level 1.17 Laboratory Tests 01/28/19 09:35: Creatinine 1.51H, Platelet Count 177, Total Bilirubin 0.5 Results/Orders Lab Results Laboratory Tests Test 01/28/19 09:35 Range/Units White Blood Count 6.8 4.3-11.0 10^3/uL Red Blood Count 3.96 L 4.35-5.85 10^6/uL Hemoglobin 7.7 L 13.3-17.7 G/DL Hematocrit 30 L 40-54 % Mean Corpuscular Volume 76 L 80-99 FL Mean Corpuscular Hemoglobin 19 L 25-34 PG Mean Corpuscular Hemoglobin Concent 26 L 32-36 G/DL Red Cell Distribution Width 18.0 H 10.0-14.5 % Platelet Count 177 130-400 10^3/uL Mean Platelet Volume 11.6 H 7.4-10.4 FL Neutrophils (%) (Auto) 78 H 42-75 % Lymphocytes (%) (Auto) 10 L 12-44 % Monocytes (%) (Auto) 10 0-12 % Eosinophils (%) (Auto) 1 0-10 % Basophils (%) (Auto) 1 0-10 % Neutrophils # (Auto) 5.3 1.8-7.8 X 10^3 Lymphocytes # (Auto) 0.7 L 1.0-4.0 X 10^3 Monocytes # (Auto) 0.7 0.0-1.0 X 10^3 Eosinophils # (Auto) 0.1 0.0-0.3 10^3/uL Basophils # (Auto) 0.0 0.0-0.1 10^3/uL Sodium Level 140 135-145 MMOL/L Potassium Level 3.4 L 3.6-5.0 MMOL/L Chloride Level 104 98-107 MMOL/L Carbon Dioxide Level 25 21-32 MMOL/L Anion Gap 11 5-14 MMOL/L Blood Urea Nitrogen 17 7-18 MG/DL Creatinine 1.51 H 0.60-1.30 MG/DL Estimat Glomerular Filtration Rate 46 BUN/Creatinine Ratio 11 Glucose Level 189 H 70-105 MG/DL Lactic Acid Level 1.17 0.50-2.00 MMOL/L Calcium Level 7.6 L 8.5-10.1 MG/DL Corrected Calcium 8.3 L 8.5-10.1 MG/DL Total Bilirubin 0.5 0.1-1.0 MG/DL Aspartate Amino Transf (AST/SGOT) 16 5-34 U/L Alanine Aminotransferase (ALT/SGPT) < 5 0-55 U/L Alkaline Phosphatase 138 H 40-136 U/L Total Protein 5.7 L 6.4-8.2 GM/DL Albumin 3.1 L 3.2-4.5 GM/DL My Orders Orders - KAYLA MCKNIGHT MD Iv Heplock-Insert (Order) (01/28/19 09:36) Continuous Ekg Monitoring (01/28/19 09:36) Ekg Tracing (01/28/19 09:36) Cbc With Automated Diff (01/28/19 09:36) Comprehensive Metabolic Panel (01/28/19 09:36) Lactic Acid Analyzer (01/28/19 09:36) Urinalysis (01/28/19 09:36) Ct Head Wo (01/28/19 09:36) Chest Pa/Lat (2 View) (01/28/19 09:36) Orthostatic Vital Signs (Adult (01/28/19 09:36) Dexamethasone Injection (Decadron Inject (01/28/19 11:15) Vital Signs/I&O 01/28/19 09:25 Temp 36.8 Pulse 74 Resp 12 B/P (MAP) 124/70 (88) Pulse Ox 98 O2 Flow Rate 3.00 Capillary Refill : Progress Note : Progress Note blood work, (Hb and creat are baseline) EKG and chest x-ray essentially unremarkable CT head markedly abnormal bilat abnormal appearance of cerebral hemispheres suggesting metastatic disease and edema mass effect localized midline shift left frontal no bleed feel pt needs to be where neuro and neurosurg available is very reluctant, wants to keep local, will not want to pursue any aggressive treatment she is speaking with daughter pt is DNR wants admitted to [place] could at least get MRI and then potentially placement discussed with Dr. Chao, is agreeable ECG EKG : Comment sinus rhythm @63 no acute changes Departure Communication (Admissions) Time/Spoke to Admitting Phy: 11:23 see progress note Impression Primary Impression: Brain tumor Disposition: ADMITTED INPATIENT Condition: Stable Admissions Decision to Admit Reason: Admit from ER (General) Decision to Admit/Date: Jan 28, 2019 Time/Decision to Admit Time: 11:24 Departure-Patient Inst. Referrals: MELANIE NORIEGA MD (PCP/Family) Primary Care Physician KAYLA MCKNIGHT MD Jan 28, 2019 09:48 POS
[2019-01-28 09:49] LABS: BASOPHILS % (AUTO) 1 % (0-10); EOSINOPHILS # (AUTO) 0.1 10^3/uL (0.0-0.3); EOSINOPHILS % (AUTO) 1 % (0-10); HEMATOCRIT 30 % (40-54); HEMOGLOBIN 7.7 G/DL (13.3-17.7); LYMPHOCYTES # (AUTO) 0.7 X 10^3 (1.0-4.0); LYMPHOCYTES % (AUTO) 10 % (12-44); MEAN CORPUSCULAR HEMOGLOBIN 19 PG (25-34); MEAN CORPUSCULAR HGB CONC 26 G/DL (32-36); MEAN CORPUSCULAR VOLUME 76 FL (80-99); MEAN PLATELET VOLUME 11.6 FL (7.4-10.4); MONOCYTES # (AUTO) 0.7 X 10^3 (0.0-1.0); MONOCYTES % (AUTO) 10 % (0-12); NEUTROPHILS # (AUTO) 5.3 X 10^3 (1.8-7.8); NEUTROPHILS % (AUTO) 78 % (42-75); PLATELET COUNT 177 10^3/uL (130-400)
[2019-01-28 10:06] LABS: CARBON DIOXIDE 25 MMOL/L (21-32); CHLORIDE 104 MMOL/L (98-107); POTASSIUM 3.4 MMOL/L (3.6-5.0); SODIUM 140 MMOL/L (135-145)
[2019-01-28 10:07] LABS: ALANINE AMINOTRANSFERASE < 5 U/L (0-55); ALBUMIN 3.1 GM/DL (3.2-4.5); ALKALINE PHOSPHATASE 138 U/L (40-136); BILIRUBIN,TOTAL 0.5 MG/DL (0.1-1.0); BUN/CREATININE RATIO 11; CALCIUM 7.6 MG/DL (8.5-10.1); CREATININE SERUM 1.51 MG/DL (0.60-1.30); GFR ESTIMATED 46; GLUCOSE 189 MG/DL (70-105); TOTAL PROTEIN 5.7 GM/DL (6.4-8.2)
--- NOTE | 2019-01-28 10:24 | Diagnostic Imaging Report ---
PROCEDURE: CT head without contrast. TECHNIQUE: Multiple contiguous axial images were obtained through the brain without the use of intravenous contrast. Auto Exposure Controls were utilized during the CT exam to meet ALARA standards for radiation dose reduction. INDICATION: Confusion. Altered mental status. Weakness. COMPARISON: 09/04/2018 FINDINGS: Since the previous exam, there has been interval development of diffuse abnormal hypodense prominence throughout the deep white matter of the left cerebral hemisphere. Posteriorly on the left near the temporoparietal junction, there is a 1.8 x 1.9 cm hyperdensity epicentered within the deep white matter. Similar appearance is also noted within the inferior margins of the left frontal lobe. This lesion measures approximately 2 cm in diameter. Findings are felt to be most likely on the basis of intraparenchymal metastatic disease. Hypodense prominence of the deep white matter of the posterior right frontal lobe is also noted and also suspicious for surrounding vasogenic edema. There is effacement of the sulci of the left frontal lobe as well. There is also compression of the left lateral ventricle. Localized left to right midline shift of the frontal lobe is identified and measures 4-5 mm in diameter. Basal cisterns are maintained. There is otherwise background prominence of the ventricles and cortical sulci consistent with age-related parenchymal volume loss. Background chronic small vessel ischemic changes are also noted. No evidence of intra or extra-axial intracranial hemorrhage is identified. IMPRESSION: 1. Abnormal appearance of the bilateral cerebral hemispheres as described above. Imaging appearance is most suggestive of a new intraparenchymal metastatic disease with vasogenic edema of the deep white matter, left greater than right. Correlation with MR brain is recommended. 2. Mass effect with localized midline shift of the left frontal lobe, as well as effacement of the sulci and left lateral ventricle. 3. No evidence of acute intracranial hemorrhage. 4. Background age-related parenchymal volume loss and chronic small vessel ischemic changes. Dictated by: Dictated on workstation # [id number]
--- NOTE | 2019-01-28 10:27 | Diagnostic Imaging Report ---
INDICATION: Altered mental status. Confusion. Generalized weakness. COMPARISON: 09/25/2018 FINDINGS: Frontal and lateral views of the chest demonstrate normal heart size and pulmonary vascularity. The lungs show somewhat low inspiratory volumes, left more prominent than right, but are otherwise clear. There are no signs of infiltrate, pleural effusions or pneumothoraces. The visualized osseous structures show no acute abnormalities. IMPRESSION: 1. No acute process. No signs of infiltrates, effusions or pneumothoraces. Dictated by: Dictated on workstation # [id number]
[2019-01-28] MEDS ORDERED: DEXAMETHASONE 4 MG/ML SDV (DECADRON) IV ONE (11:15)
[2019-01-28 12:55] VITALS: BP 139/81
--- NOTE | 2019-01-28 13:00 | NUR ---
RENA GUERRERO admitted to room 407-1, with an admitting diagnosis of BRAIN TUMOR , on 01/28/19 from ED IN [place] via AMBULANCE, accompanied by STAFF. RENA GUERRERO introduced to surroundings, call light, bed controls, phone, TV, temperature control, lights, meal times, smoking policy, visitor policy, side rail policy, bathrooms and showers. Patient Rights given to patient in the handbook. RENA GUERRERO verbalizes understanding that [facility] is not responsible for the loss or damage to any personal effects or valuables that are kept in the patients posession during their hospitalization. The following Patient Care Plans were discussed with the PATIENT: Discharge Planning, KNOWLEDGE, AND INJURY. RENA GUERRERO verbalizes understanding of Interdisciplinary Patient Education.
[2019-01-28] MEDS ORDERED: INSU100V5 SQ (14:17)
[2019-01-28] MEDS ORDERED: ACETAMINOPHEN 325 MG TABLET PO PRN (14:30)
--- NOTE | 2019-01-28 14:46 | NUR ---
DR FRANCE CALLED FOR DVT ORDER, INSTRUCTED NURSE SCD'S ONLY AT THIS TIME
--- NOTE | 2019-01-28 14:50 | NUR ---
FAMILY REQUESTED PATIENT HAVE MRI IN AM THEN THEY WOULD DECIDE ON COMFORT CARE, DR FRANCE NOTIFIED AND INSTRUCTED NURSE TO CONSULT DR VELA IN AM
[2019-01-28 15:18] VITALS: BP 137/86
[2019-01-28] MEDS: inSUlin ASPART (NovoLOG) 1 UNIT/0.01 ML (CHARGE PER UNIT) SC SCH (17:21)
[2019-01-28 19:19] VITALS: BP 130/70
[2019-01-28] MEDS: LATANOPROST 0.005% (XALATAN) OPHTH SOLN 2.5 ML OU SCH (22:29)
[2019-01-28] MEDS: rOPINIRole 1 MG (REQUIP) TABLET PO SCH (22:30)
[2019-01-28] MEDS: PANTOPRAZOLE 40 MG (PROTONIX) TAB PO SCH (22:30)
[2019-01-28] MEDS: TAMSULOSIN 0.4 MG (FLOMAX) CAP PO SCH (22:30)
[2019-01-28] MEDS: DEXAMETHASONE 4 MG/ML SDV (DECADRON) IV SCH (22:31)
[2019-01-29 00:20] VITALS: BP 156/77
[2019-01-29 04:00] VITALS: BP 111/74
[2019-01-29] MEDS: DEXAMETHASONE 4 MG/ML SDV (DECADRON) IV SCH ×3 (06:25→20:12)
[2019-01-29] MEDS: inSUlin ASPART (NovoLOG) 1 UNIT/0.01 ML (CHARGE PER UNIT) SC SCH ×3 (06:25→16:36)
[2019-01-29] MEDS: PANTOPRAZOLE 40 MG (PROTONIX) TAB PO SCH ×2 (06:26→20:11)
[2019-01-29 08:00] VITALS: BP 135/67
[2019-01-29] MEDS: FUROSEMIDE 20 MG (LASIX) TAB PO SCH (08:15)
[2019-01-29] MEDS: FLUoxetine HCL 20 MG (PROzac) CAP PO SCH (08:15)
[2019-01-29 10:22] LABS: BASOPHILS % (AUTO) 0 % (0-10); EOSINOPHILS % (AUTO) 0 % (0-10); HEMATOCRIT 28 % (40-54); HEMOGLOBIN 7.5 G/DL (13.3-17.7); LYMPHOCYTES # (AUTO) 0.4 X 10^3 (1.0-4.0); LYMPHOCYTES % (AUTO) 7 % (12-44); MEAN CORPUSCULAR HEMOGLOBIN 20 PG (25-34); MEAN CORPUSCULAR HGB CONC 27 G/DL (32-36); MEAN CORPUSCULAR VOLUME 75 FL (80-99); MEAN PLATELET VOLUME 11.8 FL (7.4-10.4); MONOCYTES # (AUTO) 0.2 X 10^3 (0.0-1.0); MONOCYTES % (AUTO) 3 % (0-12); NEUTROPHILS # (AUTO) 5.3 X 10^3 (1.8-7.8); NEUTROPHILS % (AUTO) 90 % (42-75); PLATELET COUNT 196 10^3/uL (130-400)
--- NOTE | 2019-01-29 10:35 | History & Physical-Hospitalist ---
ADILENE,DAMIAN,MED STUDENT 01/29/19 1035: History of Present Illness HPI/Chief Complaint Patient is a 73 y/o male patient of Dr. Sam who presented to the [place] ED on 01/28 with chief complaint of altered mental status. His reported 2-3 weeks of increasing weakness, confusion, falls, poor intake, and expressive aphasia. Labs revealed Hb 7.7 and creatinine 1.51 which were reported to be baseline due to history of anemia requiring transfusion and renal insufficiency. Chest X-ray and ECG were essentially unremarkable. CT head was markedly abnormal with bilateral cerebral hemisphere changes suggestive of new intraparenchymal metastatic disease with vasogenic edema of the deep white matter, mass effect of localized midline shift of the left frontal lobe, effacement of the sulci and left lateral ventricle, and chronic small vessel ischemic changes. Dr. Dixon in the ED recommended patient be transferred to a facility with neurosurgery, but patient's wanted him to be admitted to [facility] in [place] for MRI prior to deciding on next steps in his care. He is a DNR and his has expressed that they do not want any aggressive treatments but they will make final decisions once the MRI is done. No family was present this morning when patient was interviewed so history was limited. He denied any pain or shortness of breath at this time. He reports a bowel movement yesterday. Source: patient, RN/MD, old records Date Seen 01/29/19 Time Seen by a Provider: 09:13 Attending Physician Luis Antonio Chao MD PCP Estefani Sam MD Referring Physician Date of Admission Jan 28, 2019 at 11:23 Home Medications & Allergies Home Medications Reviewed patient Home Medication Reconciliation performed by pharmacy medication reconciliations data center technician and/or nursing. Patients Allergies have been reviewed. Allergies Allergies Coded Allergies Penicillins (Verified Allergy, Unknown, 03/21/18) tetanus and diphtheria toxoids (Verified Allergy, Unknown, 03/21/18) Past Vukyzuo-Adednp-Nhviyq Hx Patient Social History Marrital Status: Alcohol Use: Denies Use Recreational Drug Use: No Smoking Status: Former Smoker Type Used: Cigarettes 2nd Hand Smoke Exposure: No Recent Foreign Travel: No Contact w/other who traveled: No Recent Infectious Disease Expo: No Immunizations Up To Date Date of Pneumonia Vaccine: Sep 04, 2016 Date of Influenza Vaccine: Nov 14, 2018 Past Medical History Cardiac: High Cholesterol, Hypertension Neurological: Stroke Genitourinary: Renal Failure Gastrointestinal: Obstructive Bowel, Diverticulosis Endocrine: Diabetes, Non-Insulin dep Cancer: Skin History of Blood Disorders: No Family History Cardiovascular disease 19 FATHER Completed stroke 19 MOTHER Hypertension 19 FATHER 19 MOTHER Myocardial infarction 19 MOTHER Neoplasm dAUGHTER No Pertinent Family Hx Review of Systems Constitutional: No chills, No fever EENTM: No hearing loss, No vision loss Respiratory: No cough, No short of breath Cardiovascular: No chest pain, No edema Gastrointestinal: No abdominal pain, No constipation Genitourinary: No dysuria, No frequency Musculoskeletal: No back pain, No joint pain Skin: No lesions, No rash Psychiatric/Neurological: Denies Headache; Weakness Physical Exam Physical Exam Vital Signs Vital Signs - First Documented 01/28/19 01/28/19 09:25 12:55 Temp 36.8 Pulse 74 Resp 12 B/P (MAP) 124/70 (88) Pulse Ox 98 O2 Delivery Nasal Cannula O2 Flow Rate 3.00 Capillary Refill : Less Than 3 Seconds Height, Weight, BMI Height: 5'8.00" Weight: 255lbs. 6.0oz. 115.782654ja; 29.71 BMI Method:Stated General Appearance: No Apparent Distress, WD/WN HEENT: PERRL/EOMI, Pharynx Normal Neck: Non Tender, Supple Respiratory: Chest Non Tender, Lungs Clear, Normal Breath Sounds, No Accessory Muscle Use, No Respiratory Distress Cardiovascular: Regular Rate, Rhythm, No Murmur Gastrointestinal: Non Tender, Soft; No Distended Extremity: No Calf Tenderness, No Pedal Edema Neurologic/Psychiatric: Alert, Disoriented Skin: Normal Color, Warm/Dry Lymphatic: No Adenopathy Results Results/Procedures Labs Laboratory Tests 01/28/19 09:35 Patient resulted labs reviewed. Assessment/Plan Admission Diagnosis Admission Status: Inpatient Order (span 2 midnights) Reason for Inpatient Admission: Altered mental status Brain tumor Assessment and Plan Assessment: Altered mental status Brain tumor Unsteady gait Anemia Renal insufficiency O2 dependent COPD Diabetes History of CVA Plan: MRI today Dr. Colin consulted Social work consult for possible comfort care Continue home meds Recheck labs Expect discharge to home with comfort care in 2 days after labs improve and MRI results are reviewed with family Clinical Quality Measures DVT/VTE Risk/Contraindication: Risk Factor Score Per Nursin RFS Level Per Nursing on Admit: 4+=Very High SINAI JANE DO 01/29/19 5990: History of Present Illness HPI/Chief Complaint CC: Alteredmental status HPI: This is a 73yoWM with history of dementia who presented to the [facility] ER with aphasia. CT scan showed abnormalities of B/L hemispheres and a mass . MRI will be completed to fully evaluate. chose no aggressive treatment, MRI to be done, and fully evaluate. His hgb is 7.7 and will obtain STAT labs and will know more with the next step in his plan after MRI is done. Past Cbnmkyw-Svindn-Jyzkoj Hx Past Med/Social Hx: Reviewed Nursing Past Med/Soc Hx, Reviewed and Corrections made Patient Social History Marrital Status: Smoking Status: Unknown if Ever Smoked Past Medical History Neurological: Dementia Family History Cardiovascular disease 19 FATHER Completed stroke 19 MOTHER Hypertension 19 FATHER 19 MOTHER Myocardial infarction 19 MOTHER Neoplasm dAUGHTER Review of Systems Constitutional: malaise, weakness Psychiatric/Neurological: Other (confusion) Physical Exam Physical Exam General Appearance: No Apparent Distress, Chronically ill Eyes: Right Eye Normal Inspection, Right Eye PERRL HEENT: PERRL/EOMI, TMs Normal, Normal ENT Inspection, Pharynx Normal, Moist Mucous Membranes Neck: Full Range of Motion, Normal Inspection, Non Tender Respiratory: Chest Non Tender, Lungs Clear, Normal Breath Sounds, No Accessory Muscle Use, No Respiratory Distress Cardiovascular: Regular Rate, Rhythm, No Edema, No Gallop, No JVD, No Murmur, Normal Peripheral Pulses Gastrointestinal: Normal Bowel Sounds, No Organomegaly, No Pulsatile Mass, Non Tender, Soft Back: Normal Inspection, No CVA Tenderness, No Vertebral Tenderness Extremity: Normal Capillary Refill, Normal Inspection, Normal Range of Motion, Non Tender, No Calf Tenderness, No Pedal Edema Neurologic/Psychiatric: Alert, No Motor/Sensory Deficits, Normal Mood/Affect, Disoriented Skin: Normal Color, Warm/Dry Lymphatic: No Adenopathy Assessment/Plan Admission Diagnosis Assessment: Brain mass Confusion Dementia hx HTN HLP Plan: MRI Oncology consult DNR Admission Status: Inpatient Order (span 2 midnights) Reason for Inpatient Admission: confusion with brain mass Diagnosis/Problems Diagnosis/Problems (1) Brain tumor Status: Acute (2) CKD (chronic kidney disease) Status: Chronic (3) Diabetes mellitus Status: Chronic (4) Hypertension Status: Chronic Supervisory-Addendum Brief Verification & Attestation Participated in pt care: history, MDM, physical Personally performed: exam, history, MDM, supervision of care Care discussed with: Medical Student Procedures: n/a Results interpretation: Verified all documentation Verification and Attestation of Medical Student E/M Service A medical student performed and documented this service in my presence. I reviewed and verified all information documented by the medical student and made modifications to such information, when appropriate. I personally performed the physical exam and medical decision making. [facility] Jane, Jan 29, 2019,16:58 DAMIAN HEAD,MED STUDENT Jan 29, 2019 10:35 SINAI LANZA DO Jan 29, 2019 16:59 POS
[2019-01-29 10:43] LABS: ALBUMIN 3.1 GM/DL (3.2-4.5); BILIRUBIN,TOTAL 0.5 MG/DL (0.1-1.0); CALCIUM 7.6 MG/DL (8.5-10.1); CREATININE SERUM 1.35 MG/DL (0.60-1.30); POTASSIUM 3.7 MMOL/L (3.6-5.0); TOTAL PROTEIN 5.5 GM/DL (6.4-8.2)
[2019-01-29 12:00] VITALS: BP 142/72
[2019-01-29] MEDS: rOPINIRole 1 MG (REQUIP) TABLET PO SCH ×2 (12:01→20:12)
[2019-01-29 13:08] LABS: BASOPHILS % (MANUAL) 0 %; EOSINOPHILS % (MANUAL) 0 %; LYMPHOCYTES % (MANUAL) 7 %; MONOCYTES % (MANUAL) 3 %; NEUTROPHILS % (MANUAL) 90 %
[2019-01-29 13:09] LABS: HYPOCHROMASIA SLIGHT; NUCLEATED RED BLOOD CELLS 1
[2019-01-29 13:10] LABS: ANISOCYTOSIS SLIGHT; POIKILOCYTOSIS SLIGHT
[2019-01-29 13:19] LABS: ELLIPT/OVALOCYTES SLIGHT; MICROCYTOSIS SLIGHT; TEAR DROP CELLS SLIGHT
--- NOTE | 2019-01-29 14:05 | NUR ---
Pastoral care visit.
[2019-01-29] MEDS ORDERED: GADOBUTROL 10 MMOL/10 ML (GADAVIST) VIAL IV ONE (15:30)
--- NOTE | 2019-01-29 15:55 | Diagnostic Imaging Report ---
PROCEDURE: MR imaging of the brain with and without contrast. TECHNIQUE: Multiplanar, multisequence MR imaging of the brain was performed with and without contrast. INDICATION: Mental status changes. COMPARISON: No prior MRI brain study is available for comparison. Comparison is made with the recent head CT from 01/28/2019. FINDINGS: There are numerous bilateral cerebral and cerebellar hemispheric enhancing lesions consistent with intracranial metastatic disease. Enhancing mass in the inferior left frontal lobe measures 2.5 cm in diameter and the left temporal lobe lesion measures 2.2 cm. Right posterior parietal lobe lesion measures 1.3 cm. There are several additional smaller enhancing lesions including a 1.1 cm enhancing lesion in the right cerebellar hemisphere. T2 weighted images demonstrate significant increased signal within bilateral cerebral hemispheres consistent with vasogenic edema. There is mild shift of the midline from left to right by approximately 4 mm. Some of these lesions do show some increased signal on diffusion weighted images consistent with high cellularity. No acute infarct is identified. The normal expected flow-voids within the carotid siphons are seen. No acute intra-axial or extra-axial hemorrhage is detected. Cisterns are patent. Corpus callosum is unremarkable. Sella and parasellar structures are unremarkable. IMPRESSION: Numerous bilateral enhancing lesions with associated surrounding vasogenic edema consistent with intracranial metastatic disease. There is very mild midline shift left to right. No acute intracranial hemorrhage is identified. Results were discussed with Dr. Ortiz prior to this dictation. Dictated by: Dictated on workstation # [id number]
[2019-01-29 16:00] VITALS: BP 119/68
[2019-01-29 19:49] VITALS: BP 111/71
[2019-01-29] MEDS: TAMSULOSIN 0.4 MG (FLOMAX) CAP PO SCH (20:12)
[2019-01-29] MEDS: LATANOPROST 0.005% (XALATAN) OPHTH SOLN 2.5 ML OU SCH (20:13)
[2019-01-30 00:52] VITALS: BP 141/79
[2019-01-30 04:00] VITALS: BP 131/74
[2019-01-30] MEDS: DEXAMETHASONE 4 MG/ML SDV (DECADRON) IV SCH ×2 (06:47→13:08)
[2019-01-30] MEDS: PANTOPRAZOLE 40 MG (PROTONIX) TAB PO SCH ×2 (06:48→20:04)
[2019-01-30] MEDS: inSUlin ASPART (NovoLOG) 1 UNIT/0.01 ML (CHARGE PER UNIT) SC SCH ×3 (06:48→18:22)
[2019-01-30 08:00] VITALS: BP 157/88
[2019-01-30] MEDS: FUROSEMIDE 20 MG (LASIX) TAB PO SCH (08:32)
[2019-01-30] MEDS: FLUoxetine HCL 20 MG (PROzac) CAP PO SCH (08:32)
--- NOTE | 2019-01-30 10:59 | Progress Note - Hospitalist ---
ADILENEDAMIAN,MED STUDENT 01/30/19 1059: Subjective HPI/CC On Admission Date Seen by Provider: Jan 30, 2019 Time Seen by Provider: 09:46 CC: Alteredmental status HPI: This is a 73yoWM with history of dementia who presented to the [facility] ER with aphasia. CT scan showed abnormalities of B/L hemispheres and a mass . MRI will be completed to fully evaluate. chose no aggressive treatment, MRI to be done, and fully evaluate. His hgb is 7.7 and will obtain STAT labs and will know more with the next step in his plan after MRI is done. Subjective/Events-last exam Brain MRI done yesterday showed numerous bilateral enhancing lesions consistent with intracranial metastatic disease. Patient is alert but confused today which is his baseline. He denied pain, shortness of breath, or other concerns at this time. Nurse reported he was incontinent of urine this morning. No family at bedside, but spoke with his on the phone who stated that they have a special needs daughter at home and it is difficult to find someone to care for her during the day. His would like to proceed with oncology consult as planned to determine next steps. Focused Exam Lactate Level 01/28/19 09:35: Lactic Acid Level 1.17 Objective Exam Vital Signs Vital Signs Date Time Temp Pulse Resp B/P (MAP) Pulse Ox O2 Delivery O2 Flow Rate FiO2 01/30/19 08:00 36.6 84 20 157/88 (111) 96 Nasal Cannula 4.00 Capillary Refill : Less Than 3 Seconds General Appearance: No Apparent Distress, WD/WN HEENT: PERRL/EOMI, Pharynx Normal Neck: Full Range of Motion, Supple Respiratory: Chest Non Tender, Lungs Clear, Normal Breath Sounds, No Accessory Muscle Use, No Respiratory Distress Cardiovascular: Regular Rate, Rhythm, No Murmur Gastrointestinal: Non Tender, Soft Extremity: Non Tender, No Pedal Edema Neurologic/Psychiatric: Alert, Normal Mood/Affect Skin: Normal Color, Warm/Dry Lymphatic: No Adenopathy Results/Procedures Lab Patient resulted labs reviewed. Assessment/Plan Assessment and Plan Assess & Plan/Chief Complaint Assessment: Altered mental status Brain tumor Unsteady gait Anemia Renal insufficiency O2 dependent COPD Diabetes History of CVA Plan: Dr. Colin consulted Social work consult for possible comfort care Continue home meds Clinical Quality Measures DVT/VTE Risk/Contraindication: Risk Factor Score Per Nursin RFS Level Per Nursing on Admit: 4+=Very High SINAI JANE DO 01/31/19 1522: Subjective Subjective/Events-last exam Remains incontinent. Spoke with his and told her about the findings consistent with metastatic cancer in his brain. Pt remains confused. Eating and drinking well. Will await for oncology and I did reach out to Dr. Cash and she uma see the Pt. Review of Systems Neurological: Confusion Objective Exam General Appearance: No Apparent Distress, WD/WN, Chronically ill Respiratory: Lungs Clear Cardiovascular: Regular Rate, Rhythm Neurologic/Psychiatric: Alert, Disoriented Assessment/Plan Assessment and Plan Assess & Plan/Chief Complaint Appreciate oncology opinion Updated and delivered bad news Diagnosis/Problems Diagnosis/Problems (1) Encephalopathy acute Status: Resolved (2) Brain tumor Status: Acute Supervisory-Addendum Brief Verification & Attestation Participated in pt care: history, MDM, physical Personally performed: exam, history, MDM, supervision of care Care discussed with: Medical Student Procedures: n/a Results interpretation: Verified all documentation Verification and Attestation of Medical Student E/M Service A medical student performed and documented this service in my presence. I reviewed and verified all information documented by the medical student and made modifications to such information, when appropriate. I personally performed the physical exam and medical decision making. Sinai Jane, Jan 31, 2019,15:20 DAMIAN HEAD,MED STUDENT Jan 30, 2019 10:59 SINAI JANE DO Jan 31, 2019 15:22
--- NOTE | 2019-01-30 11:47 | Oncology Consultation ---
Visit Information Visit Information Date of Admission Jan 28, 2019 at 11:23 Attending Physician Luis Antonio Chao MD Admitting Physician Estefani Sam MD Chief Complaint Brain mets mental status change Interval History Mr Simons is a 73 year old white man admitted to the hospital due to falls at home and mental status changes. MRI of the head showed bilateral numerous lesions with surrounding edema suggesting malignant metastatic disease. I discussed with patient, his and his daughter of the brain MRI findings and treatment options of cranial radiation and work up for the primary origin. Patient, and daughter all expressed that they do not want any aggressive treatment. Patient wants to go their home with his and [facility]. He is ready for hospice care. However, his was not sure that she could take care of him at home because she also has a disabled daughter that she has to take care of. She is thinking of possible half-way. They would like to have [facility] service if they get to go home. Other medical problems: 1 DM 2. h/o strokes 3. Chronic anemia 4. Chronic renal insufficiency. I consulted the patient on: 01/30/19 11:45 Time Seen by Provider: 11:45 Review of Systems Constitutional: weakness Respiratory: no symptoms reported Cardiovascular: no symptoms reported Gastrointestinal: no symptoms reported Genitourinary: no symptoms reported Musculoskeletal: muscle weakness Psychiatric/Neurological: Weakness Health Status Allergies Coded Allergies: Penicillins (Verified Allergy, Unknown, 03/21/18) tetanus and diphtheria toxoids (Verified Allergy, Unknown, 03/21/18) Home Medications Acetaminophen (Acetaminophen) 325 Mg Tablet, 650 MG PO Q4H PRN for PAIN-MILD, (Reported) Atorvastatin Calcium (Atorvastatin Calcium) 10 Mg Tablet, 10 MG PO HS, (Reported) Fluoxetine HCl (Fluoxetine HCl) 20 Mg Capsule, 20 MG PO DAILY, (Reported) Furosemide (Furosemide) 20 Mg Tablet, 20 MG PO DAILY, (Reported) Insulin Aspart (Novolog) 100 Unit/1 Ml Susp, 10 UNIT SQ AC, #30 Prescribed by: DAVION JANE on 09/11/18 1302 Insulin Determir (Levemir) 1,000 Units/10 Ml Soln, 10 UNITS SQ HS, (Reported) Latanoprost (Latanoprost) 2.5 Ml Drops, 1 DROP OU HS, (Reported) Pantoprazole Sodium (Pantoprazole Sodium) 40 Mg Tablet.dr, 40 MG PO BID@0700,2100 for 30 Days Prescribed by: DAVION JANE on 09/11/18 1302 Ropinirole HCl (Ropinirole HCl) 1 Mg Tablet, 1 MG PO 1200, (Reported) Ropinirole HCl (Ropinirole HCl) 2 Mg Tablet, 2 MG PO HS, (Reported) Tamsulosin HCl (Flomax) 0.4 Mg Cap, 0.4 MG PO HS, (Reported) Zolpidem Tartrate (Zolpidem Tartrate) 5 Mg Tablet, 5 MG PO MoWeFrSa, (Reported) [id number] Hx Patient Social History Marrital Status: Alcohol Use: Denies Use Recreational Drug Use: No Smoking Status: Unknown if Ever Smoked Type Used: Cigarettes 2nd Hand Smoke Exposure: No Recent Foreign Travel: No Contact w/other who traveled: No Recent Infectious Disease Expo: No Immunizations Up To Date Date of Pneumonia Vaccine: Sep 04, 2016 Date of Influenza Vaccine: Nov 14, 2018 Family Medical History Significant Family History: No Pertinent Family Hx Family History: Cardiovascular disease 19 FATHER Completed stroke 19 MOTHER Hypertension 19 FATHER 19 MOTHER Myocardial infarction 19 MOTHER Neoplasm dAUGHTER Physical Exam Vital Signs Vital Signs - First Documented 01/28/19 01/28/19 09:25 12:55 Temp 36.8 Pulse 74 Resp 12 B/P (MAP) 124/70 (88) Pulse Ox 98 O2 Delivery Nasal Cannula O2 Flow Rate 3.00 Capillary Refill : Less Than 3 Seconds Height, Weight, BMI Height: 5'8.00" Weight: 255lbs. 6.0oz. 115.121447tg; 29.71 BMI Method:Stated General Appearance: No Apparent Distress HEENT: PERRL/EOMI Neck: Non Tender, Supple Respiratory: Lungs Clear, No Accessory Muscle Use, No Respiratory Distress Cardiovascular: Regular Rate, Rhythm, No Edema, No JVD Gastrointestinal: Non Tender, Soft Extremity: Non Tender, No Calf Tenderness, No Pedal Edema, Other Neurologic/Psychiatric: Alert, Oriented x3, Other (Pt is able to answer all questions properly. The only defect that I found today that he could not calculate the numbers and remember the phone numbers. ) Data Review Labs Laboratory Tests 01/28/19 09:35: Red Blood Count 3.96L, Hemoglobin 7.7L, Hematocrit 30L, Mean Corpuscular Volume 76L, Mean Corpuscular Hemoglobin 19L, Mean Corpuscular Hemoglobin Concent 26L, Red Cell Distribution Width 18.0H, Mean Platelet Volume 11.6H, Neutrophils (%) (Auto) 78H, Lymphocytes (%) (Auto) 10L, Lymphocytes # (Auto) 0.7L, Potassium Level 3.4L, Creatinine 1.51H, Glucose Level 189H, Calcium Level 7.6L, Corrected Calcium 8.3L, Alkaline Phosphatase 138H, Total Protein 5.7L, Albumin 3.1L 01/28/19 16:21: Glucometer 263H 01/28/19 20:38: Glucometer 213H 01/29/19 05:42: Glucometer 155H 01/29/19 10:10: Red Blood Count 3.79L, Hemoglobin 7.5L, Hematocrit 28L, Mean Corpuscular Volume 75L, Mean Corpuscular Hemoglobin 20L, Mean Corpuscular Hemoglobin Concent 27L, Red Cell Distribution Width 18.0H, Mean Platelet Volume 11.8H, Neutrophils (%) (Auto) 90H, Lymphocytes (%) (Auto) 7L, Lymphocytes # (Auto) 0.4L, Creatinine 1. 35H, Glucose Level 188H, Calcium Level 7.6L, Corrected Calcium 8.3L, Total Protein 5.5L, Albumin 3.1L 01/29/19 11:39: Glucometer 190H 01/29/19 16:32: Glucometer 177H 01/29/19 21:22: Glucometer 169H 01/30/19 05:25: Glucometer 167H 01/30/19 11:10: Glucometer 159H Impression & Plan Impression & Plan A/P 1. Bilateral numerous lesions with surrounding edema suggesting malignant metastatic disease. I will start him on oral Decadron 4mg q 6hrs for a temporary relieve of the symptoms so that patient can go home for a short time and then maybe half-way with hospice. 2. Pt and his family are not interested in radiation treatment nor further work up nor aggressive treatment. They are ready for hospice service and would like to have [facility] in [place]. 3. reel worker consult. I notified Ms Hodan Figueroa to help his for the solution of taking care of the disabled daughter and the patient at home as well as forming a discharge plan. 4. Chronic renal failure and chronic anemia, minimal symptoms. No active treatment indicated at this point. KULDIP VELA MD Jan 30, 2019 11:46 POS
[2019-01-30] MEDS: rOPINIRole 1 MG (REQUIP) TABLET PO SCH ×2 (13:08→20:07)
[2019-01-30] MEDS: DEXAMETHASONE 4 MG TAB (DECADRON) PO SCH ×2 (15:23→20:04)
--- NOTE | 2019-01-30 16:02 | NUR ---
Met with pt,, and daughter to discuss continued care plans. Pt not interested in any treatment for brain lesions as reported by his recent MRI. Pt's states that she is unable to take care of pt at home unless he can ambulate to the bathroom and assist in his own bathing.Pt has been a short-term resident of [facility] and after a period of therapies has been able to return home. His last discharge from [facility] was and currently states she would like him to return there for skilled therapies to see if he can regain some moblity. states she is unable to care for him with hospice as he requires 24 hour care she is unable to provide or afford.[facility] is willing to accept pt for skilled care short-term.Pt and family agreeable with plan to place pt at the skilled unit at [facility].
[2019-01-30 16:12] VITALS: BP 125/66
[2019-01-30] MEDS: TAMSULOSIN 0.4 MG (FLOMAX) CAP PO SCH (20:04)
[2019-01-30] MEDS: LATANOPROST 0.005% (XALATAN) OPHTH SOLN 2.5 ML OU SCH (20:04)
[2019-01-31 00:58] VITALS: BP 148/70
[2019-01-31 08:00] VITALS: BP 123/74
--- NOTE | 2019-01-31 08:30 | NUR ---
Morning medications given per orders. Meditech down, see paper chart.
[2019-01-31] MEDS ORDERED: ZOLP5TAB7 PO (10:13)
[2019-01-31] MEDS ORDERED: DEXA4TAB PO (10:13)
--- NOTE | 2019-01-31 10:15 | Discharge Inst-Skilled Nursing ---
Discharge Inst-Skilled NF Reconcile Patient Problems Problems Reviewed?: Yes Chief Complaint CC: Alteredmental status HPI: This is a 73yoWM with history of dementia who presented to the [facility] ER with aphasia. CT scan showed abnormalities of B/L hemispheres and a mass . MRI will be completed to fully evaluate. chose no aggressive treatment, MRI to be done, and fully evaluate. His hgb is 7.7 and will obtain STAT labs and will know more with the next step in his plan after MRI is done. Patient Instructions Patient Problems: Cancer mets to brain Dementia Goal: Return to independence Consult/Follow Up/Orders Follow Up Appt.: Dr Sam 1 week Skilled NF Admit to: [facility] Certification (SNF) I certify that SNF services are required to be given on an inpatient basis because of the above named patient's need for halfway care on a continuing basis for the conditions(s) for which he/she was receiving inpatient hospital services prior to his/her transfer to the SNF. [facility]dc Facility Order: Nursing Services, Production Generalist-Evaluate & Treat, Physical Therapy-Evaluate & Treat, Speech Language-Evaluate & Treat Oxygen Delivery Method: Nasal Cannula Discharge Diet: ADA Diet Resuscitation Status: Do Not Resuscitate New & Resume Previous Orders New Medications: Dexamethasone (Dexamethasone) 4 Mg Tablet 4 MG PO Q6H for 7 Days, TAB Continued Medications: Acetaminophen (Acetaminophen) 325 Mg Tablet 650 MG PO Q4H PRN for PAIN-MILD, TAB Atorvastatin Calcium (Atorvastatin Calcium) 10 Mg Tablet 10 MG PO HS, TAB Fluoxetine HCl (Fluoxetine HCl) 20 Mg Capsule 20 MG PO DAILY, CAP Furosemide (Furosemide) 20 Mg Tablet 20 MG PO DAILY, TAB Insulin Aspart (Novolog) 100 Unit/1 Ml Susp 10 UNIT SQ AC, #30 EACH Insulin Determir (Levemir) 1,000 Units/10 Ml Soln 10 UNITS SQ HS, EA Latanoprost (Latanoprost) 2.5 Ml Drops 1 DROP OU HS, EA Pantoprazole Sodium (Pantoprazole Sodium) 40 Mg Tablet. 40 MG PO BID@0700,2100 for 30 Days, TAB Ropinirole HCl (Ropinirole HCl) 1 Mg Tablet 1 MG PO 1200, TAB Ropinirole HCl (Ropinirole HCl) 2 Mg Tablet 2 MG PO HS, TAB Tamsulosin HCl (Flomax) 0.4 Mg Cap 0.4 MG PO HS, CAP Zolpidem Tartrate (Zolpidem Tartrate) 5 Mg Tablet 5 MG PO Bjorn, #10 TAB (This prescription has been renewed) Sinai Ortiz Jan 31, 2019 10:14 SINAI ORTIZ DO Jan 31, 2019 10:15
--- NOTE | 2019-01-31 10:59 | Discharge Summary ---
ADILENEDAMIAN,MED STUDENT 01/31/19 1059: Diagnosis/Chief Complaint Date of Admission Jan 28, 2019 at 11:23 Discharge Date: Jan 31, 2019 Discharge Time: 10:49 Admission Diagnosis Assessment: Brain mass Confusion Dementia hx HTN HLP Plan: MRI Oncology consult DNR Primary Care Estefani Sam MD Discharge Diagnosis Brain masses Confusion Dementia (1) Brain tumor Status: Acute (2) CKD (chronic kidney disease) Status: Chronic (3) Diabetes mellitus Status: Chronic (4) Hypertension Status: Chronic Discharge Summary Procedures/Consulations Oncology medical and health services manager Discharge Physical Exam Allergies: Coded Allergies: Penicillins (Verified Allergy, Unknown, 03/21/18) tetanus and diphtheria toxoids (Verified Allergy, Unknown, 03/21/18) Vitals & I&Os Vital Signs Date Time Temp Pulse Resp B/P (MAP) Pulse Ox O2 Delivery O2 Flow Rate FiO2 01/31/19 08:00 97 Nasal Cannula 4.00 01/31/19 08:00 36.7 67 20 123/74 (90) General Appearance: No Apparent Distress, WD/WN HEENT: PERRL/EOMI, Pharynx Normal Respiratory: Chest Non Tender, Lungs Clear, Normal Breath Sounds, No Accessory Muscle Use, No Respiratory Distress Cardiovascular: Regular Rate, Rhythm, No Murmur Gastrointestinal: Non Tender, Soft Extremity: No Calf Tenderness, No Pedal Edema Skin: Normal Color, Warm/Dry Neurologic/Psychiatric: Alert, Normal Mood/Affect, Disoriented Hospital Course Was the Problem List Reviewed?: Yes Patient was admitted from the ED on 01/28/19 for altered mental status and CT imaging confirmed bilateral enhancing lesions consistent with intracranial metastatic disease. MRI was performed the next day which confirmed CT findings and showed vasogenic edema. Oncology was consulted and Dr. Colin spoke with patient, his , and his daughter who have elected not to pursue any aggressive treatments at this time. Dr. Colin started Decadron 4 mg [id number] for temporary symptom relief. Social work also spoke with patient, , and daughter and since cannot provide 24 hour care at this time the decision was made to send patient to [facility] in [place] with nursing home. They would also like to initiate hospice care with [facility]. Labs (last 24 hrs) Laboratory Tests 01/30/19 11:10: Glucometer 159H 01/30/19 16:02: Glucometer 128H 01/30/19 19:36: Glucometer 124H 01/31/19 06:49: Glucometer 101 Patient resulted labs reviewed. Pending Labs Laboratory Tests 01/31/19 06:49: Glucometer 101 Discharge Home Medications: Active Scripts Active Dexamethasone 4 Mg Tablet 4 Mg PO Q6H 7 Days Zolpidem Tartrate 5 Mg Tablet 5 Mg PO [id number] Novolog (Insulin Aspart) 100 Unit/1 Ml Susp 10 Unit SQ AC Pantoprazole Sodium 40 Mg Tablet.dr 40 Mg PO BID@0700,2100 30 Days Reported Levemir (Insulin Determir) 1,000 Units/10 Ml Soln 10 Units SQ HS Furosemide 20 Mg Tablet 20 Mg PO DAILY Flomax (Tamsulosin HCl) 0.4 Mg Cap 0.4 Mg PO HS Ropinirole HCl 2 Mg Tablet 2 Mg PO HS Acetaminophen 325 Mg Tablet 650 Mg PO Q4H PRN Fluoxetine HCl 20 Mg Capsule 20 Mg PO DAILY Ropinirole HCl 1 Mg Tablet 1 Mg PO 1200 Latanoprost 2.5 Ml Drops 1 Drop OU HS Atorvastatin Calcium 10 Mg Tablet 10 Mg PO HS Instructions to patient/family Please see electronic discharge instructions given to patient. Clinical Quality Measures DVT/VTE Risk/Contraindication: Risk Factor Score Per Nursin RFS Level Per Nursing on Admit: 4+=Very High JANEBIJALShamika HWANG 01/31/192114: Diagnosis/Chief Complaint Discharge Diagnosis (1) Encephalopathy acute Status: Resolved (2) Brain tumor Status: Acute Discharge Summary Discharge Physical Exam Allergies: Coded Allergies: Penicillins (Verified Allergy, Unknown, 03/21/18) tetanus and diphtheria toxoids (Verified Allergy, Unknown, 03/21/18) General Appearance: No Apparent Distress, WD/WN, Chronically ill Respiratory: Lungs Clear Cardiovascular: Regular Rate, Rhythm Neurologic/Psychiatric: Alert, Disoriented Hospital Course Was the Problem List Reviewed?: Yes Hospital Course: Pt had an uneventful hospital course when he was admitted for confusion found to have abnormalities on CT scan, MRI confirmed multiple cancer metastasized areas. I did update his on this info. Dr. Cash was consulted and recommended Decadron to decrease the cerebral edema. Pt did not want any aggressive treatment or any other test. He will be discharged to the [facility] under skilled care to improve his strength and then DC home on hospice. Discussion & Recommendations Discharge Planning: <30 minutes discharge planning Supervisory-Addendum Brief Verification & Attestation Participated in pt care: history, MDM, physical Personally performed: exam, history, MDM, supervision of care Care discussed with: Medical Student Procedures: n/a Results interpretation: Verified all documentation Verification and Attestation of Medical Student E/M Service A medical student performed and documented this service in my presence. I reviewed and verified all information documented by the medical student and made modifications to such information, when appropriate. I personally performed the physical exam and medical decision making. Sinai Jane, Jan 31, 2019,21:15 DAMIAN HEAD,MED STUDENT Jan 31, 2019 10:59 SINAI JANE DO Jan 31, 2019 21:15
[2019-01-31] MEDS: inSUlin ASPART (NovoLOG) 1 UNIT/0.01 ML (CHARGE PER UNIT) SC SCH (11:38)
[2019-01-31] MEDS: PANTOPRAZOLE 40 MG (PROTONIX) TAB PO SCH (11:39)
[2019-01-31] MEDS: FLUoxetine HCL 20 MG (PROzac) CAP PO SCH (11:39)
[2019-01-31] MEDS: FUROSEMIDE 20 MG (LASIX) TAB PO SCH (11:39)
[2019-01-31] MEDS: DEXAMETHASONE 4 MG TAB (DECADRON) PO SCH (11:40)
[2019-01-31] MEDS: rOPINIRole 1 MG (REQUIP) TABLET PO SCH (11:48)
--- NOTE | 2019-01-31 14:28 | NUR ---
[facility] and family agreeable. Pt will be on Skilled status and evaluated for Physical and Occupational therapies. .CARE assessment completed. Medical reports including physician's orders were faxed to the facility and given to the [facility] staff.
== END 2019-01-31 12:18 | DRG 54 ==
LOC: EDUNIT# 09:25 → ER FS 09:26 → 4TH 11:23
PROVIDERS: ADMIT Internal Medicine; ATTEND Internal Medicine
DX: C79.31 Secondary malignant neoplasm of brain (principal); G93.6 Cerebral edema; R47.01 Aphasia; R41.0 Disorientation, unspecified; C80.1 Malignant (primary) neoplasm, unspecified; G13.1 Other systemic atrophy primarily affecting central nervous system in neoplastic disease; R26.81 Unsteadiness on feet; R29.6 Repeated falls; Z66 Do not resuscitate; R53.1 Weakness; I12.9 Hypertensive chronic kidney disease with stage 1 through stage 4 chronic kidney disease, or unspecified chronic kidney disease; N18.9 Chronic kidney disease, unspecified; E78.00 Pure hypercholesterolemia, unspecified; E78.5 Hyperlipidemia, unspecified; E11.22 Type 2 diabetes mellitus with diabetic chronic kidney disease; F03.90 Unspecified dementia, unspecified severity, without behavioral disturbance, psychotic disturbance, mood disturbance, and anxiety; J44.9 Chronic obstructive pulmonary disease, unspecified; G25.81 Restless legs syndrome; G47.30 Sleep apnea, unspecified; D64.9 Anemia, unspecified; Z99.81 Dependence on supplemental oxygen; Z87.891 Personal history of nicotine dependence; Z86.73 Personal history of transient ischemic attack (TIA), and cerebral infarction without residual deficits; Z85.828 Personal history of other malignant neoplasm of skin; Z88.0 Allergy status to penicillin; Z88.7 Allergy status to serum and vaccine
CPT/HCPCS: 36415; 70450; 70553; 71046; 80053; 82962; 83605; 85007; 85025; 85027; 93005